=== PATIENT | female | born 1945 ===

== ENCOUNTER 2016-11-28 20:49 | Inpatient (IN) | payer MEDICARE, OTHER ==
[2016-11-28 21:05] VITALS: BMI 30.9
--- NOTE | 2016-11-28 21:14 | ED PDOC ---
Arrival/HPI - General Chief Complaint: Weakness/Neurological Deficit Time Seen by Provider: 11/28/16 21:07 Historian: [facility], EMS - History of Present Illness Narrative History of Present Illness (Text): 11/28/16 21:14 Romelia Trejo is a 71 year old female, whose past medical history includes hypertension, COPD, respiratory failure, dementia, seizures, diabetes, and CAD with stents, who presents to the ED transferred from senior care for hypothermia. As per EMS, an oral temperature was taken at the senior care which showed patient was hypothermic and patient was subsequently transferred to ER for further evaluation. [facility] note patient began acting more confused than usual around 15:00 this afternoon. [facility] also report patient had been congested recently and received nebulizer treatments at the senior care today. Limited HPI and ROS due to patient's dementia. PMD: Dr. Thacker Time/Duration: Other (today) Symptom Onset: Gradual Symptom Course: Unchanged Activities at Onset: Rest, Light Context: Home ([facility]) Past Medical History - Provider Review Nursing Documentation Reviewed: Yes - Infectious Disease Hx of Infectious Diseases: None - Tetanus Immunization Tetanus Immunization: Unknown - Cardiac Hx Cardiac Disorders: No Hx Congestive Heart Failure: No Hx Hypertension: No - Pulmonary Hx Chronic Obstructive Pulmonary Disease (COPD): No - Neurological HX Cerebrovascular Accident: No - HEENT Hx HEENT Disorder: No - Renal Hx Renal Failure: No - Endocrine/Metabolic Hx Diabetes Mellitus Type 1: No Hx Diabetes Mellitus Type 2: No Hx Hypothyroidism: Yes - Hematological/Oncological Hx Cancer: No - Integumentary Hx Dermatological Disorder: No - Musculoskeletal/Rheumatological Hx Arthritis: No Hx Rheumatoid Arthritis: No - Gastrointestinal Hx Gastroesophageal Reflux: No - Genitourinary/Gynecological Hx Genitourinary Disorders: Yes Hx Incontinence: Yes - Psychiatric Hx Psychophysiologic Disorder: Yes Hx Anxiety: Yes Hx Bipolar Disorder: Yes Hx Schizophrenia: Yes Hx Substance Use: (Unable to obtain) - Past Surgical History Past Surgical History: Unable to Obtain - Surgical History Hx Coronary Stent: Yes - Anesthesia Hx Anesthesia: No Hx Anesthesia Reactions: No Hx Malignant Hyperthermia: No - Suicidal Assessment Feels Threatened In Home Enviroment: No Family/Social History - Physician Review Nursing Documentation Reviewed: Yes Family/Social History: No Known Family HX Smoking Status: Never Smoked Hx Alcohol Use: (Unable to obtain) Hx Substance Use: (Unable to obtain) Hx Substance Use Treatment: No Allergies/Home Meds Allergies/Adverse Reactions: Allergies divalproex sodium [From Depakote] Allergy (Verified 07/28/16 11:05) RASH haloperidol [From Haldol] Allergy (Verified 07/28/16 11:05) RASH haloperidol lactate [From Haldol] Allergy (Verified 07/28/16 11:05) RASH olanzapine [From Zyprexa] Allergy (Verified 07/28/16 11:05) RASH quetiapine fumarate [From Seroquel] Allergy (Verified 07/28/16 11:06) RASH risperidone [From Risperdal] Allergy (Verified 07/28/16 11:05) RASH Home Medications: Home Meds Medication Instructions Recorded Confirmed Famotidine [Pepcid] 20 mg PO HS 07/19/15 11/29/16 LORazepam [Ativan] 1 mg PO TID 07/19/15 11/29/16 Levetiracetam [Keppra] 750 mg PO BID 07/19/15 11/29/16 Levothyroxine [Synthroid] 200 mcg PO DAILY 07/19/15 11/29/16 Albuterol/Ipratropium [Duoneb 3 1 inh INH Q6 PRN 07/28/16 11/29/16 mg/0.5 mg (3 ml) UD] Cetirizine HCl [Zyrtec] 10 mg PO DAILY 07/28/16 11/29/16 Cyanocobalamin [Vitamin B12 1000 1,000 mcg IM .MONTHLY ON THE 07/28/1611/29 mcg/ml Inj] Ferrous Sulfate [Feosol] 325 mg PO DAILY 07/28/16 11/29/16 Montelukast [Singulair] 10 mg PO DAILY 07/28/16 11/29/16 Multivitamin [Multi-Delyn Liquid] 5 ml PO DAILY 07/28/16 11/29/16 Propylene Glycol/Peg 400/Pf 1 drop BOTHEYES QID 07/28/16 11/29/16 [Systane Ultra 0.4-0.3% Eye Drp] Sertraline [Zoloft] 150 mg PO DAILY 07/28/16 11/29/16 Topiramate [Topamax] 100 mg PO BID 07/28/16 11/29/16 Review of Systems - Review of Systems Systems not reviewed;Unavailable: Dementia Constitutional: Other (+hypothermic) ENT: Other (+congestion) Neurological: Other (+confused) Physical Exam Vital Signs Reviewed: Yes Vital Signs Temp Pulse Resp BP Pulse Ox 11/29/16 03:24 94.8 F L 11/29/16 02:30 62 18 103/61 97 11/29/16 02:28 20 11/29/16 01:21 93.4 F L 11/29/16 01:00 60 17 105/39 L 99 11/29/16 00:05 63 15 119/53 L 95 11/28/16 23:35 90.9 F L 11/28/16 23:34 67 12 113/49 L 94 L 11/28/16 21:21 89.6 F L 68 18 141/86 99 Temperature: Hypothermic Blood Pressure: Normal Pulse: Regular Respiratory Rate: Normal Appearance: Positive for: Non-Toxic, Ill-Appearing Pain Distress: None Mental Status: Positive for: other (Poorly communicative, awake but somnolent) - Systems Exam Head: Present: Atraumatic, Normocephalic Pupils: Present: PERRL Extroacular Muscles: Present: EOMI Conjunctiva: Present: Normal Mouth: Present: Moist Mucous Membranes Neck: Present: Normal Range of Motion Respiratory/Chest: Present: Rhonchi. No: Respiratory Distress, Accessory Muscle Use Cardiovascular: Present: Regular Rate and Rhythm, Normal S1, S2. No: Murmurs Abdomen: Present: Normal Bowel Sounds. No: Tenderness, Distention, Peritoneal Signs Upper Extremity: Present: Normal Inspection. No: Cyanosis, Edema Lower Extremity: Present: Normal Inspection. No: Edema Neurological: Present: CN II-XII Intact Skin: Present: Warm, Dry, Normal Color. No: Rashes Psychiatric: Present: Other (Poorly communicative, awake but somnolent) Medical Decision Making ED Course and Treatment: 11/28/16 21:14 Impression: 71 year old female sent from senior care for hypothermia, confusion and congestion. Differential Diagnosis include but are not limited to: sepsis vs. hypothermia Plan: -- EKG -- CXR -- Labs, cardiac enzymes, VBG, blood cultures -- UA, urine cultures -- Reassess and disposition Prior Visits: Notes and results from previous visits were reviewed. On 07/28/2016, pt was seen in the Emergency department for lethargy. Pt was admitted to the hospital for further evaluation. Progress Notes: Reviewed EKG, 100% paced rhythm at 62 bpm. 11/28/16 22:20 Reviewed radiology, Chest X-ray shows no active disease. 11/29/16 00:[address] Thacker, who is aware and agrees with plan. Accepts pt in to her service. Requests ICU evaluation, Dr. John and Dr. Macias on consult. 11/29/16 01:[address] Peres, general pediatrician present in Emergency department to evaluate pt. States pt can go to Telemetry. Pt will be admitted to Telemetry for sepsis and hypothermia under Dr. Tolliver's service. - Critical Care Critical Care Minutes: 30 minutes - Lab Interpretations Microbiology Results: Microbiology Results 11/28/16 21:30 Blood Blood Culture - Preliminary NO GROWTH AFTER 24 HOURS 11/28/16 22:35 Blood Blood Culture - Preliminary NO GROWTH AFTER 24 HOURS Lab Results: 11/28/16 21:50 11/28/16 22:35 Lab Results 11/29/16 00:01: pCO2 51 H, pO2 113.0 H, HCO3 24.5, ABG pH 7.29 L, ABG Total CO2 26.1, ABG O2 Saturation 98.2 H, ABG O2 Content 15.9, ABG Base Excess -2.5 L, ABG Hemoglobin 11.6 L, ABG Carboxyhemoglobin 1.1, POC ABG HHb (Measured) 1.8, ABG Methemoglobin 0.7, ABG O2 Capacity 16.2, Hgb O2 Saturation 96.4, FiO2 28.0 11/28/16 23:30: Urine Color Yellow, Urine Appearance Sl cloudy, Urine pH 6.0, Ur Specific [place] 1.010, Urine Protein Negative, Urine Glucose (UA) Negative, Urine Ketones Negative, Urine Blood Negative, Urine Nitrate Positive H, Urine Bilirubin Negative, Urine Urobilinogen 0.2, Ur Leukocyte Esterase Small H, Urine RBC 0 - 2, Urine WBC 1 - 3, Ur Epithelial Cells 0 - 2, Urine Bacteria Many 11/28/16 22:35: pO2 55, VBG pH 7.28 L, VBG pCO2 60.0, VBG HCO3 28.2 H, VBG Total CO2 30.0 H, VBG O2 Sat (Calc) 90.5 H, VBG Base Excess 0.1, VBG Potassium 4.4, Glucose 95, Lactate 0.7, FiO2 21.0, Sodium 138.0, Potassium 4.3, Chloride 108.0 H, Carbon Dioxide 27, Anion Gap 13, BUN 20, Creatinine 0.9, Est GFR ( Amer) > 60, Est GFR (Non-Af Amer) > 60, Random Glucose 93, Calcium 9.6, Phosphorus 4.5, Magnesium 2.2, Total Bilirubin 0.3, AST 96 H, ALT 132 H, Alkaline Phosphatase 118, Lactate Dehydrogenase 414, Total Creatine Kinase 34 L , Troponin I 0.01 D, NT-Pro-B Natriuret Pep 1030 H, Total Protein 8.0, Albumin 3.9, Globulin 4.2, Albumin/Globulin Ratio 0.9 L, Venous Blood Potassium 4.4 11/28/16 21:50: WBC 1.9 L* D, RBC 4.24, Hgb 12.6, Hct 38.5, MCV 90.8, MCH 29.7, MCHC 32.7, RDW 13.5, Plt Count 80 L, MPV 11.0, Gran % Diffuser Operator, Lymph % (Auto) Diffuser Operator, [place] % (Auto) Diffuser Operator, Eos % (Auto) Diffuser Operator, Baso % (Auto) Diffuser Operator, Gran # Diffuser Operator, Lymph # Diffuser Operator, [place] # Diffuser Operator, Eos # Diffuser Operator, Baso # Diffuser Operator, Neutrophils % (Manual) 55, Band Neutrophils % 4 H, Lymphocytes % (Manual) 27, Monocytes % (Manual) 10 H, Eosinophils % (Manual) 3, Basophils % (Manual) 1, Platelet Evaluation Low 11/28/16 21:14: PT 10.7, INR 0.99, APTT 26.8 I have reviewed the lab results: Yes - RAD Interpretation Radiology Orders: 11/28/16 21:14 CHEST PORTABLE [RAD] Stat Director Of Quality: ED Physician - EKG Interpretation EKG Interpretation (Text): EKG: Ordered, reviewed, and independently interpreted the EKG. Rate : 62 BPM Rhythm : 100% paced rhythm Comparison : No acute change from previous EKG on 07/29/2016. Interpreted by ED Physician: Yes Type: 12 lead EKG - Medication Orders Current Medication Orders: Albuterol/Ipratropium (Duoneb 3 Mg/0.5 Mg (3 Ml) Ud) 3 ml INH Q6 [facility] Last Admin: 11/30/16 03:22 Dose: 3 ML Cyanocobalamin (Vitamin B12 1000 Mcg/Ml Inj) 1,000 mcg IM Q30D SHIVANI Famotidine (Pepcid) 20 mg PO HS SHIVANI Ferrous Sulfate (Feosol) 324 mg PO DAILY SHIVANI Heparin Sodium (Porcine) (Heparin) 5,000 units SC Q8 SHIVANI PRN Reason: Protocol Last Admin: 11/29/16 23:06 Dose: 5,000 UNITS MAR aPTT Document 11/29/16 23:06 LI (Rec: 11/29/16 23:06 LI [id number]) aPTT aPTT (secs) 27 Subcutaneous Administrations Document 11/29/16 23:06 LI (Rec: 11/29/16 23:06 LI [id number]) Charges for Administration # of Subcutaneous Administrations 1 Sodium Chloride (Sodium Chloride 0.9%) 1,000 mls @ 100 mls/hr IV .Q10H [facility] Last Admin: 11/29/16 11:57 Dose: 100 MLS/HR eMAR Start Stop Document 11/29/16 11:57 JFR (Rec: 11/29/16 11:58 TEJAS [id number]) Intravenous Solution Start Date 11/29/16 Start Time 11:58 Vancomycin HCl (Vancomycin 1gm) 250 mls @ 167 mls/hr IVPB Q12H SHIVANI PRN Reason: Protocol Last Admin: 11/29/16 23:09 Dose: 167 MLS/HR eMAR Start Stop Document 11/29/16 23:09 LI (Rec: 11/29/16 23:09 LI [id number]) Intravenous Solution Start Date 11/29/16 Start Time 23:09 End Date 11/30/16 End time 12:29 Total Infusion Time 800 Meropenem 1g/NS 100mL IVPB (Meropenem 1g/Ns 100ml Ivpb) 100 mls @ 100 mls/hr IVPB Q8 SHIVANI PRN Reason: Protocol Stop: 12/06/16 07:46 Last Admin: 11/29/16 23:07 Dose: 100 MLS/HR eMAR Start Stop Document 11/29/16 23:07 LI (Rec: 11/29/16 23:07 LI [id number]) Intravenous Solution Start Date 11/29/16 Start Time 23:07 End Date 11/30/16 End time 00:07 Total Infusion Time 60 Levetiracetam 750 mg/ Sodium (Chloride) 107.5 mls @ 460 mls/hr IV Q12 [facility]ANI Last Admin: 11/29/16 23:07 Dose: 460 MLS/HR eMAR Start Stop Document 11/29/16 23:07 LI (Rec: 11/29/16 23:08 LI [id number]) Intravenous Solution Start Date 11/29/16 Start Time 23:07 End Date 11/30/16 End time 00:07 Total Infusion Time 60 Famotidine (Pepcid 20mg/50ml Premix) 50 mls @ 100 mls/hr IVPB Q24H [facility] Last Admin: 11/29/16 11:51 Dose: 100 MLS/HR eMAR Start Stop Document 11/29/16 11:51 JFR (Rec: 11/29/16 11:51 OSWALDOR [id number]) Intravenous Solution Start Date 11/29/16 Start Time 11:51 Levetiracetam (Keppra) 750 mg PO BID [facility] Levothyroxine Sodium (Synthroid) 200 mcg PO DAILY [facility] Last Admin: 11/29/16 11:33 Dose: Not Given Non-Admin Reason: NPO Levothyroxine Sodium (Synthroid) 100 mcg IVP DAILY [facility] Last Admin: 11/29/16 11:51 Dose: 100 MCG IVP Administration Document 11/29/16 11:51 JFR (Rec: 11/29/16 11:51 OSWALDOR [id number]) Charges for Administration # of IVP Administrations 1 Loratadine (Claritin) 10 mg PO DAILY [facility] Last Admin: 11/29/16 11:33 Dose: Not Given Non-Admin Reason: NPO Lorazepam (Ativan) 2 mg IVP Q4H PRN; Protocol PRN Reason: Agitation Methylprednisolone (Solu-Medrol) 20 mg IVP Q12 [facility] Last Admin: 11/29/16 23:06 Dose: 20 MG IVP Administration Document 11/29/16 23:06 LI (Rec: 11/29/16 23:07 LI [id number]) Charges for Administration # of IVP Administrations 1 Montelukast Sodium (Singulair) 10 mg PO HS SHIVANI Multivitamins (Thera Tab) 1 tab PO DAILY [facility] Systane Ultra 0.4-0. 3% Eye Drp (Home Med) 1 drop OU QID [facility]IVANI Last Admin: 11/29/16 23:54 Dose: Sertraline HCl (Zoloft) 150 mg PO DAILY SHIVANI Topiramate (Topamax) 100 mg PO BID SHIVANI PRN Reason: Protocol Discontinued Medications Albuterol/Ipratropium (Duoneb 3 Mg/0.5 Mg (3 Ml) Ud) 3 ml IH ONCE STA Stop: 11/29/16 00:22 Last Admin: 11/29/16 01:13 Dose: 3 ML Albuterol/Ipratropium (Duoneb 3 Mg/0.5 Mg (3 Ml) Ud) 3 ml IH Q4H PRN PRN Reason: Wheezing Stop: 11/29/16 05:31 Albuterol/Ipratropium (Duoneb 3 Mg/0.5 Mg (3 Ml) Ud) 3 ml INH Q6 PRN PRN Reason: Wheezing Dextrose (Dextrose 50% Inj) 50 ml IVP ONCE ONE Stop: 11/29/16 22:37 Last Admin: 11/29/16 22:39 Dose: Not Given Non-Admin Reason: Blood Sugar Parameter Comments: NOT GIVEN-FSBS WAS 71 Cefepime HCl (Maxipime 2gm) 100 mls @ 100 mls/hr IVPB STAT STA PRN Reason: Protocol Stop: 11/29/16 00:34 Last Admin: 11/29/16 03:44 Dose: 100 MLS/HR eMAR Start Stop Document 11/29/16 03:44 [place] (Rec: 11/29/16 03:45 [facility] [id number] Intravenous Solution Start Date 11/29/16 Start Time 02:55 End Date 11/29/16 End time 03:45 Total Infusion Time 50 Vancomycin HCl (Vancomycin 1gm) 250 mls @ 133.333 mls/hr IVPB STAT STA PRN Reason: Protocol Stop: 11/29/16 01:28 Last Admin: 11/29/16 02:55 Dose: 133.333 MLS/HR eMAR Start Stop Document 11/29/16 02:55 [place] (Rec: 11/29/16 02:55 [facility] [id number] Intravenous Solution Start Date 11/29/16 Start Time 02:55 Sodium Chloride (Sodium Chloride 0.9%) 500 mls @ 999 mls/hr IV .Q31M STA Stop: 11/29/16 05:35 Last Admin: 11/29/16 05:10 Dose: 999 MLS/HR eMAR Start Stop Document 11/29/16 05:10 AP (Rec: 11/29/16 05:44 AP [facility] [id number]) Intravenous Solution Start Date 11/29/16 Start Time 05:10 Gentamicin Sulfate 160 mg/ (Sodium Chloride) 104 mls @ 100 mls/hr IVPB Q24H [facility]IVANI PRN Reason: Protocol Stop: 11/29/16 08:48 Last Admin: 11/29/16 08:41 Dose: 100 MLS/HR eMAR Start Stop Document 11/29/16 08:41 JFR (Rec: 11/29/16 08:41 JFR [facility] [id number]) Intravenous Solution Start Date 11/29/16 Start Time 08:41 Sodium Chloride (Sodium Chloride 0.9%) 1,000 mls @ 999 mls/hr IV .Q1H1M STA Stop: 11/29/16 15:42 Propofol (Diprivan) Confirm Administered Dose 100 mls @ ud .ROUTE .STK-MED ONE Stop: 11/30/16 02:56 Sodium Bicarbonate (Sodium Bicarbonate (8.4%) 50 Meq Syringe) 50 meq IVP ONCE ONE Stop: 11/29/16 22:34 Last Admin: 11/29/16 22:43 Dose: 50 MEQ IVP Administration Document 11/29/16 22:43 LI (Rec: 11/29/16 22:43 LI [id number]) Charges for Administration # of IVP Administrations 1 - Scribe Statement The provider has reviewed the documentation as recorded by the Meghana Caal Provider Attestation: All medical record entries made by the Scribjudit were at my direction and personally dictated by me. I have reviewed the chart and agree that the record accurately reflects my personal performance of the history, physical exam, medical decision making, and the department course for this patient. I have also personally directed, reviewed, and agree with the discharge instructions and disposition. Disposition/Present on Arrival - Present on Arrival Any Indicators Present on Arrival: No History of DVT/PE: No History of Uncontrolled Diabetes: Yes Urinary Catheter: No History of Decub. Ulcer: No History Surgical Site Infection Following: None - Disposition Have Diagnosis and Disposition been Completed?: Yes Diagnosis: Hypothermia, Sepsis Disposition: HOSPITALIZED Disposition Time: :30 Patient Plan: Admission Patient Problems: Current Active Problems Problem Status Diagnosed Epistaxis Acute Condition: GUARDED
[2016-11-28 22:20] LABS: INR 0.99 (0.93-1.08); PARTIAL THROMBOPLASTIN TIME 26.8 Seconds (23.7-30.8)
[2016-11-28 22:44] LABS: VENOUS BLOOD GAS BASE EXCESS 0.1 mmol/L (0.0-2.0); VENOUS BLOOD PH 7.28 (7.32-7.43)
[2016-11-28 22:45] LABS: HEMATOCRIT 38.5 % (36.0-48.0); MEAN CELL VOLUME 90.8 fL (80.0-105.0); MEAN CORPUSCULAR HEMOGLOBIN 29.7 pg (25.0-35.0); MEAN CORPUSCULAR HGB CONC 32.7 g/dl (31.0-37.0); RED CELL DISTRIBUTION WIDTH 13.5 % (11.5-14.5)
[2016-11-28 22:49] LABS: WHITE BLOOD COUNT 1.9 10^3/ul (4.5-11.0)
[2016-11-28 22:56] LABS: ALB/GLOB RATIO 0.9 (1.1-1.8); ALKALINE PHOSPHATASE 118 U/L (38-133); ALT/SGPT 132 U/L (7-56); AST/SGOT 96 U/L (15-39); BILIRUBIN,TOTAL 0.3 mg/dL (0.2-1.3); BLOOD UREA NITROGEN 20 mg/dL (7-21); CALCIUM 9.6 mg/dL (8.4-10.5); CARBON DIOXIDE 27 mmol/L (21-33); CHLORIDE 101 mmol/L (98-107); GFR AFRICAN-AMERICAN > 60; GLUCOSE,RANDOM 93 mg/dL (70-110); MAGNESIUM 2.2 mg/dL (1.7-2.2); PHOSPHOROUS 4.5 mg/dL (2.5-4.5); POTASSIUM 4.3 mmol/L (3.6-5.0); SODIUM 137 mmol/L (132-148)
[2016-11-28 23:09] LABS: TROPONIN I 0.01 ng/mL
[2016-11-28 23:27] LABS: PLATELET COUNT 80 10^3/uL (120.0-450.0)
[2016-11-28 23:28] LABS: ADD MANUAL DIFF? YES
[2016-11-28 23:29] LABS: BAND 4 % (0-2); BASOPHIL 1 % (0.0-1.0); EOSINOPHIL 3 % (0.0-3.0); NEUTROPHIL 55 % (50.0-70.0); PLATELET ESTIMATE LOW (NORMAL)
[2016-11-28 23:41] LABS: URINE BILIRUBIN NEGATIVE (NEGATIVE); URINE BLOOD NEGATIVE (NEGATIVE); URINE GLUCOSE (UA) NEGATIVE (NEGATIVE); URINE KETONE NEGATIVE (NEGATIVE); URINE LEUKOCYTE ESTERASE SMALL Leu/uL (NEGATIVE); URINE PROTEIN NEGATIVE mg/dL (<30 mg/dL); URINE UROBILINOGEN 0.2 E.U./dL (<1 E.U./dL)
[2016-11-28 23:49] LABS: URINE APPEARANCE SL CLOUDY (CLEAR); URINE COLOR YELLOW (YELLOW)
[2016-11-28 23:55] LABS: URINE BACTERIA MANY (NEG); URINE EPITHELIAL CELLS 0 - 2 /hpf (0-5); URINE RBC 0 - 2 /hpf (0-2)
[2016-11-29 00:07] LABS: ARTERIAL BLOOD GAS HCO3 24.5 mmol/L (21-28); ARTERIAL BLOOD GAS O2 CAPACITY 16.2 mL/dl (16-24); ARTERIAL BLOOD GAS O2 CONTENT 15.9 ML/dl (15-23); ARTERIAL BLOOD GAS PH 7.29 (7.35-7.45); ARTERIAL BLOOD HGB O2 SAT 96.4 % (95.0-98.0); CARBOXYHEMOGLOBIN 1.1 % (0.5-1.5); HHB 1.8 % (0-5); METHEMOGLOBIN 0.7 % (0.0-3.0)
[2016-11-29] MEDS: Albuterol-Ipratrop 3 mg / 0.5 (3 ml) UD IH STA (01:13)
--- NOTE | 2016-11-29 01:18 | CP.PCM.CON ---
History of Present Illness - History of Present Illness History of Present Illness: Reason for ICU Consult: ?Septic shock HPI: 71 y/o female with an extensive PMHx as listed below was sent to the [facility] [place] [facility] for altered mentation. As per the daughter who is present at bedside she states that the patient was visited by her son today who noticed that she was not her usual self in that she was less talkative and was not having a conversation with him. She last spoke with her mother 4 days ago on the phone at which time she was talking as per her baseline. The patient currently is not communicating with me, however she is tracking with her eyes and following simple commands. The patient's daughter states she does not know if the patient had any complaints or symptoms between and today so she can not provide any further information. Upon arrival from the [place] [facility] she was noted to be hypothermic with a temperature of 90F. PMHx: Afib on amiodarone COPD Htn Dementia Seizures Anxiety DM Bipolar Schizophrenia CAD leukopenia secondary to psych meds Most recent hospitalization 07/2016 - pneumonia requiring intubation and subsequent chest tube Allergies: Depakote Haldol Zyprexa Seroquel Fam Hx: reviewed and noncontributory Soc Hx: prior history of tobacco use; no illicit drug or alcohol use; lives at a [place] [facility] secondary to psychiatric illnesses Home meds: see med rec Review of Systems - Review of Systems Systems not reviewed;Unavailable: Altered Mental Status Past Patient History - Infectious Disease Hx of Infectious Diseases: None - Tetanus Immunizations Tetanus Immunization: Unknown - Past Medical History & Family History Past Medical History?: Yes - Past Social History Smoking Status: Never Smoked - CARDIAC Hx Cardiac Disorders: No Hx Congestive Heart Failure: No Hx Hypertension: No - PULMONARY Hx Chronic Obstructive Pulmonary Disease (COPD): No - NEUROLOGICAL HX Cerebrovascular Accident: No - HEENT Hx HEENT Problems: No - RENAL Hx Renal Failure: No - ENDOCRINE/METABOLIC Hx Diabetes Mellitus Type 1: No Hx Diabetes Mellitus Type 2: No Hx Hypothyroidism: Yes - HEMATOLOGICAL/ONCOLOGICAL Hx Cancer: No - INTEGUMENTARY Hx Dermatological Problems: No - MUSCULOSKELETAL/RHEUMATOLOGICAL Hx Arthritis: No Hx Rheumatoid Arthritis: No - GASTROINTESTINAL Hx Gastroesophageal Reflux: No - GENITOURINARY/GYNECOLOGICAL Hx Genitourinary Disorders: Yes Hx Incontinence: Yes - PSYCHIATRIC Hx Psychophysiologic Disorder: Yes Hx Anxiety: Yes Hx Bipolar Disorder: Yes Hx Schizophrenia: Yes Hx Substance Use: (Unable to obtain) - SURGICAL HISTORY Hx Coronary Stent: Yes - ANESTHESIA Hx Anesthesia: No Hx Anesthesia Reactions: No Hx Malignant Hyperthermia: No Meds Allergies/Adverse Reactions: Allergies Allergy/AdvReac Type Severity Reaction Status Date / Time divalproex sodium Allergy RASH Verified 07/28/16 11:05 [From Depakote] haloperidol [From Haldol] Allergy RASH Verified 07/28/16 11:05 haloperidol lactate Allergy RASH Verified 07/28/16 11:05 [From Haldol] olanzapine [From Zyprexa] Allergy RASH Verified 07/28/16 11:05 quetiapine fumarate Allergy RASH Verified 07/28/16 11:06 [From Seroquel] risperidone [From Risperdal] Allergy RASH Verified 07/28/16 11:05 - Medications Medications: Current Medications Vancomycin HCl (Vancomycin 1gm) 250 mls @ 133.333 mls/hr IVPB STAT STA PRN Reason: Protocol Stop: 11/29/16 01:28 Physical Exam - Constitutional Appears: Well, Non-toxic - Head Exam Head Exam: ATRAUMATIC, NORMOCEPHALIC - Eye Exam Eye Exam: EOMI, Normal appearance - ENT Exam ENT Exam: Mucous Membranes Dry - Respiratory Exam Respiratory Exam: Decreased Breath Sounds. absent: Rales, Rhonchi, Wheezes - Cardiovascular Exam Cardiovascular Exam: REGULAR RHYTHM, +S1, +S2 - GI/Abdominal Exam GI & Abdominal Exam: Normal Bowel Sounds, Soft. absent: Guarding, Rebound, Tenderness - Rectal Exam Rectal Exam: Deferred - Extremities Exam Extremities exam: Positive for: normal inspection - Neurological Exam Additional comments: Awake; alert; unable to assess orientation as the patient is currently nonverbal - Skin Skin Exam: Dry, Normal Color, Warm Results - Vital Signs Recent Vital Signs: Last Vital Signs Temp 90.9 F L 11/28/16 23:35 Pulse 67 11/28/16 23:34 Resp 12 11/28/16 23:34 BP 113/49 L 11/28/16 23:34 Pulse Ox 94 L 11/28/16 23:34 - Labs Result Diagrams: 11/28/16 21:50 11/28/16 22:35 Labs: Laboratory Results - last 24 hr 11/28/16 11/28/16 11/28/16 21:14 21:50 22:35 WBC 1.9 L* D RBC 4.24 Hgb 12.6 Hct 38.5 MCV 90.8 MCH 29.7 MCHC 32.7 RDW 13.5 Plt Count 80 L MPV 11.0 Gran % Pharmacy Benefit Manager Lymph % (Auto) Pharmacy Benefit Manager [place] % (Auto) Pharmacy Benefit Manager Eos % (Auto) Pharmacy Benefit Manager Baso % (Auto) Pharmacy Benefit Manager Gran # Pharmacy Benefit Manager Lymph # Pharmacy Benefit Manager [place] # Pharmacy Benefit Manager Eos # Pharmacy Benefit Manager Baso # Pharmacy Benefit Manager Neutrophils % (Manual) 55 Band Neutrophils % 4 H Lymphocytes % (Manual) 27 Monocytes % (Manual) 10 H Eosinophils % (Manual) 3 Basophils % (Manual) 1 Platelet Evaluation Low PT 10.7 INR 0.99 APTT 26.8 pCO2 pO2 55 HCO3 ABG pH ABG Total CO2 ABG O2 Saturation ABG O2 Content ABG Base Excess ABG Hemoglobin ABG Carboxyhemoglobin POC ABG HHb (Measured) ABG Methemoglobin ABG O2 Capacity VBG pH 7.28 L VBG pCO2 60.0 VBG HCO3 28.2 H VBG Total CO2 30.0 H VBG O2 Sat (Calc) 90.5 H VBG Base Excess 0.1 VBG Potassium 4.4 Hgb O2 Saturation Sodium 137 Chloride 101 Glucose 95 Lactate 0.7 FiO2 21.0 Potassium 4.3 Carbon Dioxide 27 Anion Gap 13 BUN 20 Creatinine 0.9 Est GFR ( Amer) > 60 Est GFR (Non-Af Amer) > 60 Random Glucose 93 Calcium 9.6 Phosphorus 4.5 Magnesium 2.2 Total Bilirubin 0.3 AST 96 H ALT 132 H Alkaline Phosphatase 118 Lactate Dehydrogenase 414 Total Creatine Kinase 34 L Troponin I 0.01 D NT-Pro-B Natriuret Pep 1030 H Total Protein 8.0 Albumin 3.9 Globulin 4.2 Albumin/Globulin Ratio 0.9 L Venous Blood Potassium 4.4 Urine Color Urine Appearance Urine pH Ur Specific [place] Urine Protein Urine Glucose (UA) Urine Ketones Urine Blood Urine Nitrate Urine Bilirubin Urine Urobilinogen Ur Leukocyte Esterase Urine RBC Urine WBC Ur Epithelial Cells Urine Bacteria 11/28/16 11/29/16 23:30 00:01 WBC RBC Hgb Hct MCV MCH MCHC RDW Plt Count MPV Gran % Lymph % (Auto) [place] % (Auto) Eos % (Auto) Baso % (Auto) Gran # Lymph # [place] # Eos # Baso # Neutrophils % (Manual) Band Neutrophils % Lymphocytes % (Manual) Monocytes % (Manual) Eosinophils % (Manual) Basophils % (Manual) Platelet Evaluation PT INR APTT pCO2 51 H pO2 113.0 H HCO3 24.5 ABG pH 7.29 L ABG Total CO2 26.1 ABG O2 Saturation 98.2 H ABG O2 Content 15.9 ABG Base Excess -2.5 L ABG Hemoglobin 11.6 L ABG Carboxyhemoglobin 1.1 POC ABG HHb (Measured) 1.8 ABG Methemoglobin 0.7 ABG O2 Capacity 16.2 VBG pH VBG pCO2 VBG HCO3 VBG Total CO2 VBG O2 Sat (Calc) VBG Base Excess VBG Potassium Hgb O2 Saturation 96.4 Sodium Chloride Glucose Lactate FiO2 28.0 Potassium Carbon Dioxide Anion Gap BUN Creatinine Est GFR ( Amer) Est GFR (Non-Af Amer) Random Glucose Calcium Phosphorus Magnesium Total Bilirubin AST ALT Alkaline Phosphatase Lactate Dehydrogenase Total Creatine Kinase Troponin I NT-Pro-B Natriuret Pep Total Protein Albumin Globulin Albumin/Globulin Ratio Venous Blood Potassium Urine Color Yellow Urine Appearance Sl cloudy Urine pH 6.0 Ur Specific [place] 1.010 Urine Protein Negative Urine Glucose (UA) Negative Urine Ketones Negative Urine Blood Negative Urine Nitrate Positive H Urine Bilirubin Negative Urine Urobilinogen 0.2 Ur Leukocyte Esterase Small H Urine RBC 0 - 2 Urine WBC 1 - 3 Ur Epithelial Cells 0 - 2 Urine Bacteria Many - Imaging and Cardiology Chest x-ray Status: Image reviewed by me (cardiomegaly; AICD noted; mild pulmonary vascular congestion; no clearly defined consolidate or infiltrate noted) Assessment & Plan - Assessment and Plan (Free Text) Assessment: 71 y/o female with an extensive pMHx sent [place] [facility] to the ED to be evaluated for altered mentation. She is noted to be hypothermic, which is currently improving (89 on arrival to 94 now). Labwork reveals mild hypercapnic retention (she may benefit from high-flow oxygen to help clear her C02) and an obvious urinary tract infection. At this time she requires continued IV Abx, continued adarsh hugger to help increase her temperature and IVF hydration for her sepsis (by definition she has sepsis secondary to her acute cystitis without being severe sepsis or septic shock). Although the patient is acutely ill and requires hospitalization, she does not require aggressive level ICU care at this time and should be admitted to a monitored bed for further treatment. In the case that her condition worsens or deteriorates, I will be available in house until 7am for a re-evaluation as needed. Case discussed at length with Dr. Yoon labs and images available thus far have been reviewed Plan: Recommendations: continue broad spectrum IV Abx IVF hydration to maintain a MAP > 65 (currently has a MAP of 75 without IVF) follow up urine cultures/blood cultures neuro checks Q4 high flow oxygen @ 35% Fi02 adarsh hugger until temp is at least 96F Consultation with ID
[2016-11-29] MEDS ORDERED: Albuterol-Ipratrop 3 mg / 0.5 (3 ml) UD IH PRN (01:30)
[2016-11-29] MEDS: Vancomycin 1gm in NS 250ml 250 ML IVPB STA (02:55)
[2016-11-29] MEDS: Cefepime IV 2 gm in NS 100 ML IVPB STA ×2 (02:55→03:44)
--- NOTE | 2016-11-29 04:49 | CP.PCM.PN ---
Subjective - Date & Time of Evaluation Date of Evaluation: 11/29/16 Time of Evaluation: 04:48 - Subjective Subjective: Nurse calls because BP 106/41 dropped to ---> 85/37. 97%, 35% on high flow. Patient was seen at bedside. Has no complaints. Denies chest pain, sob, nausea , sweating , palpitation. This 71 year old woman was admitted for confusion, hypothermia. Has PMH of dementia, HTN, respiratory failure, seizure, DM II, CAD with stent placement,schizophrenia, anxiety , bipolar disorder. Objective - Vital Signs/Intake and Output Vital Signs (last 24 hours): Temp Pulse Resp BP Pulse Ox 94.8 F L 62 18 103/61 97 11/29/16 03:24 11/29/16 02:30 11/29/16 02:30 11/29/16 02:30 11/29/16 02:30 - Medications Medications: Current Medications Albuterol/Ipratropium (Duoneb 3 Mg/0.5 Mg (3 Ml) Ud) 3 ml IH Q4H PRN PRN Reason: Wheezing Stop: 11/29/16 05:31 Cefepime HCl (Maxipime 1gm) 100 mls @ 100 mls/hr IVPB Q24H SHIVANI PRN Reason: Protocol Sodium Chloride (Sodium Chloride 0.9%) 1,000 mls @ 100 mls/hr IV .Q10H SHIVANI Vancomycin HCl (Vancomycin 1gm) 250 mls @ 167 mls/hr IVPB Q12H SHIVANI PRN Reason: Protocol - Labs Labs: PT 10.7 Seconds (9.9-11.8) 11/28/16 21:14 INR 0.99 (0.93-1.08) 11/28/16 21:14 APTT 26.8 Seconds (23.7-30.8) 11/28/16 21:14 - Constitutional Appears: Well, No Acute Distress - Head Exam Head Exam: ATRAUMATIC, NORMAL INSPECTION, NORMOCEPHALIC - Eye Exam Eye Exam: Normal appearance - ENT Exam ENT Exam: Mucous Membranes Dry - Neck Exam Neck Exam: Normal Inspection - Respiratory Exam Respiratory Exam: NORMAL BREATHING PATTERN - Cardiovascular Exam Cardiovascular Exam: absent: JVD - GI/Abdominal Exam GI & Abdominal Exam: absent: Distended - Rectal Exam Rectal Exam: Deferred - Extremities Exam Extremities Exam: Normal Inspection - Back Exam Back Exam: NORMAL INSPECTION - Neurological Exam Neurological Exam: Alert - Psychiatric Exam Psychiatric exam: Normal Affect, Normal Mood - Skin Skin Exam: Dry, Normal Color Assessment and Plan - Assessment and Plan (Free Text) Assessment: A/P:Hypotension. Hypovolemia. DM II. CAD. Normal saline 500 CC IV over 30 minutes. Venous blood gas lactate level.
[2016-11-29] MEDS ORDERED: Sodium Chloride 0.9% 500 ML IV STA (05:05)
[2016-11-29 05:39] LABS: VENOUS BLOOD GAS BASE EXCESS -2.4 mmol/L (0.0-2.0); VENOUS BLOOD PH 7.23 (7.32-7.43)
[2016-11-29] MEDS: Sodium Chloride 0.9% 1,000 ML IV SCH ×2 (05:44→11:57)
[2016-11-29] MEDS ORDERED: Cefepime IV 2 gm in NS 100 ML IVPB SCH (07:30)
[2016-11-29] MEDS: Meropenem 1g/NS 100mL IVPB 100 ML IVPB SCH ×3 (07:44→23:07)
[2016-11-29] MEDS ORDERED: Gentamicin 160 MG in Sodium Chloride 0.9% 100 ML IVPB SCH (07:45)
--- NOTE | 2016-11-29 08:37 | RAD ---
HISTORY: Sepsis Patient COMPARISON: 08/06/2016 FINDINGS: LUNGS: No active pulmonary disease. PLEURA: No significant pleural effusion identified, no pneumothorax apparent. CARDIOVASCULAR: Permanent pacemaker OSSEOUS STRUCTURES: No significant abnormalities. VISUALIZED UPPER ABDOMEN: Normal. OTHER FINDINGS: None. IMPRESSION: No active disease.
--- NOTE | 2016-11-29 10:16 | CARD ---
APPROVED REPORT EKG Measurement Heart [id number] OH P102 [id number] <Conclusion> Electronic ventricular pacemaker
[2016-11-29] MEDS ORDERED: Albuterol-Ipratrop 3 mg / 0.5 (3 ml) UD INH PRN (10:30)
[2016-11-29] MEDS ORDERED: Cefepime 1gm in NS 100ml 100 ML IVPB SCH (11:00)
[2016-11-29] MEDS: Levothyroxine 200 MCG TAB PO SCH (11:33)
[2016-11-29 11:40] LABS: CHOLESTEROL 160 mg/dL (130-200)
[2016-11-29] MEDS: Levothyroxine 100 mcg (0.1 mg) Inj IVP SCH (11:51)
[2016-11-29] MEDS: Famotidine 20mg/50ml 50 ML IVPB SCH (11:51)
[2016-11-29] MEDS: Vancomycin 1gm in NS 250ml 250 ML IVPB SCH ×2 (11:52→23:09)
[2016-11-29 12:17] LABS: ARTERIAL BLOOD GAS HCO3 22.3 mmol/L (21-28); ARTERIAL BLOOD GAS O2 CAPACITY 14.2 mL/dl (16-24); ARTERIAL BLOOD GAS O2 CONTENT 13.9 ML/dl (15-23); ARTERIAL BLOOD GAS PH 7.24 (7.35-7.45); CARBOXYHEMOGLOBIN 1.1 % (0.5-1.5); HHB 2.2 % (0-5); METHEMOGLOBIN 0.8 % (0.0-3.0)
[2016-11-29 14:12] LABS: IRON 102 ug/dL (45-180)
[2016-11-29] MEDS ORDERED: Sodium Chloride 0.9% 1,000 ML IV STA (14:42)
[2016-11-29] MEDS: EYE DRP OU SCH ×3 (14:52→23:54)
[2016-11-29] MEDS: SYSTANE ULTRA OU SCH ×3 (14:52→23:54)
--- NOTE | 2016-11-29 15:23 | CON ---
DATE: 11/29/2016 REASON FOR CONSULTATION AND FOLLOWUP: Cardiac evaluation, admitted with possible sepsis, septic shoc k, altered mental status. BRIEF CLINICAL HISTORY: A 71-year-old female, resident of a custodial, sent to the [facility] (formerly [facility]) because of altered mental status. The information obtained from the chart and the family me mber. The patient is noncommunicable in 270, bed 2, not in apparent distress, on warming blanket. PAST MEDICAL HISTORY: Significant for atrial fibrillation, COPD, dementia, seizure disorder, anxiety , diabetes, bipolar disorder, schizophrenia, obstructive sleep apnea on BiPAP, history of pacemaker i n the past, history of paroxysmal atrial fibrillation, hypothyroidism, seizure disorder, history of C O2 narcosis in the past, history of respiratory failure requiring intubation because of CO2 narcosis in the past, history of congestive heart failure, history of hypothyroidism, morbid obesity, history of atrial fibrillation, history of dual chamber pacemaker in the past. PREVIOUS CARDIAC WORKUP: The patient had echocardiography done 07/29/2016 that shows borderline hype rtrophy, LVH, ejection fraction 52%, moderate mitral regurgitation, moderate tricuspid regurgitation, RV systolic pressure 54. CURRENT MEDICATIONS: The patient at the custodial was taking Topamax, Zoloft, multivitamin, Singu lair, Synthroid, Keppra, Ativan, ferrous sulfate, Pepcid, vitamin B12, Zyrtec and DuoNeb nebulizer tr eatment. ALLERGIES: , HALDOL, ZYPREXA, SEROQUEL AND RISPERDAL. REVIEW OF SYSTEMS: As per HPI. PHYSICAL EXAMINATION: VITAL SIGNS: Temperature afebrile, heart rate 60, blood pressure 125/50. On admission, the temperat ure rectal was 90. IMPRESSION: Hypothermic, sepsis, possible septic shock, morbid obesity, diabetes, hypertension, hype rlipidemia, chronic atrial fibrillation, status post dual chamber pacemaker. Last echo shows ejectio n fraction 52%, mild to moderate mitral regurgitation, mild to moderate tricuspid regurgitation, pulm onary hypertension. RECOMMENDATION: Broad spectrum antibiotic. Continue warming blanket to keep the temperature 98. Ov erall, patient's condition is critical. Long-Term prognosis is guarded. History of dual chamber pace maker, history of carbon dioxide narcosis, hypertension, seizure disorder, hypothyroidism. Most rece nt echo on 07/29/2016, as mentioned, ejection fraction 52%, moderate mitral regurgitation, moderate t ricuspid regurgitation, ejection fraction 52%, right ventricular systolic pressure 54. Continue ____ _ treatment. Continue IV fluid. Continue ferrous sulfate. Continue broad-spectrum antibiotic. Con tinue warming blanket. We will follow with you. Overall, patient's condition is critical. Long-Term prognosis is guarded. We will follow with you. Thank you, Dr. Thacker, for providing us the opportunity in taking care of the patient. Ramírez Phan MD cc: [id number] TT: 11/29/2016 15:22:53 Confirmation # [id number] Dictation # [id number]
--- NOTE | 2016-11-29 15:34 | CT ---
PROCEDURE: CT HEAD WITHOUT CONTRAST. HISTORY: AMS COMPARISON: 07/19/2015 TECHNIQUE: Axial computed tomography images were obtained through the head/brain without intravenous contrast. Radiation dose: Total exam DLP = 835 mGy-cm. This CT exam was performed using one or more of the following dose reduction techniques: Automated exposure control, adjustment of the mA and/or kV according to patient size, and/or use of iterative reconstruction technique. FINDINGS: HEMORRHAGE: No intracranial hemorrhage. BRAIN: No mass effect or edema. No atrophy or chronic microvascular ischemic changes. VENTRICLES: Unremarkable. No hydrocephalus. CALVARIUM: Unremarkable. PARANASAL SINUSES: Unremarkable as visualized. No significant inflammatory changes. MASTOID AIR CELLS: Unremarkable as visualized. No inflammatory changes. OTHER FINDINGS: None. IMPRESSION: No acute findings
--- NOTE | 2016-11-29 15:51 | CT ---
PROCEDURE: CT Abdomen and Pelvis without intravenous contrast HISTORY: abdominal abscess COMPARISON: None. TECHNIQUE: Without contrast.. Contrast Dose: Radiation dose: Total exam DLP = 1675 mGy-cm. This CT exam was performed using one or more of the following dose reduction techniques: Automated exposure control, adjustment of the mA and/or kV according to patient size, and/or use of iterative reconstruction technique. FINDINGS: LOWER THORAX: There is a pleural effusion at the left lung base that appears to be loculated. This measures 3.5 x 10 cm in size as seen on image 22 series 2. LIVER: Unremarkable. No gross lesion or ductal dilatation. GALLBLADDER AND BILE DUCTS: Small gallstones PANCREAS: Unremarkable. No gross lesion or ductal dilatation. SPLEEN: Unremarkable. ADRENALS: Unremarkable. No mass. KIDNEYS AND URETERS: Unremarkable. No hydronephrosis. No solid mass. VASCULATURE: Unremarkable. No aortic aneurysm. BOWEL: Unremarkable. No obstruction. No gross mural thickening. There is a small fat containing ventral hernia. The hernia measures 15 mm in diameter. This is seen on image 105. APPENDIX: Unremarkable. Normal appendix. PERITONEUM: Unremarkable. No free fluid. No free air. LYMPH NODES: Unremarkable. No enlarged lymph nodes. BLADDER: Unremarkable. REPRODUCTIVE: Unremarkable. BONES: No acute fracture. OTHER FINDINGS: None. IMPRESSION: Probable loculated pleural effusion at the left lung base
[2016-11-29 17:07] LABS: FOLATE 2.7 ng/mL
--- NOTE | 2016-11-29 18:08 | CP.PCM.CON ---
History of Present Illness - History of Present Illness History of Present Illness: 71 year old female with PMH of septic shock from hospital-acquired pneumonia , hypertension, chronic obstructive lung disease, chronic congestive heart failure , chronic atrial fibrillation, schizophrenia, diabetes mellitus, coronary artery disease S/P pacemaker placement, obesity with body mass index of 41 was [facility] because of [facility]argy and generalized weakness. She was apparently still communicating well about 4 days ago at the jail but yesterday she was noted to be lethargic. There was no note of fever in the jail, no vomiting, no diarrhea, no loss of consciousness, no no bowel or bladder incontinence, no convulsions. In the ED, she was noted to be hypothermic and leukopenic. Infectious Diseases consult is requested to further evaluate and manage. Full review of systems is difficult to obtain because of the patient's lethargy. Review of Systems - Review of Systems Systems not reviewed;Unavailable: Altered Mental Status Past Patient History - Infectious Disease Hx of Infectious Diseases: None - Tetanus Immunizations Tetanus Immunization: Unknown - Past Medical History & Family History Past Medical History?: Yes - Past Social History Smoking Status: Former Smoker - CARDIAC Hx Cardiac Disorders: No Hx Congestive Heart Failure: No Hx Hypertension: No - PULMONARY Hx Chronic Obstructive Pulmonary Disease (COPD): No - NEUROLOGICAL HX Cerebrovascular Accident: No - HEENT Hx HEENT Problems: No - RENAL Hx Renal Failure: No - ENDOCRINE/METABOLIC Hx Diabetes Mellitus Type 1: No Hx Diabetes Mellitus Type 2: No Hx Hypothyroidism: Yes - HEMATOLOGICAL/ONCOLOGICAL Hx Cancer: No - INTEGUMENTARY Hx Dermatological Problems: No - MUSCULOSKELETAL/RHEUMATOLOGICAL Hx Arthritis: No Hx Falls: Yes - GASTROINTESTINAL Hx Gastroesophageal Reflux: No - GENITOURINARY/GYNECOLOGICAL Hx Genitourinary Disorders: Yes Hx Incontinence: Yes - PSYCHIATRIC Hx Psychophysiologic Disorder: Yes Hx Anxiety: Yes Hx Bipolar Disorder: Yes Hx Schizophrenia: Yes Hx Substance Use: (Unable to answer) - SURGICAL HISTORY Hx Surgeries: No Hx Coronary Stent: Yes - ANESTHESIA Hx Anesthesia: No Hx Anesthesia Reactions: No Hx Malignant Hyperthermia: No Meds Allergies/Adverse Reactions: Allergies Allergy/AdvReac Type Severity Reaction Status Date / Time divalproex sodium Allergy RASH Verified 07/28/16 11:05 [From Depakote] haloperidol [From Haldol] Allergy RASH Verified 07/28/16 11:05 haloperidol lactate Allergy RASH Verified 07/28/16 11:05 [From Haldol] olanzapine [From Zyprexa] Allergy RASH Verified 07/28/16 11:05 quetiapine fumarate Allergy RASH Verified 07/28/16 11:06 [From Seroquel] risperidone [From Risperdal] Allergy RASH Verified 07/28/16 11:05 - Medications Medications: Current Medications Sodium Chloride (Sodium Chloride 0.9%) 1,000 mls @ 100 mls/hr IV .Q10H SHIVANI Last Admin: 11/29/16 05:44 Dose: 100 mls/hr Vancomycin HCl (Vancomycin 1gm) 250 mls @ 167 mls/hr IVPB Q12H SHIVANI PRN Reason: Protocol Cefepime HCl (Maxipime 2gm) 100 mls @ 100 mls/hr IVPB Q8 SHIVANI PRN Reason: Protocol Stop: 12/04/16 07:31 Physical Exam - Constitutional Appears: Other (lethargic) - Head Exam Head Exam: NORMAL INSPECTION - Neck Exam Neck exam: Negative for: Lymphadenopathy, Meningismus - Respiratory Exam Respiratory Exam: Decreased Breath Sounds - Cardiovascular Exam Cardiovascular Exam: +S1, +S2 - GI/Abdominal Exam GI & Abdominal Exam: Soft. absent: Tenderness Results - Vital Signs Recent Vital Signs: Last Vital Signs Temp 95 F L 11/29/16 06:00 Pulse 60 11/29/16 06:00 Resp 19 11/29/16 06:00 BP 125/50 L 11/29/16 06:00 Pulse Ox 97 11/29/16 06:00 - Labs Result Diagrams: 11/28/16 21:50 11/28/16 22:35 Labs: Laboratory Results - last 24 hr 11/29/16 05:30 pO2 78 H VBG pH 7.23 L VBG pCO2 63.0 H VBG HCO3 26.4 VBG Total CO2 28.3 H VBG O2 Sat (Calc) 96.0 H VBG Base Excess -2.4 L VBG Potassium 4.6 Sodium 138.0 Chloride 111.0 H Glucose 58 L Lactate 0.4 L FiO2 21.0 Venous Blood Potassium 4.6 Assessment & Plan - Assessment and Plan (Free Text) Plan: Assessment consider severe sepsis with acute encephalopathy probably secondary to urinary tract infection R/O pneumonia history of septic shock S/P ventilator-dependent respiratory failure probably from hospital-acquired pneumonia in 2015 hypertension chronic obstructive lung disease chronic congestive heart failure chronic atrial fibrillation schizophrenia diabetes mellitus coronary artery disease S/P pacemaker placement obesity with body mass index of 37 Plan started patient on Vancomycin and Meropenem pending blood cx, urine cx, sputum cx; reviewed CXR - may need to repeat it tomorrow; follow up CT scan of the abdomen and pelvis; follow up PCT levels Will monitor clinically
--- NOTE | 2016-11-29 18:23 | CON ---
DATE: 11/29/2016 HISTORY OF PRESENT ILLNESS: This is a 71-year-old lady with history of dementia and a assisted resident, who presented with hypothermia and substantially altered mental status yesterday to the [facility]. Her urinalysis was positive for some nitrites and leukocyte esterase. Her chest x-ray was concerning for left lower lobe infiltrate. Presumed diagnosis of severe sepsis of UTI was established; however, patient remains hemodynamically stable and was transferred to telemetry for further monitoring and management. No nausea, no vomiting, no diarrhea or constipation. Today, the patient's mental status continued to deteriorate. Her blood pressure dropped down. It was felt that neither urinalysis nor chest x-ray findings would be able to explain deterioration of her clinical status. CAT scan of the abdomen and pelvis was performed, which did not reveal any intraabdominal acute pathology; however, confirmed some pleural effusion in the left side and some consolidation in the left lower lobe. No chest pain or shortness of breath. No constipation or diarrhea. The patient was admitted to ICU for further management and monitoring. PAST MEDICAL HISTORY: Dementia, atrial fibrillation, COPD, seizure disorder, anxiety, diabetes, bipolar disorder, schizophrenia, obstructive sleep apnea, paroxysmal atrial fibrillation, hypothyroidism. MEDICATIONS AT HOME: MiraLax, multivitamin, Singulair, Synthroid, Keppra, Ativan , Feosol, Pepcid, cetirizine, Toprol, and Zoloft. ALLERGIES: DEPAKOTE, HALDOL, ZYPREXA, SEROQUEL, RISPERDAL. FAMILY HISTORY: Noncontributory. SOCIAL HISTORY: No alcohol or illicit drug abuse. No current tobacco smoking. REVIEW OF SYSTEMS: Revealed 12 organ system other than mentioned in history of present illness is negative. PHYSICAL EXAMINATION: VITAL SIGNS: Temperature 96.7, heart rate 56, blood pressure is 107/41, respiratory rate 20, oxygen saturation 100%. HEAD AND NECK: Atraumatic. LUNGS: Clear to auscultation bilaterally. HEART: Regular rate and rhythm. S1, S2 normal. ABDOMEN: Soft, nontender, nondistended. MUSCULOSKELETAL: There is an implanted pacemaker in the left upper chest. Trace bilateral pedal and ankle edema. NEUROLOGIC: The patient moves all extremities spontaneously. SKIN: Moist. PSYCHIATRIC: The patient is very lethargic and only open her eyes on touch stimuli. LABORATORY DATA: WBC 1.9, hemoglobin 12.6, platelet count 80. Sodium 137, potassium 4.3, chloride 101, carbon dioxide 27, BUN 20, creatinine 0.9, glucose 93, ALT 132. ProBNP 1030, troponin 0.01. Vitamin B12 more than 1000. TSH 2.7. Head CT: No acute intracranial findings. Abdominal and pelvic CAT scan revealed small pleural effusion in the left lower lobe and no acute intra-abdominal findings, no obstruction, no gross mural thickening. There is a small fat containing ventral hernia MEDICATIONS: In the hospital, the patient is on Claritin, DuoNeb every 6 hours , Keppra, meropenem, Pepcid, Solu-Medrol 20 mg IV q. 12, Singulair, Synthroid, Topamax, vancomycin and Zoloft. ASSESSMENT AND PLAN: This is a 71-year-old lady with likely severe sepsis with multiorgan dysfunction syndrome including pancytopenia, hypercarbic respiratory insufficiency, septic encephalopathy in the setting of urinary tract infection and a community-acquired pneumonia (formally would have been known as healthcare -associated pneumonia in application to this patient). At present time, we will proceed with IV fluid resuscitation. (The patient received 1 liter of normal saline earlier today and continue on normal saline 100 mL per hour), patient is on broad-spectrum antibiotics. CRP will be ordered and low-dose steroids will be ordered as well. The patient has hypercarbic respiratory insufficiency and she will be on BiPAP, short trial with a low threshold for intubation in mind. We will repeat ABG to follow up on that as well. Procalcitonin is pending. Will continue with Keppra for seizure prophylaxis as well. ID service is following the patient as well. We will continue patient n.p.o. for now until the possibility of intubation becomes remote. We will continue to target blood glucose was 140-180 range and avoid hypoglycemia. We will continue with pulmonary toilet, bronchodilators. We will continue with deep venous thrombosis and gastrointestinal prophylaxis. ccm time 40 min Mele Mckeon MD cc: [id number] TT: 11/29/2016 18:23:14 Confirmation # [id number] Dictation # [id number] ln MTDD
[2016-11-29] MEDS: Albuterol-Ipratrop 3 mg / 0.5 (3 ml) UD INH SCH (19:47)
[2016-11-29] MEDS ORDERED: Arformoterol 15 mcg/2 ml Inh Sol IH SCH (20:00)
[2016-11-29] MEDS ORDERED: Budesonide 0.5 mg/2 ml Inhal Susp UD IH SCH (20:00)
[2016-11-29 20:14] LABS: ADD MANUAL DIFF? NO
[2016-11-29 20:16] LABS: EOS # 0.1 (0.0-0.7); EOS % 2.7 % (1.5-5.0); GRAN # 1.31 (1.4-6.5); GRAN % 58.7 % (50.0-68.0); HEMATOCRIT 35.7 % (36.0-48.0); LYMPH # 0.6 (1.2-3.4); LYMPH % 26.5 % (22.0-35.0); MEAN CELL VOLUME 93.7 fL (80.0-105.0); MEAN CORPUSCULAR HEMOGLOBIN 29.4 pg (25.0-35.0); MEAN CORPUSCULAR HGB CONC 31.4 g/dl (31.0-37.0); MEAN PLATELET VOLUME 11.1 fl (7.0-11.0); MONO # 0.3 (0.1-0.6); MONO % 12.1 % (1.0-6.0); PLATELET COUNT 76 10^3/uL (120.0-450.0); RED CELL DISTRIBUTION WIDTH 13.9 % (11.5-14.5)
[2016-11-29 20:22] LABS: WHITE BLOOD COUNT 2.2 10^3/ul (4.5-11.0)
--- NOTE | 2016-11-29 20:32 | CON ---
DATE: 11/29/2016 REFERRING PHYSICIAN: Dr. Thacker. REASON FOR CONSULT: Respiratory failure, chronic lung disease, morbid obesity, hypoventilation syndr ome, noncompliant with the CPAP/BiPAP. HISTORY OF PRESENT ILLNESS: This is a 71-year-old female with hypoventilation syndrome, chronic obst ructive lung disease, may have a sleep apnea syndrome, schizophrenia, noncompliant with the medicatio n and CPAP/BiPAP brought into Emergency Room with hypothermia, altered mental status, sleepy, being t reated for sepsis. She was admitted on the floor, started on high flow oxygen with CO2 retention and respiratory acidosis she is transferred to intensive care unit for further management. She is arous able, but lethargic. There is no hemoptysis, no hematemesis, no hematuria reported. PAST MEDICAL HISTORY: Chronic obstructive lung disease, hypoventilation syndrome, schizophrenic, sei zure disorder, diabetes, paroxysmal atrial fibrillation, hypothyroid. ALLERGIES: RISPERDAL, SEROQUEL, APRAXIA, HALDOL AND DEPAKOTE. FAMILY HISTORY: No significant cardiopulmonary disease reported. SOCIAL HISTORY: There is no recent smoking or alcohol use. MEDICATIONS: She is on Levetiracetam 750 mg q. 12 hours, meropenem 1 g IV q. 8 hours, Pepcid 20 mg at bedtime, Singulair 10 mg daily, IV fluid normal saline 100 mL per hour, Solu-Medrol 20 mg q. 12 ho urs, Synthroid 100 mcg daily, multivitamins daily, Topamax 100 mg twice a day which is on hold, vanco mycin 1 g IV q. 12 hours, vitamin B12 1000 mcg daily. REVIEW OF SYSTEMS: She is lethargic, arousable, goes back to sleep on high flow oxygen. There is no cough, no sputum production, no hemoptysis, no hematemesis, no hematuria, no diarrhea reported. PHYSICAL EXAMINATION: GENERAL: On high flow oxygen, lethargic, afebrile. VITAL SIGNS: Temperature is 96.7, heart rate is 56, respiratory rate is 22, blood pressure 115/54, p ulse ox 94% on high flow nasal cannula. HEENT: Moist mucous membranes. Crowded airway. Mallampati score is 4. NECK: Supple. No JVD. LUNGS: Has a poor airflow. HEART: S1, S2. ABDOMEN: Soft, nontender. No organomegaly. EXTREMITIES: There is no edema. NEUROLOGIC: Lethargic, arousable, but falls back to sleep. LABORATORY DATA: Shows hemoglobin 12.6, hematocrit 38.5, WBC 1.9, platelet is 80. INR 0.09 and PTT is 27. Blood gases this morning shows pH 7.29, pCO2 is 50 and O2 113 that is on high flow oxygen. S odium 137, potassium 4.3, chloride 101, bicarbonate 27, BUN 20, creatinine 0.9, glucose 93, calcium 9 .6, phosphorus 4.5, magnesium 2.2, AST 96, ALT 132, alkaline phosphatase is 118. Troponin is 0.01. ProBNP 1030. Albumin 3.9, cholesterol is 160, iron is 102, procalcitonin 0.42. A CAT scan of the he ad done today which shows no acute findings. Chest x-ray shows no infiltrate or effusion. IMPRESSION AND PLAN: Respiratory failure, rule out sepsis, may have a sleep apnea syndrome, bipolar disorder, hypoventilation syndrome. Case discussed with study assistant, Dr. Mckeon, to evaluate the p atient. The patient will need to go to intensive care unit for close monitoring and needs BiPAP bay nvasive ventilation. Continue antibiotics. Continue steroids, inhaled bronchodilator, keep head amada vated at 45 degree. Continue Synthroid. Follow up ABG, chest x-ray, CBC, CMP in the morning. Thank you and we will follow with you. Ramírez John MD cc: [id number] TT: 11/29/2016 20:31:14 Confirmation # [id number] Dictation # [id number] fabiola
[2016-11-29 20:49] LABS: BLOOD UREA NITROGEN 19 mg/dL (7-21); CALCIUM 8.4 mg/dL (8.4-10.5); CARBON DIOXIDE 21 mmol/L (21-33); CHLORIDE 111 mmol/L (98-107); GFR AFRICAN-AMERICAN > 60; GLUCOSE,RANDOM 69 mg/dL (70-110); POTASSIUM 4.5 mmol/L (3.6-5.0); SODIUM 141 mmol/L (132-148)
[2016-11-29 22:21] LABS: ARTERIAL BLOOD GAS HCO3 23.7 mmol/L (21-28)
[2016-11-29 22:23] LABS: ARTERIAL BLOOD GAS PH 7.19 (7.35-7.45)
[2016-11-29] MEDS ORDERED: Sodium Bicarbonate (8.4%) 50 Meq Syringe IVP ONE (22:33)
[2016-11-29] MEDS ORDERED: Dextrose 50% SYRINGE Inj (50 ml) IVP ONE (22:36)
[2016-11-29] MEDS: MethylPREDNISolone 40 mg Vial IVP SCH (23:06)
[2016-11-30 00:07] LABS: ARTERIAL BLOOD GAS HCO3 24.9 mmol/L (21-28); ARTERIAL BLOOD GAS O2 CAPACITY 15.3 mL/dl (16-24); ARTERIAL BLOOD GAS O2 CONTENT 15.1 ML/dl (15-23); ARTERIAL BLOOD GAS PH 7.24 (7.35-7.45); ARTERIAL BLOOD HGB O2 SAT 97.2 % (95.0-98.0); HHB 1.1 % (0-5); METHEMOGLOBIN 0.6 % (0.0-3.0)
[2016-11-30 02:45] LABS: ARTERIAL BLOOD GAS HCO3 24.8 mmol/L (21-28); ARTERIAL BLOOD GAS O2 CAPACITY 15.1 mL/dl (16-24); ARTERIAL BLOOD GAS O2 CONTENT 14.9 ML/dl (15-23); ARTERIAL BLOOD HGB O2 SAT 97.2 % (95.0-98.0); CARBOXYHEMOGLOBIN 0.9 % (0.5-1.5); HHB 1.5 % (0-5); METHEMOGLOBIN 0.3 % (0.0-3.0)
[2016-11-30] MEDS: Albuterol-Ipratrop 3 mg / 0.5 (3 ml) UD INH SCH ×4 (03:22→20:02)
--- NOTE | 2016-11-30 03:29 | CP.PCM.PCO ---
Physician Communication Note - Physician Communication Note Physician Communication Note: Pt persistently acidotic despite Bipap therapy; Thus, she was intubated.
[2016-11-30 03:43] LABS: ARTERIAL BLOOD GAS PH 7.19 (7.35-7.45)
[2016-11-30] MEDS: Sodium Chloride 0.9% 1,000 ML IV SCH ×2 (03:59→21:01)
[2016-11-30 07:01] LABS: ADD MANUAL DIFF? NO
[2016-11-30 07:26] LABS: ALB/GLOB RATIO 0.9 (1.1-1.8); ALKALINE PHOSPHATASE 98 U/L (38-133); ALT/SGPT 191 U/L (7-56); AST/SGOT 171 U/L (15-39); BILIRUBIN,TOTAL 0.3 mg/dL (0.2-1.3); BLOOD UREA NITROGEN 17 mg/dL (7-21); CALCIUM 8.5 mg/dL (8.4-10.5); CARBON DIOXIDE 24 mmol/L (21-33); CHLORIDE 113 mmol/L (98-107); CHOLESTEROL 184 mg/dL (130-200); GFR AFRICAN-AMERICAN > 60; GLUCOSE,RANDOM 84 mg/dL (70-110); MAGNESIUM 2.1 mg/dL (1.7-2.2); PHOSPHOROUS 4.1 mg/dL (2.5-4.5); POTASSIUM 4.3 mmol/L (3.6-5.0); SODIUM 145 mmol/L (132-148); TOTAL PROTEIN 7.2 g/dL (5.8-8.3)
[2016-11-30 07:38] LABS: ARTERIAL BLOOD GAS HCO3 22.9 mmol/L (21-28); ARTERIAL BLOOD GAS O2 CAPACITY 15.2 mL/dl (16-24); ARTERIAL BLOOD GAS O2 CONTENT 14.9 ML/dl (15-23); ARTERIAL BLOOD GAS PH 7.26 (7.35-7.45); ARTERIAL BLOOD HGB O2 SAT 96.3 % (95.0-98.0); HHB 1.7 % (0-5); METHEMOGLOBIN 0.9 % (0.0-3.0)
[2016-11-30 07:44] LABS: EOS % 0.7 % (1.5-5.0); GRAN # 1.06 (1.4-6.5); GRAN % 79.2 % (50.0-68.0); HEMATOCRIT 35.2 % (36.0-48.0); LYMPH # 0.2 (1.2-3.4); LYMPH % 16.4 % (22.0-35.0); MEAN CELL VOLUME 94.6 fL (80.0-105.0); MEAN CORPUSCULAR HEMOGLOBIN 29.3 pg (25.0-35.0); MEAN PLATELET VOLUME 12.1 fl (7.0-11.0); MONO # 0.1 (0.1-0.6); MONO % 3.7 % (1.0-6.0); PLATELET COUNT 74 10^3/uL (120.0-450.0); RED CELL DISTRIBUTION WIDTH 14.2 % (11.5-14.5)
[2016-11-30 07:47] LABS: WHITE BLOOD COUNT 1.3 10^3/ul (4.5-11.0)
--- NOTE | 2016-11-30 08:05 | PN ---
cc: [id number] TT: 11/29/2016 17:58:34 Confirmation # [id number] Dictation # [id number] jn MTDD
--- NOTE | 2016-11-30 08:30 | RAD ---
HISTORY: PT. INTUBATED COMPARISON: 11/28/2016 FINDINGS: LUNGS: Complete opacification of left na thorax. Left-sided volume loss with shift of heart and mediastinum towards the left. Findings are consistent with positioning of endotracheal tube in right mainstem bronchus. This should be repositioned or replaced. No right-sided infiltrate. PLEURA: No definite pleural effusion. CARDIOVASCULAR: ETT as above, in right mainstem bronchus. Permanent pacemaker. Heart size cannot be evaluated. OSSEOUS STRUCTURES: No significant abnormalities. VISUALIZED UPPER ABDOMEN: Normal. OTHER FINDINGS: None. IMPRESSION: Endotracheal tube in right mainstem bronchus with atelectasis of left lung. Endotracheal tube should be repositioned more proximally or replaced. Findings discussed with the patient's nurse, Marion, by telephone, at 8:28 a.m. on 11/30/2016.
[2016-11-30] MEDS: MethylPREDNISolone 40 mg Vial IVP SCH ×3 (08:55→22:05)
[2016-11-30] MEDS: Levothyroxine 100 mcg (0.1 mg) Inj IVP SCH ×2 (08:55→10:28)
--- NOTE | 2016-11-30 09:02 | HP ---
CHIEF COMPLAINT: Weak, lethargic, hypothermia. HISTORY OF PRESENT ILLNESS: The patient is a 71-year-old female with past medical history of hypertension, COPD, respiratory failure, dementia, seizures, diabetes, coronary artery disease with a stent. Came to the Emergency Room from [facility] for hypothermia. As per EMS, patient's oral temperature was taken at the [facility], which showed hypothermia. [facility] called me. Then, I transferred patient to [facility] Emergency Room for further evaluation. According to [facility], patient was acting more confused than usual on the day of admission. [facility] also reported that patient has congested recently and receiving nebulizer treatment at the [facility]. No fever, no chills. No nausea, vomiting. No hematuria, no hematochezia. No swelling of the legs. PAST MEDICAL HISTORY: COPD, hypertension, respiratory failure, dementia, seizures, diabetes mellitus, coronary artery disease with cardiac stents, history of schizophrenia, bipolar, diabetes mellitus type 2, hypothyroidism, urinary incontinence, anxiety, bipolar, coronary stenting. FAMILY HISTORY: Father and mother noncontributory. HABITS: Never smoked, no drugs, no ethanol. ALLERGIES: THE PATIENT IS ALLERGIC WITH DEPAKOTE, HALDOL, ZYPREXA, SEROQUEL, RISPERDAL. HOME MEDICATIONS: Pepcid, Ativan, Keppra, Synthroid, DuoNeb, Zyrtec, vitamin B12, Feosol, Singulair, Zoloft, Topamax. REVIEW OF SYSTEMS: The patient was seen and examined on the bedside in the telemetry. Looks lethargic, hypothermic condition, confused. No fever, no chills. No headache, no dizziness. The patient is sleepy, arousable, but goes back to sleep on high flow oxygen. No coughing, no sputum production, no hemoptysis, no hematuria. PHYSICAL EXAMINATION: VITAL SIGNS: Temperature 96.7, heart rate 56, respiratory rate 22, blood pressure 150/54, pulse oximetry 94% on high flow nasal cannula. HEENT: Head normocephalic, atraumatic. Eyes closed. Nose patent. Mucous membranes moist. LUNGS: Has poor airflow. HEART: S1, S2 positive. ABDOMEN: Soft, nontender. No organomegaly. EXTREMITIES: No edema, no cyanosis. NEUROLOGIC: The patient is lethargic, arousable, is not able to follow the commands. LABORATORIES: Hemoglobin 12.6, hematocrit 38.5, white blood cells 1.5, platelets 80. Sodium 137, potassium 4.3, BUN 20, creatinine 0.9, AST 96, ALT 132. Troponin 0.01. BNP 1030. Cholesterol 160. CAT scan of the head shows that it is within normal limit. Chest x-ray shows no infiltrates or effusion. ASSESSMENT AND PLAN: The patient came with respiratory failure, rule out sepsis , sleep apnea syndrome, obesity, bipolar, schizophrenia, diabetes mellitus, hypoventilation syndrome, hypothyroidism, history of asthma, chronic obstructive pulmonary disease. Dr. John transferred patient to the ICU. The patient needs more close monitoring and needs BiPAP, noninvasive ventilation. Continue antibiotics. Continue steroids, inhaled bronchodilators. Continue levothyroxine. Follow up arterial blood gas and other labs. The patient is seen by Dr. Avery Vigil also, appreciated. Has septic shock, rule out hospital-acquired pneumonia. The patient has history of pacemaker placement, obesity, coronary artery disease. Gastrointestinal and deep vein thrombosis prophylaxis. CAT scan of the abdomen and pelvis done also. The patient has history of gallstones, probably loculated pleural effusion of the left lung base. Will follow up. Ca Thacker MD cc: [id number] TT: 11/30/2016 09:02:22 en MTDD
--- NOTE | 2016-11-30 09:22 | RAD ---
HISTORY: assess ET tube placement COMPARISON: 11/30/2016 at 8:10 a.m. FINDINGS: LUNGS: There has been partial re- aeration of the left lung status post repositioning of endotracheal tube. There is persistent left-sided volume loss with shift of heart and mediastinum towards the left side. No right-sided infiltrate. PLEURA: No definite pleural effusion. No pneumothorax. CARDIOVASCULAR: Endotracheal tube tip is now seen 2.6 cm proximal to the tracheal robin. Permanent pacemaker. Normal heart size. OSSEOUS STRUCTURES: No significant abnormalities. VISUALIZED UPPER ABDOMEN: Normal. OTHER FINDINGS: None. IMPRESSION: Repositioning of endotracheal tube 2.6 cm proximal to the tracheal robin. Partial re- aeration of the left lung.
[2016-11-30] MEDS: Meropenem 1g/NS 100mL IVPB 100 ML IVPB SCH ×3 (10:27→22:30)
[2016-11-30] MEDS: Vancomycin 1gm in NS 250ml 250 ML IVPB STA (10:30)
[2016-11-30] MEDS: EYE DRP OU SCH ×4 (10:59→22:31)
[2016-11-30] MEDS: SYSTANE ULTRA OU SCH ×4 (10:59→22:31)
--- NOTE | 2016-11-30 11:22 | PN ---
DATE: 11/30/2016 REASON FOR CONSULTATION AND FOLLOWUP: Cardiac evaluation, admitted with possible sepsis, septic shoc k, altered mental status, status post respiratory failure, intubated. BRIEF CLINICAL HISTORY: This is a 71-year-old female with morbid obesity, resident of a [facility] , sent to the [facility] because of altered mental status, found to be hypothermic; tempe rature was 94. The patient was initially in room 270, bed 2. Was on a warming blanket but not nonco mmunicating. History of seizure disorder, history of CO2 narcosis, history of sleep apnea, history o f intubation in the past, who was initially admitted ____ course of hospitalization, the patient's re spiratory status deteriorated and was moved to ICU and intubated last night. History of paroxysmal a trial fibrillation, history of dual chamber pacemaker. Last echo on 07/27/2016 shows borderline LVH, ejection fraction 52%, moderate mitral regurgitation, moderate tricuspid regurgitation, systolic pre ssure of 54. Currently, the patient is being intubated. PHYSICAL EXAMINATION: VITAL SIGNS: Temperature afebrile, heart rate 60, blood pressure 103/56. HEENT: PERRLA. Extraocular muscles intact. NECK: Supple. No carotid bruits. No thyromegaly. CHEST: Clear to auscultation. Good air entry bilaterally. BLOOD WORKUP: WBC 1.3, hemoglobin 10.9, hematocrit 35.2, platelet count 74. Sodium ____, potassium 4.3, chloride 113, carbon dioxide 24, anion gap of 12, BUN 17, creatinine 1.0. Total protein 7.2, al bumin 3.4, albumin/globulin ratio 0.9. TSH 2.16. IMPRESSION: Pancytopenia or ____ possible sepsis, neutropenic thrombocytopenia, anemia, morbid obesi ty with body mass index 37.1 kg/m2, history of sleep apnea, carbon dioxide narcosis. Yesterday pCO2 was 62; it is still 51, acidotic. Hypoxemic respiratory failure, intubated; preserved left ventricul ar function. Last echocardiogram: Trace mitral regurgitation, trace tricuspid regurgitation. Histo ry of a dual chamber pacemaker, history of paroxysmal atrial fibrillation, now patient is in normal s inus. History of carbon dioxide narcosis, history of respiratory failure, history of hypothyroidism in the past, history of seizure disorder. Last echocardiogram shows ejection fraction 52% dated 07/09. At that time, there was moderate mitral regurgitation, moderate tricuspid regurgitation, rig ht ventricular systolic pressure 54. History of psychiatric disorder as well. History of coronary a rtery disease documented in the chart but no details available. History of schizophrenia, questionab le history of dementia as well mentioned in the chart past. History of pancytopenia and history of t hrombocytopenia in the past as well. RECOMMENDATION: Continue vent management. Continue broad spectrum antibiotic. We will follow with you. Overall, patient's condition is critical and long-term prognosis is guarded. Thank you, Dr. Thacker, for providing the opportunity in taking care of the patient. Ramírez Phan MD cc: [id number] TT: 11/30/2016 11:22:36 Confirmation # [id number] Dictation # [id number] mn
[2016-11-30] MEDS: Vancomycin 1gm in NS 250ml 250 ML IVPB SCH ×2 (12:48→22:20)
[2016-11-30] MEDS: Famotidine 20mg/50ml 50 ML IVPB SCH (12:50)
--- NOTE | 2016-11-30 13:02 | US ---
HISTORY: abn. lft COMPARISON: 07/28/2016 TECHNIQUE: Sonographic evaluation of the abdomen. FINDINGS: LIVER: Measures 14.0 cm. Diffusely increased echogenicity of the liver parenchyma. Consistent with fatty infiltration. Smooth contour. No mass. No biliary ductal dilatation. GALLBLADDER: No evidence of cholelithiasis. Mild nonspecific mural thickening up to 4 mm. No pericholecystic fluid. Negative sonographic Hall's sign. COMMON BILE DUCT: Measures 2 mm. No stones. No dilatation. PANCREAS: Unremarkable as visualized. No mass. No ductal dilatation. RIGHT KIDNEY: Measures 9.2cm. Normal echogenicity. No calculus, mass, or hydronephrosis. LEFT KIDNEY: Measures 9.8cm. Normal echogenicity. No calculus, mass, or hydronephrosis. SPLEEN: Normal in size and contour. No mass. AORTA: No aneurysmal dilatation. IVC: Unremarkable. OTHER FINDINGS: None. IMPRESSION: Fatty infiltration of the liver. Mild nonspecific gallbladder mural thickening. Otherwise unremarkable.
[2016-11-30 13:13] LABS: ABG MECHANICAL RATE 20; ARTERIAL BLOOD GAS HCO3 22.1 mmol/L (21-28); ARTERIAL BLOOD GAS PH 7.35 (7.35-7.45); ATERIAL BLOOD GAS PEEP 5
--- NOTE | 2016-11-30 14:04 | PN ---
DATE: 11/30/2016 The patient seen and examined at bedside. She is sedated with propofol 30 mcg per kilogram per minute. She is on PRVC 350/20/5/40%. On that setting, her ABG is 7.35/40/170 and oxygen saturation 98%. Lactic acid 0.6. The patient is on Pepcid. PHYSICAL EXAMINATION: VITAL SIGNS: Heart rate 60, oxygen saturation 98%, blood pressure 137/65, respiratory rate 20 and tidal CO2 on the monitor 30. HEAD AND NECK: Atraumatic. LUNGS: Clear to auscultation bilaterally. HEART: Regular rate and rhythm. S1, S2 normal. ABDOMEN: Soft, nontender, nondistended. MUSCULOSKELETAL: No C/C/E. NEUROLOGIC: The patient is sedated. SKIN: Moist. PSYCHIATRIC: The patient is sedated. LABORATORY DATA: WBC 1.3, hemoglobin 10.9, platelet count 74. Sodium 145, potassium 4.3, chloride 113, carbon dioxide , BUN 17, creatinine 1, glucose 119, AST 171, ALT 191, albumin 3.4. MEDICATIONS: DuoNeb every 6, vitamin B12, Pepcid, heparin subQ, Keppra, Synthroid, Claritin, cefepime, meropenem, Solu-Medrol 20 mg IV q. 12 hours, Singulair, Zoloft, Topamax and vancomycin. IMAGING: Chest x-ray showed repositioning of endotracheal tube 2.6 cm proximal to the tracheal robin, partial reaeration of the left lung; however, infiltrate in the left lower lobe still present. ASSESSMENT AND PLAN: This is a 71-year-old lady who was admitted to ICU with hypercapnic respiratory failure in the setting of pancytopenia and hypothermia highly suspicious for severe sepsis with likely source being community-acquired pneumonia. Procalcitonin however, came back not elevated, which makes severe sepsis less likely but not completely ruled out. TSH is WNL. The patient continued to be on broad-spectrum antibiotics, low dose steroids (CAP+CRP>15). We will continue with protective lung ventilation strategy, head of bed elevated more than 35 degrees, deep venous thrombosis and gastrointestinal prophylaxis. We will put in NG tube and start enteral nutrition. We will continue with conservative fluid management. The patient is hemodynamically stable. We will continue with normothermia, euglycemia and euvolemia and oxygen saturation more than 90%. We will continue to maintain blood glucose between 140-180 range according to NICE-SUGAR trial. TSH within normal limits; thus, myxedema coma is unlikely. The patient is hemodynamically stable; thus, adrenal insufficiency is unlikely as well. We will proceed with sedation vacation and if patient wakes up appropriately, we will proceed with weaning trial. LFTs slightly elevated. I will proceed with abdominal ultrasound; however, in the absence of bilirubinemia and alkaline phosphatase elevation, significant intrabiliary pathology is less likely. I will send a hepatitis profile as well. If continue to rise will get GI consult Addendum: patient extubated herself, but was doing very well and left on NC ccm time 40 min Mele Mckeon MD cc: [id number] TT: 11/30/2016 14:03:34 Confirmation # [id number] Dictation # [id number] orlin WOOTEN
--- NOTE | 2016-11-30 14:31 | CP.CCUPN ---
<Cassius Ford - Last Filed: 11/30/16 14:57> CCU Subjective - Physician Review Subjective (Free Text): Pt seen and examined at bedside. Overnight, pt did not tolerate BIPAP therapy and was intubated overnight. Pt doing well on ventilator and is sedated. No other events overnight. CCU Objective - Vital Signs / Intake & Output Vital Signs (Last 4 hours): Vital Signs Pulse BP Pulse Ox 11/30/16 11:00 60 128/59 L 98 Intake and Output (Last 8hrs): Intake & Output 11/29/16 11/30/16 11/30/16 22:59 06:59 14:59 Intake Total 400 1750 Output Total 350 300 Balance 50 1450 Intake: IV 400 1750 LEFT FOREARM 0 Right Antecubital 400 1750 Right Hand 0 Oral 0 Output: Urine 350 300 Urine, Voided 350 300 Other: Voiding Method Indwelling Catheter Indwelling Catheter # Bowel Movements 0 - Physical Exam Head: Positive for: Atraumatic, Normocephalic Pupils: Positive for: PERRL Extroacular Muscles: Positive for: EOMI Conjunctiva: Positive for: Normal Mouth: Positive for: Moist Mucous Membranes, Other (ET tube and orogastric tube in place) Neck: Positive for: Normal Range of Motion Respiratory/Chest: Positive for: Rhonchi. Negative for: Respiratory Distress, Accessory Muscle Use Cardiovascular: Positive for: Regular Rate and Rhythm, Normal S1, S2. Negative for: Murmurs Abdomen: Positive for: Normal Bowel Sounds. Negative for: Tenderness, Distention, Peritoneal Signs Upper Extremity: Positive for: Normal Inspection. Negative for: Cyanosis, Edema Lower Extremity: Positive for: Normal Inspection. Negative for: Edema Skin: Positive for: Warm, Dry, Normal Color. Negative for: Rashes Psychiatric: Positive for: Other - Medications Active Medications: Active Medications Generic Name Dose Route Start Last Admin Trade Name Freq PRN Reason Stop Dose Admin Albuterol/Ipratropium 3 ml 11/29/16 18:00 11/30/16 13:20 Duoneb 3 Mg/0.5 Mg (3 Ml) Ud INH 3 ml Q6 SHIVANI Administration Cyanocobalamin 1,000 mcg 12/14/16 10:00 Vitamin B12 1000 Mcg/Ml Inj IM Q30D SHIVANI Famotidine 20 mg 11/29/16 22:00 Pepcid PO HS SHIVANI Ferrous Sulfate 324 mg 11/30/16 10:00 Feosol PO DAILY SHIVANI Heparin Sodium (Porcine) 5,000 units 11/29/16 17:45 11/30/16 10:26 Heparin SC Not Given Q8 SHIVANI Protocol Sodium Chloride 1,000 mls @ 100 mls/hr 11/29/16 01:30 11/30/16 03:59 Sodium Chloride 0.9% IV 100 mls/hr .Q10H SHIVANI Administration Vancomycin HCl 250 mls @ 167 mls/hr 11/29/16 11:00 11/30/16 12:48 Vancomycin 1gm IVPB 167 mls/hr Q12H SHIVANI Administration Protocol Meropenem 1g/NS 100mL IVPB 100 mls @ 100 mls/hr 11/29/16 07:45 11/30/16 10:27 Meropenem 1g/Ns 100ml Ivpb IVPB 12/06/16 07:46 Not Given Q8 SHIVANI Protocol Levetiracetam 750 mg/ Sodium 107.5 mls @ 460 mls/hr 11/29/16 11:15 11/30/16 09:25 Chloride IV 460 mls/hr Q12 SHIVANI Administration Famotidine 50 mls @ 100 mls/hr 11/29/16 11:15 11/30/16 12:50 Pepcid 20mg/50ml Premix IVPB 100 mls/hr Q24H SHIVANI Administration Propofol 100 mls @ 2.945 mls/hr 11/30/16 03:48 Diprivan IV .Q24H PRN TITRATE PER MD ORDER Protocol 5 MCG/KG/MIN Levetiracetam 750 mg 11/29/16 18:00 Keppra PO BID SHIVANI Levothyroxine Sodium 200 mcg 11/29/16 10:30 11/29/16 11:33 Synthroid PO Not Given DAILY SHIVANI Levothyroxine Sodium 100 mcg 11/29/16 11:15 11/30/16 10:28 Synthroid IVP Not Given DAILY SHIVANI Loratadine 10 mg 11/29/16 10:50 11/29/16 11:33 Claritin PO Not Given DAILY SHIVANI Lorazepam 2 mg 11/30/16 03:11 Ativan IVP Q4H PRN Agitation Protocol Methylprednisolone 20 mg 11/29/16 22:00 11/30/16 10:28 Solu-Medrol IVP Not Given Q12 [facility] Montelukast Sodium 10 mg 11/30/16 22:00 Singulair PO HS [facility] Multivitamins 1 tab 11/30/16 10:00 Thera Tab PO DAILY [facility] Systane Ultra 0.4-0. 1 drop 11/29/16 14:00 11/30/16 10:59 3% Eye Drp (Home OU Not Given Med) QID [facility] Sertraline HCl 150 mg 11/30/16 10:00 Zoloft PO DAILY [facility] Topiramate 100 mg 11/29/16 18:00 Topamax PO BID [facility] Protocol - Patient Studies Lab Studies: Lab Studies 11/30/16 11/30/16 11/30/16 Range/Units 13:00 11:43 07:59 WBC (4.5-11.0) 10^3/ul RBC (3.5-6.1) 10^6/uL Hgb (12.0-16.0) gm/dL Hct (36.0-48.0) % MCV (80.0-105.0) fL MCH (25.0-35.0) pg MCHC (31.0-37.0) g/dl RDW (11.5-14.5) % Plt Count (120.0-450.0) 10^3/uL MPV (7.0-11.0) fl Gran % (50.0-68.0) % Lymph % (Auto) (22.0-35.0) % [place] % (Auto) (1.0-6.0) % Eos % (Auto) (1.5-5.0) % Baso % (Auto) (0.0-3.0) % Gran # (1.4-6.5) Lymph # (1.2-3.4) [place] # (0.1-0.6) Eos # (0.0-0.7) Baso # (0.0-2.0) K/mm3 pCO2 40 (35-45) mm/Hg pO2 170.0 H (80-100) mm/Hg HCO3 22.1 (21-28) mmol/L ABG pH 7.35 (7.35-7.45) ABG Total CO2 23.3 (22-28) mmol.L ABG O2 Saturation 98.7 H (95-98) % ABG O2 Content (15-23) ML/dl ABG Base Excess -3.3 L (-2.0-3.0) mmol/L ABG Hemoglobin (11.7-17.4) g/dL ABG Carboxyhemoglobin (0.5-1.5) % POC ABG HHb (Measured) (0-5) % ABG Methemoglobin (0.0-3.0) % ABG O2 Capacity (16-24) mL/dl ABG Potassium 4.1 (3.6-5.2) mmol/L Hgb O2 Saturation (95.0-98.0) % Glucose 110 H (65-105) mg/dl Lactate 0.6 L (0.7-2.1) mmol/L Mechanical Rate 20 FiO2 40.0 % Tidal Volume 350 PEEP 5 Sodium 144.0 (132-148) mmol/L Potassium (3.6-5.0) mmol/L Chloride 119.0 H (98-107) mmol/L Carbon Dioxide (21-33) mmol/L Anion Gap (10-20) BUN (7-21) mg/dL Creatinine (0.5-1.4) mg/dL Est GFR ( Amer) Est GFR (Non-Af Amer) POC Glucose (mg/dL) 119 H 97 (65-110) mg/dL Random Glucose (70-110) mg/dL Hemoglobin A1c (4.2-6.5) % Calcium (8.4-10.5) mg/dL Phosphorus (2.5-4.5) mg/dL Magnesium (1.7-2.2) mg/dL Total Bilirubin (0.2-1.3) mg/dL AST (15-39) U/L ALT (7-56) U/L Alkaline Phosphatase (38-133) U/L Total Protein (5.8-8.3) g/dL Albumin (3.0-4.8) g/dL Globulin gm/dL Albumin/Globulin Ratio (1.1-1.8) Triglycerides (35-160) mg/dL Cholesterol (130-200) mg/dL LDL Cholesterol Direct (0-129) mg/dL HDL Cholesterol (29-60) mg/dL Vitamin B12 (239-931) pg/mL Folate ng/mL Procalcitonin (0.19-0.49) NG/ML TSH 3rd Generation (0.46-4.68) mIU/mL Arterial Blood Potassium 4.1 (3.6-5.2) mmol/L 11/30/16 11/30/16 11/30/16 Range/Units 05:30 04:40 04:40 WBC (4.5-11.0) 10^3/ul RBC (3.5-6.1) 10^6/uL Hgb (12.0-16.0) gm/dL Hct (36.0-48.0) % MCV (80.0-105.0) fL MCH (25.0-35.0) pg MCHC (31.0-37.0) g/dl RDW (11.5-14.5) % Plt Count (120.0-450.0) 10^3/uL MPV (7.0-11.0) fl Gran % (50.0-68.0) % Lymph % (Auto) (22.0-35.0) % [place] % (Auto) (1.0-6.0) % Eos % (Auto) (1.5-5.0) % Baso % (Auto) (0.0-3.0) % Gran # (1.4-6.5) Lymph # (1.2-3.4) [place] # (0.1-0.6) Eos # (0.0-0.7) Baso # (0.0-2.0) K/mm3 pCO2 51 H (35-45) mm/Hg pO2 104.0 H (80-100) mm/Hg HCO3 22.9 (21-28) mmol/L ABG pH 7.26 L (7.35-7.45) ABG Total CO2 24.5 (22-28) mmol.L ABG O2 Saturation 98.3 H (95-98) % ABG O2 Content 14.9 L (15-23) ML/dl ABG Base Excess -4.4 L (-2.0-3.0) mmol/L ABG Hemoglobin 10.9 L (11.7-17.4) g/dL ABG Carboxyhemoglobin 1.0 (0.5-1.5) % POC ABG HHb (Measured) 1.7 (0-5) % ABG Methemoglobin 0.9 (0.0-3.0) % ABG O2 Capacity 15.2 L (16-24) mL/dl ABG Potassium (3.6-5.2) mmol/L Hgb O2 Saturation 96.3 (95.0-98.0) % Glucose (65-105) mg/dl Lactate (0.7-2.1) mmol/L Mechanical Rate FiO2 40.0 % Tidal Volume PEEP Sodium (132-148) mmol/L Potassium (3.6-5.0) mmol/L Chloride (98-107) mmol/L Carbon Dioxide (21-33) mmol/L Anion Gap (10-20) BUN (7-21) mg/dL Creatinine (0.5-1.4) mg/dL Est GFR ( Amer) Est GFR (Non-Af Amer) POC Glucose (mg/dL) (65-110) mg/dL Random Glucose (70-110) mg/dL Hemoglobin A1c 5.6 (4.2-6.5) % Calcium (8.4-10.5) mg/dL Phosphorus (2.5-4.5) mg/dL Magnesium (1.7-2.2) mg/dL Total Bilirubin (0.2-1.3) mg/dL AST (15-39) U/L ALT (7-56) U/L Alkaline Phosphatase (38-133) U/L Total Protein (5.8-8.3) g/dL Albumin (3.0-4.8) g/dL Globulin gm/dL Albumin/Globulin Ratio (1.1-1.8) Triglycerides (35-160) mg/dL Cholesterol (130-200) mg/dL LDL Cholesterol Direct (0-129) mg/dL HDL Cholesterol (29-60) mg/dL Vitamin B12 (239-931) pg/mL Folate ng/mL Procalcitonin (0.19-0.49) NG/ML TSH 3rd Generation 2.16 (0.46-4.68) mIU/mL Arterial Blood Potassium (3.6-5.2) mmol/L 11/30/16 11/30/16 11/30/16 Range/Units 04:40 04:40 04:18 WBC 1.3 L* D (4.5-11.0) 10^3/ul RBC 3.72 (3.5-6.1) 10^6/uL Hgb 10.9 L (12.0-16.0) gm/dL Hct 35.2 L (36.0-48.0) % MCV 94.6 (80.0-105.0) fL MCH 29.3 (25.0-35.0) pg MCHC 31.0 (31.0-37.0) g/dl RDW 14.2 (11.5-14.5) % Plt Count 74 L (120.0-450.0) 10^3/uL MPV 12.1 H (7.0-11.0) fl Gran % 79.2 H (50.0-68.0) % Lymph % (Auto) 16.4 L (22.0-35.0) % [place] % (Auto) 3.7 (1.0-6.0) % Eos % (Auto) 0.7 L (1.5-5.0) % Baso % (Auto) 0.0 (0.0-3.0) % Gran # 1.06 L (1.4-6.5) Lymph # 0.2 L (1.2-3.4) [place] # 0.1 (0.1-0.6) Eos # 0.0 (0.0-0.7) Baso # 0.00 (0.0-2.0) K/mm3 pCO2 (35-45) mm/Hg pO2 (80-100) mm/Hg HCO3 (21-28) mmol/L ABG pH (7.35-7.45) ABG Total CO2 (22-28) mmol.L ABG O2 Saturation (95-98) % ABG O2 Content (15-23) ML/dl ABG Base Excess (-2.0-3.0) mmol/L ABG Hemoglobin (11.7-17.4) g/dL ABG Carboxyhemoglobin (0.5-1.5) % POC ABG HHb (Measured) (0-5) % ABG Methemoglobin (0.0-3.0) % ABG O2 Capacity (16-24) mL/dl ABG Potassium (3.6-5.2) mmol/L Hgb O2 Saturation (95.0-98.0) % Glucose (65-105) mg/dl Lactate (0.7-2.1) mmol/L Mechanical Rate FiO2 % Tidal Volume PEEP Sodium 145 (132-148) mmol/L Potassium 4.3 (3.6-5.0) mmol/L Chloride 113 H (98-107) mmol/L Carbon Dioxide 24 (21-33) mmol/L Anion Gap 12 (10-20) BUN 17 (7-21) mg/dL Creatinine 1.0 (0.5-1.4) mg/dL Est GFR ( Amer) > 60 Est GFR (Non-Af Amer) 55 POC Glucose (mg/dL) 88 (65-110) mg/dL Random Glucose 84 (70-110) mg/dL Hemoglobin A1c (4.2-6.5) % Calcium 8.5 (8.4-10.5) mg/dL Phosphorus 4.1 (2.5-4.5) mg/dL Magnesium 2.1 (1.7-2.2) mg/dL Total Bilirubin 0.3 (0.2-1.3) mg/dL AST 171 H (15-39) U/L ALT 191 H (7-56) U/L Alkaline Phosphatase 98 (38-133) U/L Total Protein 7.2 (5.8-8.3) g/dL Albumin 3.4 (3.0-4.8) g/dL Globulin 3.7 gm/dL Albumin/Globulin Ratio 0.9 L (1.1-1.8) Triglycerides 57 (35-160) mg/dL Cholesterol 184 (130-200) mg/dL LDL Cholesterol Direct 59 (0-129) mg/dL HDL Cholesterol 80 H (29-60) mg/dL Vitamin B12 (239-931) pg/mL Folate ng/mL Procalcitonin (0.19-0.49) NG/ML TSH 3rd Generation (0.46-4.68) mIU/mL Arterial Blood Potassium (3.6-5.2) mmol/L 11/30/16 11/30/16 11/30/16 Range/Units 03:16 02:40 01:48 WBC (4.5-11.0) 10^3/ul RBC (3.5-6.1) 10^6/uL Hgb (12.0-16.0) gm/dL Hct (36.0-48.0) % MCV (80.0-105.0) fL MCH (25.0-35.0) pg MCHC (31.0-37.0) g/dl RDW (11.5-14.5) % Plt Count (120.0-450.0) 10^3/uL MPV (7.0-11.0) fl Gran % (50.0-68.0) % Lymph % (Auto) (22.0-35.0) % [place] % (Auto) (1.0-6.0) % Eos % (Auto) (1.5-5.0) % Baso % (Auto) (0.0-3.0) % Gran # (1.4-6.5) Lymph # (1.2-3.4) [place] # (0.1-0.6) Eos # (0.0-0.7) Baso # (0.0-2.0) K/mm3 pCO2 65 H (35-45) mm/Hg pO2 132.0 H (80-100) mm/Hg HCO3 24.8 (21-28) mmol/L ABG pH 7.19 L* (7.35-7.45) ABG Total CO2 26.8 (22-28) mmol.L ABG O2 Saturation 98.5 H (95-98) % ABG O2 Content 14.9 L (15-23) ML/dl ABG Base Excess -4.1 L (-2.0-3.0) mmol/L ABG Hemoglobin 10.7 L (11.7-17.4) g/dL ABG Carboxyhemoglobin 0.9 (0.5-1.5) % POC ABG HHb (Measured) 1.5 (0-5) % ABG Methemoglobin 0.3 (0.0-3.0) % ABG O2 Capacity 15.1 L (16-24) mL/dl ABG Potassium (3.6-5.2) mmol/L Hgb O2 Saturation 97.2 (95.0-98.0) % Glucose (65-105) mg/dl Lactate (0.7-2.1) mmol/L Mechanical Rate FiO2 35.0 % Tidal Volume PEEP Sodium (132-148) mmol/L Potassium (3.6-5.0) mmol/L Chloride (98-107) mmol/L Carbon Dioxide (21-33) mmol/L Anion Gap (10-20) BUN (7-21) mg/dL Creatinine (0.5-1.4) mg/dL Est GFR ( Amer) Est GFR (Non-Af Amer) POC Glucose (mg/dL) 85 72 (65-110) mg/dL Random Glucose (70-110) mg/dL Hemoglobin A1c (4.2-6.5) % Calcium (8.4-10.5) mg/dL Phosphorus (2.5-4.5) mg/dL Magnesium (1.7-2.2) mg/dL Total Bilirubin (0.2-1.3) mg/dL AST (15-39) U/L ALT (7-56) U/L Alkaline Phosphatase (38-133) U/L Total Protein (5.8-8.3) g/dL Albumin (3.0-4.8) g/dL Globulin gm/dL Albumin/Globulin Ratio (1.1-1.8) Triglycerides (35-160) mg/dL Cholesterol (130-200) mg/dL LDL Cholesterol Direct (0-129) mg/dL HDL Cholesterol (29-60) mg/dL Vitamin B12 (239-931) pg/mL Folate ng/mL Procalcitonin (0.19-0.49) NG/ML TSH 3rd Generation (0.46-4.68) mIU/mL Arterial Blood Potassium (3.6-5.2) mmol/L 11/30/16 11/29/16 11/29/16 Range/Units 00:52 23:58 22:59 WBC (4.5-11.0) 10^3/ul RBC (3.5-6.1) 10^6/uL Hgb (12.0-16.0) gm/dL Hct (36.0-48.0) % MCV (80.0-105.0) fL MCH (25.0-35.0) pg MCHC (31.0-37.0) g/dl RDW (11.5-14.5) % Plt Count (120.0-450.0) 10^3/uL MPV (7.0-11.0) fl Gran % (50.0-68.0) % Lymph % (Auto) (22.0-35.0) % [place] % (Auto) (1.0-6.0) % Eos % (Auto) (1.5-5.0) % Baso % (Auto) (0.0-3.0) % Gran # (1.4-6.5) Lymph # (1.2-3.4) [place] # (0.1-0.6) Eos # (0.0-0.7) Baso # (0.0-2.0) K/mm3 pCO2 58 H (35-45) mm/Hg pO2 165.0 H (80-100) mm/Hg HCO3 24.9 (21-28) mmol/L ABG pH 7.24 L (7.35-7.45) ABG Total CO2 26.7 (22-28) mmol.L ABG O2 Saturation 98.9 H (95-98) % ABG O2 Content 15.1 (15-23) ML/dl ABG Base Excess -3.1 L (-2.0-3.0) mmol/L ABG Hemoglobin 10.8 L (11.7-17.4) g/dL ABG Carboxyhemoglobin 1.0 (0.5-1.5) % POC ABG HHb (Measured) 1.1 (0-5) % ABG Methemoglobin 0.6 (0.0-3.0) % ABG O2 Capacity 15.3 L (16-24) mL/dl ABG Potassium (3.6-5.2) mmol/L Hgb O2 Saturation 97.2 (95.0-98.0) % Glucose (65-105) mg/dl Lactate (0.7-2.1) mmol/L Mechanical Rate FiO2 35.0 % Tidal Volume PEEP Sodium (132-148) mmol/L Potassium (3.6-5.0) mmol/L Chloride (98-107) mmol/L Carbon Dioxide (21-33) mmol/L Anion Gap (10-20) BUN (7-21) mg/dL Creatinine (0.5-1.4) mg/dL Est GFR ( Amer) Est GFR (Non-Af Amer) POC Glucose (mg/dL) 78 72 (65-110) mg/dL Random Glucose (70-110) mg/dL Hemoglobin A1c (4.2-6.5) % Calcium (8.4-10.5) mg/dL Phosphorus (2.5-4.5) mg/dL Magnesium (1.7-2.2) mg/dL Total Bilirubin (0.2-1.3) mg/dL AST (15-39) U/L ALT (7-56) U/L Alkaline Phosphatase (38-133) U/L Total Protein (5.8-8.3) g/dL Albumin (3.0-4.8) g/dL Globulin gm/dL Albumin/Globulin Ratio (1.1-1.8) Triglycerides (35-160) mg/dL Cholesterol (130-200) mg/dL LDL Cholesterol Direct (0-129) mg/dL HDL Cholesterol (29-60) mg/dL Vitamin B12 (239-931) pg/mL Folate ng/mL Procalcitonin (0.19-0.49) NG/ML TSH 3rd Generation (0.46-4.68) mIU/mL Arterial Blood Potassium (3.6-5.2) mmol/L 11/29/16 11/29/16 11/29/16 Range/Units 22:18 21:25 20:05 WBC 2.2 L* (4.5-11.0) 10^3/ul RBC 3.81 (3.5-6.1) 10^6/uL Hgb 11.2 L (12.0-16.0) gm/dL Hct 35.7 L (36.0-48.0) % MCV 93.7 (80.0-105.0) fL MCH 29.4 (25.0-35.0) pg MCHC 31.4 (31.0-37.0) g/dl RDW 13.9 (11.5-14.5) % Plt Count 76 L (120.0-450.0) 10^3/uL MPV 11.1 H (7.0-11.0) fl Gran % 58.7 (50.0-68.0) % Lymph % (Auto) 26.5 (22.0-35.0) % [place] % (Auto) 12.1 H (1.0-6.0) % Eos % (Auto) 2.7 (1.5-5.0) % Baso % (Auto) 0.0 (0.0-3.0) % Gran # 1.31 L (1.4-6.5) Lymph # 0.6 L (1.2-3.4) [place] # 0.3 (0.1-0.6) Eos # 0.1 (0.0-0.7) Baso # 0.00 (0.0-2.0) K/mm3 pCO2 62 H (35-45) mm/Hg pO2 161.0 H (80-100) mm/Hg HCO3 23.7 (21-28) mmol/L ABG pH 7.19 L* (7.35-7.45) ABG Total CO2 25.6 (22-28) mmol.L ABG O2 Saturation 98.8 H (95-98) % ABG O2 Content (15-23) ML/dl ABG Base Excess -5.5 L (-2.0-3.0) mmol/L ABG Hemoglobin (11.7-17.4) g/dL ABG Carboxyhemoglobin (0.5-1.5) % POC ABG HHb (Measured) (0-5) % ABG Methemoglobin (0.0-3.0) % ABG O2 Capacity (16-24) mL/dl ABG Potassium 4.1 (3.6-5.2) mmol/L Hgb O2 Saturation (95.0-98.0) % Glucose 69 (65-105) mg/dl Lactate 0.3 L (0.7-2.1) mmol/L Mechanical Rate FiO2 35.0 % Tidal Volume PEEP Sodium 143.0 (132-148) mmol/L Potassium (3.6-5.0) mmol/L Chloride 119.0 H (98-107) mmol/L Carbon Dioxide (21-33) mmol/L Anion Gap (10-20) BUN (7-21) mg/dL Creatinine (0.5-1.4) mg/dL Est GFR ( Amer) Est GFR (Non-Af Amer) POC Glucose (mg/dL) 71 (65-110) mg/dL Random Glucose (70-110) mg/dL Hemoglobin A1c (4.2-6.5) % Calcium (8.4-10.5) mg/dL Phosphorus (2.5-4.5) mg/dL Magnesium (1.7-2.2) mg/dL Total Bilirubin (0.2-1.3) mg/dL AST (15-39) U/L ALT (7-56) U/L Alkaline Phosphatase (38-133) U/L Total Protein (5.8-8.3) g/dL Albumin (3.0-4.8) g/dL Globulin gm/dL Albumin/Globulin Ratio (1.1-1.8) Triglycerides (35-160) mg/dL Cholesterol (130-200) mg/dL LDL Cholesterol Direct (0-129) mg/dL HDL Cholesterol (29-60) mg/dL Vitamin B12 (239-931) pg/mL Folate ng/mL Procalcitonin (0.19-0.49) NG/ML TSH 3rd Generation (0.46-4.68) mIU/mL Arterial Blood Potassium 4.1 (3.6-5.2) mmol/L 11/29/16 11/29/16 11/29/16 Range/Units 20:05 15:57 10:40 WBC (4.5-11.0) 10^3/ul RBC (3.5-6.1) 10^6/uL Hgb (12.0-16.0) gm/dL Hct (36.0-48.0) % MCV (80.0-105.0) fL MCH (25.0-35.0) pg MCHC (31.0-37.0) g/dl RDW (11.5-14.5) % Plt Count (120.0-450.0) 10^3/uL MPV (7.0-11.0) fl Gran % (50.0-68.0) % Lymph % (Auto) (22.0-35.0) % [place] % (Auto) (1.0-6.0) % Eos % (Auto) (1.5-5.0) % Baso % (Auto) (0.0-3.0) % Gran # (1.4-6.5) Lymph # (1.2-3.4) [place] # (0.1-0.6) Eos # (0.0-0.7) Baso # (0.0-2.0) K/mm3 pCO2 (35-45) mm/Hg pO2 (80-100) mm/Hg HCO3 (21-28) mmol/L ABG pH (7.35-7.45) ABG Total CO2 (22-28) mmol.L ABG O2 Saturation (95-98) % ABG O2 Content (15-23) ML/dl ABG Base Excess (-2.0-3.0) mmol/L ABG Hemoglobin (11.7-17.4) g/dL ABG Carboxyhemoglobin (0.5-1.5) % POC ABG HHb (Measured) (0-5) % ABG Methemoglobin (0.0-3.0) % ABG O2 Capacity (16-24) mL/dl ABG Potassium (3.6-5.2) mmol/L Hgb O2 Saturation (95.0-98.0) % Glucose (65-105) mg/dl Lactate (0.7-2.1) mmol/L Mechanical Rate FiO2 % Tidal Volume PEEP Sodium 141 (132-148) mmol/L Potassium 4.5 (3.6-5.0) mmol/L Chloride 111 H (98-107) mmol/L Carbon Dioxide 21 (21-33) mmol/L Anion Gap 14 (10-20) BUN 19 (7-21) mg/dL Creatinine 1.0 (0.5-1.4) mg/dL Est GFR ( Amer) > 60 Est GFR (Non-Af Amer) 55 POC Glucose (mg/dL) 69 (65-110) mg/dL Random Glucose 69 L (70-110) mg/dL Hemoglobin A1c 5.6 (4.2-6.5) % Calcium 8.4 (8.4-10.5) mg/dL Phosphorus (2.5-4.5) mg/dL Magnesium (1.7-2.2) mg/dL Total Bilirubin (0.2-1.3) mg/dL AST (15-39) U/L ALT (7-56) U/L Alkaline Phosphatase (38-133) U/L Total Protein (5.8-8.3) g/dL Albumin (3.0-4.8) g/dL Globulin gm/dL Albumin/Globulin Ratio (1.1-1.8) Triglycerides (35-160) mg/dL Cholesterol (130-200) mg/dL LDL Cholesterol Direct (0-129) mg/dL HDL Cholesterol (29-60) mg/dL Vitamin B12 (239-931) pg/mL Folate ng/mL Procalcitonin (0.19-0.49) NG/ML TSH 3rd Generation (0.46-4.68) mIU/mL Arterial Blood Potassium (3.6-5.2) mmol/L 11/29/16 11/29/16 Range/Units 10:40 09:45 WBC (4.5-11.0) 10^3/ul RBC (3.5-6.1) 10^6/uL Hgb (12.0-16.0) gm/dL Hct (36.0-48.0) % MCV (80.0-105.0) fL MCH (25.0-35.0) pg MCHC (31.0-37.0) g/dl RDW (11.5-14.5) % Plt Count (120.0-450.0) 10^3/uL MPV (7.0-11.0) fl Gran % (50.0-68.0) % Lymph % (Auto) (22.0-35.0) % [place] % (Auto) (1.0-6.0) % Eos % (Auto) (1.5-5.0) % Baso % (Auto) (0.0-3.0) % Gran # (1.4-6.5) Lymph # (1.2-3.4) [place] # (0.1-0.6) Eos # (0.0-0.7) Baso # (0.0-2.0) K/mm3 pCO2 (35-45) mm/Hg pO2 (80-100) mm/Hg HCO3 (21-28) mmol/L ABG pH (7.35-7.45) ABG Total CO2 (22-28) mmol.L ABG O2 Saturation (95-98) % ABG O2 Content (15-23) ML/dl ABG Base Excess (-2.0-3.0) mmol/L ABG Hemoglobin (11.7-17.4) g/dL ABG Carboxyhemoglobin (0.5-1.5) % POC ABG HHb (Measured) (0-5) % ABG Methemoglobin (0.0-3.0) % ABG O2 Capacity (16-24) mL/dl ABG Potassium (3.6-5.2) mmol/L Hgb O2 Saturation (95.0-98.0) % Glucose (65-105) mg/dl Lactate (0.7-2.1) mmol/L Mechanical Rate FiO2 % Tidal Volume PEEP Sodium (132-148) mmol/L Potassium (3.6-5.0) mmol/L Chloride (98-107) mmol/L Carbon Dioxide (21-33) mmol/L Anion Gap (10-20) BUN (7-21) mg/dL Creatinine (0.5-1.4) mg/dL Est GFR ( Amer) Est GFR (Non-Af Amer) POC Glucose (mg/dL) (65-110) mg/dL Random Glucose (70-110) mg/dL Hemoglobin A1c (4.2-6.5) % Calcium (8.4-10.5) mg/dL Phosphorus (2.5-4.5) mg/dL Magnesium (1.7-2.2) mg/dL Total Bilirubin (0.2-1.3) mg/dL AST (15-39) U/L ALT (7-56) U/L Alkaline Phosphatase (38-133) U/L Total Protein (5.8-8.3) g/dL Albumin (3.0-4.8) g/dL Globulin gm/dL Albumin/Globulin Ratio (1.1-1.8) Triglycerides (35-160) mg/dL Cholesterol (130-200) mg/dL LDL Cholesterol Direct (0-129) mg/dL HDL Cholesterol (29-60) mg/dL Vitamin B12 > 1000 H (239-931) pg/mL Folate 2.7 ng/mL Procalcitonin 0.42 (0.19-0.49) NG/ML TSH 3rd Generation (0.46-4.68) mIU/mL Arterial Blood Potassium (3.6-5.2) mmol/L Laboratory Results - last 24 hr 11/29/16 11/29/1617 09:45 10:40 10:40 WBC RBC Hgb Hct MCV MCH MCHC RDW Plt Count MPV Gran % Lymph % (Auto) [place] % (Auto) Eos % (Auto) Baso % (Auto) Gran # Lymph # [place] # Eos # Baso # pCO2 pO2 HCO3 ABG pH ABG Total CO2 ABG O2 Saturation ABG O2 Content ABG Base Excess ABG Hemoglobin ABG Carboxyhemoglobin POC ABG HHb (Measured) ABG Methemoglobin ABG O2 Capacity ABG Potassium Hgb O2 Saturation Glucose Lactate Mechanical Rate FiO2 Tidal Volume PEEP Sodium Potassium Chloride Carbon Dioxide Anion Gap BUN Creatinine Est GFR ( Amer) Est GFR (Non-Af Amer) POC Glucose (mg/dL) Random Glucose Hemoglobin A1c 5.6 Calcium Phosphorus Magnesium Total Bilirubin AST ALT Alkaline Phosphatase Total Protein Albumin Globulin Albumin/Globulin Ratio Triglycerides Cholesterol LDL Cholesterol Direct HDL Cholesterol Vitamin B12 > 1000 H Folate 2.7 Procalcitonin 0.42 TSH 3rd Generation Arterial Blood Potassium 11/29/16 11/29/16 11/29/16 15:57 20:05 20:05 WBC 2.2 L* RBC 3.81 Hgb 11.2 L Hct 35.7 L MCV 93.7 MCH 29.4 MCHC 31.4 RDW 13.9 Plt Count 76 L MPV 11.1 H Gran % 58.7 Lymph % (Auto) 26.5 [place] % (Auto) 12.1 H Eos % (Auto) 2.7 Baso % (Auto) 0.0 Gran # 1.31 L Lymph # 0.6 L [place] # 0.3 Eos # 0.1 Baso # 0.00 pCO2 pO2 HCO3 ABG pH ABG Total CO2 ABG O2 Saturation ABG O2 Content ABG Base Excess ABG Hemoglobin ABG Carboxyhemoglobin POC ABG HHb (Measured) ABG Methemoglobin ABG O2 Capacity ABG Potassium Hgb O2 Saturation Glucose Lactate Mechanical Rate FiO2 Tidal Volume PEEP Sodium 141 Potassium 4.5 Chloride 111 H Carbon Dioxide 21 Anion Gap 14 BUN 19 Creatinine 1.0 Est GFR ( Amer) > 60 Est GFR (Non-Af Amer) 55 POC Glucose (mg/dL) 69 Random Glucose 69 L Hemoglobin A1c Calcium 8.4 Phosphorus Magnesium Total Bilirubin AST ALT Alkaline Phosphatase Total Protein Albumin Globulin Albumin/Globulin Ratio Triglycerides Cholesterol LDL Cholesterol Direct HDL Cholesterol Vitamin B12 Folate Procalcitonin TSH 3rd Generation Arterial Blood Potassium 11/29/16 11/29/16 11/29/16 21:25 22:18 22:59 WBC RBC Hgb Hct MCV MCH MCHC RDW Plt Count MPV Gran % Lymph % (Auto) [place] % (Auto) Eos % (Auto) Baso % (Auto) Gran # Lymph # [place] # Eos # Baso # pCO2 62 H pO2 161.0 H HCO3 23.7 ABG pH 7.19 L* ABG Total CO2 25.6 ABG O2 Saturation 98.8 H ABG O2 Content ABG Base Excess -5.5 L ABG Hemoglobin ABG Carboxyhemoglobin POC ABG HHb (Measured) ABG Methemoglobin ABG O2 Capacity ABG Potassium 4.1 Hgb O2 Saturation Glucose 69 Lactate 0.3 L Mechanical Rate FiO2 35.0 Tidal Volume PEEP Sodium 143.0 Potassium Chloride 119.0 H Carbon Dioxide Anion Gap BUN Creatinine Est GFR ( Amer) Est GFR (Non-Af Amer) POC Glucose (mg/dL) 71 72 Random Glucose Hemoglobin A1c Calcium Phosphorus Magnesium Total Bilirubin AST ALT Alkaline Phosphatase Total Protein Albumin Globulin Albumin/Globulin Ratio Triglycerides Cholesterol LDL Cholesterol Direct HDL Cholesterol Vitamin B12 Folate Procalcitonin TSH 3rd Generation Arterial Blood Potassium 4.1 11/29/16 11/30/16 11/30/16 23:58 00:52 01:48 WBC RBC Hgb Hct MCV MCH MCHC RDW Plt Count MPV Gran % Lymph % (Auto) [place] % (Auto) Eos % (Auto) Baso % (Auto) Gran # Lymph # [place] # Eos # Baso # pCO2 58 H pO2 165.0 H HCO3 24.9 ABG pH 7.24 L ABG Total CO2 26.7 ABG O2 Saturation 98.9 H ABG O2 Content 15.1 ABG Base Excess -3.1 L ABG Hemoglobin 10.8 L ABG Carboxyhemoglobin 1.0 POC ABG HHb (Measured) 1.1 ABG Methemoglobin 0.6 ABG O2 Capacity 15.3 L ABG Potassium Hgb O2 Saturation 97.2 Glucose Lactate Mechanical Rate FiO2 35.0 Tidal Volume PEEP Sodium Potassium Chloride Carbon Dioxide Anion Gap BUN Creatinine Est GFR ( Amer) Est GFR (Non-Af Amer) POC Glucose (mg/dL) 78 72 Random Glucose Hemoglobin A1c Calcium Phosphorus Magnesium Total Bilirubin AST ALT Alkaline Phosphatase Total Protein Albumin Globulin Albumin/Globulin Ratio Triglycerides Cholesterol LDL Cholesterol Direct HDL Cholesterol Vitamin B12 Folate Procalcitonin TSH 3rd Generation Arterial Blood Potassium 11/30/16 11/30/16 11/30/16 02:40 03:16 04:18 WBC RBC Hgb Hct MCV MCH MCHC RDW Plt Count MPV Gran % Lymph % (Auto) [place] % (Auto) Eos % (Auto) Baso % (Auto) Gran # Lymph # [place] # Eos # Baso # pCO2 65 H pO2 132.0 H HCO3 24.8 ABG pH 7.19 L* ABG Total CO2 26.8 ABG O2 Saturation 98.5 H ABG O2 Content 14.9 L ABG Base Excess -4.1 L ABG Hemoglobin 10.7 L ABG Carboxyhemoglobin 0.9 POC ABG HHb (Measured) 1.5 ABG Methemoglobin 0.3 ABG O2 Capacity 15.1 L ABG Potassium Hgb O2 Saturation 97.2 Glucose Lactate Mechanical Rate FiO2 35.0 Tidal Volume PEEP Sodium Potassium Chloride Carbon Dioxide Anion Gap BUN Creatinine Est GFR ( Amer) Est GFR (Non-Af Amer) POC Glucose (mg/dL) 85 88 Random Glucose Hemoglobin A1c Calcium Phosphorus Magnesium Total Bilirubin AST ALT Alkaline Phosphatase Total Protein Albumin Globulin Albumin/Globulin Ratio Triglycerides Cholesterol LDL Cholesterol Direct HDL Cholesterol Vitamin B12 Folate Procalcitonin TSH 3rd Generation Arterial Blood Potassium 11/30/16 11/30/16 11/30/16 04:40 04:40 04:40 WBC 1.3 L* D RBC 3.72 Hgb 10.9 L Hct 35.2 L MCV 94.6 MCH 29.3 MCHC 31.0 RDW 14.2 Plt Count 74 L MPV 12.1 H Gran % 79.2 H Lymph % (Auto) 16.4 L [place] % (Auto) 3.7 Eos % (Auto) 0.7 L Baso % (Auto) 0.0 Gran # 1.06 L Lymph # 0.2 L [place] # 0.1 Eos # 0.0 Baso # 0.00 pCO2 pO2 HCO3 ABG pH ABG Total CO2 ABG O2 Saturation ABG O2 Content ABG Base Excess ABG Hemoglobin ABG Carboxyhemoglobin POC ABG HHb (Measured) ABG Methemoglobin ABG O2 Capacity ABG Potassium Hgb O2 Saturation Glucose Lactate Mechanical Rate FiO2 Tidal Volume PEEP Sodium 145 Potassium 4.3 Chloride 113 H Carbon Dioxide 24 Anion Gap 12 BUN 17 Creatinine 1.0 Est GFR ( Amer) > 60 Est GFR (Non-Af Amer) 55 POC Glucose (mg/dL) Random Glucose 84 Hemoglobin A1c Calcium 8.5 Phosphorus 4.1 Magnesium 2.1 Total Bilirubin 0.3 AST 171 H ALT 191 H Alkaline Phosphatase 98 Total Protein 7.2 Albumin 3.4 Globulin 3.7 Albumin/Globulin Ratio 0.9 L Triglycerides 57 Cholesterol 184 LDL Cholesterol Direct 59 HDL Cholesterol 80 H Vitamin B12 Folate Procalcitonin TSH 3rd Generation 2.16 Arterial Blood Potassium 11/30/16 11/30/16 11/30/16 04:40 05:30 07:59 WBC RBC Hgb Hct MCV MCH MCHC RDW Plt Count MPV Gran % Lymph % (Auto) [place] % (Auto) Eos % (Auto) Baso % (Auto) Gran # Lymph # [place] # Eos # Baso # pCO2 51 H pO2 104.0 H HCO3 22.9 ABG pH 7.26 L ABG Total CO2 24.5 ABG O2 Saturation 98.3 H ABG O2 Content 14.9 L ABG Base Excess -4.4 L ABG Hemoglobin 10.9 L ABG Carboxyhemoglobin 1.0 POC ABG HHb (Measured) 1.7 ABG Methemoglobin 0.9 ABG O2 Capacity 15.2 L ABG Potassium Hgb O2 Saturation 96.3 Glucose Lactate Mechanical Rate FiO2 40.0 Tidal Volume PEEP Sodium Potassium Chloride Carbon Dioxide Anion Gap BUN Creatinine Est GFR ( Amer) Est GFR (Non-Af Amer) POC Glucose (mg/dL) 97 Random Glucose Hemoglobin A1c 5.6 Calcium Phosphorus Magnesium Total Bilirubin AST ALT Alkaline Phosphatase Total Protein Albumin Globulin Albumin/Globulin Ratio Triglycerides Cholesterol LDL Cholesterol Direct HDL Cholesterol Vitamin B12 Folate Procalcitonin TSH 3rd Generation Arterial Blood Potassium 11/30/16 11/30/16 11:43 13:00 WBC RBC Hgb Hct MCV MCH MCHC RDW Plt Count MPV Gran % Lymph % (Auto) [place] % (Auto) Eos % (Auto) Baso % (Auto) Gran # Lymph # [place] # Eos # Baso # pCO2 40 pO2 170.0 H HCO3 22.1 ABG pH 7.35 ABG Total CO2 23.3 ABG O2 Saturation 98.7 H ABG O2 Content ABG Base Excess -3.3 L ABG Hemoglobin ABG Carboxyhemoglobin POC ABG HHb (Measured) ABG Methemoglobin ABG O2 Capacity ABG Potassium 4.1 Hgb O2 Saturation Glucose 110 H Lactate 0.6 L Mechanical Rate 20 FiO2 40.0 Tidal Volume 350 PEEP 5 Sodium 144.0 Potassium Chloride 119.0 H Carbon Dioxide Anion Gap BUN Creatinine Est GFR ( Amer) Est GFR (Non-Af Amer) POC Glucose (mg/dL) 119 H Random Glucose Hemoglobin A1c Calcium Phosphorus Magnesium Total Bilirubin AST ALT Alkaline Phosphatase Total Protein Albumin Globulin Albumin/Globulin Ratio Triglycerides Cholesterol LDL Cholesterol Direct HDL Cholesterol Vitamin B12 Folate Procalcitonin TSH 3rd Generation Arterial Blood Potassium 4.1 Critical Care Progress Note - Nutrition Nutrition: Nutrition Category Date Time Status NPO Diet [DIET] Diets 11/29/16 Breakfast Ordered Assessment/Plan - Assessment and Plan (Free Text) Plan: 71 y/o F with PMH of Dementia, Bipolar disorder, Schizophrenia, hypothyroid, paroxysmal a-fib, and COPD presents with severe sepsis secondary to Multiorgan dysfunction syndrome with pancytopenia, community acquired pneumonia, and UTI in the setting of hypercapnic respiratory failure. Pt will undergo sedation vacation and spontaneous breathing trial this afternoon. Pt will continue on antibiotics at this time. Will continue to monitor for any worsening of condition. Procalcitonin was within normal limits. LFTs were mildly elevated and an abdominal ultrasound was ordered. Neuro: Intubated and sedated Will undergo SBT Monitor for worsening mental status Cardio: Hemodynamically stable Maintain MAP >65 Cardio following, Dr. Phan Pulm: Inubated and sedated Will undergo SBT Maintain O2 sat >90% PRVC - TV - 350, R- 20, PEEP- 5, Fio2- 40% Pulm following, Dr. John GI: Orogastric tube inserted Will start oral feedings Oral medications to be restarted Protonix Endo: Maintain euglycemia Nephro: Maintain euvolemia Replenish electrolytes as needed NS @ 100 cc Heme/ID: Neutropenic, near baseline Afebrile Urine culture shows gram positive cocci Continue on Vancomycin and Merrem ID following, Dr. Vigil PPX: Pepcid Heparin Seen, reviewed, and discussed with attending. Liliana, PGY-1 <Mele Mckeon B - Last Filed: 12/01/16 15:47> CCU Objective - Vital Signs / Intake & Output Vital Signs (Last 4 hours): Vital Signs Pulse Resp BP Pulse Ox 12/01/16 14:00 69 15 143/68 98 12/01/16 13:00 60 14 144/70 94 L 12/01/16 12:00 60 15 152/60 H 97 Intake and Output (Last 8hrs): Intake & Output 12/01/16 12/01/16 12/01/16 06:59 14:59 22:59 Intake Total 1750 1000 Output Total 650 Balance 1100 1000 Intake: IV 1750 1000 Right Antecubital 1750 Output: Urine 650 Urine, Voided 650 Other: Voiding Method Indwelling Catheter - Medications Active Medications: Active Medications Generic Name Dose Route Start Last Admin Trade Name Freq PRN Reason Stop Dose Admin Albuterol/Ipratropium 3 ml 11/29/16 18:00 12/01/16 13:26 Duoneb 3 Mg/0.5 Mg (3 Ml) Ud INH 3 ml Q6 SHIVANI Administration Cyanocobalamin 1,000 mcg 12/14/16 10:00 Vitamin B12 1000 Mcg/Ml Inj IM Q30D SHIVANI Famotidine 20 mg 11/29/16 22:00 Pepcid PO HS SHIVANI Ferrous Sulfate 324 mg 12/02/16 10:00 Feosol PO DAILY SHIVANI Haloperidol Lactate 1 mg 12/01/16 12:29 Haldol IVP Q3H PRN Agitation Protocol Heparin Sodium (Porcine) 5,000 units 11/29/16 17:45 12/01/16 15:06 Heparin SC Not Given Q8 SHIVANI Protocol Sodium Chloride 1,000 mls @ 100 mls/hr 11/29/16 01:30 12/01/16 10:16 Sodium Chloride 0.9% IV 100 mls/hr .Q10H SHIVANI Administration Vancomycin HCl 250 mls @ 167 mls/hr 11/29/16 11:00 12/01/16 11:11 Vancomycin 1gm IVPB 167 mls/hr Q12H SHIVANI Administration Protocol Meropenem 1g/NS 100mL IVPB 100 mls @ 100 mls/hr 11/29/16 07:45 12/01/16 15:06 Meropenem 1g/Ns 100ml Ivpb IVPB 12/06/16 07:46 Not Given Q8 SHIVANI Protocol Levetiracetam 750 mg 11/29/16 18:00 Keppra PO BID SHIVANI Levothyroxine Sodium 200 mcg 11/29/16 10:30 11/29/16 11:33 Synthroid PO Not Given DAILY [facility] Loratadine 10 mg 11/29/16 10:50 11/29/16 11:33 Claritin PO Not Given DAILY [facility] Methylprednisolone 20 mg 11/29/16 22:00 12/01/16 10:12 Solu-Medrol IVP 20 mg Q12 SHIVANI Administration Montelukast Sodium 10 mg 11/30/16 22:00 Singulair PO HS [facility] Multivitamins 1 tab 11/30/16 10:00 Thera Tab PO DAILY [facility] Systane Ultra 0.4-0. 1 drop 11/29/16 14:00 12/01/16 15:07 3% Eye Drp (Home OU Not Given Med) QID [facility] Sertraline HCl 150 mg 11/30/16 10:00 Zoloft PO DAILY [facility] Topiramate 100 mg 11/29/16 18:00 Topamax PO BID [facility] Protocol - Patient Studies Lab Studies: Microbiology Studies 11/30/16 08:45 Gram Stain - Final Sputum Sputum Culture - Preliminary No growth. 11/29/16 15:36 MRSA Culture (Admit) - Final Nose MRSA NOT DETECTED Lab Studies 12/01/16 12/01/16 11/30/16 Range/Units 10:12 10:12 18:10 WBC 2.2 L* D (4.5-11.0) 10^3/ul RBC 3.48 L (3.5-6.1) 10^6/uL Hgb 10.3 L (12.0-16.0) gm/dL Hct 32.4 L (36.0-48.0) % MCV 93.1 (80.0-105.0) fL MCH 29.6 (25.0-35.0) pg MCHC 31.8 (31.0-37.0) g/dl RDW 14.3 (11.5-14.5) % Plt Count 63 L (120.0-450.0) 10^3/uL MPV 10.4 (7.0-11.0) fl Neutrophils % (Manual) 72 H (50.0-70.0) % Band Neutrophils % 1 (0-2) % Lymphocytes % (Manual) 25 (22.0-35.0) % Monocytes % (Manual) 2 (1.0-6.0) % Platelet Evaluation Low (NORMAL) Hypochromasia 1+ Poikilocytosis (manual Slight Anisocytosis (manual) 1+ Ovalocytes Slight Eliu Cells Slight pCO2 43 (35-45) mm/Hg pO2 65.0 L (80-100) mm/Hg HCO3 22.2 (21-28) mmol/L ABG pH 7.32 L (7.35-7.45) ABG Total CO2 23.5 (22-28) mmol.L ABG O2 Saturation 94.4 L (95-98) % ABG O2 Content 13.2 L (15-23) ML/dl ABG Base Excess -3.8 L (-2.0-3.0) mmol/L ABG Hemoglobin 10.1 L (11.7-17.4) g/dL ABG Carboxyhemoglobin 0.9 (0.5-1.5) % POC ABG HHb (Measured) 5.5 H (0-5) % ABG Methemoglobin 1.0 (0.0-3.0) % ABG O2 Capacity 14.0 L (16-24) mL/dl Hgb O2 Saturation 92.5 L (95.0-98.0) % FiO2 21.0 % Sodium 148 (132-148) mmol/L Potassium 4.4 (3.6-5.0) mmol/L Chloride 115 H (95-110) mmol/L Carbon Dioxide 22 (21-33) mmol/L Anion Gap 15 (10-20) BUN 21 (7-21) mg/dL Creatinine 0.9 (0.5-1.4) mg/dL Est GFR ( Amer) > 60 Est GFR (Non-Af Amer) > 60 Random Glucose 87 (70-110) mg/dL Calcium 8.9 (8.4-10.5) mg/dL Total Bilirubin 0.2 (0.2-1.3) mg/dL AST 305 H (15-39) U/L ALT 324 H (7-56) U/L Alkaline Phosphatase 100 (38-133) U/L C-React Prot High Sens (1.00-3.00) mg/L Total Protein 6.9 (5.8-8.3) g/dL Albumin 3.3 (3.0-4.8) g/dL Globulin 3.6 gm/dL Albumin/Globulin Ratio 0.9 L (1.1-1.8) Hepatitis A IgM Ab (NEGATIVE) Hep Bs Antigen (NEGATIVE) Hep B Core IgM Ab (NEGATIVE) Hepatitis C Antibody (NEGATIVE) 11/30/16 11/30/16 Range/Units 12:00 12:00 WBC (4.5-11.0) 10^3/ul RBC (3.5-6.1) 10^6/uL Hgb (12.0-16.0) gm/dL Hct (36.0-48.0) % MCV (80.0-105.0) fL MCH (25.0-35.0) pg MCHC (31.0-37.0) g/dl RDW (11.5-14.5) % Plt Count (120.0-450.0) 10^3/uL MPV (7.0-11.0) fl Neutrophils % (Manual) (50.0-70.0) % Band Neutrophils % (0-2) % Lymphocytes % (Manual) (22.0-35.0) % Monocytes % (Manual) (1.0-6.0) % Platelet Evaluation (NORMAL) Hypochromasia Poikilocytosis (manual Anisocytosis (manual) Ovalocytes [place] Cells pCO2 (35-45) mm/Hg pO2 (80-100) mm/Hg HCO3 (21-28) mmol/L ABG pH (7.35-7.45) ABG Total CO2 (22-28) mmol.L ABG O2 Saturation (95-98) % ABG O2 Content (15-23) ML/dl ABG Base Excess (-2.0-3.0) mmol/L ABG Hemoglobin (11.7-17.4) g/dL ABG Carboxyhemoglobin (0.5-1.5) % POC ABG HHb (Measured) (0-5) % ABG Methemoglobin (0.0-3.0) % ABG O2 Capacity (16-24) mL/dl Hgb O2 Saturation (95.0-98.0) % FiO2 % Sodium (132-148) mmol/L Potassium (3.6-5.0) mmol/L Chloride (95-110) mmol/L Carbon Dioxide (21-33) mmol/L Anion Gap (10-20) BUN (7-21) mg/dL Creatinine (0.5-1.4) mg/dL Est GFR ( Amer) Est GFR (Non-Af Amer) Random Glucose (70-110) mg/dL Calcium (8.4-10.5) mg/dL Total Bilirubin (0.2-1.3) mg/dL AST (15-39) U/L ALT (7-56) U/L Alkaline Phosphatase (38-133) U/L C-React Prot High Sens > 15.00 H (1.00-3.00) mg/L Total Protein (5.8-8.3) g/dL Albumin (3.0-4.8) g/dL Globulin gm/dL Albumin/Globulin Ratio (1.1-1.8) Hepatitis A IgM Ab Negative (NEGATIVE) Hep Bs Antigen Negative (NEGATIVE) Hep B Core IgM Ab Negative (NEGATIVE) Hepatitis C Antibody Reactive H (NEGATIVE) Laboratory Results - last 24 hr 11/30/16 11/30/16 11/30/16 12:00 12:00 18:10 WBC RBC Hgb Hct MCV MCH MCHC RDW Plt Count MPV Neutrophils % (Manual) Band Neutrophils % Lymphocytes % (Manual) Monocytes % (Manual) Platelet Evaluation Hypochromasia Poikilocytosis (manual Anisocytosis (manual) Ovalocytes [place] Cells pCO2 43 pO2 65.0 L HCO3 22.2 ABG pH 7.32 L ABG Total CO2 23.5 ABG O2 Saturation 94.4 L ABG O2 Content 13.2 L ABG Base Excess -3.8 L ABG Hemoglobin 10.1 L ABG Carboxyhemoglobin 0.9 POC ABG HHb (Measured) 5.5 H ABG Methemoglobin 1.0 ABG O2 Capacity 14.0 L Hgb O2 Saturation 92.5 L FiO2 21.0 Sodium Potassium Chloride Carbon Dioxide Anion Gap BUN Creatinine Est GFR ( Amer) Est GFR (Non-Af Amer) Random Glucose Calcium Total Bilirubin AST ALT Alkaline Phosphatase C-React Prot High Sens > 15.00 H Total Protein Albumin Globulin Albumin/Globulin Ratio Hepatitis A IgM Ab Negative Hep Bs Antigen Negative Hep B Core IgM Ab Negative Hepatitis C Antibody Reactive H 12/01/16 12/01/16 10:12 10:12 WBC 2.2 L* D RBC 3.48 L Hgb 10.3 L Hct 32.4 L MCV 93.1 MCH 29.6 MCHC 31.8 RDW 14.3 Plt Count 63 L MPV 10.4 Neutrophils % (Manual) 72 H Band Neutrophils % 1 Lymphocytes % (Manual) 25 Monocytes % (Manual) 2 Platelet Evaluation Low Hypochromasia 1+ Poikilocytosis (manual Slight Anisocytosis (manual) 1+ Ovalocytes Slight [place] Cells Slight pCO2 pO2 HCO3 ABG pH ABG Total CO2 ABG O2 Saturation ABG O2 Content ABG Base Excess ABG Hemoglobin ABG Carboxyhemoglobin POC ABG HHb (Measured) ABG Methemoglobin ABG O2 Capacity Hgb O2 Saturation FiO2 Sodium 148 Potassium 4.4 Chloride 115 H Carbon Dioxide 22 Anion Gap 15 BUN 21 Creatinine 0.9 Est GFR ( Amer) > 60 Est GFR (Non-Af Amer) > 60 Random Glucose 87 Calcium 8.9 Total Bilirubin 0.2 AST 305 H ALT 324 H Alkaline Phosphatase 100 C-React Prot High Sens Total Protein 6.9 Albumin 3.3 Globulin 3.6 Albumin/Globulin Ratio 0.9 L Hepatitis A IgM Ab Hep Bs Antigen Hep B Core IgM Ab Hepatitis C Antibody Critical Care Progress Note - Nutrition Nutrition: Nutrition Category Date Time Status NPO Diet [DIET] Diets 11/29/16 Breakfast Ordered Addendum Addendum: 12/01/16 15:[address] Mckeon note
--- NOTE | 2016-11-30 15:42 | RAD ---
HISTORY: OG tube placement COMPARISON: Earlier same day FINDINGS: LUNGS: Infiltrate at left lung base that obscures the diaphragm. PLEURA: No significant pleural effusion identified, no pneumothorax apparent. CARDIOVASCULAR: Normal. OSSEOUS STRUCTURES: No significant abnormalities. VISUALIZED UPPER ABDOMEN: Normal. OTHER FINDINGS: None. IMPRESSION: Endotracheal and nasogastric tube in satisfactory position
--- NOTE | 2016-11-30 17:42 | CP.PCM.PN ---
Subjective - Date & Time of Evaluation Date of Evaluation: 11/30/16 Time of Evaluation: 11:10 - Subjective Subjective: Patient is intubated now and sedated. No fevers overnight. Objective - Vital Signs/Intake and Output Vital Signs (last 24 hours): Temp Pulse Resp BP Pulse Ox 98.3 F 62 20 101/38 L 98 11/30/16 15:58 11/30/16 15:58 11/30/16 15:58 11/30/16 15:58 11/30/16 15:58 Intake and Output: 11/30/16 11/30/16 06:59 18:59 Intake Total 1750 300 Output Total 300 Balance 1450 300 - Medications Medications: Current Medications Albuterol/Ipratropium (Duoneb 3 Mg/0.5 Mg (3 Ml) Ud) 3 ml INH Q6 [facility] Last Admin: 11/30/16 13:20 Dose: 3 ml Cyanocobalamin (Vitamin B12 1000 Mcg/Ml Inj) 1,000 mcg IM Q30D [facility]IVANI Famotidine (Pepcid) 20 mg PO HS [facility]IVANI Ferrous Sulfate (Feosol) 324 mg PO DAILY [facility] Heparin Sodium (Porcine) (Heparin) 5,000 units SC Q8 SHIVANI PRN Reason: Protocol Last Admin: 11/30/16 14:54 Dose: 5,000 units Sodium Chloride (Sodium Chloride 0.9%) 1,000 mls @ 100 mls/hr IV .Q10H [facility] Last Admin: 11/30/16 03:59 Dose: 100 mls/hr Vancomycin HCl (Vancomycin 1gm) 250 mls @ 167 mls/hr IVPB Q12H SHIVANI PRN Reason: Protocol Last Admin: 11/30/16 12:48 Dose: 167 mls/hr Meropenem 1g/NS 100mL IVPB (Meropenem 1g/Ns 100ml Ivpb) 100 mls @ 100 mls/hr IVPB Q8 SHIVANI PRN Reason: Protocol Stop: 12/06/16 07:46 Last Admin: 11/30/16 14:54 Dose: 100 mls/hr Levetiracetam 750 mg/ Sodium (Chloride) 107.5 mls @ 460 mls/hr IV Q12 [facility] Last Admin: 11/30/16 09:25 Dose: 460 mls/hr Famotidine (Pepcid 20mg/50ml Premix) 50 mls @ 100 mls/hr IVPB Q24H [facility] Last Admin: 11/30/16 12:50 Dose: 100 mls/hr Propofol (Diprivan) 100 mls @ 2.945 mls/hr IV .Q24H PRN; Protocol; 5 MCG/KG/MIN PRN Reason: TITRATE PER MD ORDER Levetiracetam (Keppra) 750 mg PO BID [facility] Levothyroxine Sodium (Synthroid) 200 mcg PO DAILY [facility] Last Admin: 11/29/16 11:33 Dose: Not Given Levothyroxine Sodium (Synthroid) 100 mcg IVP DAILY [facility] Last Admin: 11/30/16 10:28 Dose: Not Given Loratadine (Claritin) 10 mg PO DAILY [facility] Last Admin: 11/29/16 11:33 Dose: Not Given Lorazepam (Ativan) 2 mg IVP Q4H PRN; Protocol PRN Reason: Agitation Methylprednisolone (Solu-Medrol) 20 mg IVP Q12 [facility] Last Admin: 11/30/16 10:28 Dose: Not Given Montelukast Sodium (Singulair) 10 mg PO HS [facility] Multivitamins (Thera Tab) 1 tab PO DAILY [facility] Systane Ultra 0.4-0. 3% Eye Drp (Home Med) 1 drop OU QID [facility] Last Admin: 11/30/16 14:00 Dose: Not Given Sertraline HCl (Zoloft) 150 mg PO DAILY [facility] Topiramate (Topamax) 100 mg PO BID [facility] PRN Reason: Protocol - Labs Labs: 11/30/16 04:40 11/30/16 04:40 PT 10.7 Seconds (9.9-11.8) 11/28/16 21:14 INR 0.99 (0.93-1.08) 11/28/16 21:14 APTT 26.8 Seconds (23.7-30.8) 11/28/16 21:14 - Constitutional Appears: Other (Intubated and sedated) - Head Exam Head Exam: NORMAL INSPECTION - ENT Exam Additional comments: ET tube in place - Neck Exam Neck Exam: absent: Lymphadenopathy, Meningismus - Respiratory Exam Respiratory Exam: Decreased Breath Sounds - Cardiovascular Exam Cardiovascular Exam: +S1, +S2 - GI/Abdominal Exam GI & Abdominal Exam: Soft. absent: Tenderness Assessment and Plan - Assessment and Plan (Free Text) Plan: Assessment consider severe sepsis with acute encephalopathy probably secondary to urinary tract infection and left lower lobe healthcare-associated pneumonia with possible gram positive cocci and/or gram negative bacilli; urine growing gram positive cocci history of septic shock S/P ventilator-dependent respiratory failure probably from hospital-acquired pneumonia in 2015 hypertension chronic obstructive lung disease chronic congestive heart failure chronic atrial fibrillation schizophrenia diabetes mellitus coronary artery disease S/P pacemaker placement obesity with body mass index of 37 Plan continue Vancomycin and Meropenem day 2 pending final blood cx, urine cx, sputum cx; reviewed CXR today which shows the left lower lobe infiltrate; CT scan of the abdomen and pelvis reviewed as well Will monitor clinically
[2016-11-30 18:13] LABS: ARTERIAL BLOOD GAS HCO3 22.2 mmol/L (21-28); ARTERIAL BLOOD GAS O2 CONTENT 13.2 ML/dl (15-23); ARTERIAL BLOOD GAS PH 7.32 (7.35-7.45); ARTERIAL BLOOD HGB O2 SAT 92.5 % (95.0-98.0); CARBOXYHEMOGLOBIN 0.9 % (0.5-1.5); HHB 5.5 % (0-5)
[2016-12-01] MEDS ORDERED: Dexmedetomidine HCl 4mcg/ml 400 MCG/100 ML BOTTLE IV PRN (00:36)
[2016-12-01] MEDS: Meropenem 1g/NS 100mL IVPB 100 ML IVPB SCH ×3 (06:07→22:05)
[2016-12-01] MEDS: Albuterol-Ipratrop 3 mg / 0.5 (3 ml) UD INH SCH ×4 (07:11→20:04)
[2016-12-01] MEDS: Albuterol-Ipratrop 3 mg / 0.5 (3 ml) UD IH STA (07:39)
--- NOTE | 2016-12-01 08:00 | PN ---
DATE: 11/30/2016 REFERRING PHYSICIAN: . SUBJECTIVE: She is in ICU, extubated, much more awake and alert. No acute distress. Has oxyg en. No hemoptysis, no hematemesis, no hematuria or diarrhea reported. OBJECTIVE: GENERAL: In no acute distress. VITAL SIGNS: Temp is 98, heart rate 62, respiratory rate is 20, blood pressure 101/38, pulse ox 98% on supplemental oxygen. HEENT: Moist mucous membrane. Crowded airway. NECK: Short, thick neck. LUNGS: Has a fair airflow with few rhonchi. HEART: S1, S2. ABDOMEN: Soft, nontender. No organomegaly. EXTREMITIES: There is no edema. NEUROLOGIC: Awake, alert, does follows simple commands. MEDICATIONS: She is on Claritin, but did not take it. Diprivan has been discontinued. DuoNeb q. 6 h ours, ferrous sulfate 324 mg daily, heparin 5000 subQ q. 8 hours, Keppra 750 mg twice daily, levetira cetam 750 mg q. 12 hours, meropenem 1 g IV q. 8 hours, Pepcid 20 mg at bedtime, Pepcid 20 mg IV daily , Singulair 10 mg daily, IV fluid normal saline 100 mL/hour, Solu-Medrol 20 mg q. 12 hours, Synthroid 200 mg daily, multivitamins daily, vancomycin 1 g IV q. 12 hours, vitamin B 1000 mcg daily, Zoloft 1 50 mg daily. LABORATORY DATA: Shows hemoglobin 10.9, hematocrit 35.2, WBC 1.3, platelet count is 74. Blood gases show pH 7.32, pCO2 of 43, pO2 of 65, sats on room air. Sodium 145, potassium 4.3, chloride 113, bicarbonate 24, BUN 17, creatinine 1.0, glucose 84, calcium 8.5, phosphorus 4.1, magnesium 2.1, AST 771, ALT 191 and C-reactive protein over 15. Urine culture has gram-positive cocci. Blood cultu re has been negative. Chest x-ray this morning shows endotracheal tube and nasogastric tube in satisfactory position. Othe rwise unremarkable. IMPRESSION AND PLAN: Respiratory failure, probably secondary to combination of sedative, schizophren ia, hypoventilation syndrome, chronic lung disease, also with bipolar disorder, asthma, obesity. Deepak e discussed with senior product development scientist in detail. I also spoke to Dr. Thacker. I spoke to patient's daughter a t bedside. All the questions answered. The issue with patient states that she has schizophrenia/bip olar. Once fully awake, does not follow medical advice including not taking medications, not using C PAP/BiPAP, cannot reason with the patient. I spoke to patient's daughter in detail and situation dis cussed. She understands and agrees with the plan. We will continue to work with the patient and fam viky. Keep head elevated at 45 degrees. We have got to be careful with sedation and occasionally we have no choice to use it because of heart disease. Aspiration precaution. Follow up labs in the [facility]. We will follow with you. Ramírez John MD cc: [id number] TT: 12/01/2016 05:52:43 Confirmation # [id number] Dictation # [id number] orlin
--- NOTE | 2016-12-01 08:26 | PN ---
DATE: 11/30/2016 SUBJECTIVE: The patient was seen and examined on 11/30/2016 in the presence of her daughter, her grandson and Dr. John. The patient is extubated but still sedated, looks anxious, removed her IV line - the nurse is trying to put it back. Does not look like in real distress. No fever, no chills. No nausea, vomiting or diarrhea. PHYSICAL EXAMINATION: VITAL SIGNS: Temperature 98.3, pulse is 80 , respiratory rate 20, blood pressure 102/80 , pulse oximetry 98. HEENT: Head is normocephalic, atraumatic. Eyes: PERRLA. Extraocular muscles intact. Conjunctivae pink. Eyelids unremarkable. Nose patent. Mucous membranes moist. NECK: Supple. No carotid bruits, JVD or thyromegaly. CHEST: Bilaterally symmetrical. HEART: S1, S2 positive. LUNGS: Poor air entry. ABDOMEN: Soft. Bowel sounds present. No organomegaly. EXTREMITIES: No edema, no cyanosis. NEUROLOGIC: The patient is awake, alert. Moving all 4 extremities. No focal deficit. MEDICATIONS: B12, Pepcid, Feosol, heparin, NS, vancomycin, meropenem, furosemide, propofol, Keppra, Synthroid, Claritin, Ativan, Solu-Medrol, Singulair, LABORATORY DATA: White blood cells 1.3, hemoglobin 10.9, hematocrit 35.2, platelets 74. Sodium 145, potassium 4.3, BUN noted , creatinine 1.0, glucose 84. ASSESSMENT AND PLAN: The patient is a 71-year-old lady seen by me on 2016. She has leukopenia, anemia, thrombocytopenia, practically pancytopenia, has severe sepsis with acute encephalopathy probably secondary to urinary tract infection and left lower lobe healthcare-associated pneumonia with possibly gram -positive cocci and/or gram-negative bacilli. Urine is growing gram-positive cocci. Status post ventilator-dependent respiratory failure, probably from hospital-acquired pneumonia, and now she is extubated. Hypertension, chronic obstructive lung disease, chronic congestive heart failure, chronic atrial fibrillation, schizophrenia, diabetes mellitus; coronary artery disease, status post pacemaker placement; obesity with a body mass index of 37. The patient is very noncompliant She does not want to use BiPAP, does not want to use any type of inhalers and even not oxygen, but will continue vancomycin and meropenem , day 2, depending on findings of blood culture, urine culture and sensitivity, sputum culture. Reviewed chest x-ray, and patient showed left lower lobe infiltrates. CT scan of the abdomen and pelvis reviewed. Gastrointestinal and deep vein thrombosis prophylaxis. Discussion done with Dr. John and the patient's daughter. All questions answered. We will follow up. Ca Thacker MD cc: [id number] TT: 12/01/2016 08:23:33 Confirmation # [id number] Dictation # [id number] mn 12/01/2016 07:25:43 JE
--- NOTE | 2016-12-01 08:31 | RAD ---
HISTORY: f/u COMPARISON: 11/30/2016 FINDINGS: LUNGS: No active pulmonary disease. PLEURA: No significant pleural effusion identified, no pneumothorax apparent. CARDIOVASCULAR: Normal. OSSEOUS STRUCTURES: No significant abnormalities. VISUALIZED UPPER ABDOMEN: Normal. OTHER FINDINGS: None. IMPRESSION: No active disease.
[2016-12-01] MEDS: MethylPREDNISolone 40 mg Vial IVP SCH ×2 (10:12→22:04)
[2016-12-01] MEDS: Levothyroxine 100 mcg (0.1 mg) Inj IVP SCH (10:13)
[2016-12-01 10:16] LABS: HEMATOCRIT 32.4 % (36.0-48.0); MEAN CELL VOLUME 93.1 fL (80.0-105.0); MEAN CORPUSCULAR HEMOGLOBIN 29.6 pg (25.0-35.0); MEAN CORPUSCULAR HGB CONC 31.8 g/dl (31.0-37.0); MEAN PLATELET VOLUME 10.4 fl (7.0-11.0); PLATELET COUNT 63 10^3/uL (120.0-450.0); RED CELL DISTRIBUTION WIDTH 14.3 % (11.5-14.5)
[2016-12-01] MEDS: Sodium Chloride 0.9% 1,000 ML IV SCH (10:16)
[2016-12-01] MEDS: EYE DRP OU SCH ×4 (10:20→22:19)
[2016-12-01] MEDS: SYSTANE ULTRA OU SCH ×4 (10:20→22:19)
[2016-12-01 10:26] LABS: ALB/GLOB RATIO 0.9 (1.1-1.8); ALKALINE PHOSPHATASE 100 U/L (38-133); ALT/SGPT 324 U/L (7-56); AST/SGOT 305 U/L (15-39); BILIRUBIN,TOTAL 0.2 mg/dL (0.2-1.3); BLOOD UREA NITROGEN 21 mg/dL (7-21); CALCIUM 8.9 mg/dL (8.4-10.5); CARBON DIOXIDE 22 mmol/L (21-33); CHLORIDE 115 mmol/L (95-110); GFR AFRICAN-AMERICAN > 60; GLUCOSE,RANDOM 87 mg/dL (70-110); POTASSIUM 4.4 mmol/L (3.6-5.0); SODIUM 148 mmol/L (132-148); TOTAL PROTEIN 6.9 g/dL (5.8-8.3)
[2016-12-01 10:44] LABS: ADD MANUAL DIFF? YES; WHITE BLOOD COUNT 2.2 10^3/ul (4.5-11.0)
[2016-12-01 11:09] LABS: NEUTROPHIL 72 % (50.0-70.0)
[2016-12-01 11:10] LABS: ANISOCYTOSIS 1+; BAND 1 % (0-2); HYPOCHROMIA 1+; PLATELET ESTIMATE LOW (NORMAL); POIKILOCYTOSIS SLIGHT
[2016-12-01] MEDS: Famotidine 20mg/50ml 50 ML IVPB SCH (11:10)
[2016-12-01 11:11] LABS: BURR CELLS SLIGHT; OVALOCYTES SLIGHT
[2016-12-01] MEDS: Vancomycin 1gm in NS 250ml 250 ML IVPB SCH ×2 (11:11→22:43)
--- NOTE | 2016-12-01 15:05 | CP.CCUPN ---
<Cassius Ford - Last Filed: 12/01/16 15:07> CCU Subjective - Physician Review Subjective (Free Text): Pt seen and examined at bedside. Pt extubated yesterday. Pt remained agitated overnight. No other events overnight. Denies any chest pain, SOB, N/V/D. CCU Objective - Vital Signs / Intake & Output Vital Signs (Last 4 hours): Vital Signs Pulse Resp BP Pulse Ox 12/01/16 14:00 69 15 143/68 98 12/01/16 13:00 60 14 144/70 94 L 12/01/16 12:00 60 15 152/60 H 97 12/01/16 11:00 60 22 135/55 L 92 L Intake and Output (Last 8hrs): Intake & Output 11/30/16 12/01/16 12/01/16 22:59 06:59 14:59 Intake Total 1150 1750 1000 Output Total 600 650 Balance 550 1100 1000 Intake: IV 1150 1750 1000 Right Antecubital 900 1750 Right Hand 250 Oral 0 Output: Urine 600 650 Urine, Voided 600 650 Other: Voiding Method Indwelling Catheter Indwelling Catheter # Bowel Movements 0 - Physical Exam Head: Positive for: Atraumatic, Normocephalic Pupils: Positive for: PERRL Extroacular Muscles: Positive for: EOMI Conjunctiva: Positive for: Normal Mouth: Positive for: Moist Mucous Membranes Neck: Positive for: Normal Range of Motion Respiratory/Chest: Negative for: Respiratory Distress, Accessory Muscle Use, Rales, Rhonchi Cardiovascular: Positive for: Regular Rate and Rhythm, Normal S1, S2. Negative for: Murmurs Abdomen: Positive for: Normal Bowel Sounds. Negative for: Tenderness, Distention, Peritoneal Signs Upper Extremity: Positive for: Normal Inspection. Negative for: Cyanosis, Edema Lower Extremity: Positive for: Normal Inspection. Negative for: Edema Neurological: Positive for: CN II-XII Intact, Speech Normal, Other (Oriented to person ) Skin: Positive for: Warm, Dry, Normal Color. Negative for: Rashes Psychiatric: Positive for: Alert. Negative for: Oriented x 3 - Medications Active Medications: Active Medications Generic Name Dose Route Start Last Admin Trade Name Freq PRN Reason Stop Dose Admin Albuterol/Ipratropium 3 ml 11/29/16 18:00 12/01/16 13:26 Duoneb 3 Mg/0.5 Mg (3 Ml) Ud INH 3 ml Q6 SHIVANI Administration Cyanocobalamin 1,000 mcg 12/14/16 10:00 Vitamin B12 1000 Mcg/Ml Inj IM Q30D SHIVANI Famotidine 20 mg 11/29/16 22:00 Pepcid PO HS SHIVANI Ferrous Sulfate 324 mg 11/30/16 10:00 Feosol PO DAILY SH[facility]ANI Haloperidol Lactate 1 mg 12/01/16 12:29 Haldol IVP Q3H PRN Agitation Protocol Heparin Sodium (Porcine) 5,000 units 11/29/16 17:45 12/01/16 06:14 Heparin SC 5,000 units Q8 SHIVANI Administration Protocol Sodium Chloride 1,000 mls @ 100 mls/hr 11/29/16 01:30 12/01/16 10:16 Sodium Chloride 0.9% IV 100 mls/hr .Q10H SHIVANI Administration Vancomycin HCl 250 mls @ 167 mls/hr 11/29/16 11:00 12/01/16 11:11 Vancomycin 1gm IVPB 167 mls/hr Q12H SHIVANI Administration Protocol Meropenem 1g/NS 100mL IVPB 100 mls @ 100 mls/hr 11/29/16 07:45 12/01/16 06:07 Meropenem 1g/Ns 100ml Ivpb IVPB 12/06/16 07:46 100 mls/hr Q8 SHIVANI Administration Protocol Famotidine 50 mls @ 100 mls/hr 11/29/16 11:15 12/01/16 11:10 Pepcid 20mg/50ml Premix IVPB 100 mls/hr Q24H SHIVANI Administration Levetiracetam 750 mg/ Sodium 107.5 mls @ 430 mls/hr 11/30/16 21:50 12/01/16 10:16 Chloride IVPB 430 mls/hr Q12 SHIVANI Administration Levetiracetam 750 mg 11/29/16 18:00 Keppra PO BID SHIVANI Levothyroxine Sodium 200 mcg 11/29/16 10:30 11/29/16 11:33 Synthroid PO Not Given DAILY SH[facility]ANI Levothyroxine Sodium 100 mcg 11/29/16 11:15 12/01/16 10:13 Synthroid IVP 100 mcg DAILY SHIVANI Administration Loratadine 10 mg 11/29/16 10:50 11/29/16 11:33 Claritin PO Not Given DAILY [facility] Methylprednisolone 20 mg 11/29/16 22:00 12/01/16 10:12 Solu-Medrol IVP 20 mg Q12 [facility] Administration Montelukast Sodium 10 mg 11/30/16 22:00 Singulair PO HS [facility] Multivitamins 1 tab 11/30/16 10:00 Thera Tab PO DAILY [facility] Systane Ultra 0.4-0. 1 drop 11/29/16 14:00 12/01/16 10:20 3% Eye Drp (Home OU Not Given Med) QID [facility] Sertraline HCl 150 mg 11/30/16 10:00 Zoloft PO DAILY [facility] Topiramate 100 mg 11/29/16 18:00 Topamax PO BID [facility] Protocol - Patient Studies Lab Studies: Microbiology Studies 11/30/16 08:45 Gram Stain - Final Sputum Sputum Culture - Preliminary No growth. 11/29/16 15:36 MRSA Culture (Admit) - Final Nose MRSA NOT DETECTED Lab Studies 12/01/16 12/01/16 11/30/16 Range/Units 10:12 10:12 18:10 WBC 2.2 L* D (4.5-11.0) 10^3/ul RBC 3.48 L (3.5-6.1) 10^6/uL Hgb 10.3 L (12.0-16.0) gm/dL Hct 32.4 L (36.0-48.0) % MCV 93.1 (80.0-105.0) fL MCH 29.6 (25.0-35.0) pg MCHC 31.8 (31.0-37.0) g/dl RDW 14.3 (11.5-14.5) % Plt Count 63 L (120.0-450.0) 10^3/uL MPV 10.4 (7.0-11.0) fl Neutrophils % (Manual) 72 H (50.0-70.0) % Band Neutrophils % 1 (0-2) % Lymphocytes % (Manual) 25 (22.0-35.0) % Monocytes % (Manual) 2 (1.0-6.0) % Platelet Evaluation Low (NORMAL) Hypochromasia 1+ Poikilocytosis (manual Slight Anisocytosis (manual) 1+ Ovalocytes Slight [place] Cells Slight pCO2 43 (35-45) mm/Hg pO2 65.0 L (80-100) mm/Hg HCO3 22.2 (21-28) mmol/L ABG pH 7.32 L (7.35-7.45) ABG Total CO2 23.5 (22-28) mmol.L ABG O2 Saturation 94.4 L (95-98) % ABG O2 Content 13.2 L (15-23) ML/dl ABG Base Excess -3.8 L (-2.0-3.0) mmol/L ABG Hemoglobin 10.1 L (11.7-17.4) g/dL ABG Carboxyhemoglobin 0.9 (0.5-1.5) % POC ABG HHb (Measured) 5.5 H (0-5) % ABG Methemoglobin 1.0 (0.0-3.0) % ABG O2 Capacity 14.0 L (16-24) mL/dl Hgb O2 Saturation 92.5 L (95.0-98.0) % FiO2 21.0 % Sodium 148 (132-148) mmol/L Potassium 4.4 (3.6-5.0) mmol/L Chloride 115 H (95-110) mmol/L Carbon Dioxide 22 (21-33) mmol/L Anion Gap 15 (10-20) BUN 21 (7-21) mg/dL Creatinine 0.9 (0.5-1.4) mg/dL Est GFR ( Amer) > 60 Est GFR (Non-Af Amer) > 60 Random Glucose 87 (70-110) mg/dL Calcium 8.9 (8.4-10.5) mg/dL Total Bilirubin 0.2 (0.2-1.3) mg/dL AST 305 H (15-39) U/L ALT 324 H (7-56) U/L Alkaline Phosphatase 100 (38-133) U/L C-React Prot High Sens (1.00-3.00) mg/L Total Protein 6.9 (5.8-8.3) g/dL Albumin 3.3 (3.0-4.8) g/dL Globulin 3.6 gm/dL Albumin/Globulin Ratio 0.9 L (1.1-1.8) Hepatitis A IgM Ab (NEGATIVE) Hep Bs Antigen (NEGATIVE) Hep B Core IgM Ab (NEGATIVE) Hepatitis C Antibody (NEGATIVE) 11/30/16 11/30/16 Range/Units 12:00 12:00 WBC (4.5-11.0) 10^3/ul RBC (3.5-6.1) 10^6/uL Hgb (12.0-16.0) gm/dL Hct (36.0-48.0) % MCV (80.0-105.0) fL MCH (25.0-35.0) pg MCHC (31.0-37.0) g/dl RDW (11.5-14.5) % Plt Count (120.0-450.0) 10^3/uL MPV (7.0-11.0) fl Neutrophils % (Manual) (50.0-70.0) % Band Neutrophils % (0-2) % Lymphocytes % (Manual) (22.0-35.0) % Monocytes % (Manual) (1.0-6.0) % Platelet Evaluation (NORMAL) Hypochromasia Poikilocytosis (manual Anisocytosis (manual) Ovalocytes Eliu Cells pCO2 (35-45) mm/Hg pO2 (80-100) mm/Hg HCO3 (21-28) mmol/L ABG pH (7.35-7.45) ABG Total CO2 (22-28) mmol.L ABG O2 Saturation (95-98) % ABG O2 Content (15-23) ML/dl ABG Base Excess (-2.0-3.0) mmol/L ABG Hemoglobin (11.7-17.4) g/dL ABG Carboxyhemoglobin (0.5-1.5) % POC ABG HHb (Measured) (0-5) % ABG Methemoglobin (0.0-3.0) % ABG O2 Capacity (16-24) mL/dl Hgb O2 Saturation (95.0-98.0) % FiO2 % Sodium (132-148) mmol/L Potassium (3.6-5.0) mmol/L Chloride (95-110) mmol/L Carbon Dioxide (21-33) mmol/L Anion Gap (10-20) BUN (7-21) mg/dL Creatinine (0.5-1.4) mg/dL Est GFR ( Amer) Est GFR (Non-Af Amer) Random Glucose (70-110) mg/dL Calcium (8.4-10.5) mg/dL Total Bilirubin (0.2-1.3) mg/dL AST (15-39) U/L ALT (7-56) U/L Alkaline Phosphatase (38-133) U/L C-React Prot High Sens > 15.00 H (1.00-3.00) mg/L Total Protein (5.8-8.3) g/dL Albumin (3.0-4.8) g/dL Globulin gm/dL Albumin/Globulin Ratio (1.1-1.8) Hepatitis A IgM Ab Negative (NEGATIVE) Hep Bs Antigen Negative (NEGATIVE) Hep B Core IgM Ab Negative (NEGATIVE) Hepatitis C Antibody Reactive H (NEGATIVE) Laboratory Results - last 24 hr 11/30/16 11/30/16 11/30/16 12:00 12:00 18:10 WBC RBC Hgb Hct MCV MCH MCHC RDW Plt Count MPV Neutrophils % (Manual) Band Neutrophils % Lymphocytes % (Manual) Monocytes % (Manual) Platelet Evaluation Hypochromasia Poikilocytosis (manual Anisocytosis (manual) Ovalocytes Eliu Cells pCO2 43 pO2 65.0 L HCO3 22.2 ABG pH 7.32 L ABG Total CO2 23.5 ABG O2 Saturation 94.4 L ABG O2 Content 13.2 L ABG Base Excess -3.8 L ABG Hemoglobin 10.1 L ABG Carboxyhemoglobin 0.9 POC ABG HHb (Measured) 5.5 H ABG Methemoglobin 1.0 ABG O2 Capacity 14.0 L Hgb O2 Saturation 92.5 L FiO2 21.0 Sodium Potassium Chloride Carbon Dioxide Anion Gap BUN Creatinine Est GFR ( Amer) Est GFR (Non-Af Amer) Random Glucose Calcium Total Bilirubin AST ALT Alkaline Phosphatase C-React Prot High Sens > 15.00 H Total Protein Albumin Globulin Albumin/Globulin Ratio Hepatitis A IgM Ab Negative Hep Bs Antigen Negative Hep B Core IgM Ab Negative Hepatitis C Antibody Reactive H 12/01/16 12/01/16 10:12 10:12 WBC 2.2 L* D RBC 3.48 L Hgb 10.3 L Hct 32.4 L MCV 93.1 MCH 29.6 MCHC 31.8 RDW 14.3 Plt Count 63 L MPV 10.4 Neutrophils % (Manual) 72 H Band Neutrophils % 1 Lymphocytes % (Manual) 25 Monocytes % (Manual) 2 Platelet Evaluation Low Hypochromasia 1+ Poikilocytosis (manual Slight Anisocytosis (manual) 1+ Ovalocytes Slight [place]u Cells Slight pCO2 pO2 HCO3 ABG pH ABG Total CO2 ABG O2 Saturation ABG O2 Content ABG Base Excess ABG Hemoglobin ABG Carboxyhemoglobin POC ABG HHb (Measured) ABG Methemoglobin ABG O2 Capacity Hgb O2 Saturation FiO2 Sodium 148 Potassium 4.4 Chloride 115 H Carbon Dioxide 22 Anion Gap 15 BUN 21 Creatinine 0.9 Est GFR ( Amer) > 60 Est GFR (Non-Af Amer) > 60 Random Glucose 87 Calcium 8.9 Total Bilirubin 0.2 AST 305 H ALT 324 H Alkaline Phosphatase 100 C-React Prot High Sens Total Protein 6.9 Albumin 3.3 Globulin 3.6 Albumin/Globulin Ratio 0.9 L Hepatitis A IgM Ab Hep Bs Antigen Hep B Core IgM Ab Hepatitis C Antibody Critical Care Progress Note - Nutrition Nutrition: Nutrition Category Date Time Status NPO Diet [DIET] Diets 11/29/16 Breakfast Ordered Assessment/Plan - Assessment and Plan (Free Text) Plan: 71 y/o F with PMH of Dementia, Bipolar disorder, Schizophrenia, hypothyroid, paroxysmal a-fib, and COPD presents with severe sepsis secondary to Multiorgan dysfunction syndrome with pancytopenia, community acquired pneumonia, and UTI. Pt will continue on antibiotics at this time. Will continue to monitor for any worsening of condition. HIDA scan ordered. Pt is no longer hypercapnic or acidotic and will be transferred to med/surg. Neuro: AAOx1 Hx of dementia, bipolar disorder, and schizophrenia Will consult psychiatry Monitor for worsening mental status Cardio: Hemodynamically stable Maintain MAP >65 Cardio following, Dr. Phan Pulm: No respiratory distress Chest X-RAY from this morning shows no active disease Maintain O2 sat >90% Pulm following, Dr. John GI: Speech and swallow eval pending HIDA scan ordered Oral medications to be restarted Protonix Endo: Maintain euglycemia Nephro: Maintain euvolemia Replenish electrolytes as needed NS @ 100 cc Heme/ID: Neutropenic, near baseline Afebrile Will defer to PMD to workup pancytopenia Urine culture shows Strep viridans, sensitivities pending Continue on Vancomycin and Merrem ID following, Dr. Vigil PPX: Pepcid Heparin Seen, reviewed, and discussed with attending. Liliana, PGY-1 <Carley MOTA,Polo H - Last Filed: 12/01/16 15:50> CCU Objective - Vital Signs / Intake & Output Vital Signs (Last 4 hours): Vital Signs Pulse Resp BP Pulse Ox 12/01/16 14:00 69 15 143/68 98 12/01/16 13:00 60 14 144/70 94 L 12/01/16 12:00 60 15 152/60 H 97 Intake and Output (Last 8hrs): Intake & Output 12/01/16 12/01/16 12/01/16 06:59 14:59 22:59 Intake Total 1750 1000 Output Total 650 Balance 1100 1000 Intake: IV 1750 1000 Right Antecubital 1750 Output: Urine 650 Urine, Voided 650 Other: Voiding Method Indwelling Catheter - Medications Active Medications: Active Medications Generic Name Dose Route Start Last Admin Trade Name Freq PRN Reason Stop Dose Admin Albuterol/Ipratropium 3 ml 11/29/16 18:00 12/01/16 13:26 Duoneb 3 Mg/0.5 Mg (3 Ml) Ud INH 3 ml Q6 SHIVANI Administration Cyanocobalamin 1,000 mcg 12/14/16 10:00 Vitamin B12 1000 Mcg/Ml Inj IM Q30D [facility] Famotidine 20 mg 11/29/16 22:00 Pepcid PO HS SHIAVNI Ferrous Sulfate 324 mg 12/02/16 10:00 Feosol PO DAILY [facility] Haloperidol Lactate 1 mg 12/01/16 12:29 Haldol IVP Q3H PRN Agitation Protocol Heparin Sodium (Porcine) 5,000 units 11/29/16 17:45 12/01/16 15:06 Heparin SC Not Given Q8 SHIVANI Protocol Sodium Chloride 1,000 mls @ 100 mls/hr 11/29/16 01:30 12/01/16 10:16 Sodium Chloride 0.9% IV 100 mls/hr .Q10H SHIVANI Administration Vancomycin HCl 250 mls @ 167 mls/hr 11/29/16 11:00 12/01/16 11:11 Vancomycin 1gm IVPB 167 mls/hr Q12H SHIVANI Administration Protocol Meropenem 1g/NS 100mL IVPB 100 mls @ 100 mls/hr 11/29/16 07:45 12/01/16 15:06 Meropenem 1g/Ns 100ml Ivpb IVPB 12/06/16 07:46 Not Given Q8 [facility] Protocol Levetiracetam 750 mg 11/29/16 18:00 Keppra PO BID [facility] Levothyroxine Sodium 200 mcg 11/29/16 10:30 11/29/16 11:33 Synthroid PO Not Given DAILY [facility] Loratadine 10 mg 11/29/16 10:50 11/29/16 11:33 Claritin PO Not Given DAILY [facility] Methylprednisolone 20 mg 11/29/16 22:00 12/01/16 10:12 Solu-Medrol IVP 20 mg Q12 [facility] Administration Montelukast Sodium 10 mg 11/30/16 22:00 Singulair PO HS [facility] Multivitamins 1 tab 11/30/16 10:00 Thera Tab PO DAILY [facility] Systane Ultra 0.4-0. 1 drop 11/29/16 14:00 12/01/16 15:07 3% Eye Drp (Home OU Not Given Med) QID [facility] Sertraline HCl 150 mg 11/30/16 10:00 Zoloft PO DAILY [facility] Topiramate 100 mg 11/29/16 18:00 Topamax PO BID [facility] Protocol - Patient Studies Lab Studies: Microbiology Studies 11/30/16 08:45 Gram Stain - Final Sputum Sputum Culture - Preliminary No growth. 11/29/16 15:36 MRSA Culture (Admit) - Final Nose MRSA NOT DETECTED Lab Studies 12/01/16 12/01/16 11/30/16 Range/Units 10:12 10:12 18:10 WBC 2.2 L* D (4.5-11.0) 10^3/ul RBC 3.48 L (3.5-6.1) 10^6/uL Hgb 10.3 L (12.0-16.0) gm/dL Hct 32.4 L (36.0-48.0) % MCV 93.1 (80.0-105.0) fL MCH 29.6 (25.0-35.0) pg MCHC 31.8 (31.0-37.0) g/dl RDW 14.3 (11.5-14.5) % Plt Count 63 L (120.0-450.0) 10^3/uL MPV 10.4 (7.0-11.0) fl Neutrophils % (Manual) 72 H (50.0-70.0) % Band Neutrophils % 1 (0-2) % Lymphocytes % (Manual) 25 (22.0-35.0) % Monocytes % (Manual) 2 (1.0-6.0) % Platelet Evaluation Low (NORMAL) Hypochromasia 1+ Poikilocytosis (manual Slight Anisocytosis (manual) 1+ Ovalocytes Slight [place]u Cells Slight pCO2 43 (35-45) mm/Hg pO2 65.0 L (80-100) mm/Hg HCO3 22.2 (21-28) mmol/L ABG pH 7.32 L (7.35-7.45) ABG Total CO2 23.5 (22-28) mmol.L ABG O2 Saturation 94.4 L (95-98) % ABG O2 Content 13.2 L (15-23) ML/dl ABG Base Excess -3.8 L (-2.0-3.0) mmol/L ABG Hemoglobin 10.1 L (11.7-17.4) g/dL ABG Carboxyhemoglobin 0.9 (0.5-1.5) % POC ABG HHb (Measured) 5.5 H (0-5) % ABG Methemoglobin 1.0 (0.0-3.0) % ABG O2 Capacity 14.0 L (16-24) mL/dl Hgb O2 Saturation 92.5 L (95.0-98.0) % FiO2 21.0 % Sodium 148 (132-148) mmol/L Potassium 4.4 (3.6-5.0) mmol/L Chloride 115 H (95-110) mmol/L Carbon Dioxide 22 (21-33) mmol/L Anion Gap 15 (10-20) BUN 21 (7-21) mg/dL Creatinine 0.9 (0.5-1.4) mg/dL Est GFR ( Amer) > 60 Est GFR (Non-Af Amer) > 60 Random Glucose 87 (70-110) mg/dL Calcium 8.9 (8.4-10.5) mg/dL Total Bilirubin 0.2 (0.2-1.3) mg/dL AST 305 H (15-39) U/L ALT 324 H (7-56) U/L Alkaline Phosphatase 100 (38-133) U/L C-React Prot High Sens (1.00-3.00) mg/L Total Protein 6.9 (5.8-8.3) g/dL Albumin 3.3 (3.0-4.8) g/dL Globulin 3.6 gm/dL Albumin/Globulin Ratio 0.9 L (1.1-1.8) Hepatitis A IgM Ab (NEGATIVE) Hep Bs Antigen (NEGATIVE) Hep B Core IgM Ab (NEGATIVE) Hepatitis C Antibody (NEGATIVE) 11/30/16 11/30/16 Range/Units 12:00 12:00 WBC (4.5-11.0) 10^3/ul RBC (3.5-6.1) 10^6/uL Hgb (12.0-16.0) gm/dL Hct (36.0-48.0) % MCV (80.0-105.0) fL MCH (25.0-35.0) pg MCHC (31.0-37.0) g/dl RDW (11.5-14.5) % Plt Count (120.0-450.0) 10^3/uL MPV (7.0-11.0) fl Neutrophils % (Manual) (50.0-70.0) % Band Neutrophils % (0-2) % Lymphocytes % (Manual) (22.0-35.0) % Monocytes % (Manual) (1.0-6.0) % Platelet Evaluation (NORMAL) Hypochromasia Poikilocytosis (manual Anisocytosis (manual) Ovalocytes Eliu Cells pCO2 (35-45) mm/Hg pO2 (80-100) mm/Hg HCO3 (21-28) mmol/L ABG pH (7.35-7.45) ABG Total CO2 (22-28) mmol.L ABG O2 Saturation (95-98) % ABG O2 Content (15-23) ML/dl ABG Base Excess (-2.0-3.0) mmol/L ABG Hemoglobin (11.7-17.4) g/dL ABG Carboxyhemoglobin (0.5-1.5) % POC ABG HHb (Measured) (0-5) % ABG Methemoglobin (0.0-3.0) % ABG O2 Capacity (16-24) mL/dl Hgb O2 Saturation (95.0-98.0) % FiO2 % Sodium (132-148) mmol/L Potassium (3.6-5.0) mmol/L Chloride (95-110) mmol/L Carbon Dioxide (21-33) mmol/L Anion Gap (10-20) BUN (7-21) mg/dL Creatinine (0.5-1.4) mg/dL Est GFR ( Amer) Est GFR (Non-Af Amer) Random Glucose (70-110) mg/dL Calcium (8.4-10.5) mg/dL Total Bilirubin (0.2-1.3) mg/dL AST (15-39) U/L ALT (7-56) U/L Alkaline Phosphatase (38-133) U/L C-React Prot High Sens > 15.00 H (1.00-3.00) mg/L Total Protein (5.8-8.3) g/dL Albumin (3.0-4.8) g/dL Globulin gm/dL Albumin/Globulin Ratio (1.1-1.8) Hepatitis A IgM Ab Negative (NEGATIVE) Hep Bs Antigen Negative (NEGATIVE) Hep B Core IgM Ab Negative (NEGATIVE) Hepatitis C Antibody Reactive H (NEGATIVE) Laboratory Results - last 24 hr 11/30/16 11/30/16 11/30/16 12:00 12:00 18:10 WBC RBC Hgb Hct MCV MCH MCHC RDW Plt Count MPV Neutrophils % (Manual) Band Neutrophils % Lymphocytes % (Manual) Monocytes % (Manual) Platelet Evaluation Hypochromasia Poikilocytosis (manual Anisocytosis (manual) Ovalocytes Eliu Cells pCO2 43 pO2 65.0 L HCO3 22.2 ABG pH 7.32 L ABG Total CO2 23.5 ABG O2 Saturation 94.4 L ABG O2 Content 13.2 L ABG Base Excess -3.8 L ABG Hemoglobin 10.1 L ABG Carboxyhemoglobin 0.9 POC ABG HHb (Measured) 5.5 H ABG Methemoglobin 1.0 ABG O2 Capacity 14.0 L Hgb O2 Saturation 92.5 L FiO2 21.0 Sodium Potassium Chloride Carbon Dioxide Anion Gap BUN Creatinine Est GFR ( Amer) Est GFR (Non-Af Amer) Random Glucose Calcium Total Bilirubin AST ALT Alkaline Phosphatase C-React Prot High Sens > 15.00 H Total Protein Albumin Globulin Albumin/Globulin Ratio Hepatitis A IgM Ab Negative Hep Bs Antigen Negative Hep B Core IgM Ab Negative Hepatitis C Antibody Reactive H 12/01/16 12/01/16 10:12 10:12 WBC 2.2 L* D RBC 3.48 L Hgb 10.3 L Hct 32.4 L MCV 93.1 MCH 29.6 MCHC 31.8 RDW 14.3 Plt Count 63 L MPV 10.4 Neutrophils % (Manual) 72 H Band Neutrophils % 1 Lymphocytes % (Manual) 25 Monocytes % (Manual) 2 Platelet Evaluation Low Hypochromasia 1+ Poikilocytosis (manual Slight Anisocytosis (manual) 1+ Ovalocytes Slight [place] Cells Slight pCO2 pO2 HCO3 ABG pH ABG Total CO2 ABG O2 Saturation ABG O2 Content ABG Base Excess ABG Hemoglobin ABG Carboxyhemoglobin POC ABG HHb (Measured) ABG Methemoglobin ABG O2 Capacity Hgb O2 Saturation FiO2 Sodium 148 Potassium 4.4 Chloride 115 H Carbon Dioxide 22 Anion Gap 15 BUN 21 Creatinine 0.9 Est GFR ( Amer) > 60 Est GFR (Non-Af Amer) > 60 Random Glucose 87 Calcium 8.9 Total Bilirubin 0.2 AST 305 H ALT 324 H Alkaline Phosphatase 100 C-React Prot High Sens Total Protein 6.9 Albumin 3.3 Globulin 3.6 Albumin/Globulin Ratio 0.9 L Hepatitis A IgM Ab Hep Bs Antigen Hep B Core IgM Ab Hepatitis C Antibody Critical Care Progress Note - Nutrition Nutrition: Nutrition Category Date Time Status NPO Diet [DIET] Diets 11/29/16 Breakfast Ordered Attending/Attestation - Attestation I have personally seen and examined this patient.: Yes I have fully participated in the care of the patient.: Yes I have reviewed all pertinent clinical information: Yes Notes (Text): 12/01/16 15:48 71 y/o F w/ Hypercap Resp Failure Extubated and tolerating R.A UTI w/ possible SIRS / Sepsis On empiric ABX and awaiting cx sensitivity results Needs Psych to evaluate medications for her Psych d/o. Pt/OT and Speech swallow needed. Low WBC and Low platelets - Unclear if this is from Sepsis or other causes such as malignancy. Will let PCP decide if ONC needs to be consulted. DVT P w/ heparin sq tid cc time 55 min
--- NOTE | 2016-12-01 15:41 | NM ---
PROCEDURE: Nuclear Medicine Hepatobiliary Scan HISTORY: acute cholecystitis COMPARISON: None available. TECHNIQUE: 6.2 mCi of technetium 99m Mebrofenin was administered intravenously. Planar images of the abdomen were obtained at 5 min intervals to 60 mins. Delayed images were also obtained. FINDINGS: LIVER: Timely and homogenous uptake. COMMON BILE DUCT: identified at 15 mins. GALLBLADDER: identified at 30 mins. SMALL BOWEL: Identified at 30 mins. IMPRESSION: Normal Hepatobiliary Scan. The cystic duct is patent.
--- NOTE | 2016-12-01 17:14 | PN ---
DATE: 12/01/2016 REFERRING PHYSICIAN: Dr. Thacker. SUBJECTIVE: She is lying in the bed, in no acute distress. No headache, no rhinitis, no nausea, vom iting. No leg pain or leg swelling. OBJECTIVE: GENERAL: No acute distress. VITAL SIGNS: Temp is 98, heart rate is 60, respiratory rate is 16, blood pressure 143/68, pulse ox 9 4% on nasal cannula. HEENT: Moist mucous membrane. Crowded airway. NECK: Supple, no JVD. LUNGS: Have a fair airflow with a few rhonchi. HEART: S1, S2. ABDOMEN: Soft, nontender. No organomegaly. EXTREMITIES: No edema. NEUROLOGIC: Awake, alert, follows simple command. MEDICATIONS: She is on Claritin 10 mg which is on hold, DuoNeb q. 6 hours, ferrous sulfate 324 mg d aily, also Haldol is 1 mg 3 times a day p.r.n., heparin 5000 subQ q. 8 hours, Keppra 750 mg twice a day, meropenem 1 g IV q. 8 hours, Pepcid 20 mg at bedtime, Singulair 10 mg daily, IV fluid normal fatoumata ine 100 mL per hour, Solu-Medrol 20 mg q. 12 hours, Synthroid 200 mcg daily, multivitamins daily, Top rol-XL 100 mg twice a day, vancomycin 1 g IV q. 12 hours, vitamin B 1000 mcg IM, Zoloft is 150 mg lalo ly. LABORATORY DATA: Shows hemoglobin 10.3, hematocrit 32.4, WBC 2.2, platelet is 63. Sodium is 148, po tassium is 4.4, chloride 115, bicarbonate 22, BUN 15, creatinine 0.9, calcium is 8.9, AST 305, ALT 32 4, alk phos is 100, albumin is 3.3. Urine culture has Strep viridans. Nuclear scan is negative for cystic duct obstruction. IMPRESSION AND PLAN: Status post respiratory failure, presently extubated on nasal cannula, has a hi story of schizophrenia, hypoventilation syndrome, chronic lung disease, asthma and obesity. Very birgit d case because patient's baseline schizophrenia. Whenever she is awake, alert, refusing the CPAP and BiPAP, on and off requires sedatives, not the best combination. Spoke to the patient's daughter at bedside. All the questions answered. We will continue to do our best, keep head elevated at 45 degr ees. If sedated, avoid any sedative. if sleeping, may try BiPAP. We will follow with up. Ramírez John MD cc: [id number] TT: 12/01/2016 17:14:22 Confirmation # [id number] Dictation # [id number]
--- NOTE | 2016-12-01 18:56 | PN ---
DATE: 12/01/2016 REASON FOR CONSULTATION AND FOLLOWUP: Cardiac evaluation, admitted with possible sepsis, septic shoc k, altered mental status, status post respiratory failure, intubated, now successfully extubated. BRIEF CLINICAL HISTORY: A 71-year-old female with a past medical history significant for morbid obes ity, resident of a skilled nursing, sent to the [facility] because of altered mental status. Found to be hypothermic. Temp is 94. Initially patient was on 2R, transferred to ICU because of C O2 narcosis, intubated, now successfully extubated, awake and alert, but not oriented. PHYSICAL EXAMINATION: VITAL SIGNS: Temperature afebrile, heart rate 69, blood pressure 143/68. HEENT: PERRLA. Extraocular muscles intact. NECK: Supple. No carotid bruits. No thyromegaly. CHEST: Clear to auscultation. HEART: S1, S2 regular. ABDOMEN: Soft. EXTREMITIES: Clubbing and cyanosis negative. LABORATORY DATA: Blood workup as follows: WBC 2.7, hemoglobin 10.3, hematocrit 32.4, platelet count 63. Sodium 140, potassium 4.4, chloride 115, carbon dioxide 22, anion gap of 15, BUN 21, creatinine 0.9. IMPRESSION: Overwhelming sepsis, septic shock, status post hypothermic, pancytopenia, status post re spiratory failure, status post successfully extubated, morbid obesity, chronic lung disease, hypovent ilation, CO2 narcosis, schizophrenia, psychiatric disorder. Last echo shows ejection fraction 52% da jaiden 07/29/2016, moderate tricuspid regurgitation. RECOMMENDATION: Continue to monitor on vent closely. Continue DVT prophylaxis. Continue active dawson atment of COPD. Continue broad spectrum antibiotic. Continue gentle hydration. We will follow with you. Thank you, Dr. Gonzalez, for providing the opportunity in taking care of the patient. Will follow julieta shane. Ramírez Phan MD cc: [id number] TT: 12/01/2016 18:55:02 Confirmation # [id number] Dictation # [id number] mariah
--- NOTE | 2016-12-01 20:24 | CP.PCM.PN ---
Subjective - Date & Time of Evaluation Date of Evaluation: 12/01/16 Time of Evaluation: 11:25 - Subjective Subjective: Patient was seen earlier in the ICU. She is now extubated, more awake and alert , not in distress, no fevers overnight. Objective - Vital Signs/Intake and Output Vital Signs (last 24 hours): Temp Pulse Resp BP Pulse Ox 98.4 F 69 15 143/68 98 12/01/16 04:00 12/01/16 14:00 12/01/16 14:00 12/01/16 14:00 12/01/16 14:00 Intake and Output: 12/01/16 12/02/16 18:59 06:59 Intake Total 1000 Balance 1000 - Medications Medications: Current Medications Albuterol/Ipratropium (Duoneb 3 Mg/0.5 Mg (3 Ml) Ud) 3 ml INH Q6 [facility] Last Admin: 12/01/16 20:04 Dose: 3 ml Cyanocobalamin (Vitamin B12 1000 Mcg/Ml Inj) 1,000 mcg IM Q30D [facility] Famotidine (Pepcid) 20 mg PO HS [facility] Ferrous Sulfate (Feosol) 324 mg PO DAILY [facility] Haloperidol Lactate (Haldol) 1 mg IVP Q3H PRN; Protocol PRN Reason: Agitation Heparin Sodium (Porcine) (Heparin) 5,000 units SC Q8 [facility] PRN Reason: Protocol Last Admin: 12/01/16 15:06 Dose: Not Given Sodium Chloride (Sodium Chloride 0.9%) 1,000 mls @ 100 mls/hr IV .Q10H [facility] Last Admin: 12/01/16 10:16 Dose: 100 mls/hr Vancomycin HCl (Vancomycin 1gm) 250 mls @ 167 mls/hr IVPB Q12H [facility] PRN Reason: Protocol Last Admin: 12/01/16 11:11 Dose: 167 mls/hr Meropenem 1g/NS 100mL IVPB (Meropenem 1g/Ns 100ml Ivpb) 100 mls @ 100 mls/hr IVPB Q8 [facility] PRN Reason: Protocol Stop: 12/06/16 07:46 Last Admin: 12/01/16 15:06 Dose: Not Given Levetiracetam (Keppra) 750 mg PO BID [facility] Last Admin: 12/01/16 18:04 Dose: 750 mg Levothyroxine Sodium (Synthroid) 200 mcg PO DAILY [facility] Last Admin: 11/29/16 11:33 Dose: Not Given Loratadine (Claritin) 10 mg PO DAILY [facility] Last Admin: 11/29/16 11:33 Dose: Not Given Methylprednisolone (Solu-Medrol) 20 mg IVP Q12 [facility] Last Admin: 12/01/16 10:12 Dose: 20 mg Montelukast Sodium (Singulair) 10 mg PO HS [facility] Multivitamins (Thera Tab) 1 tab PO DAILY [facility] Systane Ultra 0.4-0. 3% Eye Drp (Home Med) 1 drop OU QID [facility] Last Admin: 12/01/16 19:08 Dose: Not Given Sertraline HCl (Zoloft) 150 mg PO DAILY [facility] Topiramate (Topamax) 100 mg PO BID [facility] PRN Reason: Protocol Last Admin: 12/01/16 18:04 Dose: 100 mg - Labs Labs: 12/01/16 10:12 12/01/16 10:12 PT 10.7 Seconds (9.9-11.8) 11/28/16 21:14 INR 0.99 (0.93-1.08) 11/28/16 21:14 APTT 26.8 Seconds (23.7-30.8) 11/28/16 21:14 - Constitutional Appears: Non-toxic, No Acute Distress - ENT Exam ENT Exam: Mucous Membranes Moist - Neck Exam Neck Exam: absent: Lymphadenopathy, Meningismus - Respiratory Exam Respiratory Exam: Decreased Breath Sounds - Cardiovascular Exam Cardiovascular Exam: +S1, +S2 - GI/Abdominal Exam GI & Abdominal Exam: Soft. absent: Tenderness Assessment and Plan - Assessment and Plan (Free Text) Plan: Assessment consider severe sepsis with acute encephalopathy probably secondary to urinary tract infection and left lower lobe healthcare-associated pneumonia with possible gram positive cocci and/or gram negative bacilli; clinically improving urine growing Strep viridans history of septic shock S/P ventilator-dependent respiratory failure probably from hospital-acquired pneumonia in 2015 hypertension chronic obstructive lung disease chronic congestive heart failure chronic atrial fibrillation schizophrenia diabetes mellitus coronary artery disease S/P pacemaker placement obesity with body mass index of 37 Plan continue Vancomycin and Meropenem day 3 to complete a 4-7 day course; reviewed CXR; CT scan of the abdomen and pelvis reviewed as well Will continue to monitor clinically
--- NOTE | 2016-12-01 23:43 | PN ---
DATE: 12/01/2016 SUBJECTIVE: The patient was seen and examined on the bedside on the medical floor, looks comfortable, not in distress. Cough is better. Shortness of breath is better. No fever, no chills, nausea, vomiting, diarrhea. No swelling of the legs. The patient is communicating in her own language. PHYSICAL EXAMINATION: VITAL SIGNS: Temperature 98, heart rate 60, respiratory rate 16, blood pressure 143/58, pulse oximetry 94% on nasal cannula. HEENT: Head normocephalic, atraumatic. Eyes, PERRLA. Extraocular muscles are intact. Conjunctivae are clear. Nose patent. Mucous membranes moist. NECK: Supple. No JVD or thyromegaly. LUNGS: Has a fair airflow with few rhonchi. HEART: S1, S2 positive. ABDOMEN: Soft, nontender. No organomegaly. EXTREMITIES: No edema, no cyanosis. NEUROLOGIC: Awake, alert, follows simple commands. MEDICATIONS: Clonidine, DuoNeb, ferrous sulfate, Haldol, heparin, Keppra, meropenem, Pepcid, Singulair, IV fluid, Solu-Medrol, Synthroid, Toprol, vancomycin, vitamins, Zoloft. LABORATORY DATA: Hemoglobin 10.3, hematocrit 32.4, white blood cells 2.2, platelets 63. Sodium 140, potassium 4.4, BUN 15, creatinine 0.9. AST 305, ALT 324. Urine culture has had separately dense. Nuclear scan is negative for cystic duct obstruction. ASSESSMENT AND PLAN: The patient is a 71-year-old female with multiple medical problems. Status post respiratory failure, presently extubated on nasal cannula , has a history of schizophrenia, bipolar, hypoventilation syndrome, chronic lung disease, asthma, chronic obstructive pulmonary disease. The patient is awake, alert, but still refusing BiPAP and CPAP and also requires a sedative, not the best combination. Spoke with the patient's daughter all questions answer . We will continue to do best. Out of bed, physical therapy, avoid sedation. If sleepy and lethargic, try to do the BiPAP. Gastrointestinal and deep venous thrombosis prophylaxis. Repeat labs. Will follow up. Ca Thacker MD cc: [id number] TT: 12/01/2016 23:42:41 Confirmation # [id number] Dictation # [id number] mn MTDD
[2016-12-02] MEDS: Albuterol-Ipratrop 3 mg / 0.5 (3 ml) UD INH SCH ×4 (01:40→20:21)
[2016-12-02] MEDS: Meropenem 1g/NS 100mL IVPB 100 ML IVPB SCH ×3 (05:40→21:32)
[2016-12-02 07:55] LABS: ADD MANUAL DIFF? NO
[2016-12-02 08:01] LABS: GRAN # 3.36 (1.4-6.5); GRAN % 84.9 % (50.0-68.0); HEMATOCRIT 33.8 % (36.0-48.0); LYMPH # 0.4 (1.2-3.4); LYMPH % 11.1 % (22.0-35.0); MEAN CELL VOLUME 92.6 fL (80.0-105.0); MEAN CORPUSCULAR HGB CONC 31.4 g/dl (31.0-37.0); MEAN PLATELET VOLUME 11.5 fl (7.0-11.0); MONO # 0.2 (0.1-0.6); PLATELET COUNT 61 10^3/uL (120.0-450.0); RED CELL DISTRIBUTION WIDTH 14.3 % (11.5-14.5)
[2016-12-02 08:08] LABS: ALB/GLOB RATIO 0.9 (1.1-1.8); ALKALINE PHOSPHATASE 101 U/L (38-133); ALT/SGPT 289 U/L (7-56); AST/SGOT 205 U/L (15-39); BILIRUBIN,TOTAL 0.4 mg/dL (0.2-1.3); BLOOD UREA NITROGEN 21 mg/dL (7-21); CALCIUM 9.3 mg/dL (8.4-10.5); CARBON DIOXIDE 23 mmol/L (21-33); CHLORIDE 112 mmol/L (98-107); GFR AFRICAN-AMERICAN > 60; GLUCOSE,RANDOM 93 mg/dL (70-110); MAGNESIUM 2.4 mg/dL (1.7-2.2); PHOSPHOROUS 1.8 mg/dL (2.5-4.5); POTASSIUM 4.8 mmol/L (3.6-5.0); SODIUM 142 mmol/L (132-148); TOTAL PROTEIN 7.5 g/dL (5.8-8.3)
[2016-12-02] MEDS: Levothyroxine 200 MCG TAB PO SCH (09:44)
[2016-12-02] MEDS: Multivitamin Therapeutic Tab PO SCH (09:44)
[2016-12-02] MEDS: MethylPREDNISolone 40 mg Vial IVP SCH ×2 (09:44→21:31)
[2016-12-02] MEDS ORDERED: Potassium Phosphate 15 MMOLE in Dextrose 5% In Water 250 ML IVPB ONE (10:57)
--- NOTE | 2016-12-02 11:54 | PN ---
DATE: 12/02/2016 The patient in room 361, bed 2. REASON FOR CONSULTATION AND FOLLOWUP: Septic shock, altered mental status, status post respiratory f ailure, intubated, now successfully extubated. HISTORY OF PRESENT ILLNESS: A 71-year-old female with past medical history significant for morbid ob esity, resident of a longterm, was transferred to [facility] with altered mental stat us, found to have a hypothermic temperature of 94. Initially, patient was on telemetry floor and the n transferred to ICU because of CO2 narcosis, intubated, now successfully extubated. The patient is lying flat in bed without any chest pain, shortness of breath, or palpitation. The patient seems to be confused at present. PHYSICAL EXAMINATION: VITAL SIGNS: Blood pressure 144/57, respirations 20, pulse 55, temperature 97.6. HEAD: Normocephalic. EYES: Pupils normal. Conjunctivae are slightly pale. NECK: JVP low. Carotids equal. THORAX: AP diameter normal. LUNGS: No rales. CARDIOVASCULAR: S1, S2. ABDOMEN: Soft, nontender, no organomegaly. Bowel sounds normal. EXTREMITIES: No clubbing, no cyanosis. LABORATORY DATA: WBC 4.0, hemoglobin 10.6, hematocrit 33.8, platelets 61. Sodium 142, potassium 4.8 , BUN 21, creatinine 0.8, phosphorus 1.8, magnesium 2.4, AST 205, ALT 289, total protein 7.5, albumin 3.5. DIAGNOSES: Sepsis, septic shock, status post hypothermia, earlier pancytopenia, now improving, but s till has thrombocytopenia, anemia, status post respiratory failure, status post successfully extubate d, morbid obesity, chronic lung disease, hypoventilation, CO2 narcosis, schizophrenia. Last echo was done on 07/29/2016, showed ejection fraction of 52%, moderate tricuspid regurgitation. PLAN: The patient is on Feosol 324 mg p.o. daily, heparin 5000 units subq q. 8 hours, Keppra 750 b.i .d., meropenem 1 gram IV q. 8 hours, Pepcid 20 mg at bedtime, vancomycin 1 gram IV q. 12 hours, Zolof t 150 mg p.o. daily, levothyroxine 200 mcg p.o. daily, methylprednisone 10 mg IV q. 12 hours, Singula ir 10 mg at bedtime. We will give 1 dose of IV K-Phosphate and repeat labs in the morning. I will c ontinue to follow with you. Ramírez Carnes MD cc: [id number] TT: 12/02/2016 11:53:20 Confirmation # [id number] Dictation # [id number] rn
[2016-12-02] MEDS: SYSTANE ULTRA OU SCH ×4 (12:17→21:34)
[2016-12-02] MEDS: EYE DRP OU SCH ×4 (12:17→21:34)
[2016-12-02] MEDS: Vancomycin 1gm in NS 250ml 250 ML IVPB SCH ×2 (12:41→22:43)
--- NOTE | 2016-12-02 15:38 | CON ---
DATE: 12/02/2016 HISTORY OF PRESENT ILLNESS: Shortly, the patient is a 71-year-old female with long history of schizophrenia spectrum disorder and dementia. The patient currently lives in a [facility]. The patient was admitted on the medical floor for evaluation of hypothermia, possibly sepsis. Psych margo castillo was called for evaluation of medication management. This personal lines underwriter is familiar with this patient f rom the previous admissions on the medical floor as a residential solar consultant. The patient was seen and examined. Discussed case with patient's POA/daughter Romelia Trejo (phone number is [phone]). As per patient's daughter, patient was doing fine on her current medicatio ns: Zoloft 150 mg daily, also Ativan as needed as well as Keppra and the rest of the medication. Th e patient has chronic episodes of confusion, but no physical aggression. The patient was confused an d more lethargic, most likely due to infection what is going on with the patient. The patient was vi sited by her POA and her daughter and the patient was doing better. This personal lines underwriter discussed treatment options with the daughter. The patient has MULTIPLE ADVERSE REACTIONS ON THE MAJORITY OF ANTIPSYCHOT IC MEDICATIONS. Treatment plan was discussed in detail. All questions were answered and patient's d aughter was feeling comfortable with Ativan as needed for agitated behavior. Going back to the patient's presentation, the patient presented to be confused. The patient thinks t hat she is in some building what belongs to her. The patient also has impression that some people ar e going into the bathroom and taking some water and leaving the bathroom. The patient is a poor and unreliable historian. At times she is smiling inappropriately, but overall patient is not agitated a nd not aggressive during the interview. As per nursing staff, the patient was restless and pulled IV line over nighttime, but there is no such episode since the morning time. VITAL SIGNS: This personal lines underwriter reviewed vital signs. Vital signs seem to be stable, but patient has pulse 55, blood pressure 144/57, respiration 20, oxygen saturation is 96. MEDICATIONS: Reviewed and confirmed with medication reconciliation form from the usp and co nfirmed all the medications. correction was called and, as per usp, the patient has chronic confusions but no agitation . The reason why patient was sent to the hospital was lethargy and hypothermia. IMPRESSION: The patient has long history of schizophrenia spectrum disorder, also dementia. The pat bailey has multiple medical issues. Please see medical team notes for more detailed information. The patient has severe sepsis, encephalopathy, pneumonia, chronic obstructive pulmonary disease, congesti ve heart failure, chronic atrial fibrillation, diabetes, pacemaker. PLAN: Continue current management. All medications were confirmed. Discussed with the patient's fa allison and POA/patient's daughter, Romelia. Collaterals were obtained from the nursing staff on the [facility] floor as well as from the usp. Meanwhile, continue current management. Ativan 1 mg q. 12 hours as needed could be given to the patient in case of agitation. In regards of psychotropic me dication, the patient's family was not feeling comfortable for initiation of any antipsychotic medica tion. Will respect that decision. This personal lines underwriter will follow up and advise accordingly. Should you topete ve any questions, give me a call back. Thank you very much for letting me participate in the care of your patient. Grace Pagan MD cc: [id number] TT: 12/02/2016 15:37:14 Confirmation # [id number] Dictation # [id number] charli
--- NOTE | 2016-12-02 19:14 | CON ---
DATE: 12/02/2016 Seen and examined at the bedside earlier this morning. The chart was reviewed. Request for GI consu lt is for transaminitis. HISTORY OF PRESENT ILLNESS: This is a 71-year-old female with a past medical history of hypertension , COPD, respiratory failure, dementia, seizures, and hepatitis C positive antibody, but hepatitis C R NA not detected. Came from [facility] for hypothermia. The patient's oral temperature was taken in the detention and revealed a low temperature. The patient was reported to be confused than us ual. No reports of any fever, chills, nausea, vomiting, abdominal pain, or overt GI bleed. She was extubated yesterday and the patient was in ICU with severe sepsis secondary to multiorgan dysfunction and extubated, and transferred to med/surg. The patient on routine labs is noted to have elevating liver enzymes. This patient was followed by our service back in 07/2016 for transaminitis as well, w hich was thought to be multifactorial at the time secondary to either hepatic congestion or drug lydia adelia. The patient was on doxycycline at the time. Her liver enzymes slowly improved, but fluctuating . The patient did have an abdominal ultrasound done on 11/29, and that was negative for any gallsto laurent, but showed some nonspecific mural thickening of the gallbladder. HIDA scan was done, which was negative for any cystic duct obstruction. The patient is Cameroonian speaking and nursing staff translat or at bedside. No complaints of any nausea, vomiting, or abdominal pain. PAST MEDICAL HISTORY: As stated above, COPD, hypertension, respiratory failure, seizures, dementia, diabetes mellitus, history of hepatitis C antibody positive with hep C RNA negative, obesity, coronar y artery disease with cardiac stents, schizophrenia, bipolar disease, diabetes mellitus type 2, UTI, hypothyroidism. PAST SURGICAL HISTORY: The patient had cardiac stents. ALLERGIES: DEPAKOTE, HALDOL, ZYPREXA, SEROQUEL. SOCIAL HISTORY: History of tobacco. No history of alcohol use or substance abuse. The patient live s in detention. MEDICATIONS: Reviewed as per OCT. FAMILY HISTORY: Noncontributory at this time. REVIEW OF SYSTEMS: Is limited. See HPI. The patient had altered mental status. VITAL SIGNS: Temperature is 97.6, blood pressure 144/57, pulse 55, respirations 20, O2 saturation 96 . LABORATORIES: Sodium is 142, potassium 4.8, BUN 21, creatinine 0.8, magnesium is 2.4, total bilirubi n 0.4, AST is 205, ALT 289, alkaline phosphatase is 101, LDH is 494. The patient had hepatitis panel done which shows hepatitis C antibody. WBC is 4.0, H and H is 10.6 and 33.8, platelets of 61. PT i s 10.7, INR is 0.99, PTT 26.8, and this is from 11/28/2016. RADIOLOGY: The patient had a CT scan of abdomen and pelvis on 11/29, with no contrast. The report w as reviewed. Bowel was unremarkable, no obstruction, no gross mural thickening. There is a small fa t-containing ventral hernia. Lower thorax shows pleural effusion at the left lung base that appears to be loculated, measures 3.5 x 10 cm. Most recent chest x-ray reviewed was from 12/01/2016, and thi s was negative for any active disease, no pleural effusion or pneumothorax. Head CT scan was done on 11/29, and that was negative for any acute findings. PHYSICAL EXAMINATION: HEENT: Sclerae are anicteric. NECK: Supple. CARDIAC: S1, S2. LUNGS: Sounds with some mild rhonchi, no wheezing. ABDOMEN: With bowel sounds, softly obese, nontender on palpation. EXTREMITIES: No edema. NEUROLOGIC: The patient is awake, but confused. ASSESSMENT: This is a 71-year-old female, came in with sepsis, septic shock, status post hypothermia , status post extubation for respiratory failure. She is noted to have elevating liver enzymes. The patient does have history of hepatitis C positive antibody, but hepatitis C RNA is not detected. Co nsider hepatic congestion, medication-induced hepatitis. The patient does have a history of chronic obstructive pulmonary disease, bipolar disease, and Alzheimer dementia. PLAN: LDH was checked. That was normal. Reviewed patient's medications to rule out any contributor y medication. Her AST, ALT are noted to improve today. Abdominal ultrasound report was reviewed. N o acute findings. Continue IV antibiotics as per ID. Diet as tolerated. Trend LFTs. Thank you for this consult and for allowing us to participate in your patient's care. Will make furt her recommendations based upon patient's clinical course. Marisol ORDOÑEZ cc: [id number] TT: 12/02/2016 19:13:26 Confirmation # [id number] Dictation # [id number] dn
--- NOTE | 2016-12-02 22:39 | PN ---
DATE: 12/02/2016 The patient seen earlier this morning in room 361, bed 2. No fevers and chills. PHYSICAL EXAMINATION: VITAL SIGNS: Temperature is 97, blood pressure is 130/60, respiratory rate of 16. HEENT: Unremarkable. NECK: Supple. LUNGS: Have decreased breath sounds. HEART: Normal S1, S2. ABDOMEN: Soft. LABORATORY DATA: Reveals a white count of 4, hemoglobin of 10 and platelets of 61. Chemistries reve al the patient has a BUN of 21, creatinine of 0.8. LFTs are elevated, alkaline phosphatase is normal . Microbiology reveals urine culture with Strep viridans. Marisol Amador' NEEDLE PROCESS FELT GOODS SUPERVISOR-C consultation is reviewed. Dr. Grace Pagan's psychiatric consultation is also reviewed. She said the patient has a long history of schizophrenia spectrum disorder, also with dem entia. ASSESSMENT AND PLAN: A 71-year-old female seen earlier this morning with severe sepsis, acute enceph alopathy secondary to urinary tract infection, left lower lobe healthcare-associated pneumonia, possi ble gram-positive cocci, possible gram-negative kiran with strep urinary tract infection. Currently on vancomycin and meropenem day #4. Would complete 4-7 days of antibiotics in this patient with histor y of schizophrenia and dementia. Review of the orders reveals the patient is also on Solu-Medrol by Dr. Thacker in addition to the vancomycin and Zoloft and meropenem. Overall prognosis is poor. Markus Macias MD cc: [id number] TT: 12/02/2016 22:38:30 Confirmation # [id number] Dictation # [id number] fabiola
--- NOTE | 2016-12-02 23:46 | PN ---
DATE: 12/02/2016 SUBJECTIVE: The patient was seen and examined on the bedside. No nausea, vomiting, or diarrhea. No hematuria or hematochezia. No swelling of the leg. No coughing, no shortness of breath. No fever, no chills. Does not look like toxic. PHYSICAL EXAMINATION: VITAL SIGNS: Temperature 98.6, pulse 80, blood pressure 120/80, respiratory rate 18. HEENT: Head normocephalic and atraumatic. Eyes PERRLA. Extraocular muscles intact. Conjunctivae clear. Eyelids unremarkable. Nose patent. NECK: Supple. No carotid bruit, JVD or thyromegaly. CHEST: Bilaterally symmetrical. HEART: S1, S2 positive. LUNGS: Clear to auscultation. ABDOMEN: Soft. Bowel sounds present. No organomegaly. EXTREMITIES: No edema, no cyanosis. NEUROLOGIC: The patient is awake, alert, follows simple commands. MEDICATIONS: Claritin, Ativan, heparin, Keppra, meropenem, Pepcid, Singulair, Solu-Medrol, Synthroid, multivitamin, Topamax, vancomycin, Zofran. LABORATORY DATA: White blood cells 4.0. Hemoglobin 10.6, hematocrit 33.8, platelets 61. Sodium 142, potassium 4.8, BUN 21, creatinine 0.8. ASSESSMENT AND PLAN: The patient is a 71-year-old lady with hyperchloremia, hypophosphatemia, hypermagnesemia, abnormal liver function test, but trending down; history of leukopenia, improved; anemia, thrombocytopenia, looks like pancytopenia. Urinary tract infection. Seen by gastrointestinal, nurse practitioner of Dr. Riley. History of chronic obstructive pulmonary disease , hypertension, history of respiratory failure, was intubated. , dementia, schizophrenia, history of hepatitis C antibody positive with hepatitis C RNA negative, coronary artery disease with cardiac stents, bipolar, history of hypothyroidism, urinary tract infection, history of aspiration pneumonia. Came with septic shock, status post hypothermia, improved. Was intubated, then extubated. The patient has elevated liver enzymes, but trending down. The patient had history of cholelithiasis and hepatitis C antibody positivity. Maybe, his hepatic congestion improving. The patient has history of chronic obstructive lung disease, dementia. Continue present treatment. Follow up with AST and ALT. Out of bed, physical therapy. Abdominal ultrasound reviewed by me. Continue intravenous antibiotics as per infectious disease. Seen by Dr. Grace Pagan for her schizophrenia. retail supervisor on the case. Seen by Dr. John for aspiration pneumonia, chronic obstructive pulmonary disease. Out of bed, physical therapy. We will follow up. Ca Thacker MD cc: [id number] TT: 12/02/2016 23:45:39 Confirmation # [id number] Dictation # [id number] MTDD
--- NOTE | 2016-12-03 00:17 | PN ---
DATE: 12/02/2016 REFERRING PHYSICIAN: Dr. Thacker. SUBJECTIVE: She is lying in the bed, head at 45 degree. Doing well. Has a good appetite. Had dinn er. Refusing to use supplemental oxygen. Also refusing nebulizer treatment, refusing CPAP/BiPAP. N o nausea, no vomiting, diarrhea. No leg pain or leg swelling. OBJECTIVE: GENERAL: No acute distress. VITAL SIGNS: Temp is 98, heart rate is 64, respiratory rate is 20, blood pressure 138/60, pulse ox 9 8% on room air. HEENT: Moist mucous membranes. No ulcer or oral thrush noted. NECK: Supple. No JVD. LUNGS: Have a fair airflow with rhonchi. HEART: S1 and S2. ABDOMEN: Soft, nontender. No organomegaly. EXTREMITIES: There is no edema. NEUROLOGIC: Awake, alert, follows simple commands. LABORATORY DATA: Reviewed. Hemoglobin 10.6, hematocrit 33.8, WBC 4.0, platelet is 61. Sodium 142, potassium 4.8, chloride 112, bicarbonate 23, BUN 21, creatinine 0.8, calcium 9.3, phosphorus 1.8, mag nesium 2.4. AST 205, ALT 289, alk phos is 101. IMPRESSION AND PLAN: Status post respiratory failure with combination of hypoventilation syndrome, s leep apnea syndrome, and sedatives, noncompliant with CPAP/BiPAP and medication, history of schizophr enia. Case discussed with patient's daughter in detail. I also spoke to nursing staff. Will contin ue to encourage CPAP and BiPAP. May add Daliresp 500 mcg daily, Singulair 10 mg daily. Continue inh aled bronchodilator, keep head at 45 degrees. Careful with sedation. Thank you, and will follow with you. Ramírez John MD cc: [phone] TT: 12/03/2016 00:16:01 Confirmation # [id number] Dictation # [id number] orlin
[2016-12-03] MEDS: Albuterol-Ipratrop 3 mg / 0.5 (3 ml) UD INH SCH ×4 (00:30→14:18)
[2016-12-03] MEDS: Meropenem 1g/NS 100mL IVPB 100 ML IVPB SCH (06:45)
[2016-12-03 07:57] LABS: ADD MANUAL DIFF? NO
[2016-12-03 08:06] LABS: EOS % 0.5 % (1.5-5.0); GRAN # 3.27 (1.4-6.5); GRAN % 74.1 % (50.0-68.0); HEMATOCRIT 36.9 % (36.0-48.0); LYMPH # 0.8 (1.2-3.4); LYMPH % 17.9 % (22.0-35.0); MEAN CELL VOLUME 92.3 fL (80.0-105.0); MEAN CORPUSCULAR HEMOGLOBIN 29.8 pg (25.0-35.0); MEAN CORPUSCULAR HGB CONC 32.2 g/dl (31.0-37.0); MEAN PLATELET VOLUME 11.5 fl (7.0-11.0); MONO # 0.3 (0.1-0.6); MONO % 7.5 % (1.0-6.0); PLATELET COUNT 65 10^3/uL (120.0-450.0); RED CELL DISTRIBUTION WIDTH 14.5 % (11.5-14.5); WHITE BLOOD COUNT 4.4 10^3/ul (4.5-11.0)
[2016-12-03 08:09] LABS: BLOOD UREA NITROGEN 19 mg/dL (7-21); CALCIUM 9.1 mg/dL (8.4-10.5); CARBON DIOXIDE 24 mmol/L (21-33); CHLORIDE 110 mmol/L (95-110); GFR AFRICAN-AMERICAN > 60; GLUCOSE,RANDOM 85 mg/dL (70-110); MAGNESIUM 2.3 mg/dL (1.7-2.2); PHOSPHOROUS 2.6 mg/dL (2.5-4.5); POTASSIUM 5.3 mmol/L (3.6-5.0); SODIUM 141 mmol/L (132-148)
[2016-12-03 09:58] VITALS: BP 143/63; PULSE 60; RESP 22; TEMP 97.5; O2SAT 95
[2016-12-03] MEDS ORDERED: Sod Polystyrene Sulf 15 gm/60 ml Oral Susp PO ONE (10:05)
[2016-12-03] MEDS: MethylPREDNISolone 40 mg Vial IVP SCH (10:25)
[2016-12-03] MEDS: Multivitamin Therapeutic Tab PO SCH (10:26)
[2016-12-03] MEDS: EYE DRP OU SCH ×2 (10:26→14:31)
[2016-12-03] MEDS: SYSTANE ULTRA OU SCH ×2 (10:26→14:31)
[2016-12-03] MEDS: Levothyroxine 200 MCG TAB PO SCH (10:28)
--- NOTE | 2016-12-03 10:33 | PN ---
DATE: 12/03/2016 The patient is in room 361, bed 2. REASON FOR CONSULTATION AND FOLLOWUP: Septic shock, altered mental status, status post respiratory f ailure, status post intubation, status post successful extubation. HISTORY OF PRESENT ILLNESS: A 71-year-old female known to have morbid obesity, resident of [facility], was transferred to [facility] with altered mental status, found to have hypothermic temperature of 94. Then, patient developed CO2 narcosis, was intubated, now successfully extubated. The patient is lying flat in bed without any respiratory distress. The patient is confused. No his tory of any chest pain or palpitation. PHYSICAL EXAMINATION: VITAL SIGNS: Blood pressure 143/63, respirations 22, pulse 60, temperature 97.5. HEAD: Normocephalic. EYES: Pupils normal. Conjunctivae slightly pale. NECK: JVP low. Carotid equal. THORAX: AP diameter normal. LUNGS: No rales. CARDIOVASCULAR: S1, S2. ABDOMEN: Protuberant. No organomegaly. Bowel sounds normal. EXTREMITIES: No clubbing, no cyanosis. LABORATORIES: WBC 4.4, hemoglobin 11.9, hematocrit 36.9, platelets . Sodium 141, potassium 5.3 , BUN 19, creatinine 0.9, calcium 9.1, magnesium 2.6. DIAGNOSES: Sepsis, septic shock, status post hypothermia, earlier pancytopenia, now improving, but s till has thrombocytopenia and anemia, status post respiratory failure, status post successful extubat ion, chronic lung disease, hypoventilation, carbon dioxide narcosis, schizophrenia. PLAN: Echo showed left ventricular ejection fraction of 52%, moderate tricuspid regurgitation. We w ill continue present therapy, which is DuoNeb hand nebulizer therapy, ferrous sulfate 324 p.o. daily, heparin 5000 units subQ q. 8 hours, meropenem 1 gram IV q. 8 hours, Singulair 10 mg daily, Solu-Medr ol 10 mg IV q. 12 hours, Synthroid 200 mcg p.o. daily, Topamax 100 mg b.i.d., vancomycin 1 gram IV q. 12 hours, Zoloft 150 mg p.o. daily. The patient's potassium elevated. We will repeat potassium lev el. Yesterday, phosphorus was low, so K-Phos was given and today, phosphorus is 2.6. We will repeat K level and follow with you. Ramírez Carnes MD cc: [id number] TT: 12/03/2016 10:32:37 Confirmation # [id number] Dictation # [id number] en
[2016-12-03 11:29] LABS: ALB/GLOB RATIO 0.9 (1.1-1.8); BILIRUBIN,DIRECT 0.4 mg/dL (0.0-0.4); BILIRUBIN,TOTAL 0.4 mg/dL (0.2-1.3); POTASSIUM 5.2 mmol/L (3.6-5.0); TOTAL PROTEIN 7.4 g/dL (5.8-8.3)
--- NOTE | 2016-12-03 11:30 | PN ---
DATE: 12/03/2016 I had spoken to the nurse practitioner, ____, on the third floor. She states that she had spoken to the psychiatrist and this is baseline mental status for this patient and ____ has given that informat ion that this is the baseline for this patient and her mental status. No further workup as per ____. No fevers. The patient has not had any fevers, no chills. She has no diarrhea or constipation. S he appears to be comfortable. PHYSICAL EXAMINATION: VITAL SIGNS: Temperature is 97, blood pressure is 130/60, respiratory rate of 18. HEENT: Unremarkable. NECK: Supple. LUNGS: Have decreased breath sounds. HEART: Normal S1, S2. ABDOMEN: Soft. LABORATORY EXAMINATION: Reveals the white count is 4.4, hemoglobin 11 and platelets of 65. Coagulat ion is normal. Chemistries reveals the BUN of 19, creatinine of 0.9. Procalcitonin is 0.42. Chest x-ray from yesterday is no active disease. AST and ALT are elevated and alkaline phosphatase is norm al. GI is on the case and patient is also on Solu-Medrol. Dr. Edwards's consultation is reviewed. ASSESSMENT AND PLAN: A 71-year-old female with severe sepsis, acute encephalopathy secondary to urin waldemar tract infection, left lower lobe healthcare-associated pneumonia, possible gram-positive cocci, p ossible gram-negative kiran with a normal urinalysis, makes the urine culture ____ less likely of bairon rn and normal procalcitonin. This is bacterial pneumonia, less concerning and repeat chest x-ray is now normal. Today is day #5. We will discontinue the vancomycin and meropenem and with a history of schizophrenia and dementia, baseline as per my discussion with ____. I recommend also, as per my di scussion with ____, hepatitis C treatment and workup for hepatitis C and hepatitis C PCR and genotype and at this point, no further antibiotics needed. Will discontinue vancomycin and meropenem, day #5 . Markus Macias MD cc: [id number] TT: 12/03/2016 11:23:35 Confirmation # [id number] Dictation # [id number] en 12/03/2016 10:29:36
--- NOTE | 2016-12-03 15:44 | PN ---
DATE: 12/03/2016 Seen and examined at the bedside earlier today. The patient with no acute overnight events reported. The patient is quietly resting in the bed. No nausea, vomiting, or complaints of abdominal pain or diarrhea or overt GI bleed. The patient had bowel movement. VITAL SIGNS: Temperature is 97.5, blood pressure is 143/63, pulse is 60, respirations 22, 95% on terri m air. LABORATORIES: WBC is 4.4, hemoglobin 11.9 and 36.9, platelets of 65. Sodium is 141, the K is down a t 5.2, BUN is 19, creatinine 0.9. Total bilirubin is 0.4, direct bilirubin is 0.4, AST 104, ALT 230, alkaline phosphatase is 106. PHYSICAL EXAMINATION: HEENT: Sclera is anicteric. NECK: Supple. CARDIAC: S1, S2. LUNG SOUNDS: Faint rhonchi, no wheezing. ABDOMEN: With bowel sounds. It is softly obese, nontender on palpation. EXTREMITIES: No edema. NEUROLOGIC: Awake, alert, but confused. ASSESSMENT: A 71-year-old obese female, status post sepsis, septic shock, and hypothermia and status post respiratory failure, status post extubation for respiratory failure, noted to have elevated dayana er enzymes. The patient does have history of hepatitis C positive antibody, but hepatitis C RNA was negative. Differentials could be hepatic congestion from septic shock or medication-induced hepatiti s. Ultrasound was done and that was negative for gallstones or common bile duct stones or dilatation . The patient also with chronic obstructive pulmonary disease, dementia, diabetes mellitus type 2. PLAN: Continue to trend the LFTs, which are slowly improving. Avoid hepatotoxic drugs. Continue Pe pcid. The patient is on deep venous thrombosis prophylaxis, is on Solu-Medrol and is planned to be d ischarged today back to [facility]. The patient was seen and case discussed with Dr. Riley. Marisol ORDOÑEZ cc: [id number] TT: 12/03/2016 15:43:07 Confirmation # [id number] Dictation # [id number] en
--- NOTE | 2016-12-03 20:15 | PN ---
DATE: 12/03/2016 The patient is a 71-year-old female with long history of schizophrenia and dementia. The clara perry lives in long term. The patient was admitted to the medical floor for altered mental status . Please see this keno writer/runner's initial note for more detailed information. MEDICATIONS: Reviewed. CONCERNS AT THE RESIDENTIAL: This keno writer/runner had prolonged conversation with the patient's POA, josee r, yesterday. Medications were discussed. This keno writer/runner followed up on this patient today. The patijudit nt is less lethargic. From the medical standpoint, the patient seems to be ready for transfer back t o the long term. During the interview, the patient has episodes of screaming, but per daughter, t he patient is at her baseline. VITAL SIGNS: This keno writer/runner reviewed vital signs. Vital signs seem to be stable. Temperature in low g rade 97.5, pulse is 60, blood pressure 143/69, respiration 22, oxygen saturation is 95. MEDICATIONS: Reviewed and confirmed with the medical staff at the long term. LABORATORY DATA: Labs were reviewed as well. WBC cells are coming up, 4.4. Granulocytes of 3.27. Microbiology also reviewed. Urine streptococcal was found. MENTAL STATUS EXAMINATION: The patient is French speaking. This keno writer/runner utilized nursing staff for translation, Kerri. The patient presented to be disoriented. The patient does not know where she i s and this is patient's baseline. The patient thinks that she is in a place which she built herself. The patient denied thoughts of harming himself or others. There was no meaningful conversation pos sible. Thought process is disorganized. Insight and judgment are very impaired. Impulses are goyo r controlled. IMPRESSION: The patient has long history of schizophrenia. The patient had adverse reaction on joe ority of antipsychotic medications. This keno writer/runner had prolonged conversation with the patient's daught er and the patient is on right medications and right doses. The patient also has dementia. The olivia ent also has delirium due to general medical condition. The patient had sepsis. Please see medical team notes for more detailed information. PLAN: Continue current management. The patient was ready to be transferred back to the long term . I discussed with the patient's POA. The patient should be continued on the same regimen. The gail avalos is to be followed up with psychiatrist at the long term within 1 week. Should you have any q uestions, give me a call back. Case was discussed in detail with nursing staff, medical team as well as patient's daughter as well as long term staff. Thank you very much for letting me participate in the care of your patient. Grace Pagan MD cc: [phone] TT: 12/03/2016 20:15:06 Confirmation # [id number] Dictation # [id number] sn
--- NOTE | 2016-12-03 20:36 | PN ---
DATE: 12/03/2016 REFERRING PHYSICIAN: Dr. Thacker. SUBJECTIVE: She is lying in the bed, no acute distress. Gets anxious sometimes. Does not use suppl emental oxygen. Does not use nebulizers. No cough, no sputum production, no nausea, no vomiting, di arrhea. No leg pain or leg swelling. OBJECTIVE: GENERAL: No acute distress. VITAL SIGNS: Temperature is 98, heart rate is 60, respiratory rate is 20, blood pressure 143/63, pul se ox 97% on room air. HEENT: Moist mucous membranes. Small oral cavity. Crowded airway. NECK: Supple. No JVD. LUNGS: Fair airflow with few rhonchi. HEART: S1, S2. ABDOMEN: Soft, nontender. No organomegaly. EXTREMITIES: No edema. NEUROLOGIC: Awake, alert, does not follow commands. LABORATORY DATA: Shows hemoglobin 11.9, hematocrit 36.9, WBC 4.4, platelet is 65. Sodium 141, potas sium 5.2, chloride 110, bicarbonate 24, BUN 19, creatinine 0.9, glucose 85, calcium is 9.1, phosphoru s 2.6, magnesium 2.3, AST 104, ALT 230, alkaline phosphatase is 106, albumin 3.6. Hepatitis C antibo dy has been reactive. MEDICATIONS: Medications reviewed. No new changes reported. IMPRESSION AND PLAN: Status post respiratory failure requiring ventilation, probably has a combinati on of sleep apnea, hypoventilation syndrome, and chronic lung disease, noncompliant with the CPAP/BiP AP, also noncompliant with inhaled bronchodilators, nebulizer treatment. She does not use. I had a discussion with the patient's daughter in detail over dilemma and difficulties at her residential. Starting on Daliresp 500 mcg daily, Singulair 10 mg daily to get some bronchodilator effect because s he usually takes p.o. medications. Careful with sedation. High risk for fall. Being transferred to residential for continued care. Ramírez John MD cc: [phone] TT: 12/03/2016 20:35:59 Confirmation # [id number] Dictation # [id number] sn
--- NOTE | 2016-12-15 08:07 | DS ---
CHIEF COMPLAINT: Weak, lethargic, hypothermia. HISTORY OF PRESENT ILLNESS: This is a 71-year-old female with past medical history of hypertension, COPD, respiratory failure, dementia, seizures, diabetes mellitus, came to the Emergency Room from [facility]. She is a resident in [facility], for hypothermia. As per EMS, the patient's oral temperature was taken at the half-way, which showed hypothermia and called EMS for transfer the patient to [facility] and the patient is more confused and lethargic than her baseline and the patient was septic. We admitted the patient , did CAT scan of her abdomen and pelvis, CAT scan of the head, chest x-ray. Bone scan was done. Seen by Dr. Pagan, psychiatrist; Dr. John, radio news anchor; GI doctor, Dr. Macias and Dr. Carnes. The patient was intubated and got better from ICU, was transferred to telemetry, and from telemetry, the patient came back to her baseline. Discharged back to [facility]. PAST MEDICAL HISTORY: COPD, hypertension, respiratory failure, dementia, seizure, diabetes mellitus, coronary artery disease with cardiac stents, history of schizophrenia, bipolar, diabetes mellitus type 2, hypothyroidism, urinary incontinence, anxiety, bipolar, coronary stenting. FAMILY HISTORY: Father and mother noncontributory. HABITS: Never smoked. No drugs. No ethanol. ALLERGIES: THE PATIENT IS ALLERGIC TO HOME MEDICATIONS: Reviewed by me. REVIEW OF SYSTEMS: The patient was seen and examined at the bedside and looks comfortable. No nausea, vomiting, diarrhea. No hematuria or hematochezia. No swelling of the leg. No chest pain, no palpitation, breathing better. PHYSICAL EXAMINATION: VITAL SIGNS: Temperature is 98, pulse 50, respiratory rate 20, blood pressure 140/53, pulse oximetry 97%. HEENT: Normocephalic, atraumatic. Eyes: PERRLA. Tympanic membranes are intact. Conjunctivae clear. Nose patent. Mucous membranes moist. NECK: Supple. No carotid bruit or thyromegaly. CHEST: Bilaterally symmetrical. HEART: S1, S2 positive. LUNGS: Clear to auscultation. ABDOMEN: Soft, bowel sounds present. No organomegaly. EXTREMITIES: No edema, no cyanosis. NEUROLOGIC: Awake, alert, moving all 4 extremities. No focal deficit. LABORATORY DATA: Hemoglobin 11.9, hematocrit 36.9, white blood cells 4.4, platelets of 65. Sodium 141, potassium 5.2, BUN 19, creatinine 0.9, AST 104, ALT 230. MEDICATIONS: Reviewed by me. ASSESSMENT AND PLAN: The patient is a 71-year-old lady with multiple comorbidities, status post respiratory failure requiring ventilation, may be has a combination of sleep apnea, hypoventilation syndrome, chronic lung disease , and noncompliant with CPAP/BiPAP, also noncompliant with inhaled bronchodilators and nebulizer treatment. The patient has history of schizophrenia and bipolar. She is very noncompliant and sometimes will get aggressive when she is offered BiPAP or nebulizer treatment. discussion with the patient's daughter and grandson about the patient's noncompliance. She has advanced dementia. We will continue the of Singulair and bronchodilators. She has history of abnormal liver function test. History of cholelithiasis and hepatitis C. We will keep on checking liver function test in the half-way. Fall precautions. We will follow up. Ca Thacker MD cc: [id number] TT: 12/14/2016 20:26:44 charli WOOTEN
== END 2016-12-03 16:13 | DRG 871 ==
LOC: ED 20:49 → ERH 11-29 01:28 → 2RSO 11-29 04:08 → CCU 11-29 15:42 → 3RNO 12-01 16:40
PROVIDERS: ADMIT Internal Medicine; ATTEND Internal Medicine
PROC: 5A09357 Assistance with Respiratory Ventilation, Less than 24 Consecutive Hours, Continuous Positive Airway Pressure (ICD-10-PCS; 2016-11-29)
PROC: 5A1935Z Respiratory Ventilation, Less than 24 Consecutive Hours (ICD-10-PCS; principal; 2016-11-30)
PROC: 0BH17EZ Insertion of Endotracheal Airway into Trachea, Via Natural or Artificial Opening (ICD-10-PCS; 2016-11-30)
DX: A41.9 Sepsis, unspecified organism (principal); R65.21 Severe sepsis with septic shock; G93.41 Metabolic encephalopathy; J15.9 Unspecified bacterial pneumonia; D61.818 Other pancytopenia; J96.91 Respiratory failure, unspecified with hypoxia; J96.92 Respiratory failure, unspecified with hypercapnia; I11.0 Hypertensive heart disease with heart failure; I50.9 Heart failure, unspecified; J44.0 Chronic obstructive pulmonary disease with (acute) lower respiratory infection; E66.2 Morbid (severe) obesity with alveolar hypoventilation; N30.00 Acute cystitis without hematuria; F05 Delirium due to known physiological condition; I27.2 Other secondary pulmonary hypertension; I48.0 Paroxysmal atrial fibrillation; E03.9 Hypothyroidism, unspecified; G40.909 Epilepsy, unspecified, not intractable, without status epilepticus; F31.9 Bipolar disorder, unspecified; R68.0 Hypothermia, not associated with low environmental temperature; I25.10 Atherosclerotic heart disease of native coronary artery without angina pectoris; F41.9 Anxiety disorder, unspecified; J45.909 Unspecified asthma, uncomplicated; K80.20 Calculus of gallbladder without cholecystitis without obstruction; F20.9 Schizophrenia, unspecified; E78.5 Hyperlipidemia, unspecified; I08.1 Rheumatic disorders of both mitral and tricuspid valves; I48.2 Chronic atrial fibrillation; B95.4 Other streptococcus as the cause of diseases classified elsewhere; F03.90 Unspecified dementia, unspecified severity, without behavioral disturbance, psychotic disturbance, mood disturbance, and anxiety; B19.20 Unspecified viral hepatitis C without hepatic coma; E83.39 Other disorders of phosphorus metabolism; E83.41 Hypermagnesemia; Z95.0 Presence of cardiac pacemaker; Z87.891 Personal history of nicotine dependence; Z68.37 Body mass index [BMI] 37.0-37.9, adult; Z91.19 Patient's noncompliance with other medical treatment and regimen

== ENCOUNTER 2017-01-10 08:34 | Day surgery (SDC) | payer MEDICARE, OTHER ==
[2017-01-10 09:16] VITALS: BMI 49.1
--- NOTE | 2017-01-10 09:41 | CP.SDSHP ---
Same Day Surgery H & P - History Proposed Procedure: ct guided thoracentesis. - Previous Medical/Surgical History Cardiac: ASHD/CAD, Hx of CHF Pulmonary: Emphysema/COPD, Smoking Endocrine/Metabolic: Thyroid Disease, Diabetes, Obesity Neuro: Seizure Disorder, Confusion, Other (schizophrenia bipolar disorder) Previous Surgical History: PTCA.THORACETESIS. - Allergies Allergies: Allergies divalproex sodium [From Depakote] Allergy (Verified 07/28/16 11:05) RASH haloperidol [From Haldol] Allergy (Verified 07/28/16 11:05) RASH haloperidol lactate [From Haldol] Allergy (Verified 07/28/16 11:05) RASH olanzapine [From Zyprexa] Allergy (Verified 07/28/16 11:05) RASH quetiapine fumarate [From Seroquel] Allergy (Verified 07/28/16 11:06) RASH risperidone [From Risperdal] Allergy (Verified 07/28/16 11:05) RASH - Physical Exam General Appearance: OBESE. Vital Signs: Vital Signs 01/10/17 09:16 Temperature 98.1 F Pulse Rate 61 Respiratory 18 Rate Blood Pressure 151/47 H O2 Sat by Pulse 98 Oximetry Mental Status: Confused Neuro: WNL Heart: WNL Lungs: Other (PT HAS DIFUSE BILATERAL WHEEZWS.) GI: WNL - {Optional Preform as Required} Other Pertinent Findings: hx of dementia. - Impression Impression: loculated left pleural effusion , and consolidation of segment of left lower lobe. - Date & Time Date: 01/10/17 Time: 09:41 Short Stay Discharge - Short Stay Discharge Admitting Diagnosis/Reason for Visit: J90 Disposition: HOME/ ROUTINE Referrals: Ca Thacker MD [Primary Care Provider] -
[2017-01-10] MEDS ORDERED: Albuterol-Ipratrop 3 mg / 0.5 (3 ml) UD IH ONE (09:43)
[2017-01-10] MEDS ORDERED: Albuterol-Ipratrop 3 mg / 0.5 (3 ml) UD ONE (09:57)
[2017-01-10] MEDS ORDERED: Sodium Chloride 0.45% 1,000 ML IV SCH (11:45)
[2017-01-10 11:49] VITALS: TEMP 97.6
[2017-01-10 11:54] LABS: BODY FLUID TYPE PLEURAL
[2017-01-10 12:20] VITALS: PULSE 60
[2017-01-10 12:37] VITALS: O2SAT 94
--- NOTE | 2017-01-10 12:49 | RAD ---
HISTORY: lt thoracentesis COMPARISON: No prior. FINDINGS: LUNGS: No active pulmonary disease. PLEURA: No significant pleural effusion identified, no pneumothorax apparent. CARDIOVASCULAR: Mild cardiomegaly. Dual lead pacemaker OSSEOUS STRUCTURES: No significant abnormalities. VISUALIZED UPPER ABDOMEN: Normal. OTHER FINDINGS: None. IMPRESSION: No evidence of pneumothorax
[2017-01-10 13:57] LABS: BF GROSS APPEARANCE CLOUDY (CLEAR)
[2017-01-10 13:58] LABS: BODY FLUID TOTAL COUNT 100 (0-0)
[2017-01-10 14:11] VITALS: BP 107/51; RESP 18
--- NOTE | 2017-01-10 19:44 | CT ---
PROCEDURE: CT guided left thoracentesis HISTORY: Recent pneumonia. Small loculated left pleural effusion. Evaluate for empyema. PHYSICIAN(S): Huey Sanchez MD. TECHNIQUE: The relative risks and indications of the procedure were explained to the patient's daughter and consent obtained. The patient was placed right decubitus position on the CT scanner and preliminary images through the lung bases obtained. Conscious sedation and monitoring were provided throughout the procedure by a nurse. There is a 5 x 9 cm loculated left posterior pleural effusion. A left lateral approach was selected and the area prepped and draped in the usual sterile fashion. 1% Xylocaine was used to anesthetize the skin and soft tissues. A 7 Setswana thoracentesis catheter was advanced into the loculated left pleural effusion. 125 cc of shoaib fluid was aspirated. The appropriate labs were sent. The patient tolerated the procedure well. IMPRESSION: 1. CT-guided left thoracentesis. 125 cc of shoaib fluid was aspirated. Appropriate labs were sent
[2017-01-12 17:08] LABS: LDH PLEURAL FLUID 204 U/L
== END 2017-01-10 15:55 ==
LOC: OPSURG 08:34 → SDS 08:34
PROVIDERS: ATTEND Radiology Vascular & Interventional Radiology
DX: J90 Pleural effusion, not elsewhere classified (principal); E66.9 Obesity, unspecified; F20.9 Schizophrenia, unspecified; F31.9 Bipolar disorder, unspecified; E11.9 Type 2 diabetes mellitus without complications; I25.10 Atherosclerotic heart disease of native coronary artery without angina pectoris; I50.9 Heart failure, unspecified; J44.9 Chronic obstructive pulmonary disease, unspecified; R91.8 Other nonspecific abnormal finding of lung field; Z98.61 Coronary angioplasty status; E07.9 Disorder of thyroid, unspecified; G40.909 Epilepsy, unspecified, not intractable, without status epilepticus; Z87.01 Personal history of pneumonia (recurrent); Z88.8 Allergy status to other drugs, medicaments and biological substances; Z68.42 Body mass index [BMI] 45.0-49.9, adult
CPT/HCPCS: 32555; 71010; 83615; 83986; 84157; 87015; 87070; 87075; 87101; 87116; 87206; 88108; 89051; 94640; 94760; J2405; J3010; J7030

== ENCOUNTER 2017-03-29 16:08 | Inpatient (IN) | payer MEDICARE, MEDICAID ==
[2017-03-29 16:09] VITALS: BMI 49.1
--- NOTE | 2017-03-29 18:10 | ED PDOC ---
Arrival/HPI - General Chief Complaint: Psychiatric Evaluation Time Seen by Provider: 03/29/17 16:31 Historian: [facility], Other (dr. courtney) - History of Present Illness Narrative History of Present Illness (Text): 03/29/17 18:08 71yr old female sent in [facility] with aggressive behavior. pt unable to give any information. states "my mouth is dirty" when asked if she has any pain. Time/Duration: Prior to Arrival Past Medical History - Provider Review Nursing Documentation Reviewed: Yes - Travel History Have you recently traveled outside [place] w/in the past 3 mons?: No - Infectious Disease Hx of Infectious Diseases: None - Tetanus Immunization Tetanus Immunization: Unknown - Cardiac Hx Cardiac Disorders: Yes Hx Congestive Heart Failure: Yes Hx Hypertension: Yes - Pulmonary Hx Respiratory Disorders: Yes Hx Chronic Obstructive Pulmonary Disease (COPD): Yes Hx Pneumonia: No - Neurological Hx Neurological Disorder: Yes HX Cerebrovascular Accident: No Hx Dementia: Yes Hx Seizures: Yes - HEENT Hx HEENT Disorder: No - Renal Hx Renal Disorder: No Hx Renal Failure: No - Endocrine/Metabolic Hx Diabetes Mellitus Type 1: No Hx Diabetes Mellitus Type 2: No Hx Hypothyroidism: No - Hematological/Oncological Hx Blood Transfusions: No Hx Blood Transfusion Reaction: No - Integumentary Hx Dermatological Disorder: No - Musculoskeletal/Rheumatological Hx Arthritis: No Hx Rheumatoid Arthritis: No - Gastrointestinal Hx Gastrointestinal Disorders: Yes (GI Bleed) Hx Gastroesophageal Reflux: No - Genitourinary/Gynecological Hx Genitourinary Disorders: Yes Hx Incontinence: Yes - Psychiatric Hx Psychophysiologic Disorder: Yes Hx Anxiety: Yes Hx Bipolar Disorder: Yes Hx Schizophrenia: Yes Hx Substance Use: (Unable to obtain) - Past Surgical History Past Surgical History: Unable to Obtain - Surgical History Hx Coronary Stent: Yes - Anesthesia Hx Anesthesia Reactions: No Hx Malignant Hyperthermia: No - Suicidal Assessment Feels Threatened In Home Enviroment: No Family/Social History - Physician Review Nursing Documentation Reviewed: Yes Family/Social History: Unknown Family HX Smoking Status: Unknown If Ever Smoked Hx Alcohol Use: No (Unable to obtain) Hx Substance Use: No (Unable to obtain) Hx Substance Use Treatment: No Allergies/Home Meds Allergies/Adverse Reactions: Allergies divalproex sodium [From Depakote] Allergy (Verified 03/29/17 16:17) RASH haloperidol [From Haldol] Allergy (Verified 03/29/17 16:17) RASH haloperidol lactate [From Haldol] Allergy (Verified 03/29/17 16:17) RASH olanzapine [From Zyprexa] Allergy (Verified 03/29/17 16:17) RASH quetiapine fumarate [From Seroquel] Allergy (Verified 03/29/17 16:17) RASH risperidone [From Risperdal] Allergy (Verified 03/29/17 16:17) RASH Home Medications: Home Meds Medication Instructions Recorded Confirmed ARIPiprazole [Abilify] 20 mg PO DAILY 01/10/17 03/29/17 Heparin Sodium,Porcine [Heparin 5,000 unit SC Q8 01/10/17 03/29/17 Sodium] Roflumilast [Daliresp] 500 mcg PO DAILY 01/10/17 03/29/17 Albuterol/Ipratropium [Duoneb 3 3 ml INH [id number] PRN 03/29/17 03/29/17 mg/0.5 mg (3 ml) UD] Bismuth Subsalicylate [Bismatrol] 30 ml PO Q6 PRN 03/29/17 03/29/17 Cyanocobalamin [Vitamin B12 1000 1,000 mcg IM .MONTHLY 03/29/17 03/29/17 mcg Tab] Review of Systems - Review of Systems Systems not reviewed;Unavailable: Altered Mental Status Physical Exam Vital Signs Reviewed: Yes Vital Signs Temp Pulse Resp BP Pulse Ox 03/29/17 22:53 60 16 130/49 L 96 03/29/17 19:40 97.6 F 68 16 127/56 L 96 03/29/17 18:39 72 20 97 03/29/17 16:23 98.2 F 64 16 136/76 97 Temperature: Afebrile Blood Pressure: Normal Pulse: Regular Respiratory Rate: Normal Appearance: Positive for: Well-Appearing, Non-Toxic, Comfortable Pain Distress: None Mental Status: Positive for: Alert and Oriented X 3 - Systems Exam Head: Present: Atraumatic Mouth: Present: Moist Mucous Membranes Neck: Present: Normal Range of Motion Respiratory/Chest: Present: Clear to Auscultation Cardiovascular: Present: Regular Rate and Rhythm Abdomen: No: Tenderness, Rebound, Guarding Back: Present: Normal Inspection Upper Extremity: Present: Normal ROM Lower Extremity: Present: Normal ROM Neurological: Present: GCS=15 Skin: Present: Warm, Dry, Normal Color. No: Rashes Psychiatric: Present: Alert Medical Decision Making ED Course and Treatment: 03/29/17 18:10 Patient is nontoxic well-appearing in no distress vital signs are stable. CBC WNL CMP WNL Tylenol WNL Salicylate WNL Alcohol level WNL Urine drug screen + benzo UA; + nitrates, + leukocytes cxr: wnl ekg: Normal sinus rhythm at 60 bpm normal axis no ST elevations pt with UTI, hx of dementia, can not r/o delerium due to UTI. will admit to med/ surg with psych consult. case discussed with dr. arizmendi and dr. courtney. dr. courtney accepts admission to med/surg with psych consult. pt became aggressive in er; spitting on nurses, yelling and screaming. ativan 2mg IV ordered. Impression; uti, dementia admit to med/surg - Lab Interpretations Lab Results: 03/29/17 19:00 03/29/17 19:00 Lab Results 03/29/17 21:46: Urine Opiates Screen Negative, Urine Methadone Screen Negative, Ur Barbiturates Screen Negative, Ur Phencyclidine Scrn Negative, Ur Amphetamines Screen Negative, U Benzodiazepines Scrn Positive H, U Oth Cocaine Metabols Negative, U Cannabinoids Screen Negative 03/29/17 21:29: Urine Color Yellow, Urine Appearance Clear, Urine pH 6.5, Ur Specific [place] 1.010, Urine Protein Negative, Urine Glucose (UA) Negative, Urine Ketones Negative, Urine Blood Small H, Urine Nitrate Positive H, Urine Bilirubin Negative, Urine Urobilinogen 0.2, Ur Leukocyte Esterase Small H, Urine RBC Negative, Urine WBC 5 - 10, Ur Epithelial Cells 3 - 4, Urine Bacteria Many 03/29/17 19:00: Alcohol, Quantitative < 10 03/29/17 19:00: Salicylates < 1 L, Acetaminophen < 10.0 L 03/29/17 19:00: Sodium 138, Potassium 3.9, Chloride 106, Carbon Dioxide 22, Anion Gap 14, BUN 23 H, Creatinine 0.9, Est GFR ( Amer) > 60, Est GFR ( Non-Af Amer) > 60, Random Glucose 80, Calcium 9.0, Total Bilirubin 0.2, AST 18, ALT 30, Alkaline Phosphatase 91, Total Protein 7.1, Albumin 3.9, Globulin 3.2, Albumin/Globulin Ratio 1.2 03/29/17 19:00: WBC 4.2 L, RBC 3.77, Hgb 11.5 L, Hct 35.9 L, MCV 95.2, MCH 30.5 , MCHC 32.0, RDW 12.7, Plt Count 137, MPV 9.8, Gran % 51.1, Lymph % (Auto) 36.0 H, [place] % (Auto) 7.9 H, Eos % (Auto) 4.8, Baso % (Auto) 0.2, Gran # 2.15, Lymph # 1.5, [place] # 0.3, Eos # 0.2, Baso # 0.01 - RAD Interpretation Radiology Orders: 03/29/17 16:32 CHEST PORTABLE [RAD] Stat - Medication Orders Current Medication Orders: Chlorpromazine (Thorazine) 50 mg PO Q6 PRN; Protocol PRN Reason: Agitation Lorazepam (Ativan) 2 mg IM Q6 PRN; Protocol PRN Reason: Agitation Discontinued Medications Ceftriaxone Sodium (Rocephin 1 Gram Ivpb) 1 gm in 100 mls @ 200 mls/hr IVPB STAT STA PRN Reason: Protocol Stop: 03/29/17 22:39 Last Admin: 03/29/17 23:00 Dose: 200 mls/hr Lorazepam (Ativan) Confirm Administered Dose 2 mg .ROUTE .STK-MED ONE Stop: 03/29/17 22:28 Last Admin: 03/29/17 23:24 Dose: Lorazepam (Ativan) 2 mg IVP ONCE ONE PRN Reason: Protocol Stop: 03/29/17 22:26 Last Admin: 03/29/17 22:30 Dose: 2 mg Disposition/Present on Arrival - Present on Arrival Any Indicators Present on Arrival: No History of DVT/PE: No History of Uncontrolled Diabetes: No Urinary Catheter: No History of Decub. Ulcer: No History Surgical Site Infection Following: None - Disposition Have Diagnosis and Disposition been Completed?: Yes Diagnosis: UTI (urinary tract infection), Combative behavior Disposition: HOSPITALIZED Disposition Time: 21:00 Patient Plan: Admission Patient Problems: Current Active Problems Problem Status Onset Combative behavior Acute UTI (urinary tract infection) Acute Condition: FAIR
[2017-03-29 19:12] LABS: BASO # 0.01 K/mm3 (0.0-2.0); BASO % 0.2 % (0.0-3.0); EOS # 0.2 (0.0-0.7); EOS % 4.8 % (1.5-5.0); GRAN # 2.15 (1.4-6.5); GRAN % 51.1 % (50.0-68.0); HEMATOCRIT 35.9 % (36.0-48.0); LYMPH # 1.5 (1.2-3.4); MEAN CELL VOLUME 95.2 fl (80.0-105.0); MEAN CORPUSCULAR HEMOGLOBIN 30.5 pg (25.0-35.0); MEAN PLATELET VOLUME 9.8 fl (7.0-11.0); MONO # 0.3 (0.1-0.6); MONO % 7.9 % (1.0-6.0); RED CELL DISTRIBUTION WIDTH 12.7 % (11.5-14.5); WHITE BLOOD COUNT 4.2 10^3/ul (4.5-11.0)
[2017-03-29 19:27] LABS: ALB/GLOB RATIO 1.2 (1.1-1.8); ALKALINE PHOSPHATASE 91 U/L (38-133); ALT/SGPT 30 U/L (7-56); AST/SGOT 18 U/L (15-39); BILIRUBIN,TOTAL 0.2 mg/dL (0.2-1.3); BLOOD UREA NITROGEN 23 mg/dL (7-21); CARBON DIOXIDE 22 mmol/L (21-33); CHLORIDE 106 mmol/L (98-107); GFR AFRICAN-AMERICAN > 60; GLUCOSE,RANDOM 80 mg/dL (70-110); POTASSIUM 3.9 mmol/L (3.6-5.0); SODIUM 138 mmol/L (132-148); TOTAL PROTEIN 7.1 g/dL (5.8-8.3)
[2017-03-29 21:42] LABS: PH,URINE 6.5 (4.7-8.0); URINE BILIRUBIN NEGATIVE (NEGATIVE); URINE BLOOD SMALL (NEGATIVE); URINE GLUCOSE (UA) NEGATIVE (NEGATIVE); URINE KETONE NEGATIVE (NEGATIVE); URINE LEUKOCYTE ESTERASE SMALL Leu/uL (NEGATIVE); URINE PROTEIN NEGATIVE mg/dL (<30 mg/dL); URINE UROBILINOGEN 0.2 E.U./dL (<1 E.U./dL)
[2017-03-29 22:10] LABS: URINE APPEARANCE CLEAR (CLEAR); URINE COLOR YELLOW (YELLOW)
[2017-03-29] MEDS ORDERED: cefTRIAXone 1 gm 1 GM/100 ML BAG IVPB STA (22:10)
[2017-03-29 22:12] LABS: URINE BACTERIA MANY (NEG); URINE RBC NEGATIVE /hpf (0-2)
[2017-03-30 01:27] VITALS: RESP 20
[2017-03-30] MEDS ORDERED: Albuterol-Ipratrop 3 mg / 0.5 (3 ml) UD INH PRN (08:20)
[2017-03-30] MEDS ORDERED: cefTRIAXone 500 MG in Sodium Chloride 0.9% 50 ML IVPB SCH (08:30)
--- NOTE | 2017-03-30 08:46 | RAD ---
HISTORY: PES eval COMPARISON: 01/10/2017 FINDINGS: LUNGS: No consolidation. PLEURA: Possible small left pleural effusion under trace pleural thickening. -prior history left thoracentesis. No pneumothorax. CARDIOVASCULAR: Mild cardiomegaly. Central pulmonary vasculature prominent- it not significantly changed. Two lead pacemaker device and leads appear appropriate OSSEOUS STRUCTURES: Thoracic spondylosis VISUALIZED UPPER ABDOMEN: Normal. OTHER FINDINGS: None. IMPRESSION: No interval pathology noted. Mild cardiomegaly and a probable minimal central pulmonary venous congestion present and similar. Similar small left pleural effusion and/or pleural thickening suggested
[2017-03-30] MEDS: Levothyroxine 200 MCG TAB PO SCH (11:11)
[2017-03-30] MEDS: Insulin Reg-LOW-Coverage SC SCH ×2 (11:13→16:25)
[2017-03-30] MEDS ORDERED: DiphenhydrAMINE 50 mg/ml Inj IVP ONE (13:18)
[2017-03-30] MEDS ORDERED: DiphenhydrAMINE 1% 1 EA TUBE TOP PRN (13:26)
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
--- NOTE | 2017-03-30 17:15 | CARD ---
APPROVED REPORT EKG Measurement Heart [id number] <Conclusion> Atrial paced rhythm Otherwise normal EKG
[2017-03-30] MEDS: Aztreonam 1 Gm in NS 100mL 100 ML IVPB SCH (22:50)
--- NOTE | 2017-03-31 00:27 | CON ---
DATE: 03/30/2017 REFERRING PHYSICIAN: Dr. Thacker. REASON FOR CONSULT: Chronic lung disease and sleep apnea syndrome. HISTORY OF PRESENT ILLNESS: This is a 71-year-old female known to me from previous admission with multiple medical issues, has Alzheimer type dementia with aggressive behavior, medical issue include hypertension, hyperlipidemia, chronic lung disease, seizures, hypothyroid, cardiac diastolic dysfunction, atrial fibrillation, being treated for sepsis most likely UTI. Does not use CPAP, no nausea, no vomiting, no leg pain. PAST MEDICAL HISTORY: Hypertension, seizure disorder, hypothyroid, cardiomyopathy with diastolic dysfunction, atrial fibrillation, dementia with behavior disorder, cardiac arrhythmia requiring pacemaker. ALLERGIES: CEFTRIAXONE, DIVALPROEX, HALDOL, OLANZAPINE, RISPERDAL, QUETIAPINE. FAMILY HISTORY: No significant cardiopulmonary disease reported. SOCIAL HISTORY: She is director nursing service. No history of smoking or alcohol use. MEDICATIONS: She is on Abilify 20 mg daily, Ativan 2 mg q. 6 hours p.r.n., Azactam 1 g IV q. 12 hour, Daliresp 500 mcg daily, DuoNeb q. 6 hours, ferrous sulphate 325 mg daily, heparin 5000 units subcutaneous q. 8 hours, insulin coverage, Keppra 750 mg twice a day, Pepcid 20 mg daily, Synthroid 200 mcg daily, Thorazine 50 mg q. 6 hours p.r.n. REVIEW OF SYSTEMS: No headache, no rhinitis, got short of breath, has some cough, there is loud snoring, daytime sleepiness, no nausea, no vomiting, no diarrhea, no leg pain or leg swelling. PHYSICAL EXAMINATION: GENERAL: Lying on the bed. In no acute distress. VITAL SIGNS: Temperature 98, heart rate 80, respiratory rate 20, blood pressure 130/58, pulse ox 100% on nasal cannula. HEENT: Moist mucous membranes. Small oral cavity. Crowded airway. NECK: Short thick neck. CARDIOPULMONARY: S1 and S2. LUNGS: Scattered rhonchi. ABDOMEN: Soft and nontender. No organomegaly. EXTREMITIES: There is no edema. NEUROLOGICAL: Awake and alert. Follows simple command. LABORATORY DATA: Shows hemoglobin 11.5, hematocrit 35.9, WBC 4.2, platelet is 137. Sodium 138, potassium 3.9, chloride 106, bicarbonate 22, BUN 23, creatinine 0.9, glucose 80, AST 18, ALT 30, alk phos 91, albumin is 3.9. Urinalysis showed RBC negative, WBC 5 to 10. Urine drug screen is positive for benzodiazepine. She had a chest x-ray done on admission, which shows mild cardiomegaly with probably central pulmonary venous congestion, small left pleural effusion and pleural thickening suggested. IMPRESSION AND PLAN: Hypoventilation syndrome, sleep apnea symptoms, chronic lung disease, dementia with aggressive behavior, recurrent urinary tract infection, morbid obesity, being treated for urinary tract infection. Pulmonary point of view doing well, add inhale bronchodilator. We will try CPAP 7 cm with 30% oxygen while sleeping. Gastric and deep venous thrombosis prophylaxis, fall precautions. Ramírez John MD
--- NOTE | 2017-03-31 00:27 | CON ---
DATE: HISTORY OF PRESENT ILLNESS: Shortly, the patient is a 71-year-old female who was sent by shelter for evaluation of agitated and restless behavior. The patient has a long and debilitating history of schizophrenia, as well as dementia with behavioral disturbances. The patient has multiple medical issues including history of GI bleed, history of osteoarthritis, thyroid problems. The patient also has a history of cardiogenic shock. THE PATIENT HAS MULTIPLE ALLERGIES TO PSYCHOTROPIC MEDICATIONS SUCH DEPAKOTE, HALOPERIDOL, RISPERDAL, SEROQUEL, AND ZYPREXA. This policy writer sales is familiar with this patient from the previous admissions from the medical side and this policy writer sales was compensation consultant on the case. Initially, the patient was sent for evaluation of psychosis, as well as possible admission to the psychiatric inpatient unit. In the emergency room, the patient was found to have urinary tract infection. At the present moment, the patient was admitted on the medical side for delirium due to urinary tract infection and treatment of infection. The patient was seen and evaluated today. The patient presented to be alert, confused. The patient is Luxembourgish speaking. This policy writer sales utilized translation system on demand and death claim examiner, Ольга Cast, #[id number], was called. As per translation per death claim examiner, the patient does not make any sense, talking gibberish, telling random things, for example "somebody is in the room, I cannot take a shower". The patient's answers were not related to the questions being asked and it was very hard for even the death claim examiner to understand what the patient is talking about. The patient has power of title attorney, the patient's daughter, by the same name, Romelia Trejo, and this policy writer sales had the chance to speak with the patient's daughter, phone number is [phone]. As per the patient's POA, the patient suffers from schizophrenia. The patient also has history of altered mental status. As per daughter, the patient is usually agitated when she has a lot of medical issues. This policy writer sales educated the patient's power of title attorney about the treatment plan, about medication called Thorazine, and risks, benefits, and alternatives were discussed in detail. This policy writer sales reviewed medication list from the patient's shelter. The patient was started on Latuda 20 mg daily on 03/14/2017. Also, the patient was on Xanax 0.5 mg twice a day. The patient also is on aripiprazole 20 mg daily. The patient is on Keppra for seizures. The rest of the medications are for medical issues. PHYSICAL EXAMINATION: VITAL SIGNS: Reviewed. Temperature is 98.1, blood pressure 130/58, respirations 20, oxygen saturation is 100. MEDICATIONS: Reviewed. The patient is on Abilify 20 mg daily, which was resumed. The patient is on IV antibiotic, ceftriaxone. Thorazine was started at 50 mg q.6 hours for agitation IM. The patient was not agitated and did not require to have IM medication. The patient is on Pepcid 20 mg daily, ferrous sulfate, heparin, Keppra 750 mg twice a day, Synthroid, Ativan 2 mg IM q.6 hours as needed for severe agitation, and also is on roflumilast. LABORATORY DATA: Labs reviewed. Hemoglobin and hematocrit 11.5 and 35.9 respectively. Chemistry reviewed. Urinalysis showed leukocyte esterase positive, nitrite positive, and blood small. Toxicology reviewed, positive for benzodiazepines, but the patient was taking Xanax back in the shelter. MENTAL STATUS EXAMINATION: As this policy writer sales described above, the patient appears to be alert, but confused. There is no option to have a meaningful conversation. The patient talks gibberish in Luxembourgish, and even dog or animal sitter was not able to understand what the patient was talking about. The patient was answering randomly and the answers were not related to the questions being asked. The patient has chronic schizophrenia, as well as dementia. Insight and judgment are lacking. Impulses seem to be well controlled at the present moment. IMPRESSION: Delirium and dementia. The patient has history of schizophrenia. The patient also has a urinary tract infection, which contributed to the patient's condition. The patient has multiple medical issues. Please see medical team's notes for more detailed information. PLAN: Continue current management. Medications were confirmed and resumed. Medication management will discuss with the patient's power of title attorney, the patient's daughter, Romelia. This policy writer sales will implement Thorazine as needed for agitation. Latuda is nonformulary in the hospital. We will continue Abilify. The patient is ALLERGIC TO DEPAKOTE, HALDOL, AND RISPERDAL, WELL SEROQUEL AND ZYPREXA. We will monitor the patient closely. Case was discussed with nursing staff, the patient's POA, and will be discussed with primary care physician, Dr. Thacker. Thank you very much for letting me participate in the care of your patient. Grace Pagan MD
--- NOTE | 2017-03-31 00:58 | CP.PCM.PN ---
Subjective - Date & Time of Evaluation Date of Evaluation: 03/31/17 Time of Evaluation: 00:55 - Subjective Subjective: S: It was requested to insert a heparin lock by nurse Harika. Patient has no acute symptoms now. Pertinent medical record was reviewed. O: Vital Signs 3 Temp 98 F 03/30/17 16:00 Pulse 82 03/30/17 16:00 Resp 20 03/30/17 16:00 BP 132/62 03/30/17 16:00 Pulse Ox 99 03/30/17 16:00 Awake, alert , not in distress. LUNGS:Normal breathing pattern. A:Poor venous access. Encounter for intravenous line placement. P: # angiocath was inserted in Objective - Vital Signs/Intake and Output Vital Signs (last 24 hours): Temp Pulse Resp BP Pulse Ox 98 F 82 20 132/62 99 03/30/17 16:00 03/30/17 16:00 03/30/17 16:00 03/30/17 16:00 03/30/17 16:00 Intake and Output: 03/30/17 03/31/17 18:59 06:59 Intake Total 1400 660 Balance 1400 660 - Medications Medications: Current Medications Albuterol/Ipratropium (Duoneb 3 Mg/0.5 Mg (3 Ml) Ud) 3 ml INH [id number] PRN PRN Reason: Shortness of Breath Aripiprazole (Abilify) 20 mg PO DAILY [facility] PRN Reason: Protocol Last Admin: 03/30/17 11:11 Dose: 20 mg Chlorpromazine (Thorazine) 50 mg IM Q6H PRN; Protocol PRN Reason: SEVERE AGITATION Diphenhydramine HCl (Benadryl Maximum Strength 1%) 0 ea TOP Q6H PRN PRN Reason: Itching / Pruritus Famotidine (Pepcid) 20 mg PO HS [facility] Last Admin: 03/30/17 22:49 Dose: 20 mg Ferrous Sulfate (Feosol) 324 mg PO DAILY [facility] Last Admin: 03/30/17 11:12 Dose: 324 mg Heparin Sodium (Porcine) (Heparin) 5,000 units SC Q8 [facility] Last Admin: 03/30/17 22:50 Dose: 5,000 units Aztreonam (Azactam 1 Gm) 100 mls @ 100 mls/hr IVPB Q12 [facility] PRN Reason: Protocol Stop: 03/31/17 10:59 Last Admin: 03/30/17 22:50 Dose: 100 mls/hr Insulin Human Regular (Humulin R Low) 0 units SC [facility] PRN Reason: Protocol Last Admin: 03/30/17 16:25 Dose: Not Given Levetiracetam (Keppra) 750 mg PO BID [facility] Last Admin: 03/30/17 18:18 Dose: 750 mg Levothyroxine Sodium (Synthroid) 200 mcg PO DAILY [facility] Last Admin: 03/30/17 11:11 Dose: 200 mcg Lorazepam (Ativan) 2 mg IM Q6 PRN; Protocol PRN Reason: Severe Agitation Roflumilast (Daliresp) 500 mcg PO DAILY [facility] Last Admin: 03/30/17 11:12 Dose: 500 mcg
[2017-03-31] MEDS: Aztreonam 1 Gm in NS 100mL 100 ML IVPB SCH ×4 (02:30→23:48)
--- NOTE | 2017-03-31 02:44 | CP.PCM.PN ---
Subjective - Date & Time of Evaluation Date of Evaluation: 03/31/17 Time of Evaluation: 02:40 - Subjective Subjective: S:It was requested to insert a heparin lock. Patient was initially reluctant to have intravenous line inserted. Then agreed. Has no complaints. Recruiting Consultant Alissa. Pertinent medical record was reviewed. O: Last Vital Signs 3 Temp 98 F 03/31/17 01:46 Pulse 57 L 03/31/17 01:46 Resp 20 03/31/17 01:46 BP 146/70 03/31/17 01:46 Pulse Ox 57 L 03/31/17 01:46 Awake, alert, not indistrsss. LUNGS: Normal breathing pattern. A: Poor venous access. Encounter for intravenous line placement. P:# 24 angiocath was inserted in right forearm. Objective - Vital Signs/Intake and Output Vital Signs (last 24 hours): Temp Pulse Resp BP Pulse Ox 98 F 57 L 20 146/70 57 L 03/31/17 01:46 03/31/17 01:46 03/31/17 01:46 03/31/17 01:46 03/31/17 01:46 Intake and Output: 03/30/17 03/31/17 18:59 06:59 Intake Total 1400 660 Balance 1400 660 - Medications Medications: Current Medications Albuterol/Ipratropium (Duoneb 3 Mg/0.5 Mg (3 Ml) Ud) 3 ml INH [id number] PRN PRN Reason: Shortness of Breath Aripiprazole (Abilify) 20 mg PO DAILY [facility] PRN Reason: Protocol Last Admin: 03/30/17 11:11 Dose: 20 mg Chlorpromazine (Thorazine) 50 mg IM Q6H PRN; Protocol PRN Reason: SEVERE AGITATION Diphenhydramine HCl (Benadryl Maximum Strength 1%) 0 ea TOP Q6H PRN PRN Reason: Itching / Pruritus Famotidine (Pepcid) 20 mg PO HS [facility] Last Admin: 03/30/17 22:49 Dose: 20 mg Ferrous Sulfate (Feosol) 324 mg PO DAILY [facility] Last Admin: 03/30/17 11:12 Dose: 324 mg Heparin Sodium (Porcine) (Heparin) 5,000 units SC Q8 [facility] Last Admin: 03/30/17 22:50 Dose: 5,000 units Aztreonam (Azactam 1 Gm) 100 mls @ 100 mls/hr IVPB Q12 [facility] PRN Reason: Protocol Stop: 03/31/17 10:59 Insulin Human Regular (Humulin R Low) 0 units SC [facility] PRN Reason: Protocol Last Admin: 03/30/17 16:25 Dose: Not Given Levetiracetam (Keppra) 750 mg PO BID [facility] Last Admin: 03/30/17 18:18 Dose: 750 mg Levothyroxine Sodium (Synthroid) 200 mcg PO DAILY [facility] Last Admin: 03/30/17 11:11 Dose: 200 mcg Lorazepam (Ativan) 2 mg IM Q6 PRN; Protocol PRN Reason: Severe Agitation Roflumilast (Daliresp) 500 mcg PO DAILY [facility] Last Admin: 03/30/17 11:12 Dose: 500 mcg
[2017-03-31] MEDS: Insulin Reg-LOW-Coverage SC SCH ×5 (08:49→22:47)
[2017-03-31] MEDS: Levothyroxine 200 MCG TAB PO SCH (10:20)
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
--- NOTE | 2017-03-31 13:54 | PN ---
SUBJECTIVE: The patient is a 71-year-old female with long and debilitating history of schizophrenia as well as dementia as well as multiple medical issues. Currently, the patient lives in shelter, was sent by shelter facility for aggressive and agitated behavior. The patient was found to have urinary tract infection. Most likely, agitation was related to hyperactive delirium. The patient was seen yesterday, discussed with the patient POA. Please see initial consultation note for more detailed information. Medications reviewed, resumed. The patient was on Latuda 20 mg daily, but unfortunately it is non-formulary in the hospital; that is why Latuda was substituted with Thorazine. ALLERGIES: THE PATIENT ALSO HAS A LOT OF ALLERGIES FROM MULTIPLE PSYCHOTROPIC MEDICATIONS INCLUDING DEPAKOTE, HALOPERIDOL, RISPERDAL, SEROQUEL, AND ZYPREXA. This chief underwriter attempted to speak to the patient. The patient is Lib[place] speaking and this led to utilize nursing staff for translation. The patient appears to be confused, still saying random things. The patient wants to clean her bed. The patient seems to have restless night, pulled IV line yesterday, refused that to be reinserted. The patient was to be on p.o. antibiotics, no IV antibiotics, but it is up to infectious disease team. PHYSICAL EXAMINATION VITAL SIGNS: This chief underwriter reviewed, vital signs seems to be stable. Temperature 98, pulse is 57, blood pressure 146/70, respirations 20, oxygen saturation is 57 which is low. MENTAL STATUS EXAMINATION: The patient presented to be alert, confused. There is no option to have meaningful conversation. Intermittent eye contact. Speech was random, pressured. The patient is having word salad even on Libyan language. Thought process disorganized. Thought content, the patient is delusional, disorganized in her thoughts and behavior. The patient denies thoughts of harming herself or others. Denied intent or plan. Insight and judgment are very impaired. Impulses are not predictable. MEDICATIONS: Reviewed. The patient is on Duoneb, Abilify 20 mg daily, aztreonam 1 g. The patient is on Thorazine 50 mg IM q.6 hours, nobody gave her IM medication; Pepcid, ferrous sulfate, heparin, insulin, Keppra 750 twice a day, Synthroid 200 mg daily, Ativan 2 mg IM q.6 hours for severe agitation. The patient got Ativan today at 5:21 and it was not effective. LABORATORY DATA: Reviewed. Most recent was from . Microbiology reviewed, gram-negative kiran in the urine. IMPRESSION: History of schizophrenia, history of dementia, on top of that delirium due to urinary tract infection. The patient has multiple medical issues. Please see medical team notes for more detailed information. PLAN: Treatment plan was discussed with the patient's POA, daughter Ladi yesterday. Medication management was discussed with the patient's POA. Risks, benefits, and alternatives were discussed. Xanax resumed 0.5 mg twice a day and at the nighttime. Abilify will be continued 20 mg daily. Thorazine will be started 25 mg at the morning time, at the nighttime because the patient was on two antipsychotic medications including Latuda, which is non-formulary in the hospital. The patient needs constant redirection and revision. The patient pulled IV line and refused that to be reinserted. Infectious Disease needs to be notified. If Infectious Disease could start p.o. antibiotics, the patient is willing to take p.o. antibiotics. If not, the patient lacks capacity to refuse any treatment. POA needs to be involved. Case was discussed with nursing staff and medical administrative assistant and will be discussed with Dr. Thacker. Thank you very much for letting me participate in care of your patient. Should you have any question, give me a callback. Grace Pagan MD
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
--- NOTE | 2017-03-31 23:26 | PN ---
DATE: 03/31/2017 REFERRING PHYSICIAN: Dr. Thacker. SUBJECTIVE: She is lying in the bed, 45 degree. Not much cough or vomiting. No hematuria or diarrhea. OBJECTIVE: GENERAL: In no acute distress. VITAL SIGNS: Temperature 98, heart rate is 75, respiratory rate is 20, blood pressure 131/65, pulse oximetry 96% on room air.. HEENT: Moist mucous membrane and crowded airway. Mallampati score is 4. NECK: Supple. No JVD. LUNGS: Fair airflow with few rhonchi. HEART: S1 and S2. ABDOMEN: Soft, nontender. No organomegaly. EXTREMITIES: No edema. NEUROLOGIC: Awake, alert and follows simple commands. MEDICATIONS: She is on Abilify 25 mg daily, Ativan 2 mg q.6 hour p.r.n., Azactam 1 gm IV q. 12 hour. She is also on Benadryl q.6 hour p.r.n. for itching, Daliresp 500 mcg daily, DuoNeb q. 6 hour, ferrous sulphate 325 mg daily, heparin 5000 units subcutaneous q.8 hours, insulin coverage, Keppra 750 mg twice a day, Pepcid 20 mg at bedtime, Synthroid 200 mcg daily, Thorazine 50 mg q. 6 hours p.r.n., Xanax 0.5 mg twice a day, also Xanax 0.5 mg at bedtime. LABORATORY DATA: .Reviewed. Noted blood sugar this morning is 165. IMPRESSION AND PLAN: Hypoventilation syndrome, sleep apnea syndrome, chronic lung disease, dementia with aggressive behavior, recurrent urinary tract infection, morbid obesity. Continue to encourage BiPAP use, keep at 45 degrees; antibiotics, gastric prophylaxis, deep venous thrombosis prophylaxis, fall precautions, psychiatry followup. Follow up labs in the morning and we will follow with you. Ramírez John MD
[2017-04-01 07:03] LABS: HEMATOCRIT 36.8 % (36.0-48.0); MEAN CELL VOLUME 93.2 fl (80.0-105.0); MEAN CORPUSCULAR HEMOGLOBIN 29.9 pg (25.0-35.0); MEAN CORPUSCULAR HGB CONC 32.1 g/dl (31.0-37.0); RED CELL DISTRIBUTION WIDTH 12.4 % (11.5-14.5); WHITE BLOOD COUNT 4.1 10^3/ul (4.5-11.0)
[2017-04-01 07:04] LABS: ALB/GLOB RATIO 1.2 (1.1-1.8); ALKALINE PHOSPHATASE 101 U/L (38-133); ALT/SGPT 22 U/L (7-56); AST/SGOT 22 U/L (15-39); BILIRUBIN,TOTAL 0.3 mg/dL (0.2-1.3); BLOOD UREA NITROGEN 19 mg/dL (7-21); CARBON DIOXIDE 24 mmol/L (21-33); CHLORIDE 103 mmol/L (98-107); GFR AFRICAN-AMERICAN > 60; GLUCOSE,RANDOM 84 mg/dL (70-110); POTASSIUM 4.2 mmol/L (3.6-5.0); SODIUM 136 mmol/L (132-148); TOTAL PROTEIN 7.1 g/dL (5.8-8.3)
[2017-04-01] MEDS: Insulin Reg-LOW-Coverage SC SCH ×2 (07:51→12:28)
[2017-04-01] MEDS: Levothyroxine 200 MCG TAB PO SCH (10:28)
--- NOTE | 2017-04-01 13:29 | CP.PCM.PN ---
Subjective - Date & Time of Evaluation Date of Evaluation: 04/01/17 Time of Evaluation: 13:25 - Subjective Subjective: Discuss with Ladi VASQUES re: admitting patient to for medication adjustment and modification with Dr Edwards. Per POKristine, she does not want her mother to go to " it wont make a difference and I don't want my mother going to the psychiatric unit, my mother is not aggressive and just wants to be clean and showered " Relayed info to PMD, Dr Edwards and nursing staff. Will discuss with PMD re: return to [facility] as per LAYO wishes for continuation of medical mgmt and treatment of uti with p.o. antibiotics Kathie Lindsay APN Objective - Vital Signs/Intake and Output Vital Signs (last 24 hours): Temp Pulse Resp BP Pulse Ox 98 F 61 20 140/74 96 04/01/17 08:41 04/01/17 08:41 04/01/17 08:41 04/01/17 08:41 04/01/17 08:41 Intake and Output: 04/01/17 04/01/17 06:59 18:59 Intake Total 900 Balance 900 - Medications Medications: Current Medications Albuterol/Ipratropium (Duoneb 3 Mg/0.5 Mg (3 Ml) Ud) 3 ml INH [id number] PRN PRN Reason: Shortness of Breath Alprazolam (Xanax) 0.5 mg PO BID SHIVANI PRN Reason: Protocol Last Admin: 04/01/17 10:31 Dose: 0.5 mg Alprazolam (Xanax) 0.5 mg PO HS SHIVANI PRN Reason: Protocol Last Admin: 03/31/17 22:45 Dose: 0.5 mg Aripiprazole (Abilify) 20 mg PO DAILY SHIVANI PRN Reason: Protocol Last Admin: 04/01/17 10:30 Dose: 20 mg Chlorpromazine (Thorazine) 50 mg IM Q6H PRN; Protocol PRN Reason: SEVERE AGITATION Last Admin: 03/31/17 19:29 Dose: 50 mg Chlorpromazine (Thorazine) 50 mg PO 1600 SHIVANI PRN Reason: Protocol Chlorpromazine (Thorazine) 50 mg PO AMHS SHIVANI PRN Reason: Protocol Last Admin: 04/01/17 10:32 Dose: 50 mg Ciprofloxacin (Cipro) 500 mg PO Q12 SHIVANI PRN Reason: Protocol Stop: 04/02/17 10:01 Diphenhydramine HCl (Benadryl Maximum Strength 1%) 0 ea TOP Q6H PRN PRN Reason: Itching / Pruritus Famotidine (Pepcid) 20 mg PO HS [facility] Last Admin: 03/31/17 22:46 Dose: 20 mg Ferrous Sulfate (Feosol) 324 mg PO DAILY [facility] Last Admin: 04/01/17 10:29 Dose: 324 mg Heparin Sodium (Porcine) (Heparin) 5,000 units SC Q8 SHIVANI Last Admin: 03/31/17 22:46 Dose: 5,000 units Insulin Human Regular (Humulin R Low) 0 units SC ACHS SHIVANI PRN Reason: Protocol Last Admin: 04/01/17 12:28 Dose: 1 units Levetiracetam (Keppra) 750 mg PO BID [facility] Last Admin: 04/01/17 10:30 Dose: 750 mg Levothyroxine Sodium (Synthroid) 200 mcg PO DAILY [facility] Last Admin: 04/01/17 10:28 Dose: 200 mcg Lorazepam (Ativan) 2 mg IM Q6 PRN; Protocol PRN Reason: Severe Agitation Last Admin: 04/01/17 00:40 Dose: 2 mg Roflumilast (Daliresp) 500 mcg PO DAILY [facility] Last Admin: 04/01/17 10:29 Dose: 500 mcg - Labs Labs: 04/01/17 06:12 04/01/17 06:12
--- NOTE | 2017-04-01 15:57 | PN ---
DATE: 04/01/2017 SUBJECTIVE: The patient is a 71-year-old female with long history of schizophrenia as well as dementia as well as multiple medical issues as well as currently in delirium stage, most likely due to urinary tract infection as delirium is hyperactive. The patient was admitted on the medical side for evaluation of altered mental status with aggressive and agitated behavior which could be related to the medical issues and urinary tract infection. Psych consult was called for evaluation of medications as well as the patient has psych history as well as the patient has behavioral disturbances. The patient was followed up by this technical publications writer for past few days. The patient was resumed on all of the medication, but Latuda is non-formulary in the hospital. Thorazine was started yesterday at 25 mg twice a day. The patient tolerated that well. Right now, the patient will be getting increased dose of Thorazine 50 mg 3 times a day as well as p.r.n. IM as needed. Based on the information from the nursing staff, the patient was agitated and restless overnight. The patient needed to have IM medication, Ativan, which seems to be a effective. Meanwhile, the patient still refused to have an IV line. The patient pulled IV line yesterday and was not allowing staff to reinsert that. Nursing staff was educated to approach the patient and explain rationale again, but the patient has no ability to comprehend those statements. If the patient will be agitated, IM dose of Ativan 2 mg need to be given stat and IV line should be inserted. Because the patient has urinary tract infection, she needs to be on IV antibiotics. This technical publications writer attempted to speak to the patient, the patient is sleeping but easily arousable, opening her eyes, smiling back at this technical publications writer and falling back asleep again. PHYSICAL EXAMINATION VITAL SIGNS: Stable. Temperature is 98, pulse is 61, blood pressure 140/74, respirations 20, oxygen saturations is 96%. MEDICATIONS: Reviewed. DuoNeb, Xanax 0.5 mg twice a day as scheduled, Xanax 0.5 mg at nighttime as scheduled, Abilify 20 mg daily. The patient needs that dose, this technical publications writer is not sure why. The patient is on Azactam and Thorazine 50 mg IV q.6 hours as needed for agitation, last dose was yesterday at 7:59. Thorazine will be increased to 50 mg 3 times a day. Pepcid, as well as Feosol, heparin, Humulin, Keppra, Synthroid, Ativan 2 mg IM q.6 hours. as needed for severe agitation as well as Daliresp. LABORATORY DATA: Reviewed. There are no signs of granulocytosis, granulocyte level is 2.15. The patient's leukopenia ratio to be mild at 4.1. Chemistries reviewed. Urinalysis reviewed. Microbiology showed gram-negative kiran in the urine. MENTAL STATUS EXAMINATION: As this technical publications writer described above, the patient was sleeping but easily arousable, opening her eyes and smiling back at this technical publications writer. Speech is incoherent even though Romanian. Thought process is disorganized. Thought content, the patient is psychotic and disorganized. Insight and judgment are lacking. Impulses are unpredictable. IMPRESSION: At present moment, the patient has delirium stage, which seems to be hyperactive. The patient has dementia as well as schizophrenia and multiple medical issues. PLAN: Continue current management, p.r.n. medications as well as Abilify 20 mg at the morning as scheduled. The patient also is on Thorazine 50 mg 3 times a day and Xanax 0.5 mg 3 times a day. Please continue current management. Medication management will discuss with the patient's POA, the patient's daughter Ladi. We will see initial consultation notes for more details and information. Dr. Ramos is covering over the weekend. The patient needs to have IV line inserted and because the patient lacks capacity to refuse that procedure, this plan needs to be discuss with the patient's daughter. Should you have any questions, give me a call back. Thank you very much for letting me participate in care of your patient. Grace Pagan MD
--- NOTE | 2017-04-01 16:52 | CP.PCM.PCO ---
Addendum Addendum: 04/01/17 16:51 pt's daughter refused to sign consent for psych admission, as per staff pt is not aggressive, there is no other option available at this time pt most likely will be d/c back to the NH
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
[2017-04-01 18:32] VITALS: BP 134/70; PULSE 75; TEMP 98.1; O2SAT 98
--- NOTE | 2017-04-02 00:07 | PN ---
DATE: 04/01/2017 SUBJECTIVE: She is lying in the bed at 45 degrees, has mild cough, no much sputum production. No hemoptysis. No hematemesis. No hematuria. No diarrhea. No leg pain or leg swelling reported. OBJECTIVE: GENERAL: No acute distress. VITAL SIGNS: Temperature is 98, heart rate is 75, respiratory rate is 20, blood pressure 134/70 and pulse ox 98% on room air. HEENT: Moist mucous membranes. Crowded airway. Mallampati score is 4. NECK: Supple. No JVD. LUNGS: Decreased airflow with few scattered rhonchi. HEART: S1 and S2. ABDOMEN: Soft, nontender. No organomegaly. EXTREMITIES: There is no edema. NEUROLOGICAL: Awake, alert and follows simple commands. MEDICATIONS: She is on Abilify 20 mg daily, also getting better with p.r.n. basis., Cipro 500 mg q. 12 hours, Daliresp 500 mcg daily, DuoNeb q. 6 hours, ferrous sulphate 324 mg daily, heparin 5000 units subQ q. 8 hours, insulin coverage, Keppra 750 mg twice a day, Pepcid 20 mg at bedtime, Synthroid 200 mcg daily, Thorazine 50 mg a.m. and at bedtime, Thorazine 50 mg at bedtime and Xanax 0.5 mg twice a day, also Xanax 0.5 mg at bedtime. LABORATORY DATA: Show hemoglobin 11.8, hematocrit 36.8, WBC 4.1 and platelet is 115. Sodium 136, potassium 4.2, chloride 103, bicarbonate 24, BUN 19, creatinine 0.8, glucose 84, calcium 9.0, AST 22, ALT 22, alk phos is 101. Microbiology: Urine culture has Klebsiella pneumoniae. IMPRESSION AND PLAN: Hypoventilation syndrome with sleep apnea syndrome, chronic lung disease, dementia with aggressive behavior, recurrent urinary tract infection and morbid obesity. We will continue and encourage BiPAP, keep at 45 degrees, bronchodilator, gastric prophylaxis, deep venous thrombosis prophylaxis, careful with sedatives and antibiotics are as per infectious disease. Thank you and we will follow with you. Ramírez John MD
--- NOTE | 2017-04-02 04:56 | PN ---
DATE: 03/31/2017 SUBJECTIVE: The patient is 71 years old female. The patient was seen and examined on 03/31/2017, looking comfortable. No nausea, vomiting or diarrhea. No hematuria or hematochezia. No swelling of the legs. No chest pain. No headache. No dizziness. PHYSICAL EXAMINATION: VITAL SIGNS: Temperature 98.1, heart rate 75, respiratory rate 18, blood pressure 130/55 and pulse oximetry 96% on room air. HEENT: Head normocephalic and atraumatic. Eyes; PERRLA. Extraocular movements intact. Conjunctivae clear. Nose patent. Mucous membrane moist. NECK: Supple. No carotid bruit, JVD or thyromegaly. CHEST: Bilaterally symmetrical. HEART: S1 and S2 positive. LUNGS: Clear to auscultation. ABDOMEN: Soft. Bowel sounds present. No organomegaly. EXTREMITIES: No edema. No cyanosis. NEUROLOGIC: The patient is awake and alert. Moving all 4 extremities. No focal deficit. LABORATORY DATA: We do not have recent labs today, but reviewed old labs. MEDICATIONS: Abilify, Ativan, Azactam, Benadryl, Daliresp, DuoNeb, ferrous sulfate, heparin, insulin, Pepcid, Synthroid, Thorazine, and Xanax. ASSESSMENT AND PLAN: Ms. Maya León is 71 years old female with hypoventilation syndrome, sleep apnea syndrome, urinary tract infection, chronic obstructive lung disease, dementia with aggressive behavior, recurrent urinary tract infection, morbid obesity, history of pneumonia, encourage bilevel positive airway pressure, keep head elevated by 45. Gastrointestinal and deep venous thrombosis prophylaxis. Repeat labs. We will followup. Ca Thacker MD
--- NOTE | 2017-04-15 18:55 | DS ---
The patient was discharged to rehab on 04/01/2017. CHIEF COMPLAINT: Aggressive behavior, violent change of mental level. HISTORY OF PRESENT ILLNESS: Ms. Romelia Trejo, a [id number], a resident of [facility], having aggressive behavior and has change of mental status, transferred to [facility], is not able to give us good history. During a testing, we came to know the patient has urinary tract infection. We admitted the patient, but still is on the psych medication and the patient was treated by Dr. Ortega for UTI, seen by Dr. John for COPD, asthma, obstructive sleep apnea. Discharged home [facility] she came back on her basic level of mental status, will follow up antibiotics treatment there. PAST MEDICAL HISTORY: Hypertension, COPD, seizure disorder, hypothyroidism, diabetes mellitus, congestive heart failure, atrial fibrillation, schizophrenia. PAST SURGICAL HISTORY: Pacemaker placement. ALLERGIES: THE PATIENT IS ALLERGIC WITH HALOPERIDOL, OLANZAPINE, RISPERIDONE. SOCIAL HISTORY; No smoking, no drugs, no ethanol. HOME MEDICATIONS: Reviewed by me. REVIEW OF SYSTEMS: The patient is seen and examined at the bedside on 04/01/2017. Looking comfortable. No nausea, vomiting or diarrhea. No hematuria. No hematochezia. No swelling of the legs. No chest pain. No palpitation. No headache. No dizziness. PHYSICAL EXAMINATION: VITAL SIGNS: Temperature 98, heart rate 75, respiratory rate 20, blood pressure 134/70, pulse oximetry 98% on room air. HEENT: Head is normocephalic, atraumatic. Eyes, PERRLA. Extraocular muscles intact. Conjunctivae clear. Nose patent. Mucous membranes moist. NECK: Supple. No carotid bruits, JVD or thyromegaly. CHEST: Bilateral symmetrical. HEART: S1 and S2 positive. LUNGS: Clear to auscultation. ABDOMEN: Soft. Bowel sounds positive. No organomegaly. EXTREMITIES: No edema. No cyanosis. NEUROLOGIC: The patient is awake and alert. Moving all 4 extremities. No focal deficits. MEDICATIONS: Abilify, Cipro, Daliresp, Duoneb, ferrous sulfate, heparin, insulin coverage, Pepcid, Synthroid, Thorazine, and Xanax. LABORATORY DATA: Hemoglobin 11.8, hematocrit 36.8, white blood cells 4.1, platelets 115. Sodium 136, potassium 4.2, BUN 19, creatinine 0.8, glucose 84, AST 22. ASSESSMENT AND PLAN: Ms. Romelia Garcia, a [id number] with hyperventilation syndrome with sleep apnea syndrome, chronic lung disease, dementia with aggressive behavior, altered mental status, urinary tract infection, hypothyroidism. The patient got IV antibiotics in the hospital, discharged back to [facility] with p.o. Cipro. We will follow up there. Ca Thacker MD MTDRichard
== END 2017-04-01 21:20 | DRG 884 ==
LOC: ED 16:08 → ERH 22:12 → 5RSO 03-30 00:18
PROVIDERS: ADMIT Internal Medicine; ATTEND Internal Medicine
DX: F03.91 Unspecified dementia, unspecified severity, with behavioral disturbance (principal); N39.0 Urinary tract infection, site not specified; I50.30 Unspecified diastolic (congestive) heart failure; F05 Delirium due to known physiological condition; Z68.41 Body mass index [BMI] 40.0-44.9, adult; I11.0 Hypertensive heart disease with heart failure; I48.91 Unspecified atrial fibrillation; G47.36 Sleep related hypoventilation in conditions classified elsewhere; G40.909 Epilepsy, unspecified, not intractable, without status epilepticus; J44.9 Chronic obstructive pulmonary disease, unspecified; G47.33 Obstructive sleep apnea (adult) (pediatric); E66.01 Morbid (severe) obesity due to excess calories; F20.9 Schizophrenia, unspecified; E78.5 Hyperlipidemia, unspecified; D64.9 Anemia, unspecified; R31.9 Hematuria, unspecified; E03.9 Hypothyroidism, unspecified; Z95.0 Presence of cardiac pacemaker; Z87.01 Personal history of pneumonia (recurrent)

== ENCOUNTER 2017-04-07 13:47 | Inpatient (IN) | payer MEDICARE, MEDICAID ==
[2017-04-07 13:47] VITALS: BMI 49.1
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
[2017-04-07 15:06] LABS: BASO # 0.02 K/mm3 (0.0-2.0); BASO % 0.7 % (0.0-3.0); EOS # 0.2 (0.0-0.7); GRAN # 1.77 (1.4-6.5); GRAN % 58.7 % (50.0-68.0); HEMATOCRIT 32.8 % (36.0-48.0); LYMPH # 0.8 (1.2-3.4); LYMPH % 27.6 % (22.0-35.0); MEAN CORPUSCULAR HEMOGLOBIN 30.4 pg (25.0-35.0); MEAN CORPUSCULAR HGB CONC 32.3 g/dl (31.0-37.0); MEAN PLATELET VOLUME 9.9 fl (7.0-11.0); MONO # 0.2 (0.1-0.6); RED CELL DISTRIBUTION WIDTH 12.3 % (11.5-14.5)
[2017-04-07 15:14] LABS: INR 1.03 (0.93-1.08); PARTIAL THROMBOPLASTIN TIME 32.5 Seconds (23.7-30.8)
[2017-04-07 15:16] LABS: ALKALINE PHOSPHATASE 95 U/L (38-126); ALT/SGPT 29 U/L (7-56); AST/SGOT 20 U/L (14-36); BILIRUBIN,TOTAL 0.2 mg/dL (0.2-1.3); BLOOD UREA NITROGEN 19 mg/dL (7-21); CARBON DIOXIDE 27 mmol/L (21-33); CHLORIDE 99 mmol/L (98-107); GFR AFRICAN-AMERICAN > 60; GLUCOSE,RANDOM 101 mg/dL (70-110); MAGNESIUM 2.1 mg/dL (1.7-2.2); PHOSPHOROUS 4.5 mg/dL (2.5-4.5); POTASSIUM 4.1 mmol/L (3.6-5.0); SODIUM 135 mmol/L (132-148)
[2017-04-07 15:26] LABS: ALB/GLOB RATIO 1.2 (1.1-1.8); TOTAL PROTEIN 6.8 g/dL (5.8-8.3)
[2017-04-07 16:41] LABS: URINE BILIRUBIN NEGATIVE (NEGATIVE); URINE BLOOD NEGATIVE (NEGATIVE); URINE GLUCOSE (UA) NEGATIVE (NEGATIVE); URINE KETONE NEGATIVE (NEGATIVE); URINE LEUKOCYTE ESTERASE NEGATIVE Leu/uL (NEGATIVE); URINE PROTEIN NEGATIVE mg/dL (<30 mg/dL); URINE UROBILINOGEN 0.2 E.U./dL (<1 E.U./dL)
[2017-04-07 16:43] LABS: URINE APPEARANCE CLEAR (CLEAR); URINE COLOR YELLOW (YELLOW)
--- NOTE | 2017-04-07 17:48 | CARD ---
APPROVED REPORT EKG Measurement Heart [id number] <Conclusion> Normal sinus rhythm Normal ECG
--- NOTE | 2017-04-07 20:32 | PCM.BM ---
<Becca Rao - Last Filed: 04/07/17 20:27> Treatment Plan Problems - Problems identified on initial assessmt Problem 2 Date Initiated: 04/07/17 Time Initiated: 20:28 Assessment reference: NA Status: Active Priority: 1 high risk violence Date Initiated: 04/07/17 Time Initiated: 20:29 Assessment reference: NA Status: Active Priority: 2 ineffective impulse control Date Initiated: 04/07/17 Time Initiated: 20:33 Assessment reference: NA Status: Active Priority: 3 Treatment assets and liabiliti Patient Assests: good support system Patient Liabilities: imparied memory, language/speech - Milieu Protocol Maintain good personal hygiene: daily Encourage regular showers, daily Remind patient to perform daily oral care, daily Assist patient to perform ADL's Conduct patient checks and document Observation sheet: 1:1 Maintain personal safety: every shift Educate patient to report safety concerns to staff, every shift Monitor environment for contraband/sharps Medication safety: Monitor for expected outcome, potential side effects: every shift, Assess barriers to learning: every shift, Assess readiness for medication education: every shift Family Contact Family involvement: Family/SO is involved Discharge/Continuing Care - Education Needs Education Needs: Patient Medication, Patient Diagnosis/Disease Process, Patient Coping Skills, Patient Personal Hygiene/Grooming - Discharge Discharge Criteria: Tolerates medication w/o severe side effects, Free of paranoid thoughts, Free of agitation, Normal sleep pattern <Grace Pagan - Last Filed: 04/08/17 09:10> - Diagnosis (1) Schizophrenia Status: Chronic Interventions: 04/08/17 09:07 Psychopharmacology/adjustment of medications as needed/ monitoring possible side effects Evaluate pt on daily basis Compliance with medications Long acting medication if pt is noncompliant with pill form Suicide and homicide risk assessment and prevention, coping strategies, safety plan Relapse prevention Reduction of symptoms Improve functional status family involvement (2) Dementia with behavioral disturbance Status: Acute Interventions: 04/08/17 09:08 Pt will be seen by medical/neurology teams as needed Medications will be confirmed and resumed Additional consultation by specialists as needed Lab work as needed (CBC, CMP, TSH, free T4, UA, Urine test for females as needed) CXR as needed EKG Physical therapy evaluation as needed (3) Altered mental status Status: Acute Interventions: 04/08/17 09:09 medical f/u Medications confirmed and resumed Additional consultation by specialists as needed Lab work as needed (CBC, CMP, TSH, free T4, UA, Urine test for females as needed) CXR as needed EKG Physical therapy valuation as needed
[2017-04-08] MEDS: Levothyroxine 200 MCG TAB PO SCH (05:01)
[2017-04-08 06:45] VITALS: O2SAT 97
[2017-04-08 07:02] LABS: CHOLESTEROL 178 mg/dL (130-200); GLUCOSE,FASTING 85 mg/dL (65-110)
[2017-04-08 07:11] LABS: FREE T4 1.24 ng/dL (0.78-2.19)
[2017-04-08 07:24] LABS: THYROID STIMULATING HORMONE 5.02 mIU/mL (0.46-4.68)
--- NOTE | 2017-04-08 08:36 | RAD ---
HISTORY: AGITATION COMPARISON: Frontal chest radiograph 03/29/2017 FINDINGS: LUNGS: There is difficulty penetrating the left base due to body habitus however limited patchy atelectasis or infiltrate is suspected here. Smaller pleural effusion difficult to completely exclude. No right pleural effusion or infiltrate. No pneumothorax bilaterally. PLEURA: See above please. CARDIOVASCULAR: Cardiomegaly stable with pacemaker again identified. No pulmonary vascular derangement identified at this time. OSSEOUS STRUCTURES: No significant abnormalities. VISUALIZED UPPER ABDOMEN: Normal. OTHER FINDINGS: None. IMPRESSION: Potential limited patchy atelectasis or infiltrate in the retrocardiac left base. Trace of pleural effusion not excluded. Consider PA and lateral imaging of the chest when feasible. Left base difficult to penetrate due to body habitus. Stable cardiomegaly.
--- NOTE | 2017-04-08 15:50 | PCM.PSYCH ---
Initial Psychiatric Evaluation - Initial Psychiatric Evaluation Type of Admission: Voluntary Legal Status: DPOA (Patient daughter Romelia, who is pt's POA sign consent for treatment) Chief Complaint (in patient's own words): "betsy..." Patient's Reaction to Hospitalization: patient was transferred from the correction for evaluation and stabilization of agitated, restless, psychotic behavior, patient poses danger to self and others in the correction, patient has long history of schizophrenia and Alzheimer's disease with behavioral disturbances, patient was not manageable at the correction and needs higher level of care. patient's power of contract attorney sign consent for treatment. History of Present Illness and Precipitating Events: shortly, this patient is 71 year old female with long and debilitating history of schizophrenia as well as dementia with behavioral disturbances, patient has multiple medical issues including history of GI bleed, history of was to arthritis, thyroid problems, patient is allergic to multiple psychotropic medications such as Depakote haloperidol, Risperdal, Seroquel, and Zyprexa was sent by correction facility for evaluation and stabilization of agitated, unmanageable, restless, psychotic behavior, patient needs further evaluation and stabilization and medication titration. Patient was seen today at the dining area, acceptable personal hygiene, but poor ADLs, patient presented to be disorganized but calm, corporative, but there is no option to have meaningful conversation. Patient was just saying random things, as per report from the nursing staff, patient was agitated, restless, needed to have IM of thorazine yesterday at the evening time which she tolerated well, slept through nigh. pt also is on 1:1 now. as per her report patient's impulses unpredictable, patient has expanded affect, which ranges from being calm and pleasant to be agitated and tearful. At present moment patient is compliant with the medications, no behavioral issues since the morning time, patient ate, compliance with meds good. This designer/writer contacted patient power of contract attorney patient daughter Romelia [phone]. as per patient daughter changes started approximately 2 months ago, patient was started on new medication most likely was "the with the, patient also was not happy about fact that she could take shower only 3 times a week not every day. Patient daughter reported that she had a meeting with administration of the correction, and at present moment issues resolved. Patient daughter was educated about the risk, benefits, alternatives of the medications, all questions were answered, POA was appreciative. This designer/writer is very familiar with this patient from the multiple admissions on the medical side, this designer/writer was consulting, as per history usually patient is calm and corporative, confused, but no agitation or aggression. At the same time agitation and aggression majority of the times were related to the medical issues, for example last admission patient had urinary tract infection and had hyper activity delirium. last admission on the medical side patient's daughter POKristine refused to sign consent for treatment into the psychiatric inpatient unit. past psychiatric history: As per history patient has schizophrenia, patient has multiple admissions into the psychiatric inpatient unit, allergies to majority of psychotropic medications. Medical issues patient has dementia, almost arthritis, thyroid problem, history of GI bleed, COPD, patient also has seizure disorder, patient primary care physician is Dr. Thacker, she was called for consultation. Family history: daughter denied Patient daughter denied patient used any drugs, denied alcohol consumption, denied drinking alcohol, denied smoking cigarettes at present moment but has history of smoking. Transfer papers for reviewed, medications reviewed, resumed, collaterals were obtained from the patient correction yesterday spoke to ROSLYN Osman. 04/07/17 14:45 04/07/17 14:45 Lab Results 04/08/17 06:20: Free T4 1.24, TSH 3rd Generation 5.02 H 04/08/17 06:20: Fasting Glucose 85, Triglycerides 36, Cholesterol 178, LDL Cholesterol Direct 91, HDL Cholesterol 56 04/07/17 16:31: Urine Opiates Screen Negative, Urine Methadone Screen Negative, Ur Barbiturates Screen Negative, Ur Phencyclidine Scrn Negative, Ur Amphetamines Screen Negative, U Benzodiazepines Scrn Positive H, U Oth Cocaine Metabols Negative, U Cannabinoids Screen Negative 04/07/17 16:31: Urine Color Yellow, Urine Appearance Clear, Urine pH 6.0, Ur Specific [place] <= 1.005, Urine Protein Negative, Urine Glucose (UA) Negative, Urine Ketones Negative, Urine Blood Negative, Urine Nitrate Negative, Urine Bilirubin Negative, Urine Urobilinogen 0.2, Ur Leukocyte Esterase Negative 04/07/17 14:45: Alcohol, Quantitative < 10 04/07/17 14:45: Salicylates < 1 L, Acetaminophen < 10.0 L 04/07/17 14:45: Sodium 135, Potassium 4.1, Chloride 99, Carbon Dioxide 27, Anion Gap 13, BUN 19, Creatinine 0.8, Est GFR ( Amer) > 60, Est GFR (Non- Af Amer) > 60, Random Glucose 101, Calcium 9.0, Phosphorus 4.5, Magnesium 2.1, Total Bilirubin 0.2, AST 20, ALT 29, Alkaline Phosphatase 95, Total Protein 6.8 , Albumin 3.7, Globulin 3.2, Albumin/Globulin Ratio 1.2 04/07/17 14:45: PT 11.1, INR 1.03, APTT 32.5 H 04/07/17 14:45: WBC 3.0 L D, RBC 3.49 L, Hgb 10.6 L, Hct 32.8 L, MCV 94.0, MCH 30.4, MCHC 32.3, RDW 12.3, Plt Count 117 L, MPV 9.9, Gran % 58.7, Lymph % (Auto ) 27.6, [place] % (Auto) 7.0 H, Eos % (Auto) 6.0 H, Baso % (Auto) 0.7, Gran # 1.77 , Lymph # 0.8 L, [place] # 0.2, Eos # 0.2, Baso # 0.02 Vital Signs Temp Pulse Pulse Resp BP Pulse Ox 04/08/17 06:43 98.0 F 60 20 119/64 97 04/07/17 18:15 71 20 04/07/17 16:53 132/59 L 04/07/17 14:06 98.3 F 82 18 141/69 96 Current Medications: Active Medications Generic Name Dose Route Start Last Admin Trade Name Freq PRN Reason Stop Dose Admin Acetaminophen 650 mg 04/07/17 19:59 04/08/17 03:55 Tylenol 325mg Tab PO 650 mg Q6H PRN Administration Pain, moderate (4-7) Albuterol/Ipratropium 3 ml 04/07/17 19:40 Duoneb 3 Mg/0.5 Mg (3 Ml) Ud IH [id number] PRN Shortness of Breath Alprazolam 0.25 mg 04/08/17 08:00 04/08/17 09:25 Xanax PO 04/15/17 08:01 0.25 mg BID SHIVANI Administration Protocol Aripiprazole 20 mg 04/08/17 08:00 04/08/17 09:24 Abilify PO 20 mg DAILY SHIVANI Administration Protocol Chlorpromazine 50 mg 04/07/17 19:53 04/07/17 20:18 Thorazine IM 50 mg Q6 PRN Administration Agitation Protocol Chlorpromazine 50 mg 04/08/17 16:00 Thorazine PO BID SHIVANI Protocol Chlorpromazine 100 mg 04/08/17 22:00 Thorazine PO HS SHIVANI Protocol Ciprofloxacin 500 mg 04/08/17 06:00 04/08/17 05:01 Cipro PO 500 mg Q12 SHIVANI Administration Protocol Famotidine 20 mg 04/07/17 22:00 04/08/17 00:07 Pepcid PO Not Given HS SHIVANI Ferrous Sulfate 324 mg 04/08/17 08:00 04/08/17 09:25 Feosol PO 324 mg DAILY SHIVANI Administration Heparin Sodium (Porcine) 5,000 units 04/07/17 22:00 04/08/17 05:01 Heparin SC 5,000 units Q8 SHIVANI Administration Protocol Levetiracetam 750 mg 04/08/17 08:00 04/08/17 09:25 Keppra PO 750 mg BID SHIVANI Administration Levothyroxine Sodium 200 mcg 04/08/17 06:00 04/08/17 05:01 Synthroid PO 200 mcg 0600 SHIVANI Administration Lorazepam 1 mg 04/07/17 19:58 04/07/17 20:18 Ativan IM 1 mg Q6H PRN Administration Anxiety Protocol Roflumilast 500 mcg 04/08/17 08:00 04/08/17 10:58 Daliresp PO 500 mcg DAILY SHIVANI Administration meds resumed thorazine HS was increased Past Psychiatric History - Past Psychiatric History Previous Treatment History: Inpatient Prior Professional Help: see HPI Prior Psychiatric Treatment: see HPI At what hospital: see HPI Duration: see HPI Nature of Treatment: see HPI Explanation of prior treatment: see HPI History of Abuse: see HPI denied History of ETOH/Drug Use: denied History of Family Illness: see HPI Pertinent Medical Hx (Current Medical&Sleep Prob, Allergies): Allergies Allergy/AdvReac Type Severity Reaction Status Date / Time ceftriaxone [From Rocephin] Allergy RASH Verified 04/07/17 17:28 divalproex sodium Allergy RASH Verified 04/07/17 17:28 [From Depakote] haloperidol [From Haldol] Allergy RASH Verified 04/07/17 14:02 haloperidol lactate Allergy RASH Verified 04/07/17 17:27 [From Haldol] olanzapine [From Zyprexa] Allergy RASH Verified 04/07/17 17:28 quetiapine fumarate Allergy RASH Verified 04/07/17 17:28 [From Seroquel] risperidone [From Risperdal] Allergy RASH Verified 04/07/17 17:29 Famotidine [Pepcid] 20 mg PO HS tab 12/03/16 Ferrous Sulfate [Feosol] 324 mg PO DAILY ect 12/03/16 ARIPiprazole [Abilify] 20 mg PO DAILY 01/10/17 Roflumilast [Daliresp] 500 mcg PO DAILY 01/10/17 Ciprofloxacin [Cipro] 500 mg PO Q12 tab 04/01/17 Levothyroxine [Synthroid] 200 mcg PO DAILY tab 04/01/17 Roflumilast [Daliresp] 500 mcg PO DAILY tab 04/01/17 chlorproMAZINE [Thorazine] 50 mg PO 1600 tab 04/01/17 chlorproMAZINE [Thorazine] 50 mg PO [facility] tab 04/01/17 levETIRAcetam [Keppra] 750 mg PO BID tab 04/01/17 ALPRAZolam [Xanax] 0.25 mg PO BID 04/07/17 Albuterol/Ipratropium [Duoneb 3 mg/0.5 mg (3 ml) UD] 3 ml NEB PRN PRN 04/07/17 Ciclopirox [[place] Nail Lacquer 6.6 ml] 0 ml TP BID 04/07/17 Heparin [Heparin Sodium] 5,000 unit SC Q8 04/07/17 Review of Systems - Review of Systems Systems not reviewed;Unavailable: Acuity of Condition - EENT Eyes: As Per HPI Ears: As Per HPI Nose/Mouth/Throat: As Per HPI - Breasts Breasts: As Per HPI - Cardiovascular Cardiovascular: As Per HPI - Respiratory Respiratory: As Per HPI - Gastrointestinal Gastrointestinal: As Per HPI - Genitourinary Genitourinary: As Per HPI - Reproductive: Female Reproductive:Female: As Per HPI - Menstruation Menstruation: As Per HPI - Musculoskeletal Musculoskeletal: As Par HPI - Integumentary Integumentary: As Per HPI - Neurological Neurological: As Per HPI - Psychiatric Psychiatric: As Per HPI - Endocrine Endocrine: As Per HPI - Hematologic/Lymphatic Hematologic: As Per HPI Mental Status Examination - Personal Presentation Personal Presentation: Looks older than stated age - Affect Affect: Broad (labile) - Motor Activity Motor Activity: Calm - Reliability in Providing Information Reliability in Providing Information: Poor, due to alteration in thoughts, Poor , due to altered mood, Poor, due to cognitve impairment - Speech Speech: Disorganized - Formal Thought Process Formal Thought Process: Hallucinations, Delusions, Paranoia, Loosening of associations - Obsessions/Compulsions Obsessions: Yes (obsessed with cleaning) Compulsions: None - Cognitive Functions Orientation: Person Sensorium: Alert Attention/Concentration: Easily distracted Estimate of Intelligence: Below average Judgement: Imparied, as evidence by: Poor judgement, Imparied, as evidence by: Lack of insight into illness - Risk Risk: Self-mutilation, Diminished functioning - Strength & Assets Inventory Strength & Assets Inventory: Family support, Cooperative - Limitations Limitations: Other (severe symptoms, dementia plus schizophrenia) DSM 5 DX - DSM 5 DSM 5 Diagnosis: as per history schizophrenia As per history Alzheimer's dementia with behavioral disturbances Patient has history of delirium - Recommended/Plan of Treatment Treatment Recommendations and Plan of Treatment: Milieu, structure, supportive therapy patient was started on 1:1 for safety Treatment plan was discussed with patient power of contract attorney her daughter, advised to sign tx plan Medications resumed: Famotidine [Pepcid] 20 mg PO HS Ferrous Sulfate [Feosol] 324 mg PO DAILY ARIPiprazole [Abilify] 20 mg PO DAILY chlorproMAZINE [Thorazine] 50 mg PO bid for psychosis chlorproMAZINE [Thorazine] 100 mg po hs for psychosis ALPRAZolam [Xanax] 0.25 mg PO BID anxiety PRN meds Roflumilast [Daliresp] 500 mcg PO DAILY Ciprofloxacin ? as per medical eval Levothyroxine [Synthroid] 200 mcg PO DAILY Roflumilast [Daliresp] 500 mcg PO DAILY levETIRAcetam [Keppra] 750 mg PO BID Albuterol/Ipratropium [Duoneb 3 mg/0.5 mg (3 ml) UD] 3 ml NEB PRN PRN Ciclopirox [[place] Nail Lacquer 6.6 ml] 0 ml TP BID will f/u with PMD and consultants JESENIA fernandes will monitor closely Projected ELOS: 7days Prognosis: guarded Discharge Plan and Discharge Criteria: Pt will be more stable, no behavioral issues, will be tolerating medications well, will be posing no threat to self or others. - Smoking Cessation Smoking Cessation Initiated: No Reason for not providing: denied smoking
--- NOTE | 2017-04-09 02:59 | CP.PCM.CON ---
History of Present Illness - History of Present Illness History of Present Illness: Admitted to psych for agitation. She has history of DM II, seizure disorder. She has COPD, no shortness of breath. Blood counts -pancytopenia. Complaining of pain epigastrium. pain both shoulders. Oral intake is good. denies any chest pain. Review of Systems - Constitutional Constitutional: As Per HPI - EENT Eyes: absent: As Per HPI, Blind Spots, Blurred Vision, Change in Vision, Decreased Night Vision, Diplopia, Discharge, Dry Eye, Exophthalmos, Floaters, Irritation, Itchy Eyes, Loss of Peripheral Vision, Pain, Photophobia, Requires Corrective Lenses, Sees Flashes, Spots in Vision, Tunnel Vision, Other Visual Disturbances, Loss of Vision, Other Ears: absent: As Per HPI, Decreased Hearing, Ear Discharge, Ear Pain, Tinnitus, Abnormal Hearing, Disequilibrium, Dizziness, Other Nose/Mouth/Throat: absent: As Per HPI, Epistaxis, Nasal Congestion, Nasal Discharge, Nasal Obstruction, Nasal Trauma, Nose Pain, Post Nasal Drip, Sinus Pain, Sinus Pressure, Bleeding Gums, Change in Voice, Dental Pain, Dry Mouth, Dysphagia, Halitosis, Hoarsness, Lip Swelling, Mouth Lesions, Mouth Pain, Odynophagia, Sore Throat, Throat Swelling, Tongue Swelling, Facial Pain, Neck Pain, Neck Mass, Other - Cardiovascular Cardiovascular: As Per HPI - Respiratory Respiratory: As Per HPI - Gastrointestinal Gastrointestinal: absent: As Per HPI, Abdominal Pain, Belching, Bloating, Change in Bowel Habits, Change in Stool Character, Coffee Ground Emesis, Constipation, Cramping, Diarrhea, Dyspepsia, Dysphagia, Early Satiety, Excessive Flatus, Fecal Incontinence, Heartburn, Hematemesis, Hematochezia, Loose Stools, Melena, Nausea, Odynophagia, Temesmus, Vomiting, Other - Genitourinary Genitourinary: absent: As Per HPI, Change in Urinary Stream, Difficulty Urinating, Dysuria, Flank Pain, Hematuria, Pyuria, Nocturia, Urinary Incontinence, Urinary Frequency, Urinary Hesitance, Urinary Urgency, Voiding Freq/Small Amts, Freq UTI, Hx Renal/Bladder Calculi, Hx /Renal Surgery, Bladder Distension, Other - Musculoskeletal Musculoskeletal: absent: As Per HPI, Abnormal Gait, Arthralgias, Atrophy, Back Pain, Deformity, Joint Swelling, Limited Range of Motion, Loss of Height, Muscle Cramps, Muscle Weakness, Myalgias, Neck Pain, Numbness, Radiating Pain into Limb, Stiffness, Tingling, Other - Integumentary Integumentary: absent: As Per HPI, Acne, Alopecia, Bleeding Lesions, Change in Hair, Change in Nails, Change in Pigmentation, Changing Lesions, Dry Skin, Erythema, Furuncle, Hirsutism, Lesions, New Lesions, Non-Healing Lesions, Photosensitivity, Pruritus, Rash, Skin Pain, Skin Ulcer, Sores, Striae, Swelling , Unusual Bruising, Wounds, Jaundice, Other - Psychiatric Psychiatric: As Per HPI - Endocrine Endocrine: As Per HPI - Hematologic/Lymphatic Hematologic: As Per HPI Past Patient History - Infectious Disease Hx of Infectious Diseases: None - Tetanus Immunizations Tetanus Immunization: Unknown - Past Medical History & Family History Past Medical History?: Yes - Past Social History Smoking Status: Unknown If Ever Smoked - CARDIAC Hx Cardiac Disorders: Yes Hx Congestive Heart Failure: Yes Hx Hypertension: Yes - PULMONARY Hx Respiratory Disorders: Yes Hx Chronic Obstructive Pulmonary Disease (COPD): Yes Hx Pneumonia: No - NEUROLOGICAL Hx Neurological Disorder: Yes HX Cerebrovascular Accident: No Hx Dementia: Yes Hx Seizures: Yes - HEENT Hx HEENT Problems: No - RENAL Hx Chronic Kidney Disease: No Hx Renal Failure: No - ENDOCRINE/METABOLIC Hx Diabetes Mellitus Type 1: No Hx Diabetes Mellitus Type 2: No Hx Hypothyroidism: No - HEMATOLOGICAL/ONCOLOGICAL Hx Blood Transfusions: No Hx Blood Transfusion Reaction: No - INTEGUMENTARY Hx Dermatological Problems: No - MUSCULOSKELETAL/RHEUMATOLOGICAL Hx Arthritis: No Hx Rheumatoid Arthritis: No - GASTROINTESTINAL Hx Gastrointestinal Disorders: Yes (GI Bleed) Hx Gastroesophageal Reflux: No - GENITOURINARY/GYNECOLOGICAL Hx Genitourinary Disorders: Yes Hx Incontinence: Yes - PSYCHIATRIC Hx Bipolar Disorder: Yes Hx Emotional Abuse: No Hx Physical Abuse: No Hx Schizophrenia: Yes Hx Sexual Abuse: No Hx Substance Use: No - SURGICAL HISTORY Hx Surgeries: Yes Hx Coronary Stent: Yes - ANESTHESIA Hx Anesthesia: Yes Hx Anesthesia Reactions: No Hx Malignant Hyperthermia: No Meds Allergies/Adverse Reactions: Allergies Allergy/AdvReac Type Severity Reaction Status Date / Time ceftriaxone [From Rocephin] Allergy RASH Verified 04/07/17 17:28 divalproex sodium Allergy RASH Verified 04/07/17 17:28 [From Depakote] haloperidol [From Haldol] Allergy RASH Verified 04/07/17 14:02 haloperidol lactate Allergy RASH Verified 04/07/17 17:27 [From Haldol] olanzapine [From Zyprexa] Allergy RASH Verified 04/07/17 17:28 quetiapine fumarate Allergy RASH Verified 04/07/17 17:28 [From Seroquel] risperidone [From Risperdal] Allergy RASH Verified 04/07/17 17:29 - Medications Medications: Current Medications Acetaminophen (Tylenol 325mg Tab) 650 mg PO Q6H PRN PRN Reason: Pain, moderate (4-7) Last Admin: 04/09/17 01:42 Dose: 650 mg Albuterol/Ipratropium (Duoneb 3 Mg/0.5 Mg (3 Ml) Ud) 3 ml IH [id number] PRN PRN Reason: Shortness of Breath Alprazolam (Xanax) 0.25 mg PO BID SHIVANI PRN Reason: Protocol Stop: 04/15/17 08:01 Last Admin: 04/08/17 16:15 Dose: 0.25 mg Aripiprazole (Abilify) 20 mg PO DAILY SHIVANI PRN Reason: Protocol Last Admin: 04/08/17 09:24 Dose: 20 mg Chlorpromazine (Thorazine) 50 mg IM Q6 PRN; Protocol PRN Reason: Agitation Last Admin: 04/07/17 20:18 Dose: 50 mg Chlorpromazine (Thorazine) 50 mg PO BID SHIVANI PRN Reason: Protocol Last Admin: 04/08/17 16:15 Dose: 50 mg Chlorpromazine (Thorazine) 100 mg PO HS SHIVANI PRN Reason: Protocol Last Admin: 04/08/17 21:50 Dose: 100 mg Famotidine (Pepcid) 20 mg PO HS SHIVANI Last Admin: 04/08/17 21:50 Dose: 20 mg Ferrous Sulfate (Feosol) 324 mg PO DAILY SHIVANI Last Admin: 04/08/17 09:25 Dose: 324 mg Heparin Sodium (Porcine) (Heparin) 5,000 units SC Q8 SHIVANI PRN Reason: Protocol Last Admin: 04/08/17 21:51 Dose: 5,000 units Levetiracetam (Keppra) 750 mg PO BID SHIVANI Last Admin: 04/08/17 16:14 Dose: 750 mg Levothyroxine Sodium (Synthroid) 200 mcg PO 0600 SHIVANI Last Admin: 04/08/17 05:01 Dose: 200 mcg Lorazepam (Ativan) 1 mg IM Q6H PRN; Protocol PRN Reason: Anxiety Last Admin: 04/07/17 20:18 Dose: 1 mg Roflumilast (Daliresp) 500 mcg PO DAILY SHIVANI Last Admin: 04/08/17 10:58 Dose: 500 mcg Physical Exam - Constitutional Appears: Non-toxic, Chronically Ill - Head Exam Head Exam: ATRAUMATIC - Eye Exam Eye Exam: Normal appearance Pupil Exam: NORMAL ACCOMODATION - ENT Exam ENT Exam: Mucous Membranes Moist, Normal Exam - Neck Exam Neck exam: Positive for: Normal Inspection - Respiratory Exam Respiratory Exam: Clear to Auscultation Bilateral, NORMAL BREATHING PATTERN - Cardiovascular Exam Cardiovascular Exam: REGULAR RHYTHM, +S1, +S2 - GI/Abdominal Exam GI & Abdominal Exam: Normal Bowel Sounds, Soft - Extremities Exam Extremities exam: Positive for: normal inspection - Back Exam Back exam: NORMAL INSPECTION - Neurological Exam Neurological exam: Alert, CN II-XII Intact, Oriented x3 - Skin Skin Exam: Dry Results - Vital Signs Recent Vital Signs: Last Vital Signs Temp 98.0 F 04/08/17 06:43 Pulse 81 04/08/17 15:55 Resp 20 04/08/17 06:43 BP 132/80 04/08/17 15:55 Pulse Ox 97 04/08/17 06:43 - Labs Result Diagrams: 04/07/17 14:45 04/07/17 14:45 Labs: Laboratory Results - last 24 hr 04/08/17 04/08/17 04/08/17 06:20 06:20 06:40 Fasting Glucose 85 Triglycerides 36 Cholesterol 178 LDL Cholesterol Direct 91 HDL Cholesterol 56 Free T4 1.24 TSH 3rd Generation 5.02 H RPR Nonreactive Assessment & Plan - Assessment and Plan (Free Text) Assessment: 1. Schizophrenia 2. DM II 3. Seizure disorder 4. COPD 5. Pancytopenia 6. pain B/L shoulders 7. Epigatric pain. 8. hypothyroid Plan : Keppra 750 BID, pancytopenia might be related to keppra. If possible decrease dose to 500 BID. will monitor blood counts. Continue synthyroid 200 mg daily. TSH levels. No obvious infection UA negative. DC cipro. epigastric pain : pepcid 20 mg daily. Motrin prn for shoulder pain. Thank you Dr. Edwards for allowing us to participate in her care. - Date & Time Date: 04/08/17 Time: 12:00
--- NOTE | 2017-04-09 08:22 | PCM.PYCHPN ---
Psychiatric Progress Note - Psychiatric Progress Note Patient seen today, length of contact: 25 min Problems Identified/Issues Discussed: I reviewed assessment and recent notes. I met with patient at bedside. Patient is fairly calm however she is deeply sleeping and it is difficult to elicit her cooperation. She falls asleep repeatedly during the interview even with a furniture repairer present. Patient doesn't appear to be in any distress. Staff notes indicate that patient has been labile and demonstrating extreme mood swings including belligerence, laughter, grandiosity and agitation. She remains delusional and requires redirection. Behavioral is unpredictable. There were no major issues overnight. Diagnostic Results: as per history schizophrenia As per history Alzheimer's dementia with behavioral disturbances Patient has history of delirium Medication Change: No Medical Record Reviewed: Yes Mental Status Examination - Cognitive Function Orientation: Person Attention: Poor Concentration: Poor - Affect Affect: Broad (labile) - Formal Thought Process Formal Thought Process: Hallucinations, Delusions, Paranoia, Loosening of associations - Homicidal Ideation Homicidal Ideation: No Goal/Treatment Plan - Goal/Treatment Plan Progress Toward Problem(s) and Goals/Treatment Plan: * c/w current tx and plan * No new weekend labs thus far * Vitals reviewed and noted below: Selected Entries 04/08/17 04/08/17 06:43 15:55 Temperature 98.0 F Pulse Rate 60 81 Respiratory 20 Rate Blood Pressure 119/64 132/80
[2017-04-09] MEDS: Levothyroxine 200 MCG TAB PO SCH (09:10)
--- NOTE | 2017-04-10 08:38 | PCM.PYCHPN ---
Psychiatric Progress Note - Psychiatric Progress Note Patient seen today, length of contact: 25 min Problems Identified/Issues Discussed: I reviewed recent notes and met with patient at bedside. Utilized forensic locksmith however effective dialogue remains difficult due to patient's poor focus and disorganization. Patient is well groomed. She is aware that current location is [place] however believes she was admitted because of issues with her legs. Staff notes indicate that patient has been labile with abrupt mood swings. There were no outbursts over the weekend thus far. She remains delusional and requires redirection. Behavioral is unpredictable. Diagnostic Results: as per history schizophrenia As per history Alzheimer's dementia with behavioral disturbances Patient has history of delirium Medication Change: No Medical Record Reviewed: Yes Mental Status Examination - Cognitive Function Orientation: Person Attention: Poor Concentration: Poor - Affect Affect: Broad (labile) - Formal Thought Process Formal Thought Process: Hallucinations, Delusions, Paranoia, Loosening of associations - Homicidal Ideation Homicidal Ideation: No Goal/Treatment Plan - Goal/Treatment Plan Progress Toward Problem(s) and Goals/Treatment Plan: * c/w current tx and plan * No new weekend labs thus far * Vitals reviewed and noted below: Selected Entries 04/09/17 04/09/17 07:12 16:00 Temperature 97.7 F Pulse Rate 61 65 Respiratory 20 Rate Blood Pressure 135/60 124/60
[2017-04-10] MEDS: Levothyroxine 200 MCG TAB PO SCH (08:52)
[2017-04-11] MEDS: Levothyroxine 200 MCG TAB PO SCH (06:29)
[2017-04-11] MEDS: Albuterol-Ipratrop 3 mg / 0.5 (3 ml) UD IH PRN (11:32)
--- NOTE | 2017-04-11 15:36 | PCM.PYCHPN ---
Psychiatric Progress Note - Psychiatric Progress Note Patient seen today, length of contact: 25 min Patient Chief Complaint: "lalito coronado..." Problems Identified/Issues Discussed: this staff writer attempted to speak to the pt, no option to have a meaningful conversation, pt has advanced dementia, h/o mental illness. Suicide/ homicide prevention, past psychiatric h/o, current psychiatric symptoms , medical problems, risk/benefits and alternatives of medications, medications compliance, coping strategies, substance abuse h/o, relapse prevention, importance of follow up with psychiatrist and therapist, discharge plan. Medical Problems: DM II Seizure disorder COPD Pancytopenia pain B/L shoulders Epigatric pain. hypothyroid alzheimer's dementia Diagnostic Results: 04/07/17 14:45 04/07/17 14:45 Lab Results 04/08/17 06:40: RPR Nonreactive 04/08/17 06:20: Free T4 1.24, TSH 3rd Generation 5.02 H 04/08/17 06:20: Fasting Glucose 85, Triglycerides 36, Cholesterol 178, LDL Cholesterol Direct 91, HDL Cholesterol 56 04/07/17 16:31: Urine Opiates Screen Negative, Urine Methadone Screen Negative, Ur Barbiturates Screen Negative, Ur Phencyclidine Scrn Negative, Ur Amphetamines Screen Negative, U Benzodiazepines Scrn Positive H, U Oth Cocaine Metabols Negative, U Cannabinoids Screen Negative 04/07/17 16:31: Urine Color Yellow, Urine Appearance Clear, Urine pH 6.0, Ur Specific [place] <= 1.005, Urine Protein Negative, Urine Glucose (UA) Negative, Urine Ketones Negative, Urine Blood Negative, Urine Nitrate Negative, Urine Bilirubin Negative, Urine Urobilinogen 0.2, Ur Leukocyte Esterase Negative 04/07/17 14:45: Alcohol, Quantitative < 10 04/07/17 14:45: Salicylates < 1 L, Acetaminophen < 10.0 L 04/07/17 14:45: Sodium 135, Potassium 4.1, Chloride 99, Carbon Dioxide 27, Anion Gap 13, BUN 19, Creatinine 0.8, Est GFR ( Amer) > 60, Est GFR (Non- Af Amer) > 60, Random Glucose 101, Calcium 9.0, Phosphorus 4.5, Magnesium 2.1, Total Bilirubin 0.2, AST 20, ALT 29, Alkaline Phosphatase 95, Total Protein 6.8 , Albumin 3.7, Globulin 3.2, Albumin/Globulin Ratio 1.2 04/07/17 14:45: PT 11.1, INR 1.03, APTT 32.5 H 04/07/17 14:45: WBC 3.0 L D, RBC 3.49 L, Hgb 10.6 L, Hct 32.8 L, MCV 94.0, MCH 30.4, MCHC 32.3, RDW 12.3, Plt Count 117 L, MPV 9.9, Gran % 58.7, Lymph % (Auto ) 27.6, [place] % (Auto) 7.0 H, Eos % (Auto) 6.0 H, Baso % (Auto) 0.7, Gran # 1.77 , Lymph # 0.8 L, [place] # 0.2, Eos # 0.2, Baso # 0.02 Vital Signs Temp Pulse Pulse Resp BP Pulse Ox 04/11/17 06:50 59 L 17 97/40 L 04/10/17 16:00 60 122/59 L 04/10/17 07:13 68 16 125/68 04/09/17 16:00 65 124/60 04/09/17 07:12 97.7 F 61 20 135/60 04/08/17 15:55 81 132/80 04/08/17 06:43 98.0 F 60 20 119/64 97 04/07/17 18:15 71 20 04/07/17 16:53 132/59 L 04/07/17 14:06 98.3 F 82 18 141/69 96 DSM 5 Symptoms Update: shortly, this patient is 71 year old female with long and debilitating history of schizophrenia as well as dementia with behavioral disturbances, patient has multiple medical issues including history of GI bleed, history of was to arthritis, thyroid problems, patient is allergic to multiple psychotropic medications such as Depakote haloperidol, Risperdal, Seroquel, and Zyprexa was sent by shelter facility for evaluation and stabilization of agitated, unmanageable, restless, psychotic behavior, patient needs further evaluation and stabilization and medication titration. Patient was seen today at the area, pt is on 1:1 for safety, risk of falls. pt presented to have a good personal hygiene, was calm, cooperative, as per staff translation, pt is mumbling something which is incoherent. as per staff, no agitation, no aggression, pt wants to be clean, some OCD symptoms. med compliance is good, no side effects observed or reported. AIMS0, no EPS. pt was visited by her daughter over the weekend. Diagnostic Results: as per history schizophrenia As per history Alzheimer's dementia with behavioral disturbances Patient has history of delirium Medication Change: No Medical Record Reviewed: Yes Consults ordered or reviewed: medical consult appreciated Mental Status Examination - Cognitive Function Orientation: Person Attention: Poor Concentration: Poor - Affect Affect: Broad (labile) - Formal Thought Process Formal Thought Process: Hallucinations, Delusions, Paranoia, Loosening of associations - Homicidal Ideation Homicidal Ideation: No Goal/Treatment Plan - Goal/Treatment Plan Need for Continued Stay: Remain at risks for inpatient hospitalization, Severe depression anxiety, Discharge may exacerbated symptoms, Failed transitioning, Severe functional impairment Progress Toward Problem(s) and Goals/Treatment Plan: Milieu, structure, supportive therapy patient was started on 1:1 for safety Treatment plan was discussed with patient power of ip technology transactions attorney her daughter, advised to sign tx plan Medications resumed: Famotidine [Pepcid] 20 mg PO HS Ferrous Sulfate [Feosol] 324 mg PO DAILY ARIPiprazole [Abilify] 20 mg PO DAILY chlorproMAZINE [Thorazine] 50 mg PO bid for psychosis chlorproMAZINE [Thorazine] 100 mg po hs for psychosis ALPRAZolam [Xanax] 0.25 mg PO BID anxiety PRN meds Roflumilast [Daliresp] 500 mcg PO DAILY Ciprofloxacin ? as per medical eval Levothyroxine [Synthroid] 200 mcg PO DAILY Roflumilast [Daliresp] 500 mcg PO DAILY levETIRAcetam [Keppra] 750 mg PO BID Albuterol/Ipratropium [Duoneb 3 mg/0.5 mg (3 ml) UD] 3 ml NEB PRN PRN Ciclopirox [[place] Nail Lacquer 6.6 ml] 0 ml TP BID will f/u with PMD and consultants JESENIA fernandes will monitor closely possible d/c on Estimated Date of D/C: 04/13/17 (will monitor closely)
[2017-04-12] MEDS: Levothyroxine 200 MCG TAB PO SCH (05:04)
[2017-04-12 07:10] VITALS: RESP 20
[2017-04-12] MEDS: Albuterol-Ipratrop 3 mg / 0.5 (3 ml) UD IH PRN ×2 (10:11→15:41)
--- NOTE | 2017-04-12 11:52 | PCM.PYCHPN ---
Psychiatric Progress Note - Psychiatric Progress Note Patient seen today, length of contact: 30min Patient Chief Complaint: "hello miss" Problems Identified/Issues Discussed: this [facility] underwriter attempted to speak to the pt, no option to have a meaningful conversation, pt has advanced dementia, h/o mental illness. Suicide/ homicide prevention, past psychiatric h/o, current psychiatric symptoms , medical problems, risk/benefits and alternatives of medications, medications compliance, coping strategies, substance abuse h/o, relapse prevention, importance of follow up with psychiatrist and therapist, discharge plan. Medical Problems: DM II Seizure disorder COPD Pancytopenia pain B/L shoulders Epigatric pain. hypothyroid alzheimer's dementia Diagnostic Results: 04/07/17 14:45 04/07/17 14:45 Lab Results 04/08/17 06:40: RPR Nonreactive 04/08/17 06:20: Free T4 1.24, TSH 3rd Generation 5.02 H 04/08/17 06:20: Fasting Glucose 85, Triglycerides 36, Cholesterol 178, LDL Cholesterol Direct 91, HDL Cholesterol 56 04/07/17 16:31: Urine Opiates Screen Negative, Urine Methadone Screen Negative, Ur Barbiturates Screen Negative, Ur Phencyclidine Scrn Negative, Ur Amphetamines Screen Negative, U Benzodiazepines Scrn Positive H, U Oth Cocaine Metabols Negative, U Cannabinoids Screen Negative 04/07/17 16:31: Urine Color Yellow, Urine Appearance Clear, Urine pH 6.0, Ur Specific [place] <= 1.005, Urine Protein Negative, Urine Glucose (UA) Negative, Urine Ketones Negative, Urine Blood Negative, Urine Nitrate Negative, Urine Bilirubin Negative, Urine Urobilinogen 0.2, Ur Leukocyte Esterase Negative 04/07/17 14:45: Alcohol, Quantitative < 10 04/07/17 14:45: Salicylates < 1 L, Acetaminophen < 10.0 L 04/07/17 14:45: Sodium 135, Potassium 4.1, Chloride 99, Carbon Dioxide 27, Anion Gap 13, BUN 19, Creatinine 0.8, Est GFR ( Amer) > 60, Est GFR (Non- Af Amer) > 60, Random Glucose 101, Calcium 9.0, Phosphorus 4.5, Magnesium 2.1, Total Bilirubin 0.2, AST 20, ALT 29, Alkaline Phosphatase 95, Total Protein 6.8 , Albumin 3.7, Globulin 3.2, Albumin/Globulin Ratio 1.2 04/07/17 14:45: PT 11.1, INR 1.03, APTT 32.5 H 04/07/17 14:45: WBC 3.0 L D, RBC 3.49 L, Hgb 10.6 L, Hct 32.8 L, MCV 94.0, MCH 30.4, MCHC 32.3, RDW 12.3, Plt Count 117 L, MPV 9.9, Gran % 58.7, Lymph % (Auto ) 27.6, [place] % (Auto) 7.0 H, Eos % (Auto) 6.0 H, Baso % (Auto) 0.7, Gran # 1.77 , Lymph # 0.8 L, [place] # 0.2, Eos # 0.2, Baso # 0.02 Vital Signs Temp Pulse Pulse Resp BP Pulse Ox 04/11/17 06:50 59 L 17 97/40 L 04/10/17 16:00 60 122/59 L 04/10/17 07:13 68 16 125/68 04/09/17 16:00 65 124/60 04/09/17 07:12 97.7 F 61 20 135/60 04/08/17 15:55 81 132/80 04/08/17 06:43 98.0 F 60 20 119/64 97 04/07/17 18:15 71 20 04/07/17 16:53 132/59 L 04/07/17 14:06 98.3 F 82 18 141/69 96 Temp Pulse Resp BP Pulse Ox 97.9 F 65 20 110/51 L 97 04/12/17 07:09 04/12/17 07:09 04/12/17 07:09 04/12/17 07:09 04/08/17 06:43 DSM 5 Symptoms Update: shortly, this patient is 71 year old female with long and debilitating history of schizophrenia as well as dementia with behavioral disturbances, patient has multiple medical issues including history of GI bleed, history of was to arthritis, thyroid problems, patient is allergic to multiple psychotropic medications such as Depakote haloperidol, Risperdal, Seroquel, and Zyprexa was sent by [facility] facility for evaluation and stabilization of agitated, unmanageable, restless, psychotic behavior, patient needs further evaluation and stabilization and medication titration. Patient was seen today next to her room, pt was comfortably sitting in the wheelchair, as per staff pt could ambulance for short distance, using a walker. pt presented to be pleasantly confused, smiling, was observe taking her am meds. as per staff pt needed to be IM medicated yesterday at [facility] because pt was restless. today so far pt is calm/cooperative. will d/c 1:1 today, will f/u on it. pt is very clean, hygiene is good, pt was able to express her needs. med compliance is good, no side effects observed or reported. AIMS0, no EPS. SW will call pt's POA and f/u if pt is at her baseline. Diagnostic Results: as per history schizophrenia As per history Alzheimer's dementia with behavioral disturbances Patient has history of delirium Medication Change: Yes (thorazine increased, xanax hs added 0.25) Medical Record Reviewed: Yes Consults ordered or reviewed: medical consult appreciated Mental Status Examination - Cognitive Function Orientation: Person Attention: Poor (some improvement) Concentration: Poor (some improvement) Association: Loose (baseline) Fund of Knowledge: Poor (baseline) - Mood Mood: Neutral - Affect Affect: Constricted (but more reactive) - Speech Speech: Slurred - Formal Thought Process Formal Thought Process: Hallucinations, Delusions, Paranoia, Loosening of associations - Suicidal Ideation Suicidal Ideation: No - Homicidal Ideation Homicidal Ideation: No Goal/Treatment Plan - Goal/Treatment Plan Need for Continued Stay: Remain at risks for inpatient hospitalization, Severe depression anxiety, Discharge may exacerbated symptoms, Failed transitioning, Severe functional impairment Progress Toward Problem(s) and Goals/Treatment Plan: Milieu, structure, supportive therapy 1:1 d/c Treatment plan was discussed with patient power of deputy commonwealth's attorney her daughter, advised to sign tx plan Medications resumed: Famotidine [Pepcid] 20 mg PO HS Ferrous Sulfate [Feosol] 324 mg PO DAILY ARIPiprazole [Abilify] 20 mg PO DAILY chlorproMAZINE [Thorazine] 50 mg PO daily for psychosis chlorproMAZINE [Thorazine] 100 mg po 4pm and hs for psychosis ALPRAZolam [Xanax] 0.25 mg PO BID and hs anxiety PRN meds Roflumilast [Daliresp] 500 mcg PO DAILY Ciprofloxacin ? as per medical eval Levothyroxine [Synthroid] 200 mcg PO DAILY Roflumilast [Daliresp] 500 mcg PO DAILY levETIRAcetam [Keppra] 750 mg PO BID Albuterol/Ipratropium [Duoneb 3 mg/0.5 mg (3 ml) UD] 3 ml NEB PRN PRN Ciclopirox [[place] Nail Lacquer 6.6 ml] 0 ml TP BID will f/u with PMD and consultants JESENIA fernandes will monitor closely possible d/c on Estimated Date of D/C: 04/13/17 (will monitor closely)
--- NOTE | 2017-04-13 02:32 | PN ---
ADDENDUM ASSESSMENT AND PLAN: The patient has a history of diabetes mellitus type 2, non-insulin requiring, not controlled; chronic obstructive pulmonary disease; obstructive sleep apnea syndrome; noncompliance; schizophrenia; seizure disorder; peptic ulcer disease; gastroparesis, was on puree diet. We will continue Keppra. We will repeat labs. Continue Synthroid for hypothyroidism. Continue Pepcid. Gastrointestinal and deep venous thrombosis prophylaxis. Repeat labs. We will follow. Ca Thacker MD
[2017-04-13] MEDS: Levothyroxine 200 MCG TAB PO SCH (06:21)
[2017-04-13 07:09] VITALS: BP 114/53; PULSE 73; TEMP 97.3
--- NOTE | 2017-04-13 08:05 | PN ---
DATE: 04/12/17 SUBJECTIVE: The patient is a 71-year-old. The patient was seen and examined on the bedside, sitting on the wheelchair, and looking comfortable. No nausea, vomiting, or diarrhea. No hematuria or hematochezia. No swelling of the legs. No chest pain. No palpitations. No headache or dizziness. PHYSICAL EXAMINATION: VITAL SIGNS: Temperature 97.9, pulse 83, blood pressure 180/61, and respiratory rate 20. HEENT: Head is normocephalic and atraumatic. Eyes: PERRLA. Extraocular muscles intact. Conjunctivae clear. Nose patent. Mucous membranes moist. NECK: Supple. No carotid bruit. No JVD. No thyromegaly. CHEST: Bilaterally symmetrical. HEART: S1 and S2 positive. LUNGS: Clear to auscultation. ABDOMEN: Soft. Bowel sounds positive. No organomegaly. EXTREMITIES: No edema. No cyanosis. NEUROLOGIC: The patient is awake and alert. Moving all four extremities. No focal deficits. MEDICATIONS: Abilify, Ativan, Daliresp, DuoNeb, Feosol, heparin, Keppra, famotidine, Synthroid, Thorazine, Tylenol, and Xanax. LABORATORY DATA: We do not have recent labs, but reviewed old labs. ASSESSMENT AND PLAN: Ms. Romelia Trejo is a 71-year-old lady with leukopenia, anemia, thrombocytopenia, actually pancytopenia, hypothyroidism, RPR negative Ca Thacker MD
[2017-04-13 08:08] LABS: IRON 94 ug/dL (45-180)
[2017-04-13 13:29] LABS: FOLATE 2.1 ng/mL
--- NOTE | 2017-04-13 16:00 | PCM.PYCHDC ---
Mental Status Examination - Mental Status Examination Orientation: Person Memory: Impaired (chronic, patient has history of Alzheimer's dementia) Mood: Neutral Affect: Constricted (adaptive mood congruent) Attention: Poor (baseline) Concentration: Poor (aseline) Association: Loose Fund of Knowledge: Poor Formal Thought Process: Hallucinations, Delusions, Paranoia Description of patient's judgement and insight: some improvement with insight and judgment Psychotic Thoughts and Behaviors: patient is chronically delusional and disorganized, has history of schizophrenia. Suicidal Ideation: No Current Homicidal Ideation?: No Plan: patient adamantly denied thoughts of harming herself or others, calm, corporative, no behavioral issues. Discharge Summary - Discharge Note Reason for Hospitalization: patient was transferred from the skilled nursing for evaluation and stabilization of agitated, restless, psychotic behavior, patient poses danger to self and others in the skilled nursing, patient has long history of schizophrenia and Alzheimer's disease with behavioral disturbances, patient was not manageable at the skilled nursing and needs higher level of care. patient's power of assistant city attorney sign consent for treatment. Psychiatric History (includes Medical, Family, Personal Hx): see HPI Laboratory Data: Abnormal Lab Results 04/13/17 04/13/17 04/13/17 07:30 07:30 07:30 Hemoglobin A1c 5.4 Iron 94 TIBC 325 % Saturation 29 Triglycerides 48 Cholesterol 142 LDL Cholesterol Direct 50 HDL Cholesterol 76 H Vitamin B12 934 H Folate 2.1 Consultations:: List each consultation separately and include: 1. Reason for request. 2. Findings. 3. Follow-up Consultations: medical consult appreciated see notes for more detailed information Summary of Hospital Course include:: 1. Description of specific treatment plan utilized for patients during their course of treatmen. 2. Summarize the time- course for resolution of acute symptoms and/or regressed behaviors. 3. Describe issues identified and worked on during hospitalization. 4. Describe medication utilized. 5. Describe medical problems identified and treated. 6. Reassessment of suicide risk Summary of Hospital Course: shortly, this patient is 71 year old female with long and debilitating history of schizophrenia as well as dementia with behavioral disturbances, patient has multiple medical issues including history of GI bleed, history of was to arthritis, thyroid problems, patient is allergic to multiple psychotropic medications such as Depakote haloperidol, Risperdal, Seroquel, and Zyprexa was sent by skilled nursing facility for evaluation and stabilization of agitated, unmanageable, restless, psychotic behavior, patient needs further evaluation and stabilization and medication titration. at the time of admission patient presented withacceptable personal hygiene, but poor ADLs, patient presented to be disorganized but calm, corporative, but there is no option to have meaningful conversation. Patient was just saying random things, as per report from the nursing staff, patient was agitated, restless, needed to have IM of thorazine yesterday at the evening time which she tolerated well, slept through nigh. pt also is on 1:1 now. as per her report patient's impulses unpredictable, patient has expanded affect, which ranges from being calm and pleasant to be agitated and tearful. This proposal manager writer contacted patient power of assistant city attorney patient daughter Romelia . as per patient daughter changes started approximately 2 months ago, patient was started on new medication most likely was "the with the, patient also was not happy about fact that she could take shower only 3 times a week not every day. Patient daughter reported that she had a meeting with administration of the skilled nursing, and at present moment issues resolved. Patient daughter was educated about the risk, benefits, alternatives of the medications, all questions were answered, POA was appreciative. This proposal manager writer is very familiar with this patient from the multiple admissions on the medical side, this proposal manager writer was consulting, as per history usually patient is calm and corporative, confused, but no agitation or aggression. At the same time agitation and aggression majority of the times were related to the medical issues, for example last admission patient had urinary tract infection and had hyper activity delirium. last admission on the medical side patient's daughter POKristine refused to sign consent for treatment into the psychiatric inpatient unit. past psychiatric history: As per history patient has schizophrenia, patient has multiple admissions into the psychiatric inpatient unit, allergies to majority of psychotropic medications. Medical issues patient has dementia, almost arthritis, thyroid problem, history of GI bleed, COPD, patient also has seizure disorder, patient primary care physician is Dr. Thacker, she was called for consultation. Family history: daughter denied Patient daughter denied patient used any drugs, denied alcohol consumption, denied drinking alcohol, denied smoking cigarettes at present moment but has history of smoking. Transfer papers for reviewed, medications reviewed, resumed, collaterals were obtained from the patient skilled nursing yesterday spoke to ROSLYN Osman. Over the course of this hospitalization patient medications were adjusted: Thorazine was increased to 250 mg a day for psychotic symptoms Abilify was continued at 20 mg a day Xanax 0.25 mg was increased to 3 times a day Patient was seen by medical team, all medications were resume and continue. Patient improved significantly, not aggressive, not agitated, off one-to-one This proposal manager writer contacted P patient's POA discussed discharge plan,Patient POA was in agreement with the discharge plan. patient tolerated medications well, no side effects observed or reported, aims 0 , no EPS. Patient deemed to be discharged back to the skilled nursing. Patient pose no imminent danger to self or others. At the time of the discharge pt denied been depressed, denied thoughts of harming self or others, denied psychotic symptoms, and pt does not appeared to be psychotic, denied been anxious, was considered to pose no threat to self or others, will be following up with [place] psychiatrist, information about follow up appointment, time and address provided to the pt, it is [place] responsibility to provide pt with follow up appt for outpatient clinic, PMD as well as specialists (see SW note for more detailed information). In case pt will need to obtain results of studies pending at discharge pt was provided with contact information of Psychiatric Inpatient unit [phone] as well as Medical Record Department [phone]. pt might benefit from neurology consult as outpatient, pt's POA raised question about Keppra discontinuation (within one month) pt needs to continue all of medications (please see medication reconciliation form) Pt was educated about safety plan in case of worsening of symptoms or in case of suicidal or homicidal ideation call 911 or go to the nearest ER, also was educated to take meds as prescribed and stay away from drugs, pt verbalized understanding. - Diagnosis (1) Schizophrenia Status: Chronic Priority: Medium Comment: -lorazepam and alprazolam as recommended by psych (2) Dementia with behavioral disturbance Status: Chronic Priority: High Comment: on Klonopin patient not a candidate for antipsychotics as per psychiatrist due to risk factors psychiatry consulted Will transfer to psych before transfer to [place] (3) Altered mental status Status: Suspected Priority: Medium Comment: multifactorial , improved due to toxic metabolic encephalopathy with seizure actvity Maintain on Keppra PO Continue topamax PO and clonopine Discontinued Oxcarbazapine for pancytopenia - Final Diagnosis (DSM 5) Condition upon Discharge: FAIR Disposition: NURSING FACILITY MEDICAID CERT Follow-up Treatment Plan: At the time of the discharge pt denied been depressed, denied thoughts of harming self or others, denied psychotic symptoms, and pt does not appeared to be psychotic, denied been anxious, was considered to pose no threat to self or others, will be following up with [place] psychiatrist, information about follow up appointment, time and address provided to the pt, it is [place] responsibility to provide pt with follow up appt for outpatient clinic, PMD as well as specialists (see SW note for more detailed information). In case pt will need to obtain results of studies pending at discharge pt was provided with contact information of Psychiatric Inpatient unit [phone] as well as Medical Record Department [phone]. pt might benefit from neurology consult as outpatient, pt's POA raised question about Keppra discontinuation (within one month) pt needs to continue all of medications (please see medication reconciliation form) Pt was educated about safety plan in case of worsening of symptoms or in case of suicidal or homicidal ideation call 911 or go to the nearest ER, also was educated to take meds as prescribed and stay away from drugs, pt verbalized understanding. - Smoking Cessation Smoking Cessation Medication prescribed: No Reason for not providing: does not smoke - Antipsychotic Medications Pt discharged on 2 or more routine antipsychotic medications: Yes - Justification for 2 or more meds Failed 3 or more trials of Monotherapy: List medications: patient was on 2 antipsychotic medications, considering the fact patient has severe schizophrenia , Alzheimer's dementia patient needs to be maintained on 2 antipsychotic medication as of now
--- NOTE | 2017-04-14 05:44 | PN ---
DATE: SUBJECTIVE: The patient is a 71-year-old female. The patient was seen and examined early in the morning in the psych unit. Looking comfortable. No nausea, vomiting, or diarrhea. No hematuria or hematochezia. No swelling of the legs. No chest pain. No palpitations. No headache or dizziness. PHYSICAL EXAMINATION VITAL SIGNS: Temperature 97.3, pulse 73, blood pressure 140/53, and respiratory rate 20. HEENT: Head is normocephalic and atraumatic. Eyes: PERRLA. Extraocular muscles intact. Conjunctivae clear. Nose patent. Mucous membranes moist. NECK: Supple. No carotid bruit. No JVD. No thyromegaly. CHEST: Bilaterally symmetrical. HEART: S1 and S2 positive. LUNGS: Clear to auscultation. ABDOMEN: Soft. Bowel sounds positive. No organomegaly. EXTREMITIES: No edema. No cyanosis. NEUROLOGIC: The patient is awake and alert. Moving all four extremities. No focal deficits. MEDICATIONS: Abilify, Ativan, Daliresp, DuoNeb, ferrous sulphate, heparin, Keppra, famotidine, Synthroid, Thorazine and Xanax. LABORATORY DATA: We do not have recent labs today, but I reviewed old labs. Hemoglobin A1c is 5.4. TSH 5.02, BNP 934, HDL 76. ASSESSMENT AND PLAN: Ms. Romelia Trejo is a 71 years old lady with multiple medical problem, has Alzheimer's dementia, adaptive mood-congruent, history of schizophrenia with behavioral disturbance, history of chronic obstructive pulmonary disease, asthma, gastroparesis on puree diet, with history of leukopenia, anemia and thrombocytopenia, acute pancytopenia, hypothyroidism, has multiple psych admissions, treated by Dr. Grace Pagan. Diabetes mellitus is stable, history of peptic ulcer disease, discharged back to [facility], with changing of the medication, need to follow up with the psychiatrist there and we will follow up. Ca Thacker MD
== END 2017-04-13 13:49 | DRG 885 ==
LOC: ED 13:47 → PSYC 16:26
PROVIDERS: ADMIT Psychiatry & Neurology Psychiatry; ATTEND Psychiatry & Neurology Psychiatry
DX: F20.9 Schizophrenia, unspecified (principal); G92 Toxic encephalopathy; G30.9 Alzheimer's disease, unspecified; F02.81 Dementia in other diseases classified elsewhere, unspecified severity, with behavioral disturbance; D61.818 Other pancytopenia; E11.43 Type 2 diabetes mellitus with diabetic autonomic (poly)neuropathy; K31.84 Gastroparesis; M19.90 Unspecified osteoarthritis, unspecified site; J44.9 Chronic obstructive pulmonary disease, unspecified; E03.9 Hypothyroidism, unspecified; G40.909 Epilepsy, unspecified, not intractable, without status epilepticus; K27.9 Peptic ulcer, site unspecified, unspecified as acute or chronic, without hemorrhage or perforation

== ENCOUNTER 2017-04-25 10:30 | Inpatient (IN) | payer MEDICARE, MEDICAID ==
[2017-04-25 10:37] VITALS: BMI 37.8
--- NOTE | 2017-04-25 11:14 | ED PDOC ---
Arrival/HPI - General Chief Complaint: Psychiatric Evaluation Time Seen by Provider: 04/25/17 11:00 Historian: Patient, Longterm - History of Present Illness Narrative History of Present Illness (Text): 04/25/17 11:13 Patient is a 71 y/o F with hx of schizophrenia, htn, copd, dm, chf and seizure disorder, presenting from long-term. prison staff called EMS because patient was agitated. Patient has hx of same and recent psychiatric admission to this hospital. Patient denies any complaints on arrival. Patient told nurse that she was hungry and thirsty PMD: Dr. Thacker Past Medical History - Provider Review Nursing Documentation Reviewed: Yes - Infectious Disease Hx of Infectious Diseases: None - Tetanus Immunization Tetanus Immunization: Unknown - Reproductive Menopause: No - Cardiac Hx Congestive Heart Failure: Yes Hx Hypertension: Yes - Pulmonary Hx Chronic Obstructive Pulmonary Disease (COPD): Yes - Neurological Hx Neurological Disorder: Yes HX Cerebrovascular Accident: No Hx Dementia: Yes Hx Seizures: Yes - HEENT Hx HEENT Disorder: No - Renal Hx Renal Disorder: No Hx Renal Failure: No - Endocrine/Metabolic Hx Diabetes Mellitus Type 1: Yes - Hematological/Oncological Hx Blood Transfusions: No Hx Blood Transfusion Reaction: No - Integumentary Hx Dermatological Disorder: No - Musculoskeletal/Rheumatological Hx Arthritis: No Hx Rheumatoid Arthritis: No - Gastrointestinal Hx Gastrointestinal Disorders: Yes (GI Bleed) Hx Gastroesophageal Reflux: No - Genitourinary/Gynecological Hx Genitourinary Disorders: Yes Hx Incontinence: Yes - Psychiatric Hx Bipolar Disorder: Yes Hx Emotional Abuse: No Hx Physical Abuse: No Hx Schizophrenia: Yes Hx Sexual Abuse: No Hx Substance Use: No - Past Surgical History Past Surgical History: Unable to Obtain - Surgical History Hx Coronary Stent: Yes - Anesthesia Hx Anesthesia: Yes Hx Anesthesia Reactions: No Hx Malignant Hyperthermia: No - Suicidal Assessment Feels Threatened In Home Enviroment: No Family/Social History - Physician Review Nursing Documentation Reviewed: Yes Family/Social History: No Known Family HX Smoking Status: Unknown If Ever Smoked Hx Alcohol Use: No Hx Substance Use: No Hx Substance Use Treatment: No Allergies/Home Meds Allergies/Adverse Reactions: Allergies ceftriaxone [From Rocephin] Allergy (Verified 04/25/17 10:41) RASH divalproex sodium [From Depakote] Allergy (Verified 04/25/17 10:41) RASH haloperidol [From Haldol] Allergy (Verified 04/25/17 10:41) RASH haloperidol lactate [From Haldol] Allergy (Verified 04/25/17 10:41) RASH olanzapine [From Zyprexa] Allergy (Verified 04/25/17 10:41) RASH quetiapine fumarate [From Seroquel] Allergy (Verified 04/25/17 10:41) RASH risperidone [From Risperdal] Allergy (Verified 04/25/17 10:41) RASH Home Medications: Home Meds Medication Instructions Recorded Confirmed Roflumilast [Daliresp] 500 mcg PO DAILY 01/10/17 04/25/17 ALPRAZolam [Xanax] 0.25 mg PO PRN PRN 04/25/17 04/25/17 Acetaminophen [Tylenol 325mg tab] 650 mg PO PRN PRN 04/25/17 04/25/17 Ciclopirox/Ure/Camph/Menth/Euc 34.6 ml TP BID 04/25/17 04/25/17 [Ciclopirox 8% Treatment Kit] Famotidine [Pepcid] 20 mg PO DAILY 04/25/17 04/25/17 Magnesium Hydroxide [Milk Of 30 ml PO PRN PRN 04/25/17 04/25/17 Magnesia] chlorproMAZINE [Thorazine] 100 mg PO 2200 04/25/17 04/25/17 Review of Systems - Physician Review All systems were reviewed & negative as marked: Yes - Review of Systems Systems not reviewed;Unavailable: Dementia Constitutional: absent: Fevers Respiratory: absent: SOB Cardiovascular: absent: Chest Pain Gastrointestinal: absent: Abdominal Pain Neurological: absent: Headache, Dizziness Psychiatric: Other (agitated, emotional) Physical Exam Vital Signs Reviewed: Yes Vital Signs Temp Pulse Resp BP Pulse Ox 04/25/17 13:19 83 18 145/70 98 04/25/17 10:35 97.8 F 81 18 105/82 97 Temperature: Afebrile Blood Pressure: Normal Pulse: Regular Respiratory Rate: Normal Appearance: Positive for: Well-Appearing, Non-Toxic, Comfortable Pain Distress: None Mental Status: Positive for: Confused, Agitated, other (Alert) Finger Stick Blood Glucose: 97 - Systems Exam Head: Present: Atraumatic, Normocephalic Pupils: Present: PERRL Extroacular Muscles: Present: EOMI Conjunctiva: Present: Normal Mouth: Present: Moist Mucous Membranes Pharnyx: No: ERYTHEMA, EXUDATE Nose (External): Present: Atraumatic Neck: Present: Normal Range of Motion. No: Meningeal Signs Respiratory/Chest: Present: Clear to Auscultation. No: Respiratory Distress, Accessory Muscle Use Cardiovascular: Present: Regular Rate and Rhythm, Normal S1, S2. No: Murmurs Abdomen: No: Tenderness, Distention, Rebound, Guarding Back: Present: Normal Inspection. No: CVA Tenderness Upper Extremity: Present: Normal Inspection Lower Extremity: Present: Normal Inspection, Other (moving extremities spontaneously x 4) Neurological: Present: GCS=15, CN II-XII Intact Psychiatric: Present: Alert, Agitated Medical Decision Making ED Course and Treatment: 04/25/17 11:16 Patient is 71 y/o f with dementia. Limited ROS Plan --ekg --xray --labs --ua --psych consult --reassess and disposition 04/25/17 11:40 NSR at 89bpm with normal intervals and no ST changes 04/25/17 13:04 Cxray shows 1. Left retrocardiac opacity may represent atelectasis or pneumonia. Also suspected is small left pleural effusion. 2. Persistent moderate cardiomegaly, prominent central vasculature and mild pulmonary venous congestion. 04/25/17 13:07 Daughter called and reports that patient has a history of these episodes associated with infection. Due to positive xray and unable to clear medically for psych admission, will admit for pneumonia with psych on consult. Will cover with antibiotics for health care acquired pna due to long-term status 04/25/17 13:12 04/25/17 13:[address] Thacker who agrees with above plan. - Lab Interpretations Lab Results: 04/25/17 11:37 04/25/17 11:37 Lab Results 04/25/17 13:25: Urine Color Yellow, Urine Appearance Clear, Urine pH 6.5, Ur Specific [place] 1.010, Urine Protein Negative, Urine Glucose (UA) Negative, Urine Ketones Negative, Urine Blood Negative, Urine Nitrate Negative, Urine Bilirubin Negative, Urine Urobilinogen 0.2, Ur Leukocyte Esterase Negative 04/25/17 11:37: Alcohol, Quantitative < 10 04/25/17 11:37: Sodium 137, Potassium 4.6, Chloride 98, Carbon Dioxide 31, Anion Gap 13, BUN 22 H, Creatinine 0.9, Est GFR ( Amer) > 60, Est GFR ( Non-Af Amer) > 60, Random Glucose 85, Calcium 9.5, Total Bilirubin 0.3, AST 19, ALT 30, Alkaline Phosphatase 107, Total Protein 7.4, Albumin 4.0, Globulin 3.4, Albumin/Globulin Ratio 1.2 04/25/17 11:37: WBC 3.4 L, RBC 3.66, Hgb 11.0 L, Hct 34.5 L, MCV 94.3, MCH 30.1 , MCHC 31.9, RDW 12.5, Plt Count 140, MPV 9.6, Gran % 64.4, Lymph % (Auto) 25.3 , [place] % (Auto) 6.2 H, Eos % (Auto) 3.8, Baso % (Auto) 0.3, Gran # 2.19, Lymph # 0.9 L, [place] # 0.2, Eos # 0.1, Baso # 0.01 - RAD Interpretation Radiology Orders: 04/25/17 11:01 CHEST PORTABLE [RAD] Stat - Medication Orders Current Medication Orders: Vancomycin HCl (Vancomycin 1gm) 1 gm in 250 mls @ 167 mls/hr IVPB STAT STA PRN Reason: Protocol Stop: 04/25/17 14:38 Azithromycin (Zithromax 500mg In Ns) 500 mg in 250 mls @ 167 mls/hr IVPB STAT STA PRN Reason: Protocol Stop: 04/25/17 14:37 Discontinued Medications Piperacillin Sod/Tazobactam Sod (Zosyn 3.375 In Ns 100ml) 100 mls @ 200 mls/hr IVPB STAT STA PRN Reason: Protocol Stop: 04/25/17 13:37 Disposition/Present on Arrival - Present on Arrival Any Indicators Present on Arrival: No History of DVT/PE: No History of Uncontrolled Diabetes: No Urinary Catheter: No History of Decub. Ulcer: No History Surgical Site Infection Following: None - Disposition Have Diagnosis and Disposition been Completed?: Yes Diagnosis: Pneumonia Disposition: HOSPITALIZED Disposition Time: 13:12 Patient Plan: Admission Patient Problems: Current Active Problems Problem Status Onset Pneumonia Acute Condition: FAIR Referrals: PCP,NO [Primary Care Provider] - Follow up with primary Forms: [employer]ing[employer] (Estonian)
[2017-04-25 11:44] LABS: BASO # 0.01 K/mm3 (0.0-2.0); BASO % 0.3 % (0.0-3.0); EOS # 0.1 (0.0-0.7); EOS % 3.8 % (1.5-5.0); GRAN # 2.19 (1.4-6.5); GRAN % 64.4 % (50.0-68.0); HEMATOCRIT 34.5 % (36.0-48.0); LYMPH # 0.9 (1.2-3.4); LYMPH % 25.3 % (22.0-35.0); MEAN CELL VOLUME 94.3 fl (80.0-105.0); MEAN CORPUSCULAR HEMOGLOBIN 30.1 pg (25.0-35.0); MEAN CORPUSCULAR HGB CONC 31.9 g/dl (31.0-37.0); MEAN PLATELET VOLUME 9.6 fl (7.0-11.0); MONO # 0.2 (0.1-0.6); MONO % 6.2 % (1.0-6.0); RED CELL DISTRIBUTION WIDTH 12.5 % (11.5-14.5); WHITE BLOOD COUNT 3.4 10^3/ul (4.5-11.0)
[2017-04-25 11:52] LABS: ALB/GLOB RATIO 1.2 (1.1-1.8); ALKALINE PHOSPHATASE 107 U/L (38-126); ALT/SGPT 30 U/L (7-56); AST/SGOT 19 U/L (14-36); BILIRUBIN,TOTAL 0.3 mg/dL (0.2-1.3); BLOOD UREA NITROGEN 22 mg/dL (7-21); CALCIUM 9.5 mg/dL (8.4-10.5); CARBON DIOXIDE 31 mmol/L (21-33); CHLORIDE 98 mmol/L (98-107); GFR AFRICAN-AMERICAN > 60; GLUCOSE,RANDOM 85 mg/dL (70-110); POTASSIUM 4.6 mmol/L (3.6-5.0); SODIUM 137 mmol/L (132-148); TOTAL PROTEIN 7.4 g/dL (5.8-8.3)
--- NOTE | 2017-04-25 13:01 | RAD ---
HISTORY: psych COMPARISON: 04/07/2017 FINDINGS: LUNGS: There is mild pulmonary venous congestion. There is left retrocardiac opacity. PLEURA: There is a probable small left pleural effusion. No pneumothorax apparent. CARDIOVASCULAR: There is persistent moderate cardiomegaly and prominent central vasculature. There is a left-sided permanent pacing device. OSSEOUS STRUCTURES: No significant abnormalities. VISUALIZED UPPER ABDOMEN: Normal. OTHER FINDINGS: None. IMPRESSION: 1. Left retrocardiac opacity may represent atelectasis or pneumonia. Also suspected is small left pleural effusion. 2. Persistent moderate cardiomegaly, prominent central vasculature and mild pulmonary venous congestion.
[2017-04-25] MEDS ORDERED: Azithromycin 500MG/NS 250ml 500 MG/250 ML BAG IVPB STA (13:08)
[2017-04-25] MEDS ORDERED: Piperacillin/Tazobact 3.375 gm 100 ML IVPB STA (13:08)
[2017-04-25] MEDS ORDERED: Vancomycin 1gm in NS 250ml 1 GM/250 ML BAG IVPB STA (13:09)
[2017-04-25 13:31] LABS: PH,URINE 6.5 (4.7-8.0); URINE BILIRUBIN NEGATIVE (NEGATIVE); URINE BLOOD NEGATIVE (NEGATIVE); URINE GLUCOSE (UA) NEGATIVE (NEGATIVE); URINE KETONE NEGATIVE (NEGATIVE); URINE LEUKOCYTE ESTERASE NEGATIVE Leu/uL (NEGATIVE); URINE PROTEIN NEGATIVE mg/dL (<30 mg/dL); URINE UROBILINOGEN 0.2 E.U./dL (<1 E.U./dL)
[2017-04-25 13:32] LABS: URINE APPEARANCE CLEAR (CLEAR); URINE COLOR YELLOW (YELLOW)
[2017-04-25] MEDS ORDERED: Albuterol-Ipratrop 3 mg / 0.5 (3 ml) UD IH PRN (15:36)
[2017-04-25] MEDS ORDERED: Magnesium Hydroxide Susp 30 ml UD PO PRN (15:36)
--- NOTE | 2017-04-25 20:52 | CARD ---
APPROVED REPORT EKG Measurement Heart [id number] <Conclusion> Normal sinus rhythm Normal ECG
[2017-04-25] MEDS: Meropenem 1g/NS 100mL IVPB 1 GM/100 ML PIGGYBACK IVPB SCH (22:03)
[2017-04-25] MEDS ORDERED: Pneumococcal 23-Valent Vaccine IM ONE (22:33)
[2017-04-26] MEDS: Levothyroxine 200 MCG TAB PO SCH (06:53)
[2017-04-26] MEDS: Meropenem 1g/NS 100mL IVPB 1 GM/100 ML PIGGYBACK IVPB SCH ×3 (07:03→21:17)
[2017-04-26] MEDS ORDERED: levoFLOXacin 500 mg in D5W 500 MG/100 ML BAG IVPB SCH (10:00)
--- NOTE | 2017-04-26 10:47 | CT ---
PROCEDURE: CT scan of the chest dated 04/26/2017 HISTORY: Abnormal chest radiographs COMPARISON: Comparison made with CT scan chest 12/22/2016 the. TECHNIQUE: Contiguous axial images were obtained through the chest without intravenous contrast enhancement. Sagittal and coronal reconstructions were performed. Radiation dose (DLP): 1051.82 mGy-cm. This CT exam was performed using one or more of the following dose reduction techniques: Automated exposure control, adjustment of the mA and/or kV according to patient size, and/or use of iterative reconstruction technique. FINDINGS: LUNGS: Re- demonstrated is a well-circumscribed hypodense elliptical shaped fluid collection in the left lung base surrounded by a relatively thick rim consistent with loculated effusion. . There is associated adjacent mild atelectasis and/or scarring. In addition, there is mild passive type atelectasis seen in the posterior lung lyon as well MEDIASTINUM: Heart size is borderline/mildly enlarged. No significant pericardial effusion. In situ bipolar pacemaker unchanged. The ascending thoracic aorta measures approximately 3.2 cm and descending thoracic aorta measures approximately 2.4 cm. Pulmonary trunk measures approximately 2.67 cm. Few small nonspecific mediastinal lymph nodes are present. Evaluation for hilar adenopathy limited due to the lack of circulating intravenous contrast material. Central airways are midline patent. No endoluminal lesions seen. There is a small hiatal hernia with wall thickening of the distal esophagus that is likely due to protrusion of gastric mucosa. Possibility of esophagitis or other intrinsic/invasive wall lesion including esophageal carcinoma cannot be excluded. Clinical correlation recommended consider at followup GI consultation and EEG and clinically indicated. PLEURA: As above. No pneumothorax. BONES: Mild multilevel degenerative spondylosis of thoracic spine. Chronic anterior wedge deformity of a T11 segment unchanged. UPPER ABDOMEN: Cholelithiasis again noted. OTHER FINDINGS: None. IMPRESSION: There is a persistent loculated left-sided basilar effusion surrounded by a relatively thick rim-capsule. Associated adjacent atelectasis. Cholelithiasis.
--- NOTE | 2017-04-26 12:24 | CP.PCM.CON ---
History of Present Illness - History of Present Illness History of Present Illness: 71 year old female with PMH of septic shock from hospital-acquired pneumonia , hypertension, chronic obstructive lung disease, chronic congestive heart failure , chronic atrial fibrillation, schizophrenia, diabetes mellitus, coronary artery disease S/P pacemaker placement, obesity with body mass index of 38 was sent in from the assisted because of agitation. She has been uncooperative since her admission. There is no note of fever, no vomiting, no loss of consciousness, no diarrhea, no convulsions. CXR was done which showed retrocardiac opacity. Infectious Diseases consult is requested to further evaluate and manage. Review of Systems - Review of Systems Systems not reviewed;Unavailable: Uncooperative Past Patient History - Infectious Disease Hx of Infectious Diseases: None - Tetanus Immunizations Tetanus Immunization: Unknown - Past Medical History & Family History Past Medical History?: Yes - Past Social History Smoking Status: Unknown If Ever Smoked - CARDIAC Hx Congestive Heart Failure: Yes Hx Hypertension: Yes - PULMONARY Hx Chronic Obstructive Pulmonary Disease (COPD): Yes - NEUROLOGICAL Hx Neurological Disorder: Yes HX Cerebrovascular Accident: No Hx Dementia: Yes Hx Seizures: Yes - HEENT Hx HEENT Problems: No - RENAL Hx Chronic Kidney Disease: No Hx Renal Failure: No - ENDOCRINE/METABOLIC Hx Diabetes Mellitus Type 1: Yes - HEMATOLOGICAL/ONCOLOGICAL Hx Blood Transfusions: No Hx Blood Transfusion Reaction: No - INTEGUMENTARY Hx Dermatological Problems: No - MUSCULOSKELETAL/RHEUMATOLOGICAL Hx Arthritis: No Hx Rheumatoid Arthritis: No - GASTROINTESTINAL Hx Gastrointestinal Disorders: Yes (GI Bleed) Hx Gastroesophageal Reflux: No - GENITOURINARY/GYNECOLOGICAL Hx Genitourinary Disorders: Yes Hx Incontinence: Yes - PSYCHIATRIC Hx Bipolar Disorder: Yes Hx Emotional Abuse: No Hx Physical Abuse: No Hx Schizophrenia: Yes Hx Sexual Abuse: No Hx Substance Use: No - SURGICAL HISTORY Hx Coronary Stent: Yes - ANESTHESIA Hx Anesthesia: Yes Hx Anesthesia Reactions: No Hx Malignant Hyperthermia: No Meds Allergies/Adverse Reactions: Allergies Allergy/AdvReac Type Severity Reaction Status Date / Time ceftriaxone [From Rocephin] Allergy RASH Verified 04/25/17 22:03 divalproex sodium Allergy RASH Verified 04/25/17 22:03 [From Depakote] haloperidol [From Haldol] Allergy RASH Verified 04/25/17 22:03 haloperidol lactate Allergy RASH Verified 04/25/17 22:03 [From Haldol] olanzapine [From Zyprexa] Allergy RASH Verified 04/25/17 22:03 quetiapine fumarate Allergy RASH Verified 04/25/17 22:03 [From Seroquel] risperidone [From Risperdal] Allergy RASH Verified 04/25/17 22:03 - Medications Medications: Current Medications Acetaminophen (Tylenol 325mg Tab) 650 mg PO Q8H PRN PRN Reason: Pain, Mild (1-3) Albuterol/Ipratropium (Duoneb 3 Mg/0.5 Mg (3 Ml) Ud) 3 ml IH [id number] PRN PRN Reason: Shortness of Breath Alprazolam (Xanax) 0.25 mg PO BID SHIVANI PRN Reason: Protocol Stop: 05/02/17 18:01 Last Admin: 04/25/17 17:46 Dose: 0.25 mg Alprazolam (Xanax) 0.25 mg PO BID PRN; Protocol PRN Reason: Anxiety Stop: 05/02/17 15:37 Aripiprazole (Abilify) 20 mg PO DAILY SHIVANI PRN Reason: Protocol Chlorpromazine (Thorazine) 50 mg PO DAILY SHIVANI PRN Reason: Protocol Chlorpromazine (Thorazine) 100 mg PO 2200 SHIVANI PRN Reason: Protocol Famotidine (Pepcid) 20 mg PO DAILY [facility] Ferrous Sulfate (Feosol) 324 mg PO DAILY [facility] Heparin Sodium (Porcine) (Heparin) 5,000 units SC Q8 SHIVANI PRN Reason: Protocol Levofloxacin/Dextrose (Levaquin 500mg) 500 mg in 100 mls @ 100 mls/hr IVPB DAILY [facility] Doxycycline Hyclate 100 mg/ (Sodium Chloride) 100 mls @ 100 mls/hr IVPB Q12 SHIVANI PRN Reason: Protocol Stop: 05/02/17 22:01 Meropenem 1g/NS 100mL IVPB (Meropenem 1g/Ns 100ml Ivpb) 1 gm in 100 mls @ 100 mls/hr IVPB Q8 SHIVANI PRN Reason: Protocol Stop: 05/02/17 22:01 Levetiracetam (Keppra) 750 mg PO BID [facility] Last Admin: 04/25/17 17:46 Dose: 750 mg Levothyroxine Sodium (Synthroid) 200 mcg PO 0600 SHIVANI Magnesium Hydroxide (Milk Of Magnesia) 30 ml PO BID PRN PRN Reason: Constipation Roflumilast (Daliresp) 500 mcg PO DAILY [facility]IV[facility] Physical Exam - Constitutional Appears: Non-toxic, No Acute Distress - Head Exam Head Exam: NORMAL INSPECTION - ENT Exam ENT Exam: Mucous Membranes Moist - Neck Exam Neck exam: Negative for: Meningismus - Respiratory Exam Respiratory Exam: Decreased Breath Sounds - Cardiovascular Exam Cardiovascular Exam: +S1, +S2 - GI/Abdominal Exam GI & Abdominal Exam: Soft. absent: Tenderness Results - Vital Signs Recent Vital Signs: Last Vital Signs Temp 97.6 F 04/25/17 16:00 Pulse 78 04/25/17 16:00 Resp 19 04/25/17 16:00 BP 107/45 L 04/25/17 16:00 Pulse Ox 96 04/25/17 16:00 - Labs Result Diagrams: 04/25/17 11:37 04/25/17 11:37 Labs: Laboratory Results - last 24 hr 04/25/17 04/25/17 13:25 13:25 Urine Color Yellow Urine Appearance Clear Urine pH 6.5 Ur Specific [place] 1.010 Urine Protein Negative Urine Glucose (UA) Negative Urine Ketones Negative Urine Blood Negative Urine Nitrate Negative Urine Bilirubin Negative Urine Urobilinogen 0.2 Ur Leukocyte Esterase Negative Urine Opiates Screen Negative Urine Methadone Screen Negative Ur Barbiturates Screen Negative Ur Phencyclidine Scrn Negative Ur Amphetamines Screen Negative U Benzodiazepines Scrn Negative U Oth Cocaine Metabols Negative U Cannabinoids Screen Negative Assessment & Plan - Assessment and Plan (Free Text) Plan: Assessment R/O left sided HCAP history of severe sepsis with acute encephalopathy due to urinary tract infection and left lower lobe healthcare-associated pneumonia history of urine growing Strep viridans history of septic shock S/P ventilator-dependent respiratory failure probably from hospital-acquired pneumonia in 2015 hypertension chronic obstructive lung disease chronic congestive heart failure chronic atrial fibrillation schizophrenia diabetes mellitus coronary artery disease S/P pacemaker placement obesity with body mass index of 37 Plan started patient on Doxycycline and Meropenem pending blood cx, urine cx, PCT, CT chest results will monitor clinically
[2017-04-26] MEDS ORDERED: Benzocaine/Menthol (Cepacol) Lozenge MT PRN (18:31)
[2017-04-26] MEDS: guaiFENesin-DM 600-30 mg ER Tab PO SCH (22:45)
--- NOTE | 2017-04-27 00:33 | CON ---
DATE: HISTORY OF PRESENT ILLNESS: The patient is a 71-year-old female with multiple medical issues as well as history of schizophrenia as well as dementia with behavioral disturbances. The patient was sent from [facility] for evaluation of aggressive and agitated behavior. The patient was found to have opacity on the chest x-ray, was admitted on the medical side for possible pneumonia. The patient was seen and examined today. The patient is presenting to be lethargic, was opening her eyes but falling back asleep. Was not able to participate in interview. This rfp writer is very familiar with this patient from the previous admission to the psychiatric inpatient unit, which took place in April. The patient was discharged from the psychiatric inpatient unit on 04/13/2017. The patient has history of schizophrenia. The patient has multiple allergic reactions for multiple psychotropic medications. [facility] contacted this rfp writer. Said that the patient was aggressive, agitated, was spacing out, was refusing to take her medications, but based on the history, whenever the patient is not feeling well from the medical standpoint, she would be presenting with hyperactive delirium. PHYSICAL EXAMINATION: VITAL SIGNS: Stable. Temperature is 97.6, pulse is 63, blood pressure 135/50, respiration 20, O2 saturation is 94. MEDICATIONS: Reviewed. The patient is on Xanax 0.25 mg twice a day and 0.25 mg scheduled as needed, Abilify 20 mg daily, scheduled. The patient is on Thorazine 100 mg at the nighttime and 50 mg daily. The patient was started all antibiotics. Medications were confirmed by medication list from the custodial. The patient is also on Keppra 750 twice a day. LABORATORY DATA: Labs reviewed. The patient had chest CT scan yesterday, which showed there is a persistent loculated left-sided basilar effusion surrounded by relatively thick rim capsule associated adjacent atelectasis. The patient was seen by Dr. Vigil and antibiotics were started. MENTAL STATUS EXAMINATION: The patient is lethargic, sleeping, not participating in interview. IMPRESSION: The patient has long history of schizophrenia, also dementia with behavioral disturbances. Based on the history, when the patient is not doing well from the medical standpoint, the patient could be presenting with hyperactive delirium, most likely it is the case this time as well. PLAN: All medications resumed and confirmed by the patient's custodial. The patient has power of gin operator. We will contact the patient's power of gin operator as needed. The patient is much calmer as per nursing report. Continue current management. Should you have any questions, give me a callback. Thank you very much for letting me participate in care of your patient. We will follow up and advise accordingly. Grace Pagan MD
[2017-04-27] MEDS: Meropenem 1g/NS 100mL IVPB 1 GM/100 ML PIGGYBACK IVPB SCH (05:56)
[2017-04-27] MEDS: Levothyroxine 200 MCG TAB PO SCH (05:57)
--- NOTE | 2017-04-27 08:36 | PN ---
DATE: 04/26/2017 SUBJECTIVE: This is a 72 years old female. The patient seen and examined at the bedside, looking comfortable, coughing, getting shortness of breath once in a while. Looks like congested. The patient's daughter, Ladi Melendez is on the bedside. Length of time discussion done. All questions answered. The patient is anxious. Sometimes she wants to throw things. Other time she is okay. She has a history of bipolar. She has schizophrenia. PHYSICAL EXAMINATION: VITAL SIGNS: Temperature 97.5, pulse 59, blood pressure 130/52, respiratory rate 19, oxygenation 90%. HEENT: Head is normocephalic and atraumatic. Eyes, PERRLA. Extraocular muscles intact. Conjunctivae clear. Nose patent. Mucous membrane moist. NECK: Supple. No carotid bruits. No JVD or thyromegaly. CHEST: Bilaterally symmetrical. HEART: S1 and S2 positive. LUNGS: Positive wheezing bilaterally. HEART: S1 and S2 positive. ABDOMEN: Soft. Bowel sounds present. No organomegaly. EXTREMITIES: No edema. No cyanosis. NEUROLOGIC: The patient is awake and alert. Moving all 4 extremities. No focal deficit. MEDICATIONS: Abilify, Cepacol lozenges, Daliresp, doxycycline, albuterol, ferrous sulfate, heparin, Keppra, meropenem, Pepcid, levothyroxine, Thorazine, Tylenol, and Xanax. LABORATORY DATA: White blood cells 3.4, hemoglobin 11.0, hematocrit 34.5, platelets 140. Sodium 137, potassium 4.6, BUN 22, creatinine 0.9, glucose 154. AST 19, ALT 30. ASSESSMENT AND PLAN: Mrs. Ladi Melendez is a 72-years old lady with leukopenia, anemia, hyperglycemia. Plan for CAT scan of the chest, seen by Dr. Newberry, infectious disease, looks like left-sided HCAP, history of urosepsis with acute encephalotomy due to urinary tract infection and left lower pneumonia, healthcare-associated pneumonia. Serial urine growing Staph viridans, history of septic shock, ventilatory dependent, respiratory failure, probably with hospital-acquired pneumonia in July 2016, hypertension, chronic obstructive pulmonary disease, obstructive sleep apnea syndrome, chronic congestive heart failure, aspiration, chronic atrial fibrillation, schizophrenia, diabetes mellitus, coronary artery disease, pacemaker placement, obesity, BMI is 37, started patient on doxycycline and meropenem. In the beginning, I gave few doses of Levaquin, but when infectious disease started meropenem and doxycycline, I discontinued the Levaquin. I reviewed CAT scan of the chest results. There is a persistent loculated left-sided basilar , sounded by relatively thick rimmed capsule associated with adjacent atelectasis, cholelithiasis. Length of time discussion done with the patient's daughter, Nora Bledsoe. The patient should be on aspiration precautions. Gastrointestinal and deep venous thrombosis prophylaxis. Call consult with Dr. Grace Pagan. We will follow. Ca Thacker MD MTDD
[2017-04-27] MEDS: MethylPREDNISolone 40 mg Vial IVP SCH ×3 (09:06→22:00)
[2017-04-27] MEDS: guaiFENesin-DM 600-30 mg ER Tab PO SCH ×2 (09:07→17:37)
--- NOTE | 2017-04-27 11:59 | CON ---
PULMONARY CONSULTATION DATE: 04/26/2017 REFERRING PHYSICIAN: Ca Thacker MD REASON FOR CONSULTATION: Cough, shortness of breath, hypoventilation syndrome, chronic lung disease, history of atelectasis. HISTORY OF PRESENT ILLNESS: This is a 72 years old female well known to me from previous admission. She has a history of chronic obstructive lung disease, atrial fibrillation, schizophrenia, diabetes, coronary artery disease, cardiac arrhythmia requiring pacemaker, recurrent healthcare-associated pneumonia, hypertension brought in from alf with cough, shortness of breath, and fever. Seen by infectious disease and started on antibiotics. Seen by me in the presence of daughter and son. She is fully awake, alert, and cooperative and the family at the bedside. She has suspected sleep apnea syndrome and noncompliant with the CPAP/BiPAP. No hemoptysis. No hematemesis. No hematuria. No diarrhea reported. PAST MEDICAL HISTORY: Chronic obstructive lung disease, schizophrenia, diabetes, coronary artery disease, history of coronary stent, cardiac arrhythmia, pacemaker, atrial fibrillation, recurrent UTI, and obesity. ALLERGIES: TO MULTIPLE MEDICATIONS INCLUDING ROCEPHIN, DEPAKOTE, HALDOL, OLANZAPINE, SEROQUEL, AND RISPERIDONE. FAMILY HISTORY: No significant cardiopulmonary disease reported. MEDICATIONS: She is on Abilify 20 mg daily, Cepacol lozenges q. 2 hours p.r.n., Daliresp 500 mcg daily, doxycycline 100 mg twice a day, DuoNeb q. 6 hours, ferrous sulfate 325 mg daily, heparin 5000 units subcutaneous q. 8 hours, Keppra 750 mg twice a day, meropenem 1 g IV q. 8 hours, milk of magnesia p.r.n. basis, Pepcid 20 mg daily, Synthroid 20 mcg daily, Thorazine 50 mg daily, Tylenol p.r.n., Xanax 0.25 mg b.i.d. p.r.n. and also Xanax 0.25 mg around the clock. REVIEW OF SYSTEMS: No headache. No rhinitis. Cough, sputum production, and shortness of breath. No chest pain. No nausea. No vomiting. No diarrhea. No dysuria. No leg pain or leg swelling. PHYSICAL EXAMINATION: GENERAL: Lying in the bed, mild distress secondary to cough and shortness of breath. VITAL SIGNS: Temperature is 98, heart rate 69, respiratory rate 20, blood pressure 130/52, and pulse oximetry 94% on room air. HEENT: Moist mucous membranes. , crowded airway. NECK: Short thick neck. LUNGS: Had scattered rhonchi with a long expiratory phase. HEART: S1 and S2. ABDOMEN: Soft, nontender. No organomegaly. EXTREMITIES: There is no edema. NEUROLOGICAL: Awake, alert. Follow simple commands, but confused. LABORATORY DATA: Shows hemoglobin 11.0, hematocrit 34.5, WBC 3.4, and platelets is 140. Sodium 137, potassium 4.6, chloride 98, bicarbonate 31, BUN 22, creatinine 0.9, glucose 85, calcium 9.5, AST 19, ALT 30, alkaline phosphatase 107, albumin 4.0, and procalcitonin 0.20. Microbiology shows blood cultures so far there is no growth. CAT scan of the chest done in the ER showed there is a persistent loculated left basilar effusion covered by thick rim like , some atelectasis is there, also cholelithiasis. IMPRESSION AND PLAN: Chronic obstructive lung disease with exacerbation, history of hypoventilation syndrome, high risk for sleep apnea syndrome, dementia with aggressive behavior, and morbid obesity. Case discussed with the family at bedside. All their questions answered. She is refusing to use continuous positive airway pressure therapy/bilevel positive airway pressure and family understand it. Also refusing nebulizer treatment and Daliresp 500 mcg had been started. We will also start Mucinex 600 mg twice a day, Singulair 10 mg at bedtime. Continue antibiotics. Give steroids, Solu-Medrol 20 mg twice a day for a day or so, gastric prophylaxis, and deep venous thrombosis prophylaxis. Thank you and we will follow with you. Ramírez John MD
--- NOTE | 2017-04-27 14:42 | CP.PCM.PN ---
Subjective - Date & Time of Evaluation Date of Evaluation: 04/27/17 Time of Evaluation: 11:00 - Subjective Subjective: Comfortable, not in distress, afebrile. Objective - Vital Signs/Intake and Output Vital Signs (last 24 hours): Temp Pulse Resp BP Pulse Ox 98.0 F 103 H 22 140/50 L 94 L 04/27/17 06:00 04/27/17 06:00 04/27/17 06:00 04/27/17 06:00 04/27/17 06:00 Intake and Output: 04/27/17 04/27/17 06:59 18:59 Intake Total 360 480 Balance 360 480 - Medications Medications: Current Medications Acetaminophen (Tylenol 325mg Tab) 650 mg PO Q8H PRN PRN Reason: Pain, Mild (1-3) Albuterol/Ipratropium (Duoneb 3 Mg/0.5 Mg (3 Ml) Ud) 3 ml IH [id number] PRN PRN Reason: Shortness of Breath Alprazolam (Xanax) 0.25 mg PO BID SHIVANI PRN Reason: Protocol Stop: 05/02/17 18:01 Last Admin: 04/27/17 09:06 Dose: 0.25 mg Alprazolam (Xanax) 0.25 mg PO BID PRN; Protocol PRN Reason: Anxiety Stop: 05/02/17 15:37 Aripiprazole (Abilify) 20 mg PO DAILY SHIVANI PRN Reason: Protocol Last Admin: 04/27/17 09:04 Dose: 20 mg Benzocaine/Menthol (Cepacol Sore Throat) [address] [place] Q2H PRN PRN Reason: Sore Throat Chlorpromazine (Thorazine) 50 mg PO DAILY SHIVANI PRN Reason: Protocol Last Admin: 04/27/17 09:06 Dose: 50 mg Chlorpromazine (Thorazine) 100 mg PO 2200 SHIVANI PRN Reason: Protocol Last Admin: 04/26/17 21:18 Dose: 100 mg Famotidine (Pepcid) 20 mg PO DAILY [facility] Last Admin: 04/27/17 09:04 Dose: 20 mg Ferrous Sulfate (Feosol) 324 mg PO DAILY [facility] Last Admin: 04/27/17 09:04 Dose: 324 mg Guaifenesin/Dextromethorphan (Mucinex-Dm 600-30 Mg) 1 tab PO BID [facility] Last Admin: 04/27/17 09:07 Dose: 1 tab Heparin Sodium (Porcine) (Heparin) 5,000 units SC Q8 [facility] PRN Reason: Protocol Last Admin: 04/27/17 05:55 Dose: 5,000 units Levetiracetam (Keppra) 750 mg PO BID [facility] Last Admin: 04/27/17 09:04 Dose: 750 mg Levothyroxine Sodium (Synthroid) 200 mcg PO 0600 [facility] Last Admin: 04/27/17 05:57 Dose: 200 mcg Magnesium Hydroxide (Milk Of Magnesia) 30 ml PO BID PRN PRN Reason: Constipation Methylprednisolone (Solu-Medrol) 20 mg IVP Q12 [facility] Last Admin: 04/27/17 09:06 Dose: 20 mg Montelukast Sodium (Singulair) 10 mg PO HS [facility] Roflumilast (Daliresp) 500 mcg PO DAILY [facility] Last Admin: 04/27/17 09:04 Dose: 500 mcg - Constitutional Appears: Non-toxic, No Acute Distress - Head Exam Head Exam: NORMAL INSPECTION - Neck Exam Neck Exam: absent: Meningismus - Respiratory Exam Respiratory Exam: Decreased Breath Sounds - Cardiovascular Exam Cardiovascular Exam: +S1, +S2 - GI/Abdominal Exam GI & Abdominal Exam: Soft. absent: Tenderness Assessment and Plan - Assessment and Plan (Free Text) Plan: Assessment consider COPD exacerbation; no evidence of pneumonia on CT chest, CXR, labs, physical exam coagulase negative staph in 1 of 4 blood cx bottles, consider contamination history of severe sepsis with acute encephalopathy due to urinary tract infection and left lower lobe healthcare-associated pneumonia history of urine growing Strep viridans history of septic shock S/P ventilator-dependent respiratory failure probably from hospital-acquired pneumonia in 2015 hypertension chronic obstructive lung disease chronic congestive heart failure chronic atrial fibrillation schizophrenia diabetes mellitus coronary artery disease S/P pacemaker placement obesity with body mass index of 37 Plan continue Doxycycline follow up repeat blood cx will monitor clinically reviewed Dr. John's evaluation and recommendations
--- NOTE | 2017-04-27 16:24 | CP.PCM.PCO ---
Physician Communication Note - Physician Communication Note Physician Communication Note: no acute issues, will start PRN IM thorazine as needed
[2017-04-27] MEDS: Nystatin 100,000 Units/gm Cream(15 gm) TOP SCH (17:37)
[2017-04-27 18:23] VITALS: RESP 18
--- NOTE | 2017-04-27 20:26 | PN ---
PULMONARY PROGRESS NOTE DATE: 04/27/2017 REFERRING PHYSICIAN: Ca Thacker MD SUBJECTIVE: She is lying in the bed, head at 45 degrees, having lunch, feels better. Still has cough, sputum production. No nausea, vomiting or diarrhea. No leg pain or leg swelling. OBJECTIVE: GENERAL: In no acute distress. VITAL SIGNS: Temperature is 98, heart rate is 103, respiratory rate is 20, blood pressure 140/50, and pulse ox 94% on room air. HEENT: Moist mucous membranes. Crowded airway. NECK: Supple. No JVD. HEART: S1 and S2. LUNGS: Has scattered rhonchi. ABDOMEN: Soft and nontender. No organomegaly. EXTREMITIES: No edema. NEUROLOGIC: Awake, alert, does follow simple commands, but confused. LABORATORY DATA: Shows blood sugar this morning of 86. MEDICATIONS: She is on mg daily, Cepacol lozenges q.12 hours p.r.n.,Daliresp 500 mcg daily, doxycycline 100 mg twice a day, DuoNeb q.6 hours p.r.n., ferrous sulfate 325 mg daily, heparin 5000 units subcutaneously q.8 hours, Keppra 750 mg twice a day, Lasix 20 mg daily, milk of magnesia 30 mL twice a day p.r.n., Mucinex DM 600 Mycostatin affected area twice a day, Pepcid 20 mg daily, Singulair 10 mg daily, Solu-Medrol 20 mg q.12 hours, Synthroid 200 mcg daily, Thorazine 150 mg daily, Tylenol p.r.n., Xanax 0.25 mg twice a day p.r.n., also Xanax 0.25 mg twice a day round the clock. IMPRESSION AND PLAN: Chronic obstructive lung disease with exacerbation of it, probably triggered by aspiration, hyperventilation syndrome, especially when sedated, may have a component of sleep apnea syndrome, dementia with aggressive behavior, and morbid obesity. We will continue p.o. bronchodilator. The patient refused to use nebulizer treatment. Also does not use CPAP/BiPAP, been on sedative and antipsychotic medication because of her behavior. Continue Singulair, Solu-Medrol antibiotics, Daliresp, aspiration precaution, gastric prophylaxis, DVT prophylaxis, fall precaution. Thank you and I will follow with you. Ramírez John MD [facility] # [id number]
--- NOTE | 2017-04-28 04:11 | PN ---
DATE: SUBJECTIVE: The patient is 71 years old female. The patient was seen and examined on the bedside, looking comfortable. No nausea, vomiting, or diarrhea. No hematemesis or hematochezia. No swelling of the leg. Cough is better. Shortness of breath is better. No nausea or vomiting. No chest pain or palpitation. The patient is awake and alert. PHYSICAL EXAMINATION VITAL SIGNS: Temperature 98, heart rate 103, respiratory rate 20, blood pressure 140/50, and pulse oximetry 94% on room air. HEENT: Head, normocephalic and atraumatic. Eyes, PERRLA. Extraocular muscles are intact. Conjunctivae are clear. Nose is patent. NECK: Supple. No carotid bruit or JVD. No thyromegaly. CHEST: Bilaterally symmetrical. HEART: S1 and S2 positive. LUNGS: Clear to auscultation. ABDOMEN: Soft. Bowel sounds present. No organomegaly. EXTREMITIES: No edema. No cyanosis. NEUROLOGIC: The patient is awake and alert. Moving all 4 extremities. No focal deficits. LABORATORY DATA: We do not have recent lab today because the patient is refusing blood workup. Blood sugar is 86. MEDICATIONS: Cepacol lozenges, Daliresp, DuoNeb, ferrous sulfate, heparin, Keppra, Lasix, milk of magnesia, Pepcid, Singulair, Solu-Medrol, Synthroid, Thorazine, Tylenol, and Xanax. ASSESSMENT AND PLAN: The patient is a 72 years old lady with multiple medical problems of chronic lung disease with exacerbation, pneumonia, probably triggered by aspiration; hyperventilation syndrome;sleep apnea syndrome , dementia, aggressive behavior, bipolar, morbid obesity, and hypothyroidism. Continue p.o. bronchodilator. The patient is refusing nebulizer treatment. Not using CPAP or a BiPAP. Continue Singulair, Solu-Medrol, and Daliresp. Deep venous thrombosis and gastrointestinal prophylaxis. Because the patient is taking out her IV line more often, so Dr. Vigil changes her medication to p.o. We will follow up. Ca Thacker MD [facility] # [id number] MTDD
[2017-04-28] MEDS: Levothyroxine 200 MCG TAB PO SCH (05:35)
[2017-04-28 08:07] VITALS: BP 131/59; PULSE 64; TEMP 97.8; O2SAT 98
[2017-04-28] MEDS: Nystatin 100,000 Units/gm Cream(15 gm) TOP SCH (11:11)
[2017-04-28] MEDS: guaiFENesin-DM 600-30 mg ER Tab PO SCH (11:11)
--- NOTE | 2017-04-28 14:06 | CP.PCM.PN ---
Subjective - Date & Time of Evaluation Date of Evaluation: 04/28/17 Time of Evaluation: 10:55 - Subjective Subjective: Comfortable in bed, no fevers. Objective - Vital Signs/Intake and Output Vital Signs (last 24 hours): Temp Pulse Resp BP Pulse Ox 97.8 F 64 18 131/59 L 98 04/28/17 06:00 04/28/17 06:00 04/28/17 06:00 04/28/17 06:00 04/28/17 06:00 Intake and Output: 04/28/17 04/28/17 06:59 18:59 Intake Total 840 Balance 840 - Medications Medications: Current Medications Acetaminophen (Tylenol 325mg Tab) 650 mg PO Q8H PRN PRN Reason: Pain, Mild (1-3) Albuterol/Ipratropium (Duoneb 3 Mg/0.5 Mg (3 Ml) Ud) 3 ml IH [id number] PRN PRN Reason: Shortness of Breath Alprazolam (Xanax) 0.25 mg PO BID SHIVANI PRN Reason: Protocol Stop: 05/02/17 18:01 Last Admin: 04/27/17 18:09 Dose: 0.25 mg Alprazolam (Xanax) 0.25 mg PO BID PRN; Protocol PRN Reason: Anxiety Stop: 05/02/17 15:37 Aripiprazole (Abilify) 20 mg PO DAILY SHIVANI PRN Reason: Protocol Last Admin: 04/27/17 09:04 Dose: 20 mg Benzocaine/Menthol (Cepacol Sore Throat) 1 [place] Q2H PRN PRN Reason: Sore Throat Chlorpromazine (Thorazine) 50 mg PO DAILY SHIVANI PRN Reason: Protocol Last Admin: 04/27/17 09:06 Dose: 50 mg Chlorpromazine (Thorazine) 100 mg PO 2200 SHIVANI PRN Reason: Protocol Last Admin: 04/27/17 21:38 Dose: 100 mg Chlorpromazine (Thorazine) 50 mg IM Q12H PRN; Protocol PRN Reason: severe agitation Doxycycline Hyclate (Doryx) 100 mg PO Q12 SHIVANI PRN Reason: Protocol Last Admin: 04/27/17 21:38 Dose: 100 mg Famotidine (Pepcid) 20 mg PO DAILY [facility] Last Admin: 04/27/17 09:04 Dose: 20 mg Ferrous Sulfate (Feosol) 324 mg PO DAILY [facility] Last Admin: 04/27/17 09:04 Dose: 324 mg Furosemide (Lasix) 20 mg IVP DAILY [facility] Last Admin: 04/27/17 12:39 Dose: Not Given Guaifenesin/Dextromethorphan (Mucinex-Dm 600-30 Mg) 1 tab PO BID [facility] Last Admin: 04/27/17 17:37 Dose: 1 tab Heparin Sodium (Porcine) (Heparin) 5,000 units SC Q8 [facility] PRN Reason: Protocol Last Admin: 04/28/17 05:35 Dose: 5,000 units Levetiracetam (Keppra) 750 mg PO BID [facility] Last Admin: 04/27/17 17:36 Dose: 750 mg Levothyroxine Sodium (Synthroid) 200 mcg PO 0600 [facility] Last Admin: 04/28/17 05:35 Dose: 200 mcg Magnesium Hydroxide (Milk Of Magnesia) 30 ml PO BID PRN PRN Reason: Constipation Methylprednisolone (Solu-Medrol) 20 mg IVP Q12 [facility] Last Admin: 04/27/17 22:00 Dose: Not Given Montelukast Sodium (Singulair) 10 mg PO HS [facility] Last Admin: 04/27/17 21:38 Dose: 10 mg Nystatin (Mycostatin Cream) 0 ea TOP BID [facility] Last Admin: 04/27/17 17:37 Dose: Not Given Roflumilast (Daliresp) 500 mcg PO DAILY [facility] Last Admin: 04/27/17 09:04 Dose: 500 mcg - Constitutional Appears: Non-toxic, No Acute Distress - Head Exam Head Exam: NORMAL INSPECTION - ENT Exam ENT Exam: Mucous Membranes Moist - Neck Exam Neck Exam: absent: Lymphadenopathy, Meningismus - Respiratory Exam Respiratory Exam: Decreased Breath Sounds - Cardiovascular Exam Cardiovascular Exam: +S1, +S2 - GI/Abdominal Exam GI & Abdominal Exam: Soft. absent: Tenderness Assessment and Plan - Assessment and Plan (Free Text) Plan: Assessment consider COPD exacerbation; no evidence of pneumonia on CT chest, CXR, labs, physical exam coagulase negative staph in 1 of 4 blood cx bottles, consider contamination history of severe sepsis with acute encephalopathy due to urinary tract infection and left lower lobe healthcare-associated pneumonia history of urine growing Strep viridans history of septic shock S/P ventilator-dependent respiratory failure probably from hospital-acquired pneumonia in 2015 hypertension chronic obstructive lung disease chronic congestive heart failure chronic atrial fibrillation schizophrenia diabetes mellitus coronary artery disease S/P pacemaker placement obesity with body mass index of 37 Plan continue Doxycycline for another 3 days follow up repeat blood cx will continue to monitor clinically while the patient is in the hospital reviewed Dr. John's evaluation and recommendations
== END 2017-04-28 15:32 | disposition home or self-care (01) | DRG 190 ==
LOC: ED 10:30 → ERH 13:11 → 3RNO 15:25
PROVIDERS: ADMIT Internal Medicine; ATTEND Internal Medicine
DX: J44.1 Chronic obstructive pulmonary disease with (acute) exacerbation (principal); J69.0 Pneumonitis due to inhalation of food and vomit; F03.91 Unspecified dementia, unspecified severity, with behavioral disturbance; I11.0 Hypertensive heart disease with heart failure; I50.9 Heart failure, unspecified; I48.2 Chronic atrial fibrillation; G40.909 Epilepsy, unspecified, not intractable, without status epilepticus; E11.65 Type 2 diabetes mellitus with hyperglycemia; E66.01 Morbid (severe) obesity due to excess calories; E03.9 Hypothyroidism, unspecified; D64.9 Anemia, unspecified; G47.33 Obstructive sleep apnea (adult) (pediatric); I25.10 Atherosclerotic heart disease of native coronary artery without angina pectoris; F20.9 Schizophrenia, unspecified; Z68.38 Body mass index [BMI] 38.0-38.9, adult; Z95.5 Presence of coronary angioplasty implant and graft; Z95.0 Presence of cardiac pacemaker; Z87.01 Personal history of pneumonia (recurrent)

== ENCOUNTER 2017-07-14 20:09 | Emergency (ER) | payer MEDICARE, MEDICAID ==
[2017-07-14 20:09] VITALS: BMI 37.8
[2017-07-14 20:29] VITALS: TEMP 97.4
--- NOTE | 2017-07-14 21:12 | ED PDOC ---
Arrival/HPI <CarHarman - Last Filed: 07/14/17 21:17> - General Historian: Patient, [facility] <Sara Bneoit - Last Filed: 07/19/17 15:18> - General Chief Complaint: Psychiatric Evaluation Time Seen by Provider: 07/14/17 20:13 - History of Present Illness Narrative History of Present Illness (Text): 07/14/17 21:10 72-year-old female with a history of dementia and schizophrenia presents today brought in by ambulance after scratching nursing staff pulling on computer cords , sprayed perfume on staff and attempted to spray the fire extinguisher on staff at the [facility]. Patient denies any complaints. States that she is hungry. (Sara Benoit) Past Medical History - Provider Review Nursing Documentation Reviewed: Yes - Travel History Have you recently traveled outside [place] w/in the past 3 mons?: No - Infectious Disease Hx of Infectious Diseases: None - Tetanus Immunization Tetanus Immunization: Unknown - Cardiac Hx Atrial Fibrillation: Yes Hx Cardiac Arrhythmia: Yes (afib) Hx Congestive Heart Failure: Yes Hx Hypertension: Yes Hx Pacemaker: Yes - Pulmonary Hx Chronic Obstructive Pulmonary Disease (COPD): Yes Hx Pneumonia: Yes Hx Sleep Apnea: Yes - Neurological Hx Dementia: Yes Hx Seizures: Yes (Convulsions) - HEENT Hx HEENT Disorder: No - Renal Hx Renal Disorder: No Hx Kidney Stones: No - Endocrine/Metabolic Hx Hypothyroidism: Yes - Hematological/Oncological Hx Anemia: Yes - Integumentary Hx Dermatological Disorder: No - Musculoskeletal/Rheumatological Hx Arthritis: Yes Hx Fractures: Yes Hx Rheumatoid Arthritis: No - Gastrointestinal Hx Gastrointestinal Disorders: Yes Other/Comment: GI Hemorrhage - Genitourinary/Gynecological Hx Sexually Transmitted Diseases: No - Psychiatric Hx Anxiety: Yes Hx Bipolar Disorder: Yes Hx Schizophrenia: Yes Hx Substance Use: No - Past Surgical History Past Surgical History: Unable to Obtain - Surgical History Hx Coronary Stent: Yes - Anesthesia Hx Anesthesia: Yes Hx Anesthesia Reactions: No Hx Malignant Hyperthermia: No - Suicidal Assessment Feels Threatened In Home Enviroment: No <Sara Benoit - Last Filed: 07/19/17 15:18> Family/Social History - Physician Review Nursing Documentation Reviewed: Yes Family/Social History: Unknown Family HX Smoking Status: Unknown If Ever Smoked Hx Alcohol Use: No Hx Substance Use: No Hx Substance Use Treatment: No <Sara Benoit - Last Filed: 07/19/17 15:18> Allergies/Home Meds <Harman Soto - Last Filed: 07/14/17 21:17> <Sara Benoit - Last Filed: 07/19/17 15:18> Allergies/Adverse Reactions: Allergies ceftriaxone [From Rocephin] Allergy (Verified 04/25/17 22:03) RASH divalproex sodium [From Depakote] Allergy (Verified 04/25/17 22:03) RASH haloperidol [From Haldol] Allergy (Verified 04/25/17 22:03) RASH haloperidol lactate [From Haldol] Allergy (Verified 04/25/17 22:03) RASH olanzapine [From Zyprexa] Allergy (Verified 04/25/17 22:03) RASH quetiapine fumarate [From Seroquel] Allergy (Verified 04/25/17 22:03) RASH risperidone [From Risperdal] Allergy (Verified 04/25/17 22:03) RASH Home Medications: Home Meds Medication Instructions Recorded Confirmed Famotidine [Pepcid] 20 mg PO DAILY 04/25/17 07/14/17 Furosemide [Lasix] 20 mg PO DAILY 04/30/17 07/14/17 Montelukast [Singulair] 10 mg PO HS 04/30/17 07/14/17 Benztropine [Cogentin] 0.5 mg PO BID 07/14/17 07/14/17 Guaifenesin [Mucinex] 600 mg PO Q12H 07/14/17 07/14/17 LORazepam [Ativan] 0.5 mg PO Q4H PRN 07/14/17 07/14/17 Review of Systems - Review of Systems Systems not reviewed;Unavailable: Dementia Respiratory: Cough Cardiovascular: absent: Chest Pain Gastrointestinal: absent: Abdominal Pain Musculoskeletal: absent: Arthralgias Skin: absent: Rash <Sara Benoit - Last Filed: 07/19/17 15:18> Physical Exam Vital Signs Reviewed: Yes Temperature: Afebrile Blood Pressure: Normal Pulse: Regular Respiratory Rate: Normal Appearance: Positive for: Well-Appearing, Non-Toxic, Comfortable Pain Distress: None Mental Status: Positive for: other (alert) - Systems Exam Head: Present: Atraumatic Neck: Present: Normal Range of Motion Respiratory/Chest: Present: Rhonchi. No: Clear to Auscultation, Good Air Exchange, Respiratory Distress, Accessory Muscle Use Cardiovascular: Present: Regular Rate and Rhythm Abdomen: No: Tenderness, Distention, Rebound, Guarding Back: Present: Normal Inspection Upper Extremity: Present: Normal ROM Lower Extremity: Present: Normal ROM Skin: Present: Warm, Dry Psychiatric: Present: Alert, Oriented x 3 <Sara Benoit - Last Filed: 07/19/17 15:18> Vital Signs Temp Pulse Resp BP Pulse Ox 07/15/17 08:32 83 18 127/65 100 07/15/17 06:00 80 16 131/73 97 07/15/17 04:00 79 16 121/65 94 L 07/15/17 02:09 79 16 115/81 93 L 07/15/17 00:09 75 18 127/70 95 07/14/17 22:09 83 16 130/76 94 L 07/14/17 20:20 97.4 F L 74 18 150/65 96 Medical Decision Making <Harman Soto - Last Filed: 07/14/17 21:17> <Sara Benoit - Last Filed: 07/19/17 15:18> ED Course and Treatment: 07/14/17 21:17 Patient is nontoxic well-appearing in no distress vital signs are stable. CBC WNL CMP WNL Tylenol WNL Salicylate WNL Alcohol level WNL Urine drug screen wnl UA; wnl cxr: wnl ekg nsr at 77b/m no st elevations pt is medically cleared for PES evaluation pt given 0.5mg ativan IV for agitation . case discussed with dr. courtney; she would like PES evaluation as patient was very aggressive in er. case signed out to dr. soto pending pes re-evaluation and disposition. ( Sara Benoit) - Lab Interpretations Lab Results: 07/14/17 21:45 07/14/17 21:45 Lab Results 07/14/17 22:20: Urine Opiates Screen Negative, Urine Methadone Screen Negative, Ur Barbiturates Screen Negative, Ur Phencyclidine Scrn Negative, Ur Amphetamines Screen Negative, U Benzodiazepines Scrn Negative, U Oth Cocaine Metabols Negative, U Cannabinoids Screen Negative 07/14/17 22:20: Urine Color Light yellow, Urine Appearance Clear, Urine pH 6.0, Ur Specific Igo 1.010, Urine Protein Negative, Urine Glucose (UA) Negative, Urine Ketones Negative, Urine Blood Negative, Urine Nitrate Negative, Urine Bilirubin Negative, Urine Urobilinogen 0.2, Ur Leukocyte Esterase Negative 07/14/17 21:45: Alcohol, Quantitative < 10 07/14/17 21:45: Salicylates < 1 L, Acetaminophen < 10.0 L 07/14/17 21:45: Sodium 137, Potassium 4.7, Chloride 102, Carbon Dioxide 27, Anion Gap 12, BUN 25 H, Creatinine 0.9, Est GFR ( Amer) > 60, Est GFR ( Non-Af Amer) > 60, Random Glucose 95, Calcium 9.1, Total Bilirubin 0.4, AST 36 D, ALT 18, Alkaline Phosphatase 103, NT-Pro-B Natriuret Pep 120, Total Protein 7.3, Albumin 3.8, Globulin 3.4, Albumin/Globulin Ratio 1.1 07/14/17 21:45: WBC 3.2 L, RBC 3.74, Hgb 11.0 L, Hct 35.1 L, MCV 93.9, MCH 29.4 , MCHC 31.3, RDW 12.8, Plt Count 122, MPV 10.6, Gran % 54.2, Lymph % (Auto) 30.6 , [place] % (Auto) 7.6 H, Eos % (Auto) 7.3 H, Baso % (Auto) 0.3, Gran # 1.72, Lymph # 1.0 L, [place] # 0.2, Eos # 0.2, Baso # 0.01 - RAD Interpretation Radiology Orders: 07/14/17 20:33 CHEST PORTABLE [RAD] Stat - Medication Orders Current Medication Orders: Discontinued Medications Lorazepam (Ativan) 0.5 mg IVP ONCE ONE PRN Reason: Protocol Stop: 07/15/17 01:11 Last Admin: 07/15/17 01:20 Dose: 0.5 mg IVP Administration Document 07/15/17 01:20 TIFFANY (Rec: 07/15/17 01:35 TIFFANY [id number]) Charges for Administration # of IVP Administrations 1 - PA / ATHLETICS DIRECTOR / Resident Statement / has reviewed & agrees with the documentation as recorded. MD/DO has examined the patient and agrees with the treatment plan. <Harman Soto - Last Filed: 07/14/17 21:17> Disposition/Present on Arrival <Harman Soto - Last Filed: 07/14/17 21:17> - Present on Arrival Any Indicators Present on Arrival: No History of DVT/PE: No History of Uncontrolled Diabetes: No Urinary Catheter: No History of Decub. Ulcer: No History Surgical Site Infection Following: None - Disposition Have Diagnosis and Disposition been Completed?: Yes Disposition Time: 08:30 <Sara Benoit - Last Filed: 07/19/17 15:18> - Disposition Diagnosis: Depression Disposition: HOME/ ROUTINE Condition: GOOD Discharge Instructions (ExitCare): Depression (ED) Forms: [employer] ([employer])
[2017-07-14 21:59] LABS: BASO # 0.01 K/mm3 (0.0-2.0); BASO % 0.3 % (0.0-3.0); EOS # 0.2 (0.0-0.7); EOS % 7.3 % (1.5-5.0); GRAN # 1.72 (1.4-6.5); GRAN % 54.2 % (50.0-68.0); HEMATOCRIT 35.1 % (36.0-48.0); LYMPH % 30.6 % (22.0-35.0); MEAN CELL VOLUME 93.9 fl (80.0-105.0); MEAN CORPUSCULAR HEMOGLOBIN 29.4 pg (25.0-35.0); MEAN CORPUSCULAR HGB CONC 31.3 g/dl (31.0-37.0); MEAN PLATELET VOLUME 10.6 fl (7.0-11.0); MONO # 0.2 (0.1-0.6); MONO % 7.6 % (1.0-6.0); RED CELL DISTRIBUTION WIDTH 12.8 % (11.5-14.5); WHITE BLOOD COUNT 3.2 10^3/ul (4.5-11.0)
[2017-07-14 22:15] LABS: BILIRUBIN,TOTAL 0.4 mg/dL (0.2-1.3); CALCIUM 9.1 mg/dL (8.4-10.5); GFR AFRICAN-AMERICAN > 60; GLUCOSE,RANDOM 95 mg/dL (70-110)
[2017-07-14 22:25] LABS: URINE BILIRUBIN NEGATIVE (NEGATIVE); URINE BLOOD NEGATIVE (NEGATIVE); URINE GLUCOSE (UA) NEGATIVE (NEGATIVE); URINE KETONE NEGATIVE (NEGATIVE); URINE LEUKOCYTE ESTERASE NEGATIVE Leu/uL (NEGATIVE); URINE PROTEIN NEGATIVE mg/dL (<30 mg/dL); URINE UROBILINOGEN 0.2 E.U./dL (<1 E.U./dL)
[2017-07-14 22:27] LABS: URINE APPEARANCE CLEAR (CLEAR); URINE COLOR LIGHT YELLOW (YELLOW)
[2017-07-14 22:31] LABS: ALB/GLOB RATIO 1.1 (1.1-1.8); ALKALINE PHOSPHATASE 103 U/L (38-126); ALT/SGPT 18 U/L (7-56); AST/SGOT 36 U/L (14-36); BLOOD UREA NITROGEN 25 mg/dL (7-21); CARBON DIOXIDE 27 mmol/L (21-33); CHLORIDE 102 mmol/L (98-107); POTASSIUM 4.7 mmol/L (3.6-5.0); SODIUM 137 mmol/L (132-148); TOTAL PROTEIN 7.3 g/dL (5.8-8.3)
[2017-07-15 08:33] VITALS: BP 127/65; PULSE 83; RESP 18; O2SAT 100
--- NOTE | 2017-07-15 08:58 | RAD ---
HISTORY: pes eval COMPARISON: 04/25/2017 FINDINGS: LUNGS: No active pulmonary disease. PLEURA: No significant pleural effusion identified, no pneumothorax apparent. CARDIOVASCULAR: Cardiomegaly. No evidence of acute, significant cardiovascular disease. Position/ configuration of pacemaker Satisfactory. OSSEOUS STRUCTURES: No significant abnormalities. VISUALIZED UPPER ABDOMEN: GoNormal. OTHER FINDINGS: None. IMPRESSION: No active disease. No significant interval change compared to the prior examination(s).
--- NOTE | 2017-07-15 16:21 | CARD ---
APPROVED REPORT EKG Measurement Heart [id number] <Conclusion> Normal sinus rhythm Normal ECG
== END 2017-07-15 08:36 ==
LOC: ED 20:09
DX: F32.9 Major depressive disorder, single episode, unspecified (principal); F03.90 Unspecified dementia, unspecified severity, without behavioral disturbance, psychotic disturbance, mood disturbance, and anxiety; F20.9 Schizophrenia, unspecified; I48.91 Unspecified atrial fibrillation; J44.9 Chronic obstructive pulmonary disease, unspecified; I50.9 Heart failure, unspecified; I10 Essential (primary) hypertension; E03.9 Hypothyroidism, unspecified
CPT/HCPCS: 71010; 80053; 81003; 83880; 85025; 90791; 93005; 96374; 99285; G0480; J2060

== ENCOUNTER 2018-10-04 15:31 | Outpatient (CLI) | payer MEDICARE | END 2018-10-04 15:32 | disposition home or self-care (01) | LOC: RAD 15:31 | DX: G40.909 Epilepsy, unspecified, not intractable, without status epilepticus (principal) ==